=== PATIENT | female | born 1945 | race Caucasian/White ===

== ENCOUNTER → 2017-01-27 | Outpatient (CLI) | payer BC ==
[~2017-01-27] MED LIST: AMLO10TA4 PO; ASCA500 PO; ASCO10003 PO; ASPI325T39 PO; CEPH500C PO; CHOL100010 PO; CIPR0.3S OP; CYAN100020 PO; FOLI1TAB7 PO; GING1CAP PO; HYZ/10015 PO; LEVO100T35 PO; LEVO100T7 PO; LEVO88TA3 PO; METF500T PO; MISCCAP8 PO
--- NOTE | 2017-01-28 16:13 | MAMMOGRAPHY REPORT ---
BILATERAL DIGITAL SCREENING MAMMOGRAM WITH CAD: 01/27/2017 CLINICAL HISTORY: Routine screening. Patient has no complaints. TECHNIQUE: Bilateral CC, MLO and repeat MLO views were obtained. Current study was also evaluated wi th a Computer Aided Detection (CAD) system. COMPARISON: Comparison is made to exams dated: 01/27/2016 mammogram, 01/23/2015 mammogram, 01/18/2014 ma mmogram, 01/16/2013 mammogram, 01/13/2012 mammogram, and 12/15/2010 mammogram - [facility] er. BREAST COMPOSITION: There are scattered areas of fibroglandular density in both breasts. FINDINGS: There are scattered benign-appearing microcalcifications in the breasts. No new suspicious mass, architectural distortion or cluster of microcalcifications is seen. IMPRESSION: ACR BI-RADS CATEGORY 1: NEGATIVE There is no mammographic evidence of malignancy. A 1 year screening mammogram is recommended. The pa tient will receive written notification of the results. Approximately 10% of breast cancers are not detected with mammography. A negative mammographic report should not delay biopsy if a clinically suggestive mass is present. Rose Aguilar M.D. ay/:01/27/2017 12:17:31 Rv Detailer: Angie TYLER(Heather)(Gina), [facility] letter sent: Normal 1/2 BI-RADS Code: ACR BI-RADS Category 1: Negative
== END | disposition home or self-care (01) ==
LOC: C.MAMM 11:23
PROVIDERS: ATTEND Obstetrics & Gynecology
DX: Z12.31 Encounter for screening mammogram for malignant neoplasm of breast (principal)

== ENCOUNTER 2017-01-28 11:56 | Emergency (ER) | payer BC ==
[~2017-01-28] VITALS: Ht 152.4 cm; Wt 113.6 kg
[~2017-01-28 11:56] MED LIST changes: -ASCO10003 PO; -CEPH500C PO; -CIPR0.3S OP; -LEVO100T7 PO; -LEVO88TA3 PO; -METF500T PO
[2017-01-28 11:58] VITALS: TEMP 36.4; Ht 152.4 cm; Wt 113.6 kg
[2017-01-28] MEDS ORDERED: ASCO10003 PO (12:10)
[2017-01-28] MEDS ORDERED: CHOL100010 PO (12:11)
[2017-01-28] MEDS ORDERED: LEVO100T7 PO (12:12)
[2017-01-28] MEDS ORDERED: PROPARACAINE HCL 0.5% OP SOLN 15 ML BTL ONE (12:41)
[2017-01-28] MEDS ORDERED: CIPR0.3S OP (13:13)
[2017-01-28 13:17] VITALS: BP 158/74; PULSE 79; O2SAT 95
--- NOTE | 2017-01-30 07:21 | EMERGENCY ROOM VISIT NOTE ---
ED Visit Note First contact with patient: 12:24 Chief Complaint: I have a contact stuck in my right eye. History of Present Illness: Ms. Rothman is a 72-year-old white female who ambulates into the ED complaining of a possible contact lens in her right eye. Patient reports last evening before bedtime she was removing her contacts and as she was attempting to remove the contact from the right eye she felt she lost the contact in her right eye. She reports she searched her eye for but was unsuccessful but continued to have the sensation that the contact was in the eye through the night. She reattempted today to remove the contact but was unable to find in her eye, but she continues to have a foreign body sensation of the eye. She has not identified any aggravating or alleviating factors related to the sensations. She has not taken any medications for these sensations. She reports she has been having some tearing of the eye and has noted some mild orbital swelling. She denies headaches, eye pain, light sensitivity, nausea/ vomiting. Review of Systems: As noted above in history of present illness. Past Medical History: Hypertension, hypothyroidism, status post bilateral knee arthroplasties. Current Medications: Medications Dose Route/Sig Max Daily Dose Days Date Category Levothyroxine Sodium 100 Mcg Tab 100 Mcg PO DAILY 90 01/28/17 Reported Vitamin D (Cholecalciferol) 1,000 Unit Tab 1,000 Units PO DAILY 01/28/17 Reported Vitamin C (Ascorbic Acid) 1,000 Mg Tab 1,000 Mg PO DAILY 01/28/17 Reported Tart Story Advanced [place] [place] 1 Cap Cap 1 Cap PO DAILY 09/15/15 Reported Saumya (Saumya (Zingiber Officinalis)) 500 Mg Cap 2 Cap PO DAILY 09/15/15 Reported Aspirin Ec (Aspirin) 325 Mg Tab 650 Mg PO DAILY 09/15/15 Reported Folvite (Folic Acid) 1 Mg Tab 1 Mg PO DAILY 09/15/15 Reported Vitamin B12 (Cyanocobalamin) 1,000 Mcg Tab 1 Tab PO DAILY 09/15/15 Reported Hyzaar 25MG/100MG (HCTZ/Losartan Potassium) 1 Ea Tab 1 Tab PO DAILY 01/17/12 Reported Norvasc (Amlodipine Besylate) 10 Mg Tab 10 Mg PO DAILY 01/17/12 Reported Allergies to Medications: Bacitracin, latex, neomycin, polymyxin B, bacitracin, sulfabenzamide, sulfacetamide, sulfathiazole. Social History: Patient is not employed; she feels safe in her home environment ; she denies tobacco and alcohol use. Physical Examination: Vital Signs: Date Time Temp Pulse Resp B/P (MAP) Pulse Ox O2 Delivery O2 Flow Rate FiO2 01/28/17 13:17 79 18 158/74 95 Room Air 01/28/17 11:58 36.4 94 20 176/74 95 Room Air GENERAL: 72-year-old female in no acute distress, nontoxic-appearing, afebrile and hemodynamically stable. Patient is mildly anxious. NEUROLOGICAL: Awake, alert and oriented to person, place and time. Answering questions appropriately and following commands. Normal gait. Good hand eye coordination. SKIN: Warm, dry and pink. No soft tissue eruptions or trauma noted. HEENT: Atraumatic and normocephalic. Mild swelling without erythema preorbital area on the right. The skin does not appear cellulitic and is not hot to the touch. PERRLA. EOMI without nystagmus. Sclera is white and conjunctivae this pink without drainage. No foreign bodies were noted under the eyelids are embedded in the cornea. Anterior chamber is clear. With staining and slit lamp examination no foreign bodies; contact lenses, were found. She had 2 small corneal abrasions; one at the 12 o'clock position and one at the 7 o'clock position. ED Course: Patient is assessed as noted above. Patient's medications list was reviewed. Alcaine was used to anesthetize the eyes for examination. Patient's case was reviewed with Dr. Tillman; he independently assessed the patient we agreed on diagnostic approach, treatment, disposition and plan. Patient was educated about today's findings and instructed on her treatment plan ; she verbalizes understanding and agreement with this plan. Clinical Impression: Left corneal abrasions. Decision-Making: Initially my differential diagnosis I considered foreign body, corneal abrasion and other causes. Disposition: Patient discharged home in stable condition; prior to discharge she was reassessed and subjectively reported she was pain and symptom-free. Plan: Patient was encouraged use 650 mg of acetaminophen every 6 hours as needed for pain. Patient was prescribed Ciloxan ophthalmic drops and instructed on their use. Patient was encouraged to avoid contact use for the next 10 days. 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 Patient was encouraged return the ED sooner for uncontrolled pain, visual changes, headaches, vomiting, fevers or any new/concerning symptoms.
--- NOTE | 2017-02-01 11:45 | EDITING REQUIRED CODING QUERY ---
CODING QUERY To promote full compliance with coding requirements relating to patient care, provider participation is requested in all cases of rehab/pre vocational counselor uncertainty. Please assist us with the question(s) below: Coding Question(s): ED note states pt had feeling of foreign body in right eye. Final Impression states Corneal Abrasion of LEFT eye. Please clarify which eye is correct. Physician's Response(s): Corneal Abrasion Right Eye Thank you Johanne Horowitz Principal Diagnosis: "_that condition established after study, to be chiefly responsible for occasioning the admission of the patient to the hospital for care." Co-Existing Principal Diagnosis: "_when two or more diagnoses equally meet the criteria for principal diagnosis as determined by the circumstances of admission, diagnostic work up, and/or therapy provided, and the Alphabetic Index, Tabular List, or another coding guideline does not provide sequencing direction, any one of the diagnoses may be sequenced first." "When the physician has documented what appears to be a current diagnosis in the body of the record, but has not included the diagnosis in the final diagnostic statement, the physician should be asked whether the diagnosis should be added." (Source Coding [facility] 2 QTR90. p3-4)
== END 2017-01-28 13:24 | disposition home or self-care (01) ==
LOC: C.EDB 11:57 → C.EDD 13:24
DX: S05.01XA Injury of conjunctiva and corneal abrasion without foreign body, right eye, initial encounter (principal); X58.XXXA Exposure to other specified factors, initial encounter; I10 Essential (primary) hypertension; E03.9 Hypothyroidism, unspecified; Z96.653 Presence of artificial knee joint, bilateral

== ENCOUNTER → 2017-03-09 | Outpatient (CLI) | payer BC ==
[~2017-03-09] MED LIST changes: -ASCA500 PO; +ASCO10003 PO; +CEPH500C PO; -LEVO100T35 PO; +LEVO100T7 PO; +LEVO88TA3 PO; +METF500T PO
[2017-03-09 15:40] LABS: BASO % 1.3 %; BASO ABS # 0.15 K/uL (0-0.2); COMPLETE YES; EOS % 4.9 %; HEMATOCRIT 39.1 % (37-47); IG% 0.7 %; LYMPH % 20.6 %; LYMPH ABS # 2.42 K/uL (1.2-3.4); MEAN CELL VOLUME 88.1 fL (80-100); MEAN CORPUSCULAR HGB CONC 30.7 g/dl (32-36); MEAN PLATELET VOLUME 10.9 fL (7.4-10.4); MONO % 4.3 %; NEUT % 68.2 %; PLATELET COUNT 256 K/uL (130-400); RED BLOOD COUNT 4.44 M/uL (4.2-5.4); WHITE BLOOD COUNT 11.73 K/uL (4.8-10.8)
[2017-03-09 15:49] LABS: ALT/SGPT 58 U/L (12-78); AST/SGOT 41 U/L (15-37); BLOOD UREA NITROGEN 23 mg/dl (7-18); BUN/CREATININE RATIO 19.3 (10-20); CALCIUM 9.3 mg/dl (8.5-10.1); CARBON DIOXIDE 28 mmol/L (21-32); CHLORIDE 100 mmol/L (98-107); GLUCOSE 318 mg/dl (70-99); POTASSIUM 4.2 mmol/L (3.5-5.1); SODIUM 137 mmol/L (136-145)
[2017-03-09 15:52] LABS: CHOLESTEROL 214 mg/dl (0-200); CHOLESTEROL/HDL RATIO 4.1; HDL CHOLESTEROL 52 mg/dl; LDL CHOLESTEROL CALCULATED 91 mg/dl; TRIGLYCERIDES 354 mg/dl (0-150); VERY LOW DENSITY LIPOPROT CALC 71 mg/dl
[2017-03-09 16:00] LABS: ALKALINE PHOSPHATASE 82 U/L (45-117); BETA-HYDROXYBUTYRATE 1.93 mg/dL (0.2-2.81); THYROID STIMULATING HORMONE 0.104 uIu/ml (0.300-4.500)
== END | disposition home or self-care (01) ==
LOC: C.LAB1850 14:20
PROVIDERS: ATTEND Physician Assistant
DX: E03.9 Hypothyroidism, unspecified (principal); I10 Essential (primary) hypertension; E78.5 Hyperlipidemia, unspecified

== ENCOUNTER → 2017-04-05 | Outpatient (CLI) | payer BC | END | disposition home or self-care (01) | LOC: C.RDSM 07:00 | PROVIDERS: ATTEND Physical Medicine & Rehabilitation Sports Medicine | DX: M17.9 Osteoarthritis of knee, unspecified (principal) ==

== ENCOUNTER → 2017-04-21 | Outpatient (CLI) | payer BC | END | disposition home or self-care (01) | LOC: C.LAB1850 12:44 | PROVIDERS: ATTEND Physician Assistant | DX: E03.9 Hypothyroidism, unspecified (principal) ==

== ENCOUNTER 2017-05-08 19:33 | Emergency (ER) | payer BC ==
[~2017-05-08 19:33] MED LIST changes: -CEPH500C PO; -LEVO88TA3 PO; -METF500T PO
[2017-05-08 19:36] VITALS: TEMP 37.1; Ht 152.4 cm
[2017-05-08] MEDS ORDERED: CEFAZOLIN SOD 1000MG/55 ML D5W IV STA (20:18)
--- NOTE | 2017-05-08 20:36 | EMERGENCY ROOM VISIT NOTE ---
History Report prepared by Malik: Javier Villafana Under the Supervision of: Dr. Gloria Luu D.O. First contact with patient: 20:08 Chief Complaint: SWELLING TO EXTREMITY Stated Complaint: RT LEG SWELLING,HX KNEE REPLACEMENT History of Present Illness The patient is a 72 year old female who presents to the Emergency Room with complaints of worsening right leg swelling and redness for the past couple of days. The patient states that she was sick earlier in the week with chills, vomiting, fever, diaphoresis, though this has since resolved. She denies any recent traumas, pain, dry skin, or scratches. She states that she has a history of a knee replacement in that knee. She denies any history of cellulitis or MRSA , and she states that she is prediabetic. The patient states that she takes aspirin, blood pressure medication, and thyroid medication. Source of History: patient Onset: a couple of days ago Position: leg (right) Quality: other (swelling) Timing: worsening Note: Associated symptoms: redness Review of Systems See HPI for pertinent positives & negatives. A total of 10 systems reviewed and were otherwise negative. Past Medical & Surgical Medical Problems: (1) Hyperlipidemia (2) Hypertension (3) Osteoarthritis Surgical Problems: (1) History of knee replacement Family History Heart disease Social History Smoking Status: Never Smoker Alcohol Use: occasionally Marital Status: single Occupation Status: retired Current/Historical Medications Scheduled Amlodipine Besylate (Norvasc), 10 MG PO DAILY Ascorbic Acid (Vitamin C), 1,000 MG PO DAILY Aspirin (Aspirin Ec), 650 MG PO DAILY Cephalexin Monohydrate (Keflex), 500 MG PO QID Cholecalciferol (Vitamin D), 1,000 UNITS PO DAILY Cyanocobalamin (Vitamin B12), 1,000 MCG PO DAILY Folic Acid (Folvite), 1 MG PO DAILY Saumya (Zingiber Officinalis) (Saumya), 1,000 MG PO DAILY Hctz/Losartan (Hyzaar 25MG/100MG), 1 TAB PO DAILY Levothyroxine Sodium (Levothyroxine Sodium), 88 MCG PO DAILY Metformin Hcl (Glucophage), 1 TAB PO BID Misc Natural Products (Tart Story Advanced), 1 CAP PO DAILY Allergies Coded Allergies: Animal Dander (Unverified Allergy, Intermediate, congestion, 01/28/17) POLLEN (Unverified Allergy, Mild, sneezing, 01/28/17) Bacitracin (Verified Allergy, Unknown, ?, 01/28/17) Latex1 -Allergic Contact Dermititis (Verified Allergy, Unknown, blisters skin, 01/28/17) Neomycin (Verified Allergy, Unknown, ?, 01/28/17) Polymyxin B (Verified Allergy, Unknown, ?, 01/28/17) Sulfabenzamide (Verified Allergy, Unknown, ?, 01/28/17) Sulfacetamide (Verified Allergy, Unknown, ?, 01/28/17) Sulfathiazole (Verified Allergy, Unknown, ?, 01/28/17) Physical Exam Vital Signs Date Time Temp Pulse Resp B/P (MAP) Pulse Ox O2 Delivery O2 Flow Rate FiO2 05/09/17 01:04 91 155/74 97 05/08/17 22:30 88 20 142/72 Room Air 05/08/17 19:36 37.1 94 20 145/66 96 Room Air Physical Exam GENERAL: alert, well appearing, well nourished, no distress, non-toxic EYE EXAM: normal conjunctiva, PERRL and EOM's grossly intact OROPHARYNX: no exudate, no erythema, lips, buccal mucosa, and tongue normal and mucous membranes are moist NECK: supple, no nuchal rigidity, no adenopathy, non-tender LUNGS: Clear to auscultation. Normal chest wall mechanics HEART: no murmurs, S1 normal and S2 normal ABDOMEN: Obese, abdomen soft, non-tender, normo-active bowel sounds, no masses, no rebound or guarding. BACK: Back is symmetrical on inspection and there is no deformity, no midline tenderness, no CVA tenderness. SKIN: no rashes and no bruising UPPER EXTREMITIES: upper extremities are grossly normal. LOWER EXTREMITIES: Right lower extremity has nearly circumferential erythema and slightly increased edema which is more than the left. Mildly warm. Normal pulses. Erythema ascends proximally along the medial aspect of the right lower extremity but does not reach the peroneum. No vesicles. No sloughing. No blisters. No petechiae. NEURO EXAM: Normal sensorium, cranial nerves II-XII intact, normal speech, no weakness of arms, no weakness of legs. Gross sensation intact. Medical Decision & Procedures ER Provider Diagnostic Interpretation: Radiology results have been interpreted by the radiologist and reviewed by me. US VENOUS RIGHT LOWER EXTREMITY: No evidence of deep venous thrombosis in the right lower extremity. Vessels not well visualized due to calf edema. Laboratory Results 05/08/17 20:45 Red Blood Count 4.26, Mean Corpuscular Volume 88.0, Mean Corpuscular Hemoglobin 29.6, Mean Corpuscular Hemoglobin Concent 33.6, Mean Platelet Volume 10.2, Neutrophils (%) (Auto) 72.9, Lymphocytes (%) (Auto) 16.3, Monocytes (%) (Auto) 6.8, Eosinophils (%) (Auto) 2.6, Basophils (%) (Auto) 0.6, Neutrophils # (Auto) 10.50, Lymphocytes # (Auto) 2.35, Monocytes # (Auto) 0.98, Eosinophils # (Auto) 0.37, Basophils # (Auto) 0.09 05/08/17 20:45 Test 05/08/17 20:45 05/08/17 23:49 White Blood Count 14.41 K/uL (4.8-10.8) Red Blood Count 4.26 M/uL (4.2-5.4) Hemoglobin 12.6 g/dL (12.0-16.0) Hematocrit 37.5 % (37-47) Mean Corpuscular Volume 88.0 fL (80-100) Mean Corpuscular Hemoglobin 29.6 pg (25-34) Mean Corpuscular Hemoglobin Concent 33.6 g/dl (32-36) Platelet Count 285 K/uL (130-400) Mean Platelet Volume 10.2 fL (7.4-10.4) Neutrophils (%) (Auto) 72.9 % Lymphocytes (%) (Auto) 16.3 % Monocytes (%) (Auto) 6.8 % Eosinophils (%) (Auto) 2.6 % Basophils (%) (Auto) 0.6 % Neutrophils # (Auto) 10.50 K/uL (1.4-6.5) Lymphocytes # (Auto) 2.35 K/uL (1.2-3.4) Monocytes # (Auto) 0.98 K/uL (0.11-0.59) Eosinophils # (Auto) 0.37 K/uL (0-0.5) Basophils # (Auto) 0.09 K/uL (0-0.2) RDW Standard Deviation 47.0 fL (36.4-46.3) RDW Coefficient of Variation 14.6 % (11.5-14.5) Immature Granulocyte % (Auto) 0.8 % Immature Granulocyte # (Auto) 0.12 K/uL (0.00-0.02) Anion Gap 13.0 mmol/L (3-11) Estimated GFR () 39.9 Estimated GFR (Non- 34.4 BUN/Creatinine Ratio 18.7 (10-20) Calcium Level 9.7 mg/dl (8.5-10.1) Total Bilirubin 0.3 mg/dl (0.2-1) Direct Bilirubin 0.1 mg/dl (0-0.2) Aspartate Amino Transf (AST/SGOT) 29 U/L (15-37) Alanine Aminotransferase (ALT/SGPT) 39 U/L (12-78) Alkaline Phosphatase 103 U/L (45-117) Total Protein 8.3 gm/dl (6.4-8.2) Albumin 3.4 gm/dl (3.4-5.0) Triglycerides Level 348 mg/dl (0-150) Cholesterol Level 223 mg/dl (0-200) HDL Cholesterol 43 mg/dl LDL Cholesterol, Calculated 110 mg/dl VLDL Cholesterol, Calculated 70 mg/dl Cholesterol/HDL Ratio 5.2 Beta-Hydroxybutyric Acid 1.34 mg/dL (0.2-2.81) Bedside Glucose 247 mg/dl (70-90) Laboratory results per my review. Medications Administered Medications (Trade) Dose Ordered Sig/Tomasa Route Start Time Stop Time Status Last Admin Dose Admin Cefazolin Sodium (Ancef 1000mg/55 ml D5W) 1,000 mg NOW STAT IV 05/08/17 20:18 05/08/17 20:21 DC 05/08/17 20:45 1,000 MG Sodium Chloride 1,000 ml @ 999 mls/hr Q1H1M STAT IV 05/08/17 21:59 05/08/17 22:59 DC 05/08/17 22:30 999 MLS/HR Insulin Human Regular (novoLIN-R U-100 PER UNIT) 4 units NOW STAT IV 05/08/17 21:59 05/08/17 22:00 DC 05/08/17 22:35 4 UNITS Metformin HCl (Glucophage Tab) 500 mg NOW STAT PO 05/09/17 00:30 05/09/17 00:31 DC 05/09/17 00:56 500 MG Cephalexin Monohydrate (Keflex 500MG Home Pack) 1 homepack NOW ONCE PO 05/09/17 00:45 05/09/17 00:46 DC 05/09/17 00:56 1 HOMEPACK ED Course 2007: The patient was evaluated in room B6. A complete history and physical exam was performed. 2018: Cefazolin Sodium 1000mg IV 2159: Insulin Human Regular 4 units IV, Sodium Chloride 1000 ml @ 999 mls/hr IV 2359 I updated the patient on the findings, and her sugar was better. I discussed that she is actually diabetic and not prediabetic. We are going to get materials for her for diabetes education. 0028: I discussed with case management to get the patient close outpatient diabetes management and education. The patient will be discharged home. 0030: Glucophage Tab 500mg PO 0045: Cephalexin Monohydrate 1 homepack PO Medical Decision Differential diagnosis: Etiologies such as cellulitis, abscess, MRSA infection, DVT, necrotizing fasciitis, dermatitis, drug eruption, as well as others were entertained.. Examination patient's lower extremity consistent with cellulitis. Patient also found to have a new diagnosis of diabetes. Discussed with patient and medications of this diagnosis, need for close follow-up, and case management was involved to help arrange close outpatient follow-up as well as diabetes education. Patient started on metformin here following additional labs, LFTs unremarkable. Lipid panel hemoglobin A1c added also. No evidence of bacteremia /sepsis. Patient given first dose of antibiotics to the IV provided with a home pack, and prescription otherwise sent to pharmacy. Discussed with her symptoms to watch and return for regarding the cellulitis, close follow-up regarding with the cellulitis as well as the diabetes, hydration, diabetic diet , as patient admits to eating a candy bar and having soda earlier today. No evidence of DKA. Patient verbalized understanding of all this was agreeable with plan. Patient was well-appearing at discharge and related with a steady gait, tolerating by mouth, stable vital signs. Mild renal insufficiency noted, this was discussed with patient also, likely related to current medications and dehydration. Discussed this with need to be rechecked as an outpatient by her family doctor. Medication Reconcilliation Current Medication List: was personally reviewed by me Blood Pressure Screening Patient's blood pressure: Elevated blood pressure Blood pressure disposition: Elevated BP felt to be situational Impression Primary Impression: Cellulitis Additional Impressions: Diabetes Hyperglycemia Renal insufficiency Scribe Attestation The scribe's documentation has been prepared under my direction and personally reviewed by me in its entirety. I confirm that the note above accurately reflects all work, treatment, procedures, and medical decision making performed by me. Departure Information Dispostion Home / Self-Care Prescriptions Metformin Hcl (GLUCOPHAGE) 500 Mg Tab 1 TAB PO BID for 30 Days, #60 TAB Prov: Gloria Luu, DO 05/09/17 Cephalexin Monohydrate (Keflex) 500 Mg Cap 500 MG PO QID, #28 CAP Prov: Gloria Luu, DO 05/09/17 Referrals RV. Delacruz MD (PCP) Forms HOME CARE DOCUMENTATION FORM, IMPORTANT VISIT INFORMATION, WORK / SCHOOL INSTRUCTIONS Patient Instructions My [facility] Additional Instructions Please take the antibiotics 4 times a day as prescribed. Please make sure you' re drinking plenty of water. Please start taking the new medication for your sugar twice a day as prescribed. Please follow up closely with your family doctor. Our case hardener has begun making arrangements for you to have additional education regarding your diabetes including your diet as well as checking your blood sugar daily. If the redness on your leg appears to be getting worse, spreading further, you develop blisters, sloughing of the skin, areas of bruising or small purple dots, develop fevers, vomiting, dizziness, abdominal pain, chest pain, trouble breathing, or you've any other new concerns , please return the emergency room immediately. Please have your family doctor recheck your blood sugar and kidney numbers as they were abnormal. Please drink water. Do not drink soda/coffee. Please avoid sweets/dessert as this will elevate your blood sugar also. Problem Qualifiers Primary Impression: Cellulitis Site of cellulitis: extremity Site of cellulitis of extremity: lower extremity Laterality: right Qualified Codes: L03.115 - Cellulitis of right lower limb Additional Impressions: Diabetes Diabetes mellitus type: type 2 Diabetes mellitus complication status: without complication Diabetes mellitus shelter insulin use: without long goods drier use Qualified Codes: E11.9 - Type 2 diabetes mellitus without complications
[2017-05-08] MEDS ORDERED: LEVO88TA3 PO (20:53)
[2017-05-08 21:04] LABS: BASO % 0.6 %; BASO ABS # 0.09 K/uL (0-0.2); COMPLETE YES; EOS % 2.6 %; HEMATOCRIT 37.5 % (37-47); IG% 0.8 %; LYMPH % 16.3 %; LYMPH ABS # 2.35 K/uL (1.2-3.4); MEAN CORPUSCULAR HEMOGLOBIN 29.6 pg (25-34); MEAN CORPUSCULAR HGB CONC 33.6 g/dl (32-36); MEAN PLATELET VOLUME 10.2 fL (7.4-10.4); MONO % 6.8 %; NEUT % 72.9 %; PLATELET COUNT 285 K/uL (130-400); RED BLOOD COUNT 4.26 M/uL (4.2-5.4); WHITE BLOOD COUNT 14.41 K/uL (4.8-10.8)
[2017-05-08 21:55] LABS: BLOOD UREA NITROGEN 28 mg/dl (7-18); BUN/CREATININE RATIO 18.7 (10-20); CALCIUM 9.7 mg/dl (8.5-10.1); CARBON DIOXIDE 26 mmol/L (21-32); CHLORIDE 94 mmol/L (98-107); GLUCOSE 376 mg/dl (70-99); POTASSIUM 3.4 mmol/L (3.5-5.1); SODIUM 133 mmol/L (136-145)
[2017-05-08] MEDS ORDERED: NovoLIN-R INSULIN PER UNIT CHARGE IV STA (21:59)
[2017-05-08] MEDS ORDERED: SODIUM CHLORIDE 0.9% 1000ML 1,000 ML IV STA (21:59)
[2017-05-08 22:24] LABS: BETA-HYDROXYBUTYRATE 1.34 mg/dL (0.2-2.81)
[2017-05-09 00:23] LABS: ALKALINE PHOSPHATASE 103 U/L (45-117); ALT/SGPT 39 U/L (12-78); AST/SGOT 29 U/L (15-37)
[2017-05-09] MEDS ORDERED: METFORMIN HCL 500 MG TAB PO STA (00:30)
[2017-05-09] MEDS ORDERED: METF500T PO (00:36)
[2017-05-09] MEDS ORDERED: CEPH500C PO (00:36)
[2017-05-09] MEDS ORDERED: CEPHALEXIN 500MG HOME PACK 1 EA BTL PO ONE (00:45)
[2017-05-09 00:57] LABS: CHOLESTEROL 223 mg/dl (0-200); CHOLESTEROL/HDL RATIO 5.2; HDL CHOLESTEROL 43 mg/dl; LDL CHOLESTEROL CALCULATED 110 mg/dl; TRIGLYCERIDES 348 mg/dl (0-150); VERY LOW DENSITY LIPOPROT CALC 70 mg/dl
[2017-05-09 01:04] VITALS: BP 155/74; PULSE 91; O2SAT 97
--- NOTE | 2017-05-09 05:56 | DIAGNOSTIC IMAGING REPORT ---
R VENOUS DOPP LOWER EXT UNILAT CLINICAL HISTORY: edema pain TECHNIQUE: Venous Doppler COMPARISON STUDY: None FINDINGS: Normal venous Doppler right leg IMPRESSION: Normal venous Doppler right leg The above report was generated using voice recognition software. It may contain grammatical, syntax or spelling errors. Electronically signed by: Duy Salazar M.D. 05/09/2017 5:55 AM Dictated Date/Time: 05/09/2017 5:54 AM
[2017-05-10 06:57] LABS: ESTIMATED AVERAGE GLUCOSE 258 mg/dl; HA1C FLAG Normal (Normal)
== END 2017-05-09 01:05 | disposition home or self-care (01) ==
LOC: C.EDB 19:34
DX: L03.115 Cellulitis of right lower limb (principal); E11.65 Type 2 diabetes mellitus with hyperglycemia; N28.9 Disorder of kidney and ureter, unspecified; I10 Essential (primary) hypertension; E78.5 Hyperlipidemia, unspecified; M19.90 Unspecified osteoarthritis, unspecified site; Z96.659 Presence of unspecified artificial knee joint; Z79.82 Long term (current) use of aspirin; Z79.84 Long term (current) use of oral hypoglycemic drugs; Z79.899 Other long term (current) drug therapy; Z88.2 Allergy status to sulfonamides; Z88.8 Allergy status to other drugs, medicaments and biological substances; Z91.040 Latex allergy status; Z91.09 Other allergy status, other than to drugs and biological substances; Z82.49 Family history of ischemic heart disease and other diseases of the circulatory system

== ENCOUNTER → 2017-05-18 | Outpatient (CLI) | payer BC ==
[~2017-05-18] VITALS: Ht 152.4 cm
[~2017-05-18] MED LIST changes: +CEPH500C PO; -LEVO100T7 PO; +LEVO88TA3 PO; +METF500T PO
[2017-05-18 14:26] VITALS: Ht 152.4 cm
== END | disposition home or self-care (01) ==
LOC: C.NRED 10:26
PROVIDERS: ATTEND Internal Medicine
DX: E11.9 Type 2 diabetes mellitus without complications (principal)

== ENCOUNTER → 2017-08-19 | Outpatient (CLI) | payer BC ==
[~2017-08-19] MED LIST changes: -FOLI1TAB7 PO; +FOLI1TAB8 PO; +OXYC1TAB3 PO; +TAMS0.4C38 PO
== END | disposition home or self-care (01) ==
LOC: C.NRED 13:53
PROVIDERS: ATTEND Internal Medicine
DX: E11.9 Type 2 diabetes mellitus without complications (principal)

== ENCOUNTER → 2017-09-14 | Outpatient (CLI) | payer BC ==
[~2017-09-14] MED LIST changes: -OXYC1TAB3 PO; -TAMS0.4C38 PO
[2017-09-14 12:03] LABS: BASO % 1.3 %; BASO ABS # 0.16 K/uL (0-0.2); EOS % 6.4 %; EOS ABS # 0.78 K/uL (0-0.5); HEMATOCRIT 37.1 % (37-47); HEMOGLOBIN 11.8 g/dL (12.0-16.0); IG# 0.06 K/uL (0.00-0.02); LYMPH % 22.9 %; LYMPH ABS # 2.78 K/uL (1.2-3.4); MEAN CELL VOLUME 85.1 fL (80-100); MEAN CORPUSCULAR HEMOGLOBIN 27.1 pg (25-34); MEAN CORPUSCULAR HGB CONC 31.8 g/dl (32-36); MEAN PLATELET VOLUME 10.7 fL (7.4-10.4); MONO % 6.2 %; MONO ABS # 0.75 K/uL (0.11-0.59); NEUT % 62.7 %; NEUT ABS # 7.62 K/uL (1.4-6.5); PLATELET COUNT 261 K/uL (130-400); RED CELL DISTRIBUTION WIDTH CV 15.1 % (11.5-14.5); RED CELL DISTRIBUTION WIDTH SD 46.6 fL (36.4-46.3); WHITE BLOOD COUNT 12.15 K/uL (4.8-10.8)
[2017-09-14 13:18] LABS: HEMOGLOBIN A1C 7.3 % (4.5-5.6)
[2017-09-14 13:37] LABS: ALBUMIN 3.7 gm/dl (3.4-5.0); ALT/SGPT 28 U/L (12-78); BLOOD UREA NITROGEN 24 mg/dl (7-18); CALCIUM 9.3 mg/dl (8.5-10.1); CARBON DIOXIDE 27 mmol/L (21-32); CHOLESTEROL 207 mg/dl (0-200); GLUCOSE 175 mg/dl (70-99); POTASSIUM 3.9 mmol/L (3.5-5.1); SODIUM 138 mmol/L (136-145)
[2017-09-14 13:48] LABS: ALKALINE PHOSPHATASE 69 U/L (45-117); AST/SGOT 15 U/L (15-37); LDL CHOLESTEROL CALCULATED 101 mg/dl; TOTAL PROTEIN 7.5 gm/dl (6.4-8.2)
== END | disposition home or self-care (01) ==
LOC: C.LAB1850 11:12
PROVIDERS: ATTEND Internal Medicine
DX: E11.65 Type 2 diabetes mellitus with hyperglycemia (principal); D72.829 Elevated white blood cell count, unspecified; G62.9 Polyneuropathy, unspecified; E03.9 Hypothyroidism, unspecified; Z11.59 Encounter for screening for other viral diseases

== ENCOUNTER 2017-09-24 11:30 | Emergency (ER) | payer BC ==
[~2017-09-24] VITALS: Ht 152.4 cm; Wt 106.6 kg
[2017-09-24 11:34] VITALS: TEMP 36.8; Ht 152.4 cm; Wt 106.6 kg
[2017-09-24] MEDS ORDERED: SODIUM CHLORIDE 0.9% 1000ML 1,000 ML IV STA (11:42)
[2017-09-24] MEDS ORDERED: ONDANSETRON INJ 2 MG/ML 2 ML VIAL IV STA (11:42)
[2017-09-24] MEDS ORDERED: KETOROLAC TROMETHAMINE 30 MG/ML VIAL IV STA (11:42)
--- NOTE | 2017-09-24 11:52 | EMERGENCY ROOM VISIT NOTE ---
History Report prepared by Malik: Nae Roldan Under the Supervision of: Haven JonO. First contact with patient: 11:38 Chief Complaint: FLANK PAIN Stated Complaint: BACK PAIN History of Present Illness The patient is a 72 year old female who presents to the Emergency Room with complaints of persistent left flank pain. The patient has a history of kidney stones but has not had a kidney stone approximately 20 years. She states that she noticed an acute onset of left flank pain approximately 3:00 this morning. She denies having any trauma. She did not take any medications for pain. She did not see her family doctor for these symptoms. The patient states the pain was moderate to severe. It is not worsened with movement. It does not radiate to the groin. She does not notice any rash over the flank or the abdomen. She denies having any chest pain or shortness of breath. She denies having any swelling in the legs. The patient states the pain is somewhat improved at this time. Source of History: patient Onset: 0300 Position: other (left flank) Symptom Intensity: moderate to severe Quality: other (left flank pain) Timing: other (persistent) Associated Symptoms: No chest pain, No SOB Note: The patient denies having her pain radiate to the groin, rash over the flank or the abdomen, or having any swelling in the legs. Review of Systems See HPI for pertinent positives & negatives. A total of 10 systems reviewed and were otherwise negative. Past Medical & Surgical Medical Problems: (1) Hyperlipidemia (2) Hypertension (3) Osteoarthritis Surgical Problems: (1) History of knee replacement Family History Heart disease Social History Smoking Status: Never Smoker Alcohol Use: occasionally Marital Status: single Occupation Status: retired Current/Historical Medications Scheduled Amlodipine Besylate (Norvasc), 10 MG PO DAILY Ascorbic Acid (Vitamin C), 1,000 MG PO DAILY Aspirin (Aspirin Ec), 650 MG PO DAILY Cholecalciferol (Vitamin D), 1,000 UNITS PO DAILY Cyanocobalamin (Vitamin B12), 1,000 MCG PO DAILY Folic Acid (Folvite), 1 MG PO DAILY Saumya (Zingiber Officinalis) (Saumya), 1,000 MG PO DAILY Hctz/Losartan (Hyzaar 25MG/100MG), 1 TAB PO DAILY Levothyroxine Sodium (Levothyroxine Sodium), 88 MCG PO DAILY Metformin Hcl (Glucophage), 1 TAB PO BID Misc Natural Products (Tart Story Advanced), 1 CAP PO DAILY Tamsulosin Hcl (Flomax), 0.4 MG PO DAILY Scheduled PRN Oxycodone Immediate Rel Tab (Roxicodone Ir), 1-2 TAB PO Q4H PRN for Severe Pain Allergies Coded Allergies: Animal Dander (Unverified Allergy, Intermediate, congestion, 01/28/17) POLLEN (Unverified Allergy, Mild, sneezing, 01/28/17) Bacitracin (Verified Allergy, Unknown, ?, 01/28/17) Latex1 -Allergic Contact Dermititis (Verified Allergy, Unknown, blisters skin, 01/28/17) Neomycin (Verified Allergy, Unknown, ?, 01/28/17) Polymyxin B (Verified Allergy, Unknown, ?, 01/28/17) Sulfabenzamide (Verified Allergy, Unknown, ?, 01/28/17) Sulfacetamide (Verified Allergy, Unknown, ?, 01/28/17) Sulfathiazole (Verified Allergy, Unknown, ?, 01/28/17) Physical Exam Vital Signs Date Time Temp Pulse Resp B/P (MAP) Pulse Ox O2 Delivery O2 Flow Rate FiO2 09/24/17 14:13 82 18 138/70 98 09/24/17 12:58 86 18 141/72 97 Room Air 09/24/17 11:34 36.8 109 18 180/80 99 Room Air Physical Exam GENERAL: Patient is awake and alert. She appears anxious and uncomfortable. EYES: The conjunctivae are clear. The pupils are round and reactive. EARS, NOSE, MOUTH AND THROAT: The nose is without any evidence of any deformity. Mucous membranes are moist tongue is midline NECK: The neck is nontender and supple. RESPIRATORY: Normal respiratory effort is noted there is no evidence of wheezing rhonchi or rales CARDIOVASCULAR: Regular rate and rhythm noted there no murmurs rubs or gallops normal S1 normal S2 GASTROINTESTINAL: The abdomen is soft. Bowel sounds are present in all quadrants. Abdomen is nontender BACK: No midline tenderness was noted. There is mild left CVA tenderness to percussion but range of motion appears intact. MUSCULOSKELETAL/EXTREMITIES: There is no evidence of gross deformity full range of motion is noted in the hips and shoulders SKIN: There is no obvious evidence of any rash. There are no petechiae, pallor or cyanosis noted. NEUROLOGIC: Patient is awake alert and oriented x3. Medical Decision & Procedures ER Provider Diagnostic Interpretation: Radiology results as stated below per my review and radiologist interpretation: ABDOMEN AND PELVIS CT WITHOUT CONTRAST CT DOSE: 1876.08 mGy.cm HISTORY: Acute left-sided flank pain left flank pain TECHNIQUE: Multiaxial CT images of the abdomen and pelvis were performed without contrast. A dose lowering technique was utilized adhering to the principles of ALARA. COMPARISON STUDY: CT 09/15/2015 FINDINGS: Partially imaged subsegmental consolidation of the medial segment right middle lobe suggests atelectasis with additional areas of atelectasis of the bilateral lung bases. Mosaic attenuation of the lung bases also noted suggesting areas of air trapping. There is no pneumatosis or pneumoperitoneum identified. Imaged inferior cardiac chambers are mildly enlarged with mitral annular, aortic annular and coronary arterial disease. Minimal marginal nodularity of the liver is again seen without ascites. There is no intrahepatic biliary ductal dilation. Ill-defined area of decreased attenuation measuring 1 cm in noted within the right hepatic lobe, image 32 series 2 which is unchanged and again indeterminate. Spleen, pancreas and gallbladder are unremarkable. Mild nodular thickening of the adrenal glands suggests hyperplasia. Low attenuating 4.8 cm lesion of the posterior interpolar left kidney suggests renal cyst. Bilateral nephrolithiasis with a 4 x 3 x 3 mm calculus of the mid left ureter at the level of L4 causing mild left-sided hydroureteronephrosis. No additional ureteral calculi. Urinary bladder is unremarkable. Uterus and adnexa are unremarkable for patient's age. Moderate atherosclerosis of the aorta. No pathologic adenopathy. Small sliding-type hiatal hernia. No bowel structure or focal bowel wall thickening. Moderate colonic diverticulosis without evidence of acute diverticulitis. Appendix appears noninflamed and nondilated. Fat filled periumbilical hernia, diastases 2.5 cm. Small fat filled right inguinal hernia also noted. The bones appear intact and mildly demineralized. Degenerative changes are seen within the SI joints, pubic symphysis and lumbar spine. Dextroscoliosis of the lumbar spine is noted. Multilevel severe discogenic degenerative changes and facet arthrosis. Grade 1 anterolisthesis L4 on L5 likely secondary to long-standing facet disease. IMPRESSION: 1. Mild left-sided hydroureteronephrosis secondary to a 4 x 3 x 3 mm calculus of the mid left ureter at the level of L4. Multiple additional nonobstructing nephrolithiasis are seen bilaterally, left greater than right. 2. Moderate colonic diverticulosis without diverticulitis. 3. Normal appendix. 4. Small sliding type hiatal hernia. 5. Small fat filled periumbilical and right inguinal hernias. 6. Additional findings as above. Electronically signed by: Pollo Ruiz M.D. 09/24/2017 12:18 PM Dictated Date/Time: 09/24/2017 12:09 PM Laboratory Results 09/24/17 11:50 Red Blood Count 4.52, Mean Corpuscular Volume 84.3, Mean Corpuscular Hemoglobin 27.2, Mean Corpuscular Hemoglobin Concent 32.3, Mean Platelet Volume 10.4, Neutrophils (%) (Auto) 72.5, Lymphocytes (%) (Auto) 18.1, Monocytes (%) (Auto) 4.5, Eosinophils (%) (Auto) 3.3, Basophils (%) (Auto) 0.9, Neutrophils # (Auto) 10.86, Lymphocytes # (Auto) 2.71, Monocytes # (Auto) 0.68, Eosinophils # (Auto) 0.49, Basophils # (Auto) 0.13 09/24/17 11:50 Test 09/24/17 11:50 09/24/17 13:00 White Blood Count 14.97 K/uL (4.8-10.8) Red Blood Count 4.52 M/uL (4.2-5.4) Hemoglobin 12.3 g/dL (12.0-16.0) Hematocrit 38.1 % (37-47) Mean Corpuscular Volume 84.3 fL (80-100) Mean Corpuscular Hemoglobin 27.2 pg (25-34) Mean Corpuscular Hemoglobin Concent 32.3 g/dl (32-36) Platelet Count 246 K/uL (130-400) Mean Platelet Volume 10.4 fL (7.4-10.4) Neutrophils (%) (Auto) 72.5 % Lymphocytes (%) (Auto) 18.1 % Monocytes (%) (Auto) 4.5 % Eosinophils (%) (Auto) 3.3 % Basophils (%) (Auto) 0.9 % Neutrophils # (Auto) 10.86 K/uL (1.4-6.5) Lymphocytes # (Auto) 2.71 K/uL (1.2-3.4) Monocytes # (Auto) 0.68 K/uL (0.11-0.59) Eosinophils # (Auto) 0.49 K/uL (0-0.5) Basophils # (Auto) 0.13 K/uL (0-0.2) RDW Standard Deviation 46.0 fL (36.4-46.3) RDW Coefficient of Variation 15.1 % (11.5-14.5) Immature Granulocyte % (Auto) 0.7 % Immature Granulocyte # (Auto) 0.10 K/uL (0.00-0.02) Anion Gap 7.0 mmol/L (3-11) Est Creatinine Clear Calc Drug Dose 54.0 ml/min Estimated GFR () 62.2 Estimated GFR (Non- 53.6 BUN/Creatinine Ratio 19.0 (10-20) Calcium Level 9.6 mg/dl (8.5-10.1) Total Bilirubin 0.5 mg/dl (0.2-1) Direct Bilirubin 0.1 mg/dl (0-0.2) Aspartate Amino Transf (AST/SGOT) 15 U/L (15-37) Alanine Aminotransferase (ALT/SGPT) 27 U/L (12-78) Alkaline Phosphatase 76 U/L (45-117) Total Protein 7.8 gm/dl (6.4-8.2) Albumin 3.7 gm/dl (3.4-5.0) Lipase 164 U/L (73-393) Urine Color YELLOW Urine Appearance CLEAR (CLEAR) Urine pH 6.0 (4.5-7.5) Urine Specific [place] 1.015 (1.000-1.030) Urine Protein NEG (NEG) Urine Glucose (UA) NEG (NEG) Urine Ketones NEG (NEG) Urine Occult Blood 2+ (NEG) Urine Nitrite NEG (NEG) Urine Bilirubin NEG (NEG) Urine Urobilinogen NEG (NEG) Urine Leukocyte Esterase NEG (NEG) Urine WBC (Auto) 1-5 /hpf (0-5) Urine RBC (Auto) 10-30 /hpf (0-4) Urine Hyaline Casts (Auto) 1-5 /lpf (0-5) Urine Epithelial Cells (Auto) 10-20 /lpf (0-5) Urine Bacteria (Auto) NEG (NEG) Laboratory results per my review. Medications Administered Medications (Trade) Dose Ordered Sig/Tomasa Route Start Time Stop Time Status Last Admin Dose Admin Sodium Chloride 1,000 ml @ 999 mls/hr Q1H1M STAT IV 09/24/17 11:42 09/24/17 12:42 DC 09/24/17 11:55 999 MLS/HR Ondansetron HCl (Zofran Inj) 4 mg NOW STAT IV 09/24/17 11:42 09/24/17 11:44 DC 09/24/17 11:55 4 MG Ketorolac Tromethamine (Toradol Inj) 30 mg NOW STAT IV 09/24/17 11:42 09/24/17 11:44 DC 09/24/17 11:56 30 MG ED Course 1140: The patient was evaluated in room B4. A complete history and physical examination were performed. 1142: Ordered Toradol Inj 30mg IV, Zofran Inj 4mg IV, and Sodium Chloride 1000ml @ 999 mls/hr. 1358: Upon reevaluation, the patient is resting comfortably. I discussed the results and treatment plan with her. She verbalized agreement of the treatment plan. The patient was discharged home. Medical Decision Prior records/ancillary studies reviewed. Triage Nursing notes reviewed. Differential diagnosis: Etiologies such as renal colic, appendicitis, diverticulitis, mesenteric ischemia, aortic pathology, infections, inflammatory bowel disease, PUD, biliary pathology, UTI, as well as others were entertained. The patient is a 72-year-old female who presented to the emergency department for an evaluation of flank pain. The patient has a history of kidney stones but she has not had a problem with kidney stones many years. The patient was treated with IV fluids IV pain medicine and IV antiemetics. I discussed patient 's laboratory and radiographic studies with her. She appears to have a ureteral calculus noted on CT. She was started on Flomax and encouraged to drink plenty of clear liquids. She was also encouraged to continue all medications as prescribed and follow-up with her primary care physician for further evaluation. Otherwise I encouraged her to return to the emergency department immediately if symptoms change worsen or the need arises. Medication Reconcilliation Current Medication List: was personally reviewed by me Blood Pressure Screening Patient's blood pressure: Normal blood pressure Blood pressure disposition: Did not require urgent referral Impression Primary Impression: Kidney stone Additional Impression: Left flank pain Scribe Attestation The scribe's documentation has been prepared under my direction and personally reviewed by me in its entirety. I confirm that the note above accurately reflects all work, treatment, procedures, and medical decision making performed by me. Departure Information Dispostion Home / Self-Care Prescriptions Tamsulosin Hcl (FLOMAX) 0.4 Mg Cap 0.4 MG PO DAILY, #10 CAP Prov: Ion Parmar, DO 09/24/17 Oxycodone Immediate Rel Tab (ROXICODONE IR) 5 Mg Tab 1-2 TAB PO Q4H Y for Severe Pain, #24 TAB Prov: Ion Parmar, DO 09/24/17 Referrals RV. Delacruz MD (PCP) Forms HOME CARE DOCUMENTATION FORM, IMPORTANT VISIT INFORMATION Patient Instructions My [facility] Additional Instructions Continue all medications as prescribed. Drink plenty of clear liquids. Continue using Motrin and Tylenol as directed for pain. Follow-up with your family doctor for reevaluation. Return to the emergency department immediately if symptoms change worsening the need arises. Problem Qualifiers
[2017-09-24 12:03] LABS: BASO % 0.9 %; BASO ABS # 0.13 K/uL (0-0.2); EOS % 3.3 %; EOS ABS # 0.49 K/uL (0-0.5); HEMATOCRIT 38.1 % (37-47); HEMOGLOBIN 12.3 g/dL (12.0-16.0); LYMPH % 18.1 %; LYMPH ABS # 2.71 K/uL (1.2-3.4); MEAN CELL VOLUME 84.3 fL (80-100); MEAN CORPUSCULAR HEMOGLOBIN 27.2 pg (25-34); MEAN CORPUSCULAR HGB CONC 32.3 g/dl (32-36); MEAN PLATELET VOLUME 10.4 fL (7.4-10.4); MONO % 4.5 %; MONO ABS # 0.68 K/uL (0.11-0.59); NEUT % 72.5 %; NEUT ABS # 10.86 K/uL (1.4-6.5); PLATELET COUNT 246 K/uL (130-400); RED CELL DISTRIBUTION WIDTH CV 15.1 % (11.5-14.5); WHITE BLOOD COUNT 14.97 K/uL (4.8-10.8)
--- NOTE | 2017-09-24 12:19 | DIAGNOSTIC IMAGING REPORT ---
ABDOMEN AND PELVIS CT WITHOUT CONTRAST CT DOSE: 1876.08 mGy.cm HISTORY: Acute left-sided flank pain left flank pain TECHNIQUE: Multiaxial CT images of the abdomen and pelvis were performed without contrast. A dose lowering technique was utilized adhering to the principles of ALARA. COMPARISON STUDY: CT 09/15/2015 FINDINGS: Partially imaged subsegmental consolidation of the medial segment right middle lobe suggests atelectasis with additional areas of atelectasis of the bilateral lung bases. Mosaic attenuation of the lung bases also noted suggesting areas of air trapping. There is no pneumatosis or pneumoperitoneum identified. Imaged inferior cardiac chambers are mildly enlarged with mitral annular, aortic annular and coronary arterial disease. Minimal marginal nodularity of the liver is again seen without ascites. There is no intrahepatic biliary ductal dilation. Ill-defined area of decreased attenuation measuring 1 cm in noted within the right hepatic lobe, image 32 series 2 which is unchanged and again indeterminate. Spleen, pancreas and gallbladder are unremarkable. Mild nodular thickening of the adrenal glands suggests hyperplasia. Low attenuating 4.8 cm lesion of the posterior interpolar left kidney suggests renal cyst. Bilateral nephrolithiasis with a 4 x 3 x 3 mm calculus of the mid left ureter at the level of L4 causing mild left-sided hydroureteronephrosis. No additional ureteral calculi. Urinary bladder is unremarkable. Uterus and adnexa are unremarkable for patient's age. Moderate atherosclerosis of the aorta. No pathologic adenopathy. Small sliding-type hiatal hernia. No bowel structure or focal bowel wall thickening. Moderate colonic diverticulosis without evidence of acute diverticulitis. Appendix appears noninflamed and nondilated. Fat filled periumbilical hernia, diastases 2.5 cm. Small fat filled right inguinal hernia also noted. The bones appear intact and mildly demineralized. Degenerative changes are seen within the SI joints, pubic symphysis and lumbar spine. Dextroscoliosis of the lumbar spine is noted. Multilevel severe discogenic degenerative changes and facet arthrosis. Grade 1 anterolisthesis L4 on L5 likely secondary to long-standing facet disease. IMPRESSION: 1. Mild left-sided hydroureteronephrosis secondary to a 4 x 3 x 3 mm calculus of the mid left ureter at the level of L4. Multiple additional nonobstructing nephrolithiasis are seen bilaterally, left greater than right. 2. Moderate colonic diverticulosis without diverticulitis. 3. Normal appendix. 4. Small sliding type hiatal hernia. 5. Small fat filled periumbilical and right inguinal hernias. 6. Additional findings as above. Electronically signed by: Plolo Ruiz M.D. 09/24/2017 12:18 PM Dictated Date/Time: 09/24/2017 12:09 PM
[2017-09-24 12:20] LABS: ALBUMIN 3.7 gm/dl (3.4-5.0); CALCIUM 9.6 mg/dl (8.5-10.1); CREATININE 1.04 mg/dl (0.60-1.20); POTASSIUM 4.2 mmol/L (3.5-5.1)
[2017-09-24 12:23] LABS: TOTAL PROTEIN 7.8 gm/dl (6.4-8.2)
[2017-09-24] MEDS ORDERED: TAMS0.4C38 PO (13:46)
[2017-09-24] MEDS ORDERED: OXYC1TAB3 PO (13:46)
[2017-09-24 14:13] VITALS: BP 138/70; PULSE 82; O2SAT 98
== END 2017-09-24 14:14 | disposition home or self-care (01) ==
LOC: C.EDB 11:31
DX: N20.0 Calculus of kidney (principal); R10.9 Unspecified abdominal pain; E78.5 Hyperlipidemia, unspecified; I10 Essential (primary) hypertension; M19.90 Unspecified osteoarthritis, unspecified site; Z79.82 Long term (current) use of aspirin; Z79.84 Long term (current) use of oral hypoglycemic drugs; Z79.899 Other long term (current) drug therapy; Z87.442 Personal history of urinary calculi; Z82.49 Family history of ischemic heart disease and other diseases of the circulatory system; Z88.1 Allergy status to other antibiotic agents; Z88.2 Allergy status to sulfonamides; Z88.8 Allergy status to other drugs, medicaments and biological substances; Z91.040 Latex allergy status

== ENCOUNTER → 2017-10-14 | Outpatient (CLI) | payer BC ==
[~2017-10-14] MED LIST changes: -CEPH500C PO; +OXYC1TAB3 PO
== END | disposition home or self-care (01) ==
LOC: C.PAPS 14:53
PROVIDERS: ATTEND Obstetrics & Gynecology
DX: Z12.4 Encounter for screening for malignant neoplasm of cervix (principal)

== ENCOUNTER → 2018-03-15 | Outpatient (CLI) | payer BC ==
[~2018-03-15] MED LIST changes: +OXYC-737 PO; -OXYC1TAB3 PO
[2018-03-15 13:28] LABS: BASO % 1.2 %; BASO ABS # 0.14 K/uL (0-0.2); EOS % 5.6 %; EOS ABS # 0.64 K/uL (0-0.5); HEMATOCRIT 37.3 % (37-47); HEMOGLOBIN 11.8 g/dL (12.0-16.0); IG# 0.05 K/uL (0.00-0.02); LYMPH % 21.8 %; LYMPH ABS # 2.47 K/uL (1.2-3.4); MEAN CELL VOLUME 84.6 fL (80-100); MEAN CORPUSCULAR HEMOGLOBIN 26.8 pg (25-34); MEAN CORPUSCULAR HGB CONC 31.6 g/dl (32-36); MEAN PLATELET VOLUME 11.2 fL (7.4-10.4); MONO % 6.4 %; MONO ABS # 0.73 K/uL (0.11-0.59); NEUT % 64.6 %; NEUT ABS # 7.32 K/uL (1.4-6.5); PLATELET COUNT 271 K/uL (130-400); RED CELL DISTRIBUTION WIDTH CV 15.3 % (11.5-14.5); RED CELL DISTRIBUTION WIDTH SD 47.1 fL (36.4-46.3); WHITE BLOOD COUNT 11.35 K/uL (4.8-10.8)
[2018-03-15 13:31] LABS: HEMOGLOBIN A1C 7.4 % (4.5-5.6)
[2018-03-15 13:41] LABS: ALBUMIN 3.8 gm/dl (3.4-5.0); ALKALINE PHOSPHATASE 76 U/L (45-117); ALT/SGPT 30 U/L (12-78); AST/SGOT 18 U/L (15-37); BLOOD UREA NITROGEN 21 mg/dl (7-18); CARBON DIOXIDE 27 mmol/L (21-32); CHOLESTEROL 213 mg/dl (0-200); CREATININE 0.97 mg/dl (0.60-1.20); GLUCOSE 155 mg/dl (70-99); LDL CHOLESTEROL CALCULATED 97 mg/dl; POTASSIUM 4.4 mmol/L (3.5-5.1); SODIUM 138 mmol/L (136-145); TOTAL PROTEIN 7.4 gm/dl (6.4-8.2)
== END | disposition home or self-care (01) ==
LOC: C.LAB1850 11:51
PROVIDERS: ATTEND Internal Medicine
DX: D72.829 Elevated white blood cell count, unspecified (principal); E11.65 Type 2 diabetes mellitus with hyperglycemia; E11.42 Type 2 diabetes mellitus with diabetic polyneuropathy; E03.9 Hypothyroidism, unspecified

== ENCOUNTER → 2018-04-11 | Outpatient (CLI) | payer BC ==
[~2018-04-11] MED LIST changes: -OXYC-737 PO
== END | disposition home or self-care (01) ==
LOC: C.RDSM 15:51
PROVIDERS: ATTEND Physical Medicine & Rehabilitation Sports Medicine
DX: Z96.653 Presence of artificial knee joint, bilateral (principal)

== ENCOUNTER 2020-04-19 19:11 | Inpatient (IN) ==
--- NOTE | 2020-04-19 20:06 | XRay Report ---
XR chest 1V portable HISTORY: 75 years-old Female weakness acute weakness COMPARISON: Chest radiograph 12/02/2011 TECHNIQUE: Portable AP view of the chest FINDINGS: Cardiac silhouette is enlarged, unchanged. Calcified plaque of the thoracic aortic arch. Hypoinflatio n with bronchovascular crowding. Right perihilar ovoid opacity years up to 5.4 cm. Mild right hemidia phragmatic elevation. Left basilar opacities. No pneumothorax or overt pulmonary edema. Pulmonary vas cular congestion. Degenerative changes of the shoulders and spine. IMPRESSION: 1. Cardiomegaly with pulmonary vascular congestion. 2. Ovoid opacity of the right perihilar distribution may be secondary to summation density. Airspace disease, adenopathy or lesion could appear similarly. Correlation with follow-up PA and lateral views of the chest recommended. 3. Mild left basilar densities suggest probable atelectasis. ACT 112: Negative or not required by law. The above report was generated using voice recognition software. It may contain grammatical, syntax o r spelling errors. Electronically signed by: Pollo Ruiz M.D. 04/19/2020 8:04 PM
--- NOTE | 2020-04-19 20:10 | Emergency Department Note ---
Impression & Plan Weakness, Stroke-like symptoms, Hyperglycemia ED Provider Note INFORMANT: Patient ED PROVIDER(S): Hadley Velasco MD CHIEF COMPLAINT: Weakness PLAN: Disposition: Admitted Condition: Good MEDICAL DECISION MAKING: Patient presented with weakness. This has been present all day. She has noticeable weakness in the left upper and left lower extremity. She also noted some upper thoracic back pain. She has a history of a meningioma. She underwent CT imaging to evaluate the spine but also to evaluate for neurologic cause such as stroke. Fortunately the CT imaging did not reveal any significant problems. Her CBC showed a mild elevation of her white blood cell count. Prior record review indicates patient has a chronic white blood cell count elevation. She had some mild hyperglycemia noted on chemistry, urinalysis was negative. Given the strokelike symptoms further management in the hospital will be necessary. Patient was in agreement. Consultation was made with the [facility] service. The patient was evaluated in the ER further management. Triage Nursing notes reviewed and agree them. Vital Signs: reviewed and remarkable for HTN Differential diagnosis: Infection, dehydration, metabolic abnormality, hypo/hyperglycemia, electrolyte disturbance, anemia, hypoxia, cardiac sources, intracerebral event, toxicologic, neurologic, as well as other pathologies. Diagnostics interpreted by me: ECG: Twelve-lead ECG reveals normal sinus rhythm at 93 bpm. There is low voltage QRS. Normal axis. No ST elevation or depression. No PACs or PVCs. Cardiac Monitoring: Cardiac monitoring ordered by me: The patient was placed on continuous cardiac monitoring and observed. It revealed a normal sinus rhythm at 80 beats per minute without ectopy or evidence of dysrhythmia. Imaging studies: CT imaging of the head and cervical spine was negative for acute process. 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 CT angiography of the neck revealed some moderate stenosis on the left side. No acute vessel occlusion per stat read. The patient's thoracic spine imaging revealed postsurgical changes but no acute process. Chest x-ray revealed no acute process. Round density noted per radiology. Recommended PA and lateral. Consultation(s): [facility], Dr. Jose Sanchez. HPI: The patient is a 75 year old female who presents to the Emergency Room with complaints of left sided weakness. This started this morning in the left arm and is progressed to the left leg. Prior history of T12 meningioma and concerned for similar symptoms. The patient also notes the following associated symptoms, mild neck pain, upper back/ shoulder pain. The patient has tried no medication relieving factors. Current pain is rated as 7/10. Pt denies LOC, headache, fevers, chills, diaphoresis, visual changes, chest pain, breathing difficulties, nausea, vomiting, abdominal pain, melena, hematochezia, urinary symptoms, numbness, weakness, lymphadenopathy, rash, or other complaints. ROS: See above HPI for pertinent positives & negatives. A total of 10 systems reviewed and were otherwise negative. PAST MEDICAL HISTORY:See Below, DM, HTN PAST SURGICAL HISTORY:See Below, TKR FAMILY HISTORY:See Below SOCIAL HISTORY:See Below lives alone HOME MEDICATIONS:See Below ALLERGIES:See Below VITALS:See Below PHYSICAL EXAMINATION: GENERAL: Awake, alert, well-appearing, in no distress HENT: Normocephalic, atraumatic. Oropharynx unremarkable. EYES: Normal conjunctiva. Sclera non-icteric. NECK: Inspection normal. Non-tender. Supple. No nuchal rigidity. FROM. No mas ses. RESPIRATORY: Clear to auscultation. No wheezes. No rales. Normal respiratory effort. CARDIAC: Normal rate. Normal rhythm. No murmurs. No rubs. Extremities warm and well perfused. Pulses equal. No JVD. GI: Soft, non-distended. No tenderness to palpation. No rebound or guarding. No masses. RECTAL: Deferred. MUSCULOSKELETAL: Atraumatic. Chest examination reveals no tenderness. The back is symmetrical on inspection without obvious abnormality. There is no CVA tenderness to palpation. No joint edema. LOWER EXTREMITIES: Calves are equal size bilaterally and non-tender. No edema. No discoloration. NEURO: Normal sensorium. Mild LUE and LLE weakness noted. Subjective decreased sensation on left. SKIN: No rash or jaundice noted. ED COURSE: Critical Care: None Hadley Velasco MD Past Med/Surg History Medical History (Updated 04/20/20 @ 01:52 by Hadley Velasco MD) Balance problems Decreased sensation of lower extremity Diabetes mellitus type 2, uncontrolled Elevated WBC count Gait disturbance Generalized osteoarthritis Hypothyroidism Menopause Obesity Peripheral neuropathy Pulmonary hypertension RVH (right ventricular hypertrophy) Schwannoma Thoracic intradural extramedullary tumor Well woman exam with routine gynecological exam Surgical History Hx of hand surgery Hx of oral surgery S/P knee surgery Family History Mother Myocardial infarction Denies family history of Ovarian cancer Prostate cancer Breast cancer Colorectal cancer Social History Smoking Status: Former smoker Hx Alcohol Use: Yes Hx Substance Use: No Preferred Language: [place]an Communication Ability: Effective Felt Checker Required: No marital status: Single Current Living Situation: Alone current occupational status: retired Feels Safe at Home: Yes Childhood Exposure to Second-Hand Smoke: Yes Dental Care, Regularly: Yes Physical Activity Frequency: 3-4 Times per Week Seatbelt Use: always Sunscreen Use: Yes Allergies Allergies Allergy/AdvReac Type Severity Reaction Status Date / Time animal dander Allergy Intermediate congestion Unverified 04/19/20 23:11 pollen extracts Allergy Mild sneezing Unverified 04/19/20 23:11 bacitracin Allergy Unknown ? Verified 04/19/20 23:11 latex Allergy Unknown blisters Verified 04/19/20 23:11 skin neomycin Allergy Unknown ? Verified 04/19/20 23:11 polymyxin B Allergy Unknown ? Verified 04/19/20 23:11 sulfabenzamide Allergy Unknown ? Verified 04/19/20 23:11 sulfacetamide Allergy Unknown ? Verified 04/19/20 23:11 sulfathiazole Allergy Unknown ? Verified 04/19/20 23:11 Home Meds Home Medications Medication Instructions Recorded Confirmed ascorbic acid (vitamin C) 500 mg 500 mg PO DAILY tab 03/30/19 04/19/20 tablet aspirin 325 mg tablet 650 mg PO HS tab 03/30/19 04/19/20 cholecalciferol (vitamin D3) 25 2,000 units PO DAILY cap 03/30/19 04/19/20 mcg (1,000 unit) capsule cyanocobalamin (vitamin B-12) 100 100 mcg PO DAILY tab 03/30/19 04/19/20 mcg tablet folic acid 800 mcg tablet 800 mcg PO DAILY 03/30/19 04/19/20 paula (Zingiber officinalis) 550 550 mg PO DAILY 03/30/19 04/19/20 mg capsule lancets 33 gauge #100 ea 03/30/19 04/16/20 Previous Rx's Medication Instructions Recorded amlodipine 10 mg tablet 10 mg PO DAILY #90 tab 04/16/20 blood sugar diagnostic #100 ea 04/16/20 levothyroxine 88 mcg tablet 88 mcg PO DAILY #90 tab 04/16/20 losartan 100 1 tab PO DAILY #90 tab 04/16/20 mg-hydrochlorothiazide 25 mg tablet metformin 500 mg tablet 500 mg PO BID #180 tab 04/16/20 nystatin-triamcinolone 100,000 1 applic TOPICAL TID #30 g 04/16/20 unit/g-0.1 % topical cream Results & Data (ED) Vital Signs Vital Signs - 24 hr 04/19/20 19:16 04/19/20 20:24 04/19/20 20:36 Temperature 37.1 C Temperature Source Oral Pulse Rate 95 H Pulse Rate [Apical] Pulse Rate from SpO2 Sensor Respiratory Rate 20 Respiratory Effort / Characteristics Respiratory Depth Normal Blood Pressure 167/77 H Blood Pressure [Right Arm] Blood Pressure Mean 107 Blood Pressure Mean [Right Arm] Pulse Oximetry 98 97 Oxygen Delivery Method Room Air Room Air Room Air Sepsis Recent Fever Within 48 Hours No Sepsis New/Unexplained Change in Mental Status N/A Sepsis Action Taken by Nursing No Action Required 04/19/20 20:39 04/19/20 21:21 04/19/20 22:35 Temperature Temperature Source Pulse Rate Pulse Rate [Apical] 95 H 92 H 90 Pulse Rate from SpO2 Sensor Respiratory Rate 18 18 18 Respiratory Effort / Characteristics Non-Labored Respiratory Depth Normal Blood Pressure Blood Pressure [Right Arm] 153/79 H 139/65 171/80 H Blood Pressure Mean Blood Pressure Mean [Right Arm] 103 89 110 Pulse Oximetry 95 93 97 Oxygen Delivery Method Room Air Room Air Room Air Sepsis Recent Fever Within 48 Hours Sepsis New/Unexplained Change in Mental Status Sepsis Action Taken by Nursing 04/19/20 23:30 04/20/20 00:02 04/20/20 00:31 Temperature Temperature Source Pulse Rate 101 H 83 Pulse Rate [Apical] 88 Pulse Rate from SpO2 Sensor 103 H 81 Respiratory Rate 18 19 18 Respiratory Effort / Characteristics Respiratory Depth Blood Pressure 169/104 H 156/97 H Blood Pressure [Right Arm] 172/85 H Blood Pressure Mean 131 120 Blood Pressure Mean [Right Arm] 114 Pulse Oximetry 96 100 95 Oxygen Delivery Method Room Air Room Air Room Air Sepsis Recent Fever Within 48 Hours Sepsis New/Unexplained Change in Mental Status Sepsis Action Taken by Nursing Laboratory Data Result diagrams: 04/19/20 20:14 04/19/20 20:14 Lab Results 04/19/20 04/19/20 04/19/20 Range/Units 20:14 20:14 20:14 WBC 11.97 H (4.8-10.8) K/uL RBC 4.17 L (4.2-5.4) M/uL Hgb 10.4 L (12.0-16.0) g/dL Hct 35.4 L (37-47) % MCV 84.9 (80-100) fL MCH 24.9 L (25-34) pg MCHC 29.4 L (32-36) g/dL RDW Std Deviation 50.4 H (36.4-46.3) fL RDW Coeff of Isidoro 16.3 H (11.5-14.5) % Plt Count 316 (130-400) K/uL MPV 10.0 (7.4-10.4) fL Immature Gran % (Auto) 0.4 % Neut % (Auto) 73.4 % Lymph % (Auto) 17.8 % Isabella % (Auto) 5.8 % Eos % (Auto) 1.9 % Baso % (Auto) 0.7 % Neut # (Auto) 8.79 H (1.4-6.5) K/uL Lymph # (Auto) 2.13 (1.2-3.4) K/uL Isabella # (Auto) 0.69 H (0.11-0.59) K/uL Eos # (Auto) 0.23 (0-0.5) K/uL Baso # (Auto) 0.08 (0-0.2) K/uL Immature Gran # (Auto) 0.05 H (0.00-0.02) K/uL Sodium 137 (136-145) mmol/L Potassium 4.1 (3.5-5.1) mmol/L Chloride 99 (98-107) mmol/L Carbon Dioxide 27 (21-32) mmol/L Anion Gap 11.0 (3-11) BUN 26 H (7-18) mg/dl Creatinine 1.27 H (0.6-1.2) mg/dl Est Cr Clr Drug Dosing Not Reportable Est GFR ( Amer) 47.8 Est GFR (Non-Af Amer) 41.2 BUN/Creatinine Ratio 20.1 H (10-20) Glucose 187 H (70-99) mg/dl Calcium 9.7 (8.5-10.1) mg/dl Total Bilirubin 0.3 (0.2-1) mg/dl AST 16 (15-37) U/L ALT 19 (12-78) U/L Alkaline Phosphatase 84 (45-117) U/L Troponin I < 0.015 (0-0.045) ng/ml Total Protein 7.5 (6.4-8.2) gm/dl Albumin 3.6 (3.4-5.0) gm/dl Globulin 3.9 (2.5-4.0) gm/dl Albumin/Globulin Ratio 0.9 (0.9-2) TSH 0.619 (0.300-4.500) uIu/ml Urine Color Urine Appearance (Clear) Urine pH (4.5-7.5) Ur Specific Robertson (1.000-1.030) Urine Protein (Negative) Urine Glucose (UA) (Negative) Urine Ketones (Negative) Urine Blood (Negative) Urine Nitrite (Negative) Urine Bilirubin (Negative) Urine Urobilinogen (Negative) Ur Leukocyte Esterase (Negative) Urine WBC (Auto) (0-5) /hpf Urine RBC (Auto) (0-4) /hpf U Hyaline Cast (Auto) (0-5) /lpf U Epithel Cells (Auto) (0-5) /lpf Urine Bacteria (Auto) (Negative) Lyme Disease IgG Ab Negative (Negative) Lyme Disease IgM Ab Negative (Negative) 04/19/20 Range/Units 21:04 WBC (4.8-10.8) K/uL RBC (4.2-5.4) M/uL Hgb (12.0-16.0) g/dL Hct (37-47) % MCV (80-100) fL MCH (25-34) pg MCHC (32-36) g/dL RDW Std Deviation (36.4-46.3) fL RDW Coeff of Isidoro (11.5-14.5) % Plt Count (130-400) K/uL MPV (7.4-10.4) fL Immature Gran % (Auto) % Neut % (Auto) % Lymph % (Auto) % Isabella % (Auto) % Eos % (Auto) % Baso % (Auto) % Neut # (Auto) (1.4-6.5) K/uL Lymph # (Auto) (1.2-3.4) K/uL Isabella # (Auto) (0.11-0.59) K/uL Eos # (Auto) (0-0.5) K/uL Baso # (Auto) (0-0.2) K/uL Immature Gran # (Auto) (0.00-0.02) K/uL Sodium (136-145) mmol/L Potassium (3.5-5.1) mmol/L Chloride (98-107) mmol/L Carbon Dioxide (21-32) mmol/L Anion Gap (3-11) BUN (7-18) mg/dl Creatinine (0.6-1.2) mg/dl Est Cr Clr Drug Dosing Est GFR ( Amer) Est GFR (Non-Af Amer) BUN/Creatinine Ratio (10-20) Glucose (70-99) mg/dl Calcium (8.5-10.1) mg/dl Total Bilirubin (0.2-1) mg/dl AST (15-37) U/L ALT (12-78) U/L Alkaline Phosphatase (45-117) U/L Troponin I (0-0.045) ng/ml Total Protein (6.4-8.2) gm/dl Albumin (3.4-5.0) gm/dl Globulin (2.5-4.0) gm/dl Albumin/Globulin Ratio (0.9-2) TSH (0.300-4.500) uIu/ml Urine Color Yellow Urine Appearance Clear (Clear) Urine pH 7.0 (4.5-7.5) Ur Specific Robertson 1.015 (1.000-1.030) Urine Protein Negative (Negative) Urine Glucose (UA) Negative (Negative) Urine Ketones Negative (Negative) Urine Blood Negative (Negative) Urine Nitrite Negative (Negative) Urine Bilirubin Negative (Negative) Urine Urobilinogen Negative (Negative) Ur Leukocyte Esterase 1+ H (Negative) Urine WBC (Auto) 5-10 H (0-5) /hpf Urine RBC (Auto) 0-4 (0-4) /hpf U Hyaline Cast (Auto) 1-5 (0-5) /lpf U Epithel Cells (Auto) >30 H (0-5) /lpf Urine Bacteria (Auto) Negative (Negative) Lyme Disease IgG Ab (Negative) Lyme Disease IgM Ab (Negative) Administered Medications Discontinued Medications Ioversol (Optiray 320 125ml) 119 ml IV ONCE ONE Stop: 04/19/20 21:55 Last Admin: 04/19/20 21:54 Dose: 119 ml Documented by: [id number] Discharge Plan Visit Data Chief Complaint: Weakness Stated Complaint: weakness in left arm and leg ED Provider: Hadley Velasco Discharge Problem: Weakness, Stroke-like symptoms, Hyperglycemia Patient Disposition: Admitted As Inpatient Discharge Instructions Interventions: ED Discharge Assessment Last Done: 04/20/20 01:03
[2020-04-19 20:37] LABS: Basophils # (auto) 0.08 K/uL (0-0.2); Basophils % (auto) 0.7 %; Eosinophils # (auto) 0.23 K/uL (0-0.5); Eosinophils % (auto) 1.9 %; Hematocrit (blood only) 35.4 % (37-47); Hemoglobin 10.4 g/dL (12.0-16.0); Immature Granulocytes # (auto) 0.05 K/uL (0.00-0.02); Immature Granulocytes % (auto) 0.4 %; Lymphocytes # (auto) 2.13 K/uL (1.2-3.4); Lymphocytes % (auto) 17.8 %; Mean Corpuscular Hemoglobin 24.9 pg (25-34); Mean Corpuscular Hgb Conc 29.4 g/dL (32-36); Mean Corpuscular Volume 84.9 fL (80-100); Monocytes # (auto) 0.69 K/uL (0.11-0.59); Monocytes % (auto) 5.8 %; Neutrophils # (auto) 8.79 K/uL (1.4-6.5); Neutrophils % (auto) 73.4 %; Platelet Count 316 K/uL (130-400); RDW Coefficient of Variation 16.3 % (11.5-14.5); RDW Standard Deviation 50.4 fL (36.4-46.3); Red Blood Count 4.17 M/uL (4.2-5.4); White Blood Count 11.97 K/uL (4.8-10.8)
[2020-04-19 20:48] LABS: Alanine Aminotransferase 19 U/L (12-78); Albumin Level 3.6 gm/dl (3.4-5.0); Aspartate Aminotransferase 16 U/L (15-37); BUN Creatinine Ratio 20.1 (10-20); Blood Urea Nitrogen 26 mg/dl (7-18); Calcium 9.7 mg/dl (8.5-10.1); Carbon Dioxide 27 mmol/L (21-32); Chloride 99 mmol/L (98-107); Est GFR (African American) 47.8; Est GFR (Non-African American) 41.2; Glucose 187 mg/dl (70-99); Potassium 4.1 mmol/L (3.5-5.1); Sodium 137 mmol/L (136-145)
[2020-04-19 20:59] LABS: Albumin Globulin Ratio 0.9 (0.9-2); Alkaline Phosphatase 84 U/L (45-117); Bilirubin,Total 0.3 mg/dl (0.2-1); Globulin 3.9 gm/dl (2.5-4.0); Thyroid Stimulating Hormone 0.619 uIu/ml (0.300-4.500); Total Protein 7.5 gm/dl (6.4-8.2); Troponin I < 0.015 ng/ml (0-0.045)
[2020-04-19] MEDS ORDERED: OPTIRAY 320 125ml IV ONE (21:54)
[2020-04-19 22:03] LABS: Appearance Urine Clear (Clear); Bacteria Urine Automated Negative (Negative); Bilirubin Urine Negative (Negative); Blood Urine Negative (Negative); Color Urine Yellow; Epithelial Cell Urine Auto >30 /lpf (0-5); Glucose Urine UA Negative (Negative); Ketones Urine Negative (Negative); Leukocyte Esterase Urine 1+ (Negative); Nitrite Urine Negative (Negative); Protein Urine Negative (Negative); Specific Gravity Urine 1.015 (1.000-1.030); Urobilinogen Urine Negative (Negative)
[2020-04-19 22:25] LABS: RBC Urine Automated 0-4 /hpf (0-4)
[2020-04-20 00:15] LABS: Lyme Ab IgG w/WB Rflx Negative (Negative); Lyme Ab IgM w/WB Rflx Negative (Negative)
--- NOTE | 2020-04-20 00:21 | History & Physical Report ---
Date of Service April 19, 2020 Assessment & Plan (1) Weakness: 75-year-old female with past medical history anemia, type 2 diabetes with neuropathy, hypertension, hyperlipidemia, hypothyroidism, osteoarthritis presents with concerns of left-sided weakness. Left-sided weakness -CT head: No ICH, mass-effect, or edema. Chronic lacunar infarct right caudate head. Mild chronic small vessel ischemic disease -Head CTA: Intracranial atherosclerosis. Patent intracranial circulation. No large vessel occlusion or aneurysm. Note is made of hypoplastic bilateral P1 segments with predominant supply of the bilateral supervisor steffen house via the p-comm's -Neck CTA: Bilateral common carotid arteries are normal in caliber. Atherosclerosis of the bilateral carotid bifurcations. Right ICA is normal in caliber. Moderate stenosis at the origin of the left ICA. Bilateral vertebral arteries are normal caliber Ideally would obtain MRI brain w/wo contrast. However patient notes that she absolutely will not tolerate MRI even with sedation, will only go an open MRI which we do not have in-house Appreciate neurology consult. Can possibly arrange for outpatient MRI Echo pending NIHSS every shift Medication management with aspirin. Patient refuses statin treatment secondary to concern of potential side effects Lipid/A1c in a.m. Fall precautions PT/OT eval is pending. Deferring SLC eval patient passed bedside swallow Hypertension Holding amlodipine, losartan/HCTZ to allow for permissive HTN DM 2 Holding home metformin We will place on SSI Hypothyroidism Continue levothyroxine 88 mcg TSH 0.619 on admission FEN/GI: HH/DM 2 diet DVT prophylaxis: Chemoprophylaxis deferred. SCDs Full code Dispo: Med telemetry History of Present Illness Chief Complaint: Weakness Primary Care Provider: Leah Hancock MD 75-year-old female with past medical history anemia, type 2 diabetes with neuropathy, hypertension, hyperlipidemia, hypothyroidism, osteoarthritis presents with concerns of left-sided weakness. Patient woke up this morning and noted left arm weakness and she was unable to lift above her head. As day progressed she noted that she had some left lower extremity weakness as well. Patient normally ambulates with crutches, however noted difficulty with this due to weakness. Patient notes that the symptoms have not worsened since onset. No previous occurrence like this ever before. Patient additionally has complaints of pain between her shoulder blades has been ongoing over the last 1.5 weeks. Patient states she has a history of T11-T12 meningioma which was surgically removed in June 2018, and this feels similar to that. Described as having a knot between her shoulder blades, nonradiating. 7 out of 10 on severity scale. She has tried aspirin and he presented for this, which have worked. No known exacerbating factors. Associated stiff neck. Patient otherwise denies any fevers, nausea, vomiting, diarrhea, chills, chills, sweats, chest pain, palpitations, shortness of breath, numbness, tingling, reflux symptoms of bowel or bladder incontinence or saddle anesthesia. Patient no other acute concerns or complaints. Pertinent labs: WBC 11.97, hemoglobin 10.4, creatinine 1.87, Trop negative. Otherwise largely unremarkable Chest x-ray: Cardiomegaly with pulmonary vascular congestion. Ovoid opacity of the right perihilar distribution may be secondary to summation density Cervical spine CT: Straightening of the C-spine. Osteopenia. No acute fracture or subluxation. Multilevel degenerative changes. Thoracic spine CT: Osteopenia. Normal vertebral body height and alignment. No acute fracture or subluxation. Previous posterior decompression of spine at T10 and T11. Head CTA: Intracranial atherosclerosis. Patent intracranial circulation. No large vessel occlusion or aneurysm. Note is made of hypoplastic bilateral P1 segments with predominant supply of the bilateral supervisor steffen house via the p-comm's. CT head: No ICH, mass-effect, or edema. Chronic lacunar infarct right caudate head. Mild chronic small vessel ischemic disease. Neck CTA: Bilateral common carotid arteries are normal in caliber. Atherosclerosis of the bilateral carotid bifurcations. Right ICA is normal in caliber. Moderate stenosis at the origin of the left ICA. Bilateral vertebral arteries are normal caliber. ER course: -- Social history: Patient denies any tobacco, alcohol, illicit drug use Allergies Allergy/AdvReac Type Severity Reaction Status Date / Time animal dander Allergy Intermediate congestion Unverified 04/19/20 23:11 pollen extracts Allergy Mild sneezing Unverified 04/19/20 23:11 bacitracin Allergy Unknown ? Verified 04/19/20 23:11 latex Allergy Unknown blisters Verified 04/19/20 23:11 skin neomycin Allergy Unknown ? Verified 04/19/20 23:11 polymyxin B Allergy Unknown ? Verified 04/19/20 23:11 sulfabenzamide Allergy Unknown ? Verified 04/19/20 23:11 sulfacetamide Allergy Unknown ? Verified 04/19/20 23:11 sulfathiazole Allergy Unknown ? Verified 04/19/20 23:11 Home Medications Home Medications Medication Instructions Recorded Confirmed Type ascorbic acid (vitamin C) 500 mg 500 mg PO DAILY tab 03/30/19 04/19/20 History tablet aspirin 325 mg tablet 650 mg PO HS tab 03/30/19 04/19/20 History cholecalciferol (vitamin D3) 25 2,000 units PO DAILY cap 03/30/19 04/19/20 History mcg (1,000 unit) capsule cyanocobalamin (vitamin B-12) 100 100 mcg PO DAILY tab 03/30/19 04/19/20 History mcg tablet folic acid 800 mcg tablet 800 mcg PO DAILY 03/30/19 04/19/20 History paula (Zingiber officinalis) 550 550 mg PO DAILY 03/30/19 04/19/20 History mg capsule lancets 33 gauge #100 ea 03/30/19 04/16/20 History amlodipine 10 mg tablet 10 mg PO DAILY #90 tab 04/16/20 04/19/20 Rx blood sugar diagnostic #100 ea 04/16/20 04/16/20 Rx levothyroxine 88 mcg tablet 88 mcg PO DAILY #90 tab 04/16/20 04/19/20 Rx losartan 100 1 tab PO DAILY #90 tab 04/16/20 04/19/20 Rx mg-hydrochlorothiazide 25 mg tablet metformin 500 mg tablet 500 mg PO BID #180 tab 04/16/20 04/19/20 Rx nystatin-triamcinolone 100,000 1 applic TOPICAL TID #30 g 04/16/20 04/19/20 Rx unit/g-0.1 % topical cream Past Med/Surg History Medical History (Updated 04/21/20 @ 11:59 by Vi Dickson DO) Balance problems Decreased sensation of lower extremity Diabetes mellitus type 2, uncontrolled Elevated WBC count Gait disturbance Generalized osteoarthritis Hypothyroidism Menopause Obesity Peripheral neuropathy Pulmonary hypertension RVH (right ventricular hypertrophy) Schwannoma Thoracic intradural extramedullary tumor Well woman exam with routine gynecological exam Surgical History Hx of hand surgery Hx of oral surgery S/P knee surgery Family History Mother Myocardial infarction Denies family history of Ovarian cancer Prostate cancer Breast cancer Colorectal cancer Social History Smoking Status: Never smoker Second Hand Exposure: No; Do You Dip or Chew Tobacco: No; Tobacco Cessation Education Requested by Patient: No Hx Alcohol Use: No Hx Substance Use: No Preferred Language: Romanian Communication Ability: Effective Nursing Assistant Required: No Beliefs That Will Affect Care: None marital status: Single Current Living Situation: Alone current occupational status: retired Other Information That Helps Us Care for You: No Feels Safe at Home: Yes Safety Concerns: Feels Safe At This Time Childhood Exposure to Second-Hand Smoke: Yes Dental Care, Regularly: Yes Physical Activity Frequency: 3-4 Times per Week Seatbelt Use: always Sunscreen Use: Yes Review of Systems Review of Systems: All systems reviewed & are unremarkable except as noted in HPI & below Physical Exam Constitutional: + obese Eyes: PERRL, conjunctivae normal, anicteric sclerae ENMT: external ear and nose normal, oropharynx normal Respiratory: normal respiratory effort, lungs clear to auscultation Cardiovascular: RRR, no murmur, no edema Gastrointestinal (Abdomen): normal bowel sounds, soft, nontender, no hepatosplenomegaly Skin: no rashes, warm and dry Neurologic: CN's II-XI intact bilaterally; no focal motor deficits Speech / Cognition: normal speech Muscle strength 5 out of 5 bilaterally UE/LE. Normal sensation UE/LE Psychiatric: A+Ox3, euthymic affect Results & Data Results & Data ([facility]) Vital Signs (Past 12 Hours) Vital Signs Temp Pulse Pulse Resp BP BP Pulse Ox 04/19/20 22:35 90 18 171/80 H 97 04/19/20 21:21 92 H 18 139/65 93 04/19/20 20:39 95 H 18 153/79 H 95 04/19/20 20:36 97 04/19/20 19:16 37.1 C 95 H 20 167/77 H 98 Laboratory Results Laboratory Results - last 24 hr 04/19/20 04/19/20 04/19/20 20:14 20:14 20:14 WBC 11.97 H RBC 4.17 L Hgb 10.4 L Hct 35.4 L MCV 84.9 MCH 24.9 L MCHC 29.4 L RDW Std Deviation 50.4 H RDW Coeff of Isidoro 16.3 H Plt Count 316 MPV 10.0 Immature Gran % (Auto) 0.4 Neut % (Auto) 73.4 Lymph % (Auto) 17.8 Armstrong % (Auto) 5.8 Eos % (Auto) 1.9 Baso % (Auto) 0.7 Neut # (Auto) 8.79 H Lymph # (Auto) 2.13 Armstrong # (Auto) 0.69 H Eos # (Auto) 0.23 Baso # (Auto) 0.08 Immature Gran # (Auto) 0.05 H Sodium 137 Potassium 4.1 Chloride 99 Carbon Dioxide 27 Anion Gap 11.0 BUN 26 H Creatinine 1.27 H Est Cr Clr Drug Dosing Not Reportable Est GFR ( Amer) 47.8 Est GFR (Non-Af Amer) 41.2 BUN/Creatinine Ratio 20.1 H Glucose 187 H Calcium 9.7 Total Bilirubin 0.3 AST 16 ALT 19 Alkaline Phosphatase 84 Troponin I < 0.015 Total Protein 7.5 Albumin 3.6 Globulin 3.9 Albumin/Globulin Ratio 0.9 TSH 0.619 Urine Color Urine Appearance Urine pH Ur Specific [place] Urine Protein Urine Glucose (UA) Urine Ketones Urine Blood Urine Nitrite Urine Bilirubin Urine Urobilinogen Ur Leukocyte Esterase Urine WBC (Auto) Urine RBC (Auto) U Hyaline Cast (Auto) U Epithel Cells (Auto) Urine Bacteria (Auto) Lyme Disease IgG Ab Pending Lyme Disease IgM Ab Pending 04/19/20 21:04 WBC RBC Hgb Hct MCV MCH MCHC RDW Std Deviation RDW Coeff of Isidoro Plt Count MPV Immature Gran % (Auto) Neut % (Auto) Lymph % (Auto) Armstrong % (Auto) Eos % (Auto) Baso % (Auto) Neut # (Auto) Lymph # (Auto) Armstrong # (Auto) Eos # (Auto) Baso # (Auto) Immature Gran # (Auto) Sodium Potassium Chloride Carbon Dioxide Anion Gap BUN Creatinine Est Cr Clr Drug Dosing Est GFR ( Amer) Est GFR (Non-Af Amer) BUN/Creatinine Ratio Glucose Calcium Total Bilirubin AST ALT Alkaline Phosphatase Troponin I Total Protein Albumin Globulin Albumin/Globulin Ratio TSH Urine Color Yellow Urine Appearance Clear Urine pH 7.0 Ur Specific [place] 1.015 Urine Protein Negative Urine Glucose (UA) Negative Urine Ketones Negative Urine Blood Negative Urine Nitrite Negative Urine Bilirubin Negative Urine Urobilinogen Negative Ur Leukocyte Esterase 1+ H Urine WBC (Auto) 5-10 H Urine RBC (Auto) 0-4 U Hyaline Cast (Auto) 1-5 U Epithel Cells (Auto) >30 H Urine Bacteria (Auto) Negative Lyme Disease IgG Ab Lyme Disease IgM Ab Code Status & VTE Plan Code Status Full Supervising Physician Co-Signing Physician Notes Attending addendum: I have physically seen this patient, have supervised the medical residents activities, and agree with the H&P unless as otherwise noted. Assessment and Plan: Left-sided weakness/TIA versus CVA- Ischemic stroke without TPA protocol order set CT head reports chronic lacunar infarct right caudate head and mild chronic small vessel ischemic disease. CTA head neck with moderate stenosis of the origin of the left ICA. Patient unable to tolerate MRI of brain, and reports can only tolerate an open MRI. Consult PT/OT/speech/neurology. Complete echocardiogram ordered and pending Continue aspirin Check hemoglobin A1c and fasting lipid panel Permissive hypertension, holding amlodipine and losartan/HCTZ this evening. Diabetes mellitus- Hold metformin Placed on Accu-Cheks before meals and at bedtime with NovoLog coverage per scale Remainder of orders and notations as noted. Resident Activity Tracking Resident Involvement: Resident Care Provided Care Provided: Adult Hospital Medicine
[2020-04-20] MEDS ORDERED: DEXTROSE 50% 50 ML SYRINGE IV PRN (01:18)
[2020-04-20] MEDS ORDERED: CARBOHYDRATES FOR HYPOGLYCEMIA PO PRN (01:18)
[2020-04-20] MEDS ORDERED: GLUCAGON FOR INJ 1 MG VIAL SQ PRN (01:18)
[2020-04-20] MEDS ORDERED: ACETAMINOPHEN 325 MG TAB PO PRN (01:18)
[2020-04-20] MEDS ORDERED: ALUMINUM/MAGNESIUM SUSP 30 ML UDC PO PRN (01:18)
[2020-04-20] MEDS ORDERED: GLUCOSE 10 TABS/TUBE PO PRN (01:18)
[2020-04-20] MEDS ORDERED: ONDANSETRON INJ 2 MG/ML 2 ML VIAL IV PRN (01:18)
[2020-04-20] MEDS ORDERED: GLUCOSE 40% GEL 15 GM TUBE PO PRN (01:18)
[2020-04-20] MEDS: LEVOTHYROXINE SODIUM 88 MCG TABLET PO SCH (06:09)
[2020-04-20 07:38] LABS: Basophils # (auto) 0.08 K/uL (0-0.2); Basophils % (auto) 0.6 %; Eosinophils # (auto) 0.49 K/uL (0-0.5); Eosinophils % (auto) 3.8 %; Hematocrit (blood only) 32.9 % (37-47); Hemoglobin 10.1 g/dL (12.0-16.0); Immature Granulocytes # (auto) 0.04 K/uL (0.00-0.02); Immature Granulocytes % (auto) 0.3 %; Lymphocytes % (auto) 20.7 %; Mean Corpuscular Hgb Conc 30.7 g/dL (32-36); Mean Corpuscular Volume 84.6 fL (80-100); Mean Platelet Volume 10.1 fL (7.4-10.4); Monocytes # (auto) 0.82 K/uL (0.11-0.59); Monocytes % (auto) 6.3 %; Neutrophils # (auto) 8.93 K/uL (1.4-6.5); Neutrophils % (auto) 68.3 %; Platelet Count 296 K/uL (130-400); RDW Coefficient of Variation 16.5 % (11.5-14.5); RDW Standard Deviation 50.2 fL (36.4-46.3); Red Blood Count 3.89 M/uL (4.2-5.4); White Blood Count 13.06 K/uL (4.8-10.8)
[2020-04-20 07:51] LABS: Estimated Average Glucose 186 mg/dl; Hemoglobin A1C 8.1 % (4.5-5.6)
[2020-04-20] MEDS: FOLIC ACID 400 MCG TAB PO SCH (08:03)
[2020-04-20] MEDS: INSULIN GLARGINE SOLOSTAR 100 UNITS/ML 3 ML PEN SC SCH ×2 (08:04→20:30)
[2020-04-20] MEDS: ASCORBIC ACID 500 MG TAB PO SCH (08:04)
[2020-04-20] MEDS: CYANOCOBALAMIN (VITAMIN B-12) 100 MCG TABLET PO SCH (08:04)
[2020-04-20] MEDS: CHOLECALCIFEROL 1,000 UNITS 25 MCG TAB PO SCH (08:04)
[2020-04-20] MEDS: INSULIN ASPART 100 UNITS/ML 3 ML PEN SC SCH ×4 (08:06→20:32)
[2020-04-20 08:10] LABS: BUN Creatinine Ratio 20.3 (10-20); Calcium 9.3 mg/dl (8.5-10.1); Creatinine Clr Calc Pharmacy 50.1 ml/min; Est GFR (African American) 59.5; Est GFR (Non-African American) 51.3; Potassium 4.3 mmol/L (3.5-5.1)
--- NOTE | 2020-04-20 08:11 | CT Scan Report ---
CERVICAL SPINE CT CT DOSE: 3032.83 mGy.cm HISTORY: left weakness, hx of spinal meningioma TECHNIQUE: Multiaxial CT images of the cervical spine were performed and reformatted in the sagittal and coronal plane without the use of contrast. A dose lowering technique was utilized adhering to th e principles of ALARA. COMPARISON: None. FINDINGS: No fractures. No subluxation. Prevertebral soft tissues and the C1-C2 interval are intact. No pneumothorax. Moderate mucosal thickening within the left maxillary sinus. Periapical lucency of a left upper molar extending into the floor of the left maxillary sinus. Moderate to severe disc space narrowing at C3-C4, C4-C5, C5-C6, and C6-C7 resulting in broad-based po sterior disc osteophyte complexes and mild central canal narrowing at these levels. There is also mil d bilateral neural foraminal narrowing. Moderate facet degenerative changes throughout the cervical s pine. IMPRESSION: No fractures within the cervical spine. Degenerative changes as described above. ACT 112: Negative or not required by law. Electronically signed by: Doni Gatica M.D. 04/20/2020 8:10 AM
--- NOTE | 2020-04-20 08:21 | CT Scan Report ---
HEAD & NECK CTA HISTORY: Left-sided weakness. TECHNIQUE: Multiaxial CT images of the head were performed both before and after the intravenous admi nistration of contrast to evaluate the major cerebral vessels. Multiaxial CT images of the neck were also performed following the intravenous administration of contrast to evaluate the major cervical ve ssels. Maximum intensity projection images were also obtained. A dose lowering technique was utilized adhering to the principles of ALARA. COMPARISON: Head CT 09/15/2015. FINDINGS: There is no mass, hematoma, midline shift, or acute infarct. Visualized intracranial internal carotid arteries, distal vertebral arteries, and basilar artery are widely patent. There is no significant s tenosis, occlusion, or aneurysm seen within the bilateral ACAs, MCAs, or communication arts lecturer. Old lacunar infarct wi thin the right caudate head. Moderate calcified plaque within the bilateral carotid siphons. The mark r dural venous sinuses appear patent. Mucosal thickening within the left maxillary sinus. The aortic arch and proximal great vessels are widely patent. Moderate calcified plaque within bila teral carotid bifurcations. No significant stenosis within the right common or internal carotid arter ies. Bilateral vertebral arteries are patent. Mild to moderate stenosis of approximately 40% at the t akeoff of the left internal carotid artery. The left common carotid artery is patent. IMPRESSION: 1. No significant stenosis, occlusion, or aneurysm within the [place]. 2. Mild to moderate stenosis at the takeoff of the left internal carotid artery of approximately 40%. 3. The right carotid arteries and bilateral vertebral arteries are widely patent. 4. No acute intracranial abnormality. 5. Old lacunar infarct within the right caudate head. ACT 112: Negative or not required by law. Electronically signed by: Doni Gatica M.D. 04/20/2020 8:19 AM
--- NOTE | 2020-04-20 08:21 | CT Scan Report ---
HEAD & NECK CTA HISTORY: Left-sided weakness. TECHNIQUE: Multiaxial CT images of the head were performed both before and after the intravenous admi nistration of contrast to evaluate the major cerebral vessels. Multiaxial CT images of the neck were also performed following the intravenous administration of contrast to evaluate the major cervical ve ssels. Maximum intensity projection images were also obtained. A dose lowering technique was utilized adhering to the principles of ALARA. COMPARISON: Head CT 09/15/2015. FINDINGS: There is no mass, hematoma, midline shift, or acute infarct. Visualized intracranial internal carotid arteries, distal vertebral arteries, and basilar artery are widely patent. There is no significant s tenosis, occlusion, or aneurysm seen within the bilateral ACAs, MCAs, or communications maintainer. Old lacunar infarct wi thin the right caudate head. Moderate calcified plaque within the bilateral carotid siphons. The mark r dural venous sinuses appear patent. Mucosal thickening within the left maxillary sinus. The aortic arch and proximal great vessels are widely patent. Moderate calcified plaque within bila teral carotid bifurcations. No significant stenosis within the right common or internal carotid arter ies. Bilateral vertebral arteries are patent. Mild to moderate stenosis of approximately 40% at the t akeoff of the left internal carotid artery. The left common carotid artery is patent. IMPRESSION: 1. No significant stenosis, occlusion, or aneurysm within the [place]. 2. Mild to moderate stenosis at the takeoff of the left internal carotid artery of approximately 40%. 3. The right carotid arteries and bilateral vertebral arteries are widely patent. 4. No acute intracranial abnormality. 5. Old lacunar infarct within the right caudate head. ACT 112: Negative or not required by law. Electronically signed by: Doni Gatica M.D. 04/20/2020 8:19 AM
--- NOTE | 2020-04-20 08:59 | CT Scan Report ---
THORACIC SPINE CT CT DOSE: HISTORY: left arm and leg weakness. Upper thoracic pain. TECHNIQUE: Multiaxial CT images of the thoracic spine were performed and reformatted in the sagittal and coronal plane without the use of contrast. A dose lowering technique was utilized adhering to th e principles of ALARA. COMPARISON: Thoracic spine CT 12/21/2015. FINDINGS: No fracture. No subluxation. Paraspinal soft tissues are unremarkable. Severe disc space na rrowing and endplate osteophytes throughout the thoracic spine. Prior T10-11 laminectomies. Suboptima l evaluation the central canal due to CT technique. However, no significant central canal narrowing i dentified. The bones are osteopenic. IMPRESSION: No fractures within the thoracic spine. ACT 112: Negative or not required by law. Electronically signed by: Doni Gatica M.D. 04/20/2020 8:57 AM
[2020-04-20] MEDS: ATORVASTATIN 40 MG TAB PO SCH (09:41)
--- NOTE | 2020-04-20 10:02 | Neurology Consultation ---
Date of Consultation April 20, 2020 Assessment & Plan (1) Stroke: This patient presents with left-sided weakness/ataxia affecting the left upper and lower limbs upon awakening yesterday morning. She does not have associated facial droop, dysarthria, diplopia, or vertigo. She does have some associated lower cervical/upper thoracic spinal pain. The acuity and timing of symptom onset is suggestive of stroke. Potential localization could include the right anterior rosas, left cerebellum, or right cerebral hemisphere. Stroke risk factors for this patient include poorly controlled diabetes mellitus, hypertension, and hyperlipidemia. However, this patient also has associated spinal pain localizing between the shoulder blades, lower cervical/upper thoracic region. Yet, she does not have a sensory level and is not myelopathic on examination. She has a severe diabetic peripheral neuropathy which may confound her examination. The remote T10-11 meningioma resection is noted but would not contribute to her proximal left upper extremity weakness or be responsible for her current presentation. She does not appear to have significant spinal stenosis on CT of the cervical or thoracic spine. An acute disc herniation with myelopathy may not be completely excluded although is not really consistent with her history or examination findings. Transverse myelitis possible although the timing/acuity of her symptoms as well as lack of associated sensory symptoms would be atypical for this diagnosis. Spinal cord stroke also possible although weakness from spinal cord ischemia is typically bilateral with involvement of the anterior spinal artery, and again she does not have an associated sensory level. I would like this patient to have MRI of the brain, cervical spine, and thoracic spine, all studies done with and without contrast. Perhaps this testing can be done with general anesthesia as the patient refuses MRI due to claustrophobia. If MRIs cannot be completed, I would recommend obtaining a follow-up CT of the head without contrast later today to reevaluate for an evolving infarct. Follow-up with results of echocardiogram. Patient takes a relatively large dose of aspirin at bedtime and may continue with this medication. I agree with the addition of atorvastatin to her medication regimen. Her diabetes appears to need improved control and she should follow-up with her PCP for ongoing management of this issue. Patient's blood pressure has been modestly elevated. Continue medical management. PT/OT. Consider obtaining a 30-day cardiac event monitor. History of Present Illness Reason for Consultation: Left-sided weakness Requesting Physician: Rikki Torres DO Attending Physician: Aj Roberts DO History of Present Illness The patient is a 75-year old female with a chief complaint of left-sided weakness. She indicates that she awoke yesterday morning with a feeling of weakness affecting the proximal left arm, with an inability to lift the arm but with relatively preserved grasping/hand function. She denies experiencing any associated paresthesias or numbness but wondered if she may have slept on her arm in a funny position. She then went about her usual morning routine but began to notice that her left leg was also weak and heavy feeling. Again, no associated numbness or paresthesias. The patient typically ambulates with crutches at home. She has a history of a lower thoracic spinal meningioma resection in 2016 and has mild to moderate residual weakness of both lower limbs. Her gait is also negatively impacted by a significant diabetic polyneuropathy. The patient indicates that her left-sided weakness has been persistent. She does not have any weakness of the face or associated changes in speech or vision. No vertigo or dizziness. No headache. She does complain of persistent spinal pain, between the shoulder blades. The patient adamantly refuses MRI due to severe claustrophobia. Allergies Allergy/AdvReac Type Severity Reaction Status Date / Time animal dander Allergy Intermediate congestion Unverified 04/19/20 23:11 pollen extracts Allergy Mild sneezing Unverified 04/19/20 23:11 bacitracin Allergy Unknown ? Verified 04/19/20 23:11 latex Allergy Unknown blisters Verified 04/19/20 23:11 skin neomycin Allergy Unknown ? Verified 04/19/20 23:11 polymyxin B Allergy Unknown ? Verified 04/19/20 23:11 sulfabenzamide Allergy Unknown ? Verified 04/19/20 23:11 sulfacetamide Allergy Unknown ? Verified 04/19/20 23:11 sulfathiazole Allergy Unknown ? Verified 04/19/20 23:11 Home Medications Home Medications Medication Instructions Recorded Confirmed Type ascorbic acid (vitamin C) 500 mg 500 mg PO DAILY tab 03/30/19 04/19/20 History tablet aspirin 325 mg tablet 650 mg PO HS tab 03/30/19 04/19/20 History cholecalciferol (vitamin D3) 25 2,000 units PO DAILY cap 03/30/19 04/19/20 History mcg (1,000 unit) capsule cyanocobalamin (vitamin B-12) 100 100 mcg PO DAILY tab 03/30/19 04/19/20 History mcg tablet folic acid 800 mcg tablet 800 mcg PO DAILY 03/30/19 04/19/20 History paula (Zingiber officinalis) 550 550 mg PO DAILY 03/30/19 04/19/20 History mg capsule lancets 33 gauge #100 ea 03/30/19 04/16/20 History amlodipine 10 mg tablet 10 mg PO DAILY #90 tab 04/16/20 04/19/20 Rx blood sugar diagnostic #100 ea 04/16/20 04/16/20 Rx levothyroxine 88 mcg tablet 88 mcg PO DAILY #90 tab 04/16/20 04/19/20 Rx losartan 100 1 tab PO DAILY #90 tab 04/16/20 04/19/20 Rx mg-hydrochlorothiazide 25 mg tablet metformin 500 mg tablet 500 mg PO BID #180 tab 04/16/20 04/19/20 Rx nystatin-triamcinolone 100,000 1 applic TOPICAL TID #30 g 04/16/20 04/19/20 Rx unit/g-0.1 % topical cream Patient History Medical History (Updated 04/20/20 @ 09:50 by Trae Layton MD) Balance problems Decreased sensation of lower extremity Diabetes mellitus type 2, uncontrolled Elevated WBC count Gait disturbance Generalized osteoarthritis Hypothyroidism Menopause Obesity Peripheral neuropathy Pulmonary hypertension RVH (right ventricular hypertrophy) Schwannoma Thoracic intradural extramedullary tumor Well woman exam with routine gynecological exam Surgical History Hx of hand surgery Hx of oral surgery S/P knee surgery Family History Mother Myocardial infarction Denies family history of Ovarian cancer Prostate cancer Breast cancer Colorectal cancer Social History Smoking Status: Never smoker Second Hand Exposure: No; Do You Dip or Chew Tobacco: No; Tobacco Cessation Education Requested by Patient: No Hx Alcohol Use: No Hx Substance Use: No Preferred Language: Mauritanian Communication Ability: Effective Instrumentation Instructor Required: No Beliefs That Will Affect Care: None marital status: Single Current Living Situation: Alone current occupational status: retired Other Information That Helps Us Care for You: No Feels Safe at Home: Yes Safety Concerns: Feels Safe At This Time Childhood Exposure to Second-Hand Smoke: Yes Dental Care, Regularly: Yes Physical Activity Frequency: 3-4 Times per Week Seatbelt Use: always Sunscreen Use: Yes Review of Systems Constitutional: no fever and no chills Eyes: no blind spots and no diplopia Ear, Nose, Mouth, Throat: no ear pain and no hearing loss Respiratory: no cough and no dyspnea Cardiovascular: no chest pain and no palpitations Gastrointestinal: no nausea and no vomiting Genitourinary: no dysuria and no urinary incontinence Musculoskeletal: as per Subjective / HPI and + back pain Integumentary: no rash 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 Neurologic: as per Subjective / HPI, + gait abnormality and + localized weakness; no tremor(s), no seizure-like activity, no syncope, no headache(s), no confusion and no memory loss Psychiatric: no depression and no anxiety Exam (Neuro) Constitutional: well developed and well nourished; no acute distress Eyes: normal visual coffman by confrontation, PERRL, normal accommodation and EOM intact bilaterally; no fundoscopic abnormality, no nystagmus and no papilledema Cardiovascular: Vessels: normal carotid upstroke; no carotid bruit Neurologic: Oriented to:: Person, Place and Time Memory: Short Term Intact and Remote Intact Attention: Span Intact and Concentration Intact Language: Naming Objects and Repeating Phrases Speech Fluency: negative Dysarthria Speech Aphasia: negative Aphasia Fund of Knowledge: Current Events, Past History and Vocabulary Cranial Nerves: Normal II (Visual coffman full to confrontation, visual acuity normal), III, IV, (Pupils equal round reactive to light and accommodation, eye movements normal), V (Facial sensation intact), VII (There is no facial droop or weakness), VIII (Hearing intact), IX, X (Palate elevates to midline), XI (Shoulder shrug intact) and XII (Tongue protrudes to midline) Motor Strength: Hemiparesis (Patient has a mild to moderate left hemiparesis affecting the proximal left upper extremity as well as the left lower extremity. She has relatively preserved grasping function for the left hand as well as intact left biceps and triceps strength. Left shoulder abduction strength is moderately weak. She is able to lift the left lower limb out of the bed, flexing at the hip and knee, she seems mildly weak here, however.) Laterality: Left; negative Normal Lower Extremities, Normal Upper Extremities and Pronator Drift Motor Tone: Normal Lower Extremities and Normal Upper Extremities Muscle Bulk/Involuntary Movements: No Involuntary Movements; negative Muscle Atrophy Sensation: negative Light Touch Intact, Pain/Temperature Intact, Vibration Intact and Proprioception Intact (Patient has a length dependent sensory deficits to all modalities which includes a significant proprioceptive deficit at the toes and ankles bilaterally.) Coordination: Normal, Past-pointing, Dysdiadochokinesia Laterality: Left, Finger-Nose Abnormal (Mild dysmetria with [id number] on the left) Laterality: Left and Heel-Richard Abnormal (Mild dysmetria with [id number] on the left) Laterality: Left; negative Limited Balance Deep Tendon Reflexes: Rt Triceps: 1+, Lt Triceps: 1+, Rt Biceps: 1+, Lt Biceps: 1+, Rt Brachioradialis: 1+, Lt Brachioradialis: 1+, Rt Patellar: 1+, Lt Patellar: 1+, Rt Ankle: 0 and Lt Ankle: 0 Special Tests: negative Babinski Present (Plantar responses silent bilaterally) Details: Gait cannot be tested in the context of patient's current neurological/medical condition. Results & Data ([facility]) Vital Signs (Past 12 Hours) Vital Signs Temp Pulse Pulse Resp BP BP Pulse Ox 04/20/20 07:37 81 04/20/20 01:18 36.8 C 82 20 178/74 H 90 04/20/20 01:03 81 18 140/107 H 100 04/20/20 00:31 83 18 156/97 H 95 04/20/20 00:02 101 H 19 169/104 H 100 04/19/20 23:30 88 18 172/85 H 96 04/19/20 22:35 90 18 171/80 H 97 Laboratory Results WBC 13.06, hemoglobin 10.1, hematocrit 32.9, platelet count 296, sodium 138, potassium 4.3, BUN 22, creatinine 1.06, glucose 167, hemoglobin A1c 8.1, triglycerides 273, cholesterol 204, LDL 92, VLDL 55, HDL 57, TSH 0.619, Lyme antibody screening negative. A vitamin B12 level from October 09, 2019 was greater than 2000. A vitamin D level at that time was 25.1. Diagnostic Findings A CT of the head reveals a chronic lacunar infarct within the right caudate head. No hemorrhage or acute process. CT angiography of the head and neck rev ealed mild to moderate stenosis at the takeoff of the left internal carotid artery. No other significant vascular abnormalities. A CT of the cervical spine reveals moderate to severe disc space narrowing from C3-C7 with associated disc osteophyte complexes resulting in mild central canal stenosis and mild bilateral neural foraminal narrowing. A CT of the thoracic spine reveals severe to space narrowing and osteophytes throughout the thoracic spine as well as postsurgical changes at T10-11 consistent with prior laminectomies. No significant central canal narrowing identified. I reviewed the images as well as the radiologist's interpretation of these tests. An electrocardiogram reveals a normal sinus rhythm, 93 bpm. Coding Level of Care Code 72109 Initial In Care Lvl 3 Diagnoses Stroke I63.9
--- NOTE | 2020-04-20 15:39 | Hospitalist Progress Note ---
Date of Service April 20, 2020 Assessment & Plan (1) Weakness: 75-year-old female with past medical history anemia, type 2 diabetes with neuropathy, hypertension, hyperlipidemia, hypothyroidism, osteoarthritis admitted for possible CVA. Left-sided weakness: - Without TPA administration given timeline of symptoms for over 12 hours prior to arrival to ED. - CT head: No ICH, mass-effect, or edema. Chronic lacunar infarct right caudate head. Mild chronic small vessel ischemic disease - Head CTA: Intracranial atherosclerosis. Patent intracranial circulation. No large vessel occlusion or aneurysm. - Neck CTA: Bilateral common carotid arteries are normal in caliber. Atherosclerosis of the bilateral carotid bifurcations. Right ICA is normal in caliber. Moderate stenosis at the origin of the left ICA. Bilateral vertebral arteries are normal caliber. Patient continues to refuse MRI because "I can't tolerate those". Telemetry without arrhythmia noted. Echo performed, read pending. - ASCVD 10 year risk calculated at 59.1%. Started Lipitor 80mg today after extensive discussion with patient regarding risks vs. benefits, and after noting that total cholesterol was 204 on AM labwork. - Hgb A1c 8.1%; will require tighter glucose control in outpatient setting. - Long discussion with patient today regarding when to check sugar (ie 1.5 to 2 hours after eating to "check her work"), decreasing carbohydrates. Fall precautions. PT/OT eval is pending; will determine if patient will discharge to home with home health services or to inpatient rehab facility. - Neuro consulted and appreciate recommendations: ok for patient to continue 650mg asa daily. Hypertension: Holding amlodipine, losartan/HCTZ to allow for permissive HTN. - Will resume tomorrow. - May require tighter BP control in outpatient setting. DM 2: - SSI while admitted. - Will suggest hvac r tech to patient for outpatient education. Hypothyroidism: Continue levothyroxine 88 mcg. TSH 0.619 on admission. Code Status: FULL CODE FEN/GI: Heart Healthy, DM 2 diet DVT prophylaxis: SCDs Dispo: Med/Surg with Tele Admission and Anticipated Discharge Date Admission Date: April 20, 2020 Supervising Physician Co-Signing Physician Notes I personally examined the patient and verified all cuello points of history and exam, discussed case, and agree with decision making with Dr Lemon. feeling about the same ongoing L arm weakness. no face problems but arm is weak and discoordinated. vitals noted nad heent nc at mmm breathing unlabored L arm weak and discoordinated no facial droop. CVA - or concern thereof. -is a little odd that she doesn't have face sx, but otherwise appears consistent, and clinical picture does not appear c/w cervical radiculopathy. certainly has large risk for cva. hypertension, uncontrolled DM, uncontrolled dyslipidemia ---in discussion of secondary risk reduction, she immediately balked at all suggestions, "i don't want to be put on a medicine, and then that medicine causes a side effect, and then you put me on a medicine for that side effect, and then that causes a side effect...." but after discussion of what a stroke is (" brain tissue") and what would be hugely helpful in secondary risk red uction (atorvastatin, better sugar control) she starts to be more amenable. once i then move on to mention a possible change in antiplatelets she immediately gets suspect again though about med changes. after this we discuss DM control with better lifestyle - less simple carbs - and using a 2hr pp glucose to crime scene examiner effects of food on her metabolism (she noted that she frequently checks sugars BID and always in the ~130ish range - but never checks postprandial) -atorva 40mg (discussed risks/benefits/rationale in detail) -ideally asa 81mg and clopidogrel 75mg for ~4wks then clopidogrel alone - but right now this seems too much for her to handle, and since really the risks leading to progressive vascular disease (DM, lipids, BP) are more of a danger than simply adjusting antiplatelets will work to modify these (atorva, less simple carbs) -PT/OT eval and treat - noted to have 6 clicks of 11 - will need rehab. otherwise as above Subjective Without acute events overnight. Feels the same as yesterday with regard to her L arm strength and numbness. Denies confusion, chest pain, SOB, palpitations, abdominal pain, nausea. Was resistant to starting any new medications this hospitalization despite symptoms "because I don't like taking medicines, and every medicine has side effects". Review of Systems Review of Systems: All systems reviewed & are unremarkable except as noted in Subjective Physical Exam Constitutional: well developed and + obese Eyes: PERRL, conjunctivae normal, anicteric sclerae ENMT: external ear and nose normal, oropharynx normal Respiratory: normal respiratory effort, lungs clear to auscultation Cardiovascular: RRR, no murmur, no edema Gastrointestinal (Abdomen): normal bowel sounds, soft, nontender, no hepatosplenomegaly Skin: no rashes, warm and dry Neurologic: CN's II-XI intact bilaterally; no focal motor deficits Speech / Cognition: normal speech Bilateral UE and LE with good strength, however minimal decrease with L UE/LE compared to R side. Normal sensation UE/LE bilaterally. Psychiatric: A+Ox3, euthymic affect Results & Data Results & Data ([facility]) Vital Signs (Past 12 Hours) Vital Signs Temp Pulse Pulse Resp BP Pulse Ox 04/20/20 15:30 37.0 C 95 H 16 196/66 H 95 04/20/20 11:16 36.8 C 84 16 147/80 H 95 04/20/20 07:37 81 Resident Activity Tracking Resident Involvement: Resident Care Provided Care Provided: Adult Hospital Medicine
--- NOTE | 2020-04-20 16:31 | XCELERA ---
[id number]
--- NOTE | 2020-04-20 16:35 | CT Scan Report ---
HEAD CT NONCONTRAST CT DOSE: 773.57 mGy.cm HISTORY: Left-sided weakness. Stroke symptoms. TECHNIQUE: Multiaxial CT images of the head were performed without the use of intravenous contrast. A utomated exposure control was utilized for this study. A dose lowering technique was utilized adheri ng to the principles of ALARA. Comparison: Head CT 04/19/2020. Findings: The paranasal sinuses and mastoid air cells are clear. The calvarium and skull base are int act. There is no mass, hematoma, midline shift, acute infarct. White matter hypodensity is nonspecifi c but suggestive of microvascular ischemic change. The ventricles and sulci demonstrate mild age-rela raymond involutional changes. Old lacunar infarct within the right caudate head is again noted. Impression: No significant change compared to the prior study. No acute intracranial abnormality. ACT 112: Negative or not required by law. Electronically signed by: Doni Gatica M.D. 04/20/2020 4:34 PM
--- NOTE | 2020-04-20 17:00 | Billing Data ---
Date of Service April 20, 2020 Coding Level of Care Code 03641 Subseq Obs Care Lvl 3
[2020-04-20] MEDS: ASPIRIN 325 MG ECTAB PO SCH (20:30)
--- NOTE | 2020-04-21 04:57 | Electrocardiogram Report ---
Test Reason : Blood Pressure : / mmHG Vent. Rate : 093 BPM Atrial Rate : 093 BPM P-R Int : 162 ms QRS Dur : 070 ms QT Int : 340 ms P-R-T Axes : 012 032 042 degrees QTc Int : 422 ms Poor data quality, interpretation may be adversely affected Normal sinus rhythm Low voltage QRS Borderline ECG When compared with ECG of 15-SEP-2015 13:42, No significant change was found Confirmed by Rivera Chen ([id number]) on 04/21/2020 4:57:21 AM Referred By: REFERRED SELF Confirmed By:Rivera Chen
[2020-04-21] MEDS: LEVOTHYROXINE SODIUM 88 MCG TABLET PO SCH (06:00)
[2020-04-21 07:08] LABS: Basophils # (auto) 0.07 K/uL (0-0.2); Basophils % (auto) 0.5 %; Eosinophils % (auto) 2.3 %; Hematocrit (blood only) 35.5 % (37-47); Hemoglobin 10.4 g/dL (12.0-16.0); Immature Granulocytes # (auto) 0.05 K/uL (0.00-0.02); Immature Granulocytes % (auto) 0.4 %; Lymphocytes # (auto) 2.18 K/uL (1.2-3.4); Lymphocytes % (auto) 16.7 %; Mean Corpuscular Hemoglobin 25.2 pg (25-34); Mean Corpuscular Hgb Conc 29.3 g/dL (32-36); Monocytes # (auto) 0.88 K/uL (0.11-0.59); Monocytes % (auto) 6.8 %; Neutrophils # (auto) 9.54 K/uL (1.4-6.5); Neutrophils % (auto) 73.3 %; Platelet Count 271 K/uL (130-400); RDW Coefficient of Variation 16.7 % (11.5-14.5); RDW Standard Deviation 52.3 fL (36.4-46.3); Red Blood Count 4.13 M/uL (4.2-5.4); White Blood Count 13.02 K/uL (4.8-10.8)
[2020-04-21 07:35] LABS: BUN Creatinine Ratio 21.4 (10-20); Calcium 9.6 mg/dl (8.5-10.1); Creatinine Clr Calc Pharmacy 43.2 ml/min; Est GFR (African American) 49.7; Est GFR (Non-African American) 42.9; Potassium 4.2 mmol/L (3.5-5.1)
--- NOTE | 2020-04-21 07:57 | Hospitalist Progress Note ---
Date of Service April 21, 2020 Assessment & Plan (1) Weakness: 75-year-old female with past medical history anemia, type 2 diabetes with neuropathy, hypertension, hyperlipidemia, hypothyroidism, osteoarthritis admitted for possible CVA. Left-sided weakness: - Without TPA administration given timeline of symptoms for over 12 hours prior to arrival to ED. - CT head: No ICH, mass-effect, or edema. Chronic lacunar infarct right caudate head. Mild chronic small vessel ischemic disease; repeat CT also without changes. - Head CTA: Intracranial atherosclerosis. Patent intracranial circulation. No large vessel occlusion or aneurysm. - Neck CTA: Bilateral common carotid arteries are normal in caliber. Atherosclerosis of the bilateral carotid bifurcations. Right ICA is normal in caliber. Moderate stenosis at the origin of the left ICA. Bilateral vertebral arteries are normal caliber. Telemetry without arrhythmia noted. Echo performed, read pending. - ASCVD 10 year risk calculated at 59.1%. Started Lipitor 80mg yesterday after extensive discussion with patient regarding risks vs. benefits, and after noting that total cholesterol was 204 on AM labwork. - Hgb A1c 8.1%; will require tighter glucose control in outpatient setting. - Long discussion with patient today regarding when to check sugar (ie 1.5 to 2 hours after eating to "check her work"), decreasing carbohydrates. Fall precautions. PT/OT eval performed and suggested inpatient therapy. Patient desires [facility] for inpatient rehabilitation. - Neuro consulted and appreciate recommendations: ok for patient to continue 650mg asa daily, statin, DM2 control. Hypertension: Will start losartan 50mg today (half of usual 100mg dose) and monitor for hypotension. Will continue to add home medications as able. DM 2: - SSI while admitted. - Will suggest para educator to patient for outpatient education. Left Elbow Bursitis: - Noted on exam, patient reports several months of left elbow swelling, no t rauma history. - Patient is without fevers or chills and she has a chronic (years) of mild leukocytosis that has not changed since noting this swollen elbow. - No intervention while inpatient; may require drainage of bursa in outpatient setting. - Can consider antibiotics if patient develops fevers, or swelling changes while admitted. Hypothyroidism: Continue levothyroxine 88 mcg. TSH 0.619 on admission. Back pain: - Chronic, with findings on exam suggestive of muscular cause but also possibly of radiculopathy. - Would likely benefit from referall for possible injection therapy for pain relief. - Also suggest Voltaren gel PRN to affected area. Code Status: FULL CODE FEN/GI: Heart Healthy, DM 2 diet DVT prophylaxis: SCDs Dispo: Med/Surg with Tele (2) Bursitis of left elbow: Admission and Anticipated Discharge Date Admission Date: April 20, 2020 Supervising Physician Co-Signing Physician Notes I personally examined the patient and verified all cuello points of history and exam, discussed case, and agree with decision making with Dr Lemon. feeling about the same ongoing L arm weakness. waiting on rehab. discussed dx and secondary risk reduction vitals noted nad heent nc at mmm breathing unlabored L arm weak and discoordinated no facial droop. CVA - or concern thereof. -is a little odd that she doesn't have face sx, but otherwise appears consistent, and clinical picture does not appear c/w cervical radiculopathy. certainly has large risk for cva. hypertension, uncontrolled DM, uncontrolled dyslipidemia -atorvastatin 80mg daily - reiterated discussion of benefits/risks/rationale - for now she is allowing this and tolerating it well -re-discussed less simple carbs for DM - she notes that she is more of a potato carb eater than a sweet carb eater. discussed that for metabolic purposes they are nearly the same. rec'd again postprandial glucose checks once she is home so that she can learn from how food effects her. -ideally asa 81mg and clopidogrel 75mg for ~4wks then clopidogrel alone - but right now this seems too much for her to handle, and since really the risks leading to progressive vascular disease (DM, lipids, BP) are more of a danger than simply adjusting antiplatelets will work to modify these (atorva, less simple carbs) (she is reticent to take any new meds, and reticent for any changes in meds) -PT/OT eval and treat - noted to have 6 clicks of 11 - will need rehab. back pain -L mid back /periscapular muscle spasms -moist heat -topical diclofenac -consider trial of OMT -MRI per neuro as outpt stable for rehab meds as current outpt imaging and f/u per neuro consult otherwise as above Subjective Without acute events overnight. Feels the same as yesterday with regard to her L arm weakness, stating that the arm "feels heavy". Denies confusion, chest pain, SOB, palpitations, abdominal pain, nausea. Elbow unchanged from yesterday's swelling which she has had for several months, has not grown in size, and does not recall trauma to the affected elbow. No recent fevers or chills. Noted by nursing today that she had not removed her shoes since admission, which was done during my examination. Regularly checks her toes using a mirror to see between toes and under foot. Review of Systems Review of Systems: All systems reviewed & are unremarkable except as noted in Subjective Physical Exam Constitutional: well developed and + obese Eyes: PERRL, conjunctivae normal, anicteric sclerae ENMT: external ear and nose normal, oropharynx normal Respiratory: normal respiratory effort, lungs clear to auscultation Cardiovascular: RRR, no murmur, no edema Gastrointestinal (Abdomen): normal bowel sounds, soft, nontender, no hepatosplenomegaly Skin: no rashes, warm and dry left elbow with swelling, redness unchanged from attending exam yesterday. Not tender to palptation. Bilateral feet without wounds or toe maceration. Neurologic: CN's II-XI intact bilaterally; no focal motor deficits Speech / Cognition: normal speech Bilateral UE and LE with good strength, however minimal decrease with L UE/LE compared to R side. Normal sensation UE/LE bilaterally. Psychiatric: A+Ox3, euthymic affect Results & Data Results & Data ([facility]) Vital Signs (Past 12 Hours) Vital Signs Temp Pulse Resp BP Pulse Ox 04/21/20 00:10 37.2 C 84 20 175/76 H 97 Resident Activity Tracking Resident Involvement: Resident Care Provided Care Provided: Adult Hospital Medicine
[2020-04-21] MEDS: CHOLECALCIFEROL 1,000 UNITS 25 MCG TAB PO SCH (08:15)
[2020-04-21] MEDS: ATORVASTATIN 40 MG TAB PO SCH (08:15)
[2020-04-21] MEDS: ASCORBIC ACID 500 MG TAB PO SCH (08:15)
[2020-04-21] MEDS: CYANOCOBALAMIN (VITAMIN B-12) 100 MCG TABLET PO SCH (08:15)
[2020-04-21] MEDS: FOLIC ACID 400 MCG TAB PO SCH (08:15)
[2020-04-21] MEDS: INSULIN GLARGINE SOLOSTAR 100 UNITS/ML 3 ML PEN SC SCH ×2 (08:16→20:38)
[2020-04-21] MEDS: INSULIN ASPART 100 UNITS/ML 3 ML PEN SC SCH ×4 (08:17→20:38)
--- NOTE | 2020-04-21 11:03 | Neurology Progress Note ---
Date of Service April 21, 2020 Assessment & Plan (1) Stroke-like symptoms: (2) Cervical radiculopathy: Persistent mild to moderate weakness of the left upper and lower extremity, without facial involvement. Symptoms were relatively acute and noted upon awakening 2 mornings ago. No evidence of evolving stroke on repeat CT of the head. Although timing of symptoms potentially suggestive of a small ischemic stroke, I am unable to confirm this diagnosis given patient's inability to follow through with enclosed MRI. The lack of facial involvement is somewhat atypical for most instances of stroke affecting the upper limb. Upon further review, this patient may have a C7 or C8 cervical radiculopathy or inferior trunk brachial plexopathy. However, these diagnoses would not explain her mild left lower extremity weakness. I do not believe the observed chronic right caudate head lacunar infarct adequately explains her presentation. The previous T10-11 meningioma and subsequent resection could explain her left lower extremity weakness although according to the patient, her left lower extremity weakness is new. At this point, I would recommend completion of outpatient open MRI of the brain, cervical spine, and thoracic spine. I would also recommend an outpatient EMG of the left upper and lower extremities. Patient should continue with aspirin and atorvastatin. PT/OT Please contact me if I may be of further assistance. Admission and Anticipated Discharge Date Admission Date: April 20, 2020 Subjective Follow-up for left-sided weakness The patient is a 75-year-old female who presented to the hospital yesterday complaining of persistent left-sided weakness, arm and leg, that began the morning prior. The arm weakness was noted first and she thought she may have slept on it funny although denies experiencing any numbness or paresthesia. She does complain of some associated cervicalgia, worse off to the left, in the mid trap shoulder region as well. She then noticed some difficulty with the left leg as well, weakness and heaviness resulting in some difficulty with ambulation although her ambulation is chronically affected due to bilateral lower extremity weakness related to a remote T10-11 meningioma resection and further confounded by a severe diabetic polyneuropathy. The left arm weakness is more notable proximally, with shoulder abduction but without much exquisite or focal shoulder pain with movement. She has relatively intact biceps and triceps strength for the left arm but does have some decreased intrinsic hand muscle strength and also complains of chronic numbness affecting the left fourth and fifth digits. Her mild to moderate left upper and lower extremity weakness are relatively unchanged this morning. She does not have any associated facial droop, dysarthria, or dysphasia. She continues to refuse MRI evaluation due to severe claustrophobia. And is not interested in pursuing this testing even with general anesthesia. She is potentially receptive to outpatient open MRI. She has completed fairly extensive CT imaging including CT of the head, cervical spine, and thoracic spine, as well as CT angiography of the head and neck. These test results have been described previously and were not worrisome for any acute pathology. She does have a chronic lacunar infarct within the right caudate head and a mild to moderate stenosis at the takeoff of the left internal carotid artery that is not clinically significant. The spinal imaging has revealed diffuse degenerative change but without evidence of obvious central canal or foraminal narrowing. There are postoperative changes at the T10-11 level which are chronic. The patient did complete the requested follow-up CT of the head, I reviewed the images as well as the radiologist interpretation of this test. The study is not significantly changed compared with the previous CT of the head and negative for hemorrhage or acute process or evidence of an evolving infarct. The chronic lacunar infarct within the right caudate head is again seen. As above, the patient continues to report mild to moderate weakness affecting the left upper and lower limb, not significantly changed compared with yesterday. She does report some chronic numbness affecting the left fourth and fifth digits as well as chronic neck pain, worse off to the left, more so in the shoulder and mid trap region. Review of Systems Constitutional: no fever and no chills Eyes: no blind spots and no diplopia Musculoskeletal: + back pain and + neck pain; no myalgia Neurologic: + gait abnormality, + localized weakness and + loss of sensation; no tremor(s), no syncope, no headache(s) and no memory loss Results & Data ([facility]) Vital Signs (Past 12 Hours) Vital Signs Temp Pulse Resp BP Pulse Ox 04/21/20 08:03 37.1 C 78 16 144/84 H 95 04/21/20 00:10 37.2 C 84 20 175/76 H 97 Laboratory Results WBC 13.02, hemoglobin 10.4, hematocrit 35.5, platelet count 271, sodium 138, potassium 4.2, BUN 26, creatinine 1.23, glucose 151, hemoglobin A1c 8.[address] of the head is as described above, images and radiologist report reviewed. Additional imaging including CT of the cervical and thoracic spine as well as CT angiography of the head and neck were also reviewed and are as described above. An echocardiogram completed yesterday revealed a normal left ventricular size and systolic function, 60 to 65%, no regional wall motion abnormalities. There is moderate pulmonary hypertension. The left atrium is mildly dilated, right atrial size normal. No ASD. PFO cannot be excluded. Exam (Neuro) Constitutional: well developed and well nourished; no acute distress Neurologic: Oriented to:: Person, Place and Time Memory: Short Term Intact and Remote Intact Attention: Span Intact and Concentration Intact Language: Naming Objects and Repeating Phrases Speech Fluency: negative Dysarthria Speech Aphasia: negative Aphasia Fund of Knowledge: Current Events, Past History and Vocabulary Cranial Nerves: Normal II, III, IV, , V, VII, VIII, IX, X, XI and XII Motor Strength: negative Normal Lower Extremities (Mild weakness for the left lower extremity noted, 4 out of 5 stre ngth proximally and distally.) and Normal Upper Extremities (Mild to moderate weakness noted for left shoulder abduction strength. There is also moderate weakness of the intrinsic hand muscles on the left. Triceps and biceps strength intact. There is no wrist drop.) Motor Tone: Normal Lower Extremities and Normal Upper Extremities Muscle Bulk/Involuntary Movements: negative No Involuntary Movements and Muscle Atrophy Sensation: negative Pain/Temperature Intact and Vibration Intact (Patient has a length dependent deficits of all sensory modalities. There is relatively diminished sensation to light touch affecting the left fourth and fifth digits extending up into the forearm.) Deep Tendon Reflexes: Rt Triceps: 1+, Lt Triceps: 1+, Rt Biceps: 1+, Lt Biceps: 1+, Rt Brachioradialis: 1+, Lt Brachioradialis: 1+, Rt Patellar: 1+, Lt Patellar: 1+, Rt Ankle: 0 and Lt Ankle: 0 Coding Level of Care Code 24972 Subseq Hosp Care Lvl 3 Diagnoses Stroke-like symptoms R29.90 Cervical radiculopathy M54.12
[2020-04-21] MEDS ORDERED: DICLOFENAC SOD 1% GEL 100 GM TUBE EXT SCH (12:15)
[2020-04-21] MEDS: LOSARTAN POTASSIUM 50 MG TAB PO SCH ×2 (13:58→14:02)
[2020-04-21] MEDS: EUCERIN CR 120 GM JAR EXT SCH (13:58)
--- NOTE | 2020-04-21 18:41 | Billing Data ---
Date of Service April 21, 2020 Coding Level of Care Code 34882 Subseq Hosp Care Lvl 3
[2020-04-21] MEDS: DICLOFENAC SOD 1% GEL 100 GM TUBE EXT SCH ×2 (19:23→20:52)
[2020-04-21] MEDS: ASPIRIN 325 MG ECTAB PO SCH (20:38)
--- NOTE | 2020-04-21 21:26 | Billing Data ---
Date of Service April 21, 2020 Coding Level of Care Code 79192 Initial Inpt Care Lvl 3
[2020-04-22] MEDS: LOSARTAN POTASSIUM 50 MG TAB PO SCH ×2 (01:12→21:18)
[2020-04-22] MEDS: OXYCODONE/ACETAMINOPHEN 5mg/325mg TAB PO PRN ×2 (01:12→23:33)
[2020-04-22] MEDS: LEVOTHYROXINE SODIUM 88 MCG TABLET PO SCH (05:40)
[2020-04-22 07:03] LABS: Basophils # (auto) 0.06 K/uL (0-0.2); Basophils % (auto) 0.4 %; Eosinophils # (auto) 0.39 K/uL (0-0.5); Eosinophils % (auto) 2.9 %; Hematocrit (blood only) 34.6 % (37-47); Hemoglobin 10.4 g/dL (12.0-16.0); Immature Granulocytes # (auto) 0.04 K/uL (0.00-0.02); Immature Granulocytes % (auto) 0.3 %; Lymphocytes # (auto) 2.16 K/uL (1.2-3.4); Lymphocytes % (auto) 15.9 %; Mean Corpuscular Hemoglobin 26.1 pg (25-34); Mean Corpuscular Hgb Conc 30.1 g/dL (32-36); Mean Corpuscular Volume 86.7 fL (80-100); Mean Platelet Volume 9.7 fL (7.4-10.4); Monocytes # (auto) 1.14 K/uL (0.11-0.59); Monocytes % (auto) 8.4 %; Neutrophils # (auto) 9.76 K/uL (1.4-6.5); Neutrophils % (auto) 72.1 %; Platelet Count 286 K/uL (130-400); RDW Coefficient of Variation 16.6 % (11.5-14.5); RDW Standard Deviation 52.8 fL (36.4-46.3); Red Blood Count 3.99 M/uL (4.2-5.4); White Blood Count 13.55 K/uL (4.8-10.8)
[2020-04-22 07:33] LABS: BUN Creatinine Ratio 22.1 (10-20); Calcium 9.2 mg/dl (8.5-10.1); Creatinine Clr Calc Pharmacy 36.4 ml/min; Est GFR (African American) 40.4; Est GFR (Non-African American) 34.8
[2020-04-22] MEDS: INSULIN ASPART 100 UNITS/ML 3 ML PEN SC SCH ×4 (08:26→21:16)
[2020-04-22] MEDS: FOLIC ACID 400 MCG TAB PO SCH (08:27)
[2020-04-22] MEDS: CHOLECALCIFEROL 1,000 UNITS 25 MCG TAB PO SCH (08:27)
[2020-04-22] MEDS: ASCORBIC ACID 500 MG TAB PO SCH (08:27)
[2020-04-22] MEDS: ATORVASTATIN 40 MG TAB PO SCH (08:27)
[2020-04-22] MEDS: CYANOCOBALAMIN (VITAMIN B-12) 100 MCG TABLET PO SCH (08:27)
[2020-04-22] MEDS: INSULIN GLARGINE SOLOSTAR 100 UNITS/ML 3 ML PEN SC SCH ×2 (08:28→21:17)
[2020-04-22] MEDS: DICLOFENAC SOD 1% GEL 100 GM TUBE EXT SCH ×4 (08:28→21:15)
[2020-04-22] MEDS: EUCERIN CR 120 GM JAR EXT SCH (08:28)
--- NOTE | 2020-04-22 11:11 | Hospitalist Progress Note ---
Date of Service April 22, 2020 Assessment & Plan (1) Weakness: 75-year-old female with past medical history anemia, type 2 diabetes with neuropathy, hypertension, hyperlipidemia, hypothyroidism, osteoarthritis admitted for possible CVA. Left-sided weakness: - Without TPA administration given timeline of symptoms for over 12 hours prior to arrival to ED. - CT head: No ICH, mass-effect, or edema. Chronic lacunar infarct right caudate head. Mild chronic small vessel ischemic disease; repeat CT also without changes. - Head CTA: Intracranial atherosclerosis. Patent intracranial circulation. No large vessel occlusion or aneurysm. - Neck CTA: Bilateral common carotid arteries are normal in caliber. Atherosclerosis of the bilateral carotid bifurcations. Right ICA is normal in caliber. Moderate stenosis at the origin of the left ICA. Bilateral vertebral arteries are normal caliber. Telemetry without arrhythmia noted. Echo performed - EF 60-65% with mitral annular calcification and Pulmonary HTN with pressure 42mmHg. No Patent FO. - ASCVD 10 year risk calculated at 59.1%. Total Cholesterol 204. -Lipitor 80mg QD - Hgb A1c 8.1%; will require tighter glucose control in outpatient setting. - Long discussion with patient regarding when to check sugar (ie 1.5 to 2 hours after eating to "check her work"), decreasing carbohydrates. Fall precautions. PT/OT eval performed and suggested inpatient therapy. Patient desires [facility] for inpatient rehabilitation. - Neuro consulted and appreciate recommendations: ok for patient to continue 650mg asa daily, statin, DM2 control. -Rec outpatient open MRI of brain, cervical spine, thoracic spine and EMG of RANJEET and LL extremities. Back pain: - Chronic, with findings on exam suggestive of muscular cause but also possibly of radiculopathy. - Would likely benefit from referral for possible injection therapy for pain relief. - Voltaren gel PRN to affected area. - Concern today for lipoma - US ordered to view concerning lesions. Hypertension: Will start losartan 50mg today (half of usual 100mg dose) and monitor for hypotension. Will continue to add home medications as able. DM 2: - SSI while admitted. - Will suggest elementary educator to patient for outpatient education. Left Elbow Bursitis: - Noted on exam, patient reports several months of left elbow swelling, no trauma history. - Patient is without fevers or chills and she has a chronic (years) of mild leukocytosis that has not changed since noting this swollen elbow. - No intervention while inpatient; may require drainage of bursa in outpatient setting. - Can consider antibiotics if patient develops fevers, or swelling changes while admitted. Hypothyroidism: Continue levothyroxine 88 mcg. TSH 0.619 on admission. DEXTER -Slight creatinine elevation 1.46 this AM -Will start gentle fluids NSS 80ml/hr Leukocytosis - Chronic. Stable. Code Status: FULL CODE FEN/GI: Heart Healthy, DM 2 diet, NSS 80ml/hr DVT prophylaxis: SCDs Dispo: Med/Surg with Tele (2) Bursitis of left elbow: Admission and Anticipated Discharge Date Admission Date: April 21, 2020 Supervising Physician Co-Signing Physician Notes Patient seen and examined with PGY-2 Dr. Rodriguez. Agree with history, exam findings, assessment and plan of care as documented. In brief, Hayde is a 75 year old female with history of DM2 with neuropathy, hypertension, hyperlipidemia, hypothyroidism and anemia admitted with left sided weakness concerning for CVA. Today, she continues to experience weakness of the left upper extremity and lower extremity. She denies any difficulty with speech or moving her face. She continues to have upper back pain near the scapula on the left. Reports that pain radiates up towards the neck. Pain in the upper back started several weeks ago suddenly, but does not recall any trauma to the area. VS and labs reviewed. Nursing notes reviewed. No facial asymmetry. CN II-XII symmetric and in tact. Strength testing per Dr. Pool exam. Left upper back. 2 palpable, mobile, tender nodules medial to the left scapula. 1. Left sided weakness. CVA vs cervical radiculopathy or brachial plexopathy. CT with chronic lacunar infarct on the right, small vessel disease. CTA Head/Neck significant for moderate stenosis at the origin of the left ICA. Repeat Head CT on 04/21 without evidence of an evolving infarct. Echo pending. Continue home ASA 650mg. Started Lipitor 80mg. Optimizing glucose control. PT/OT eval. Awaiting [facility] bed. Appreciate neuro recommendations. Will need open MRI of brain, c ervical spine and thoracic spine as an outpatient as well as outpatient EMG of left upper and lower extremities. 2. HTN. Started losartan 50mg. Home dose is 100mg. 3. DM2. clinical educator. On sliding scale in house. 4. DEXTER. Cr 1.46 today. Pre-renal. Gentle IVFs, encourage PO intake. 6. Back pain. Muscular etiology, ?angiolipoma give mobile subcutaneous mass. Ultrasound obtained but was unremarkable. Dispo: awaiting rehab bed. Subjective Patient seen and evaluated while seated in the chair this AM. Patient noting that she felt good and "about the same" as yesterday. States that her main concerns are that she is still having L arm and leg weakness and is unable to walk on her own and that she has L sided back pain near her shoulder blades. Denies any chest pain, fever, chills, SOB, abdominal pain, visual changes. Review of Systems Constitutional: + weakness; no fever and no chills Eyes: no worsening vision Respiratory: no cough, no dyspnea and no pain on inspiration Cardiovascular: no chest pain, no radiating jaw, neck or arm pain, no dyspnea on exertion and no palpitations Gastrointestinal: no abdominal pain, no nausea and no vomiting Musculoskeletal: + back pain and + muscle weakness (LUE and LLE) Neurologic: + gait abnormality and + unsteadiness Physical Exam Constitutional: well developed and well nourished; no acute distress Eyes: PERRL, conjunctivae normal, anicteric sclerae Neck: trachea midline, no thyromegaly Respiratory: normal respiratory effort, lungs clear to auscultation Cardiovascular: RRR, no murmur, no edema Musculoskeletal: RUE: Strength 5/5 in all aspects. Negative Alarcon LUE: Generalized weakness throughout 3-4/5, abduct and flex shoulder to 90 degree but difficulty higher. [employer] strength less on L. Negative Alarcon RLE: Strength 5/5 in all aspects LLE: Generalized weakness 4/5, worse with leg extension over flexion. Back: 2 palpable nodules noted in the L upper back around the levels of T6 and T8 with the more cephalad nodule measuring roughly 2cm in diameter and the caudal nodule measuring roughly 3-4cm in diameter. Both nodules are movable and relatively soft. Pain noted with palpation of the more cephalad nodule. Results & Data Results & Data ([facility]) Vital Signs (Past 12 Hours) Vital Signs Temp Pulse Resp BP Pulse Ox 04/22/20 07:21 36.6 C 74 18 97/58 L 100 Resident Activity Tracking Resident Involvement: Resident Care Provided Care Provided: [facility]
--- NOTE | 2020-04-22 15:10 | Ultrasound Report ---
ULTRASOUND OF THE LEFT CHEST WALL CLINICAL HISTORY: Chest wall lesions. COMPARISON STUDY: No priors. FINDINGS: Real-time, grayscale, and color flow sonography of the soft tissues of the left upper back is performed at the indicated sites of interest. No mass or fluid collection is identified. Normal-ap pearing subcutaneous soft tissues are noted. IMPRESSION: No sonographic abnormality is identified in the left upper back at the indicated site of interest. Electronically signed by: Bennie Andrea M.D. 04/22/2020 3:09 PM
[2020-04-22] MEDS ORDERED: SODIUM CHLORIDE 0.9% 1000ML 1,000 ML IV SCH (15:30)
[2020-04-22] MEDS: ASPIRIN 325 MG ECTAB PO SCH (21:18)
[2020-04-23] MEDS: LEVOTHYROXINE SODIUM 88 MCG TABLET PO SCH (06:23)
[2020-04-23 06:46] LABS: Basophils # (auto) 0.05 K/uL (0-0.2); Basophils % (auto) 0.4 %; Eosinophils # (auto) 0.49 K/uL (0-0.5); Eosinophils % (auto) 4.1 %; Hematocrit (blood only) 31.4 % (37-47); Hemoglobin 9.5 g/dL (12.0-16.0); Immature Granulocytes # (auto) 0.05 K/uL (0.00-0.02); Immature Granulocytes % (auto) 0.4 %; Lymphocytes # (auto) 2.69 K/uL (1.2-3.4); Lymphocytes % (auto) 22.4 %; Mean Corpuscular Hemoglobin 25.9 pg (25-34); Mean Corpuscular Hgb Conc 30.3 g/dL (32-36); Mean Corpuscular Volume 85.6 fL (80-100); Mean Platelet Volume 10.4 fL (7.4-10.4); Monocytes # (auto) 0.93 K/uL (0.11-0.59); Monocytes % (auto) 7.8 %; Neutrophils # (auto) 7.79 K/uL (1.4-6.5); Neutrophils % (auto) 64.9 %; Platelet Count 269 K/uL (130-400); RDW Coefficient of Variation 16.7 % (11.5-14.5); RDW Standard Deviation 51.8 fL (36.4-46.3); Red Blood Count 3.67 M/uL (4.2-5.4)
[2020-04-23 07:22] LABS: BUN Creatinine Ratio 26.7 (10-20); Calcium 8.8 mg/dl (8.5-10.1); Creatinine Clr Calc Pharmacy 33.2 ml/min; Est GFR (African American) 36.2; Est GFR (Non-African American) 31.2; Potassium 3.7 mmol/L (3.5-5.1)
[2020-04-23] MEDS ORDERED: LACTATED RINGER'S 1,000 ML IV SCH (08:15)
[2020-04-23] MEDS: INSULIN ASPART 100 UNITS/ML 3 ML PEN SC SCH ×2 (08:51→12:24)
[2020-04-23] MEDS: INSULIN GLARGINE SOLOSTAR 100 UNITS/ML 3 ML PEN SC SCH (08:51)
[2020-04-23] MEDS: DICLOFENAC SOD 1% GEL 100 GM TUBE EXT SCH ×2 (08:52→12:24)
[2020-04-23] MEDS: CHOLECALCIFEROL 1,000 UNITS 25 MCG TAB PO SCH (08:53)
[2020-04-23] MEDS: ASCORBIC ACID 500 MG TAB PO SCH (08:53)
[2020-04-23] MEDS: EUCERIN CR 120 GM JAR EXT SCH (08:53)
[2020-04-23] MEDS: CYANOCOBALAMIN (VITAMIN B-12) 100 MCG TABLET PO SCH (08:53)
[2020-04-23] MEDS: FOLIC ACID 400 MCG TAB PO SCH (08:53)
[2020-04-23] MEDS: ATORVASTATIN 40 MG TAB PO SCH (08:53)
--- NOTE | 2020-04-23 10:34 | Hospitalist Progress Note ---
Date of Service April 23, 2020 Assessment & Plan Admission and Anticipated Discharge Date Admission Date: April 21, 2020 Results & Data Results & Data ([facility]) Vital Signs (Past 12 Hours) Vital Signs Temp Pulse Resp BP Pulse Ox 04/23/20 08:00 36.6 C 72 18 124/72 98 04/22/20 22:49 36.8 C 93 H 20 158/79 H 97
--- NOTE | 2020-04-23 10:44 | Neurology Progress Note ---
Date of Service April 23, 2020 Assessment & Plan (1) Stroke-like symptoms: (2) Cervical radiculopathy: (3) Peripheral neuropathy: (4) Thoracic intradural extramedullary tumor: Patient had the relatively acute onset of left arm and leg weakness which I believe is consistent with a relatively small right hemispheric stroke. She has been stable since admission. The left upper extremity drift tends to support this. She does not have facial involvement. She does not display any upper motor neuron signs however she has a severe generalized polyneuropathy which would mask upper motor signs. 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 it was compressing the cord but she has done fairly well postoperatively. Most recent MRI was in December of 2018 which showed a extradural seroma and no compression on the cord . Patient has diffuse osteoarthritis and I suspect she has a left C8 radiculopathy ( versus left ulnar neuropathy). Recommendations: 1. consider repeat CT scan of the head at this was not done earlier this admission. 2. CT scan of the cervical and thoracic spines. contrast is not needed on any of the CT scans. 3. Increase activity as able with physical and occupational therapy. Transfer to [facility] is reasonable as well. 4. Consider EMG and nerve conduction studies as an outpatient of the left upper extremity (possibly left lower extremity depending on her clinical course and above test results). Overall, I spent a total of 40 minutes with this case including review of records, review of MRI films, direct evaluation the patient at bedside, and discussing the case with the patient at bedside and Dr. Ford, including differential diagnosis and treatment options. Admission and Anticipated Discharge Date Admission Date: April 21, 2020 Subjective have left upper extremity and left lower extremity weakness. She has some numbness and tingling in the left 5th digit and the lateral aspect of the 4th digit. She has considerable diffuse joint discomfort in her hands and knees. Her feet are numb and has a known history of polyneuropathy. The weakness has been about the same since admission. She has no facial weakness or numbness, speech issues, headaches, vision issues, or incontinence of urine. Balance is somewhat poor because of her issues but she is not falli ng. Blood pressure is 124/72. Recent CBC shows anemia and she has an elevated BUN and creatinine. I do not see a CT scan of the head since April 20. Results & Data ([facility]) Vital Signs (Past 12 Hours) Vital Signs Temp Pulse Resp BP Pulse Ox 04/23/20 08:00 36.6 C 72 18 124/72 98 04/22/20 22:49 36.8 C 93 H 20 158/79 H 97 Exam (Neuro) Physical Exam: She is awake and alert. Speech is without aphasia or dysarthria. Mood is reasonable and affect is appropriate. Thought processes are intact to conversation long and short-term memory. Extraocular eye muscles are intact without nystagmus. There is no facial droop. Coordination is reasonable in the arms bilaterally although she is clumsy on the left. She has some drift with outstretched arms on the left. Strength is 4/5 diffusely in the left upper extremity and left lower extremity. Strength is 5/5 diffusely in the right arm and leg. She has considerable distal joint deformities from arthritis in her hands. Reflexes are 1/4 in the arms and trace to absent in the quadriceps tendons bilaterally. PG Care Time/CCT Total # of Minutes Spent Total Time Spent with Patient: Total time spent is greater than 50% in coordination of care (as documented) at patient's floor/unit and/or counseling patient: Coding Level of Care Code 85470 Subseq Hosp Care Lvl 3 Diagnoses Stroke-like symptoms R29.90 Cervical radiculopathy M54.12 Peripheral neuropathy G62.9 Thoracic intradural extramedullary tumor D49.7 Time Spent (min) 40
--- NOTE | 2020-04-23 12:02 | Discharge Summary ---
Date of Service April 23, 2020 Admission HPI Per Admitting Provider 75-year-old female with past medical history anemia, type 2 diabetes with neuropathy, hypertension, hyperlipidemia, hypothyroidism, osteoarthritis presents with concerns of left-sided weakness. Patient woke up this morning and noted left arm weakness and she was unable to lift above her head. As day progressed she noted that she had some left lower extremity weakness as well. Patient normally ambulates with crutches, however noted difficulty with this due to weakness. Patient notes that the symptoms have not worsened since onset. No previous occurrence like this ever before. Patient additionally has complaints of pain between her shoulder blades has been ongoing over the last 1.5 weeks. Patient states she has a history of T11-T12 meningioma which was surgically removed in June 2018, and this feels similar to that. Described as having a knot between her shoulder blades, nonradiating. 7 out of 10 on severity scale. She has tried aspirin and he presented for this, which have worked. No known exacerbating factors. Associated stiff neck. Patient otherwise denies any fevers, nausea, vomiting, diarrhea, chills, chills, sweats, chest pain, palpitations, shortness of breath, numbness, tingling, reflux symptoms of bowel or bladder incontinence or saddle anesthesia. Patient no other acute concerns or complaints. Pertinent labs: WBC 11.97, hemoglobin 10.4, creatinine 1.87, Trop negative. Otherwise largely unremarkable Chest x-ray: Cardiomegaly with pulmonary vascular congestion. Ovoid opacity of the right perihilar distribution may be secondary to summation density Cervical spine CT: Straightening of the C-spine. Osteopenia. No acute fracture or subluxation. Multilevel degenerative changes. Thoracic spine CT: Osteopenia. Normal vertebral body height and alignment. No acute fracture or subluxation. Previous posterior decompression of spine at T10 and T11. Head CTA: Intracranial atherosclerosis. Patent intracranial circulation. No large vessel occlusion or aneurysm. Note is made of hypoplastic bilateral P1 segments with predominant supply of the bilateral brake liner via the p-comm's. CT head: No ICH, mass-effect, or edema. Chronic lacunar infarct right caudate head. Mild chronic small vessel ischemic disease. Neck CTA: Bilateral common carotid arteries are normal in caliber. Atherosclerosis of the bilateral carotid bifurcations. Right ICA is normal in caliber. Moderate stenosis at the origin of the left ICA. Bilateral vertebral arteries are normal caliber. ER course: -- Social history: Patient denies any tobacco, alcohol, illicit drug use Admission Exam Per Admitting Provider Constitutional: + obese Eyes: PERRL, conjunctivae normal, anicteric sclerae ENMT: external ear and nose normal, oropharynx normal Respiratory: normal respiratory effort, lungs clear to auscultation Cardiovascular: RRR, no murmur, no edema Gastrointestinal (Abdomen): normal bowel sounds, soft, nontender, no hepatosplenomegaly Skin: no rashes, warm and dry Neurologic: CN's II-XI intact bilaterally; no focal motor deficits Speech / Cognition: normal speech Muscle strength 5 out of 5 bilaterally UE/LE. Normal sensation UE/LE Psychiatric: A+Ox3, euthymic affect Principal Diagnosis L sided weakness with stroke like symptoms, concerning for small R hemispheric stroke Discharge Exam Constitutional well developed and well nourished; no acute distress Eyes PERRL, conjunctivae normal, anicteric sclerae Neck trachea midline, no thyromegaly Respiratory normal respiratory effort, lungs clear to auscultation Cardiovascular RRR, no murmur, no edema Musculoskeletal RUE: Strength 5/5 in all aspects. LUE: Generalized weakness throughout 3-4/5, abduct and flex shoulder to 90 degree but difficulty higher. 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 RLE: Strength 5/5 in all aspects LLE: Generalized weakness 4/5, worse with leg extension over flexion. Back: 2 palpable nodules noted in the L upper back around the levels of T6 and T8 with the more cephalad nodule measuring roughly 2cm in diameter and the caudal nodule measuring roughly 3-4cm in diameter. Both nodules are movable and relatively soft. Pain noted with palpation of the more cephalad nodule. Bedside ultrasound with concerns for Lipoma vs Angiolipoma of the painful more cephalad lesion and a subcutaneous cyst of the more caudad lesion. Psychiatric A+Ox3, euthymic affect Discharge Data Allergies Allergy/AdvReac Type Severity Reaction Status Date / Time animal dander Allergy Intermediate congestion Unverified 04/19/20 23:11 pollen extracts Allergy Mild sneezing Unverified 04/19/20 23:11 bacitracin Allergy Unknown ? Verified 04/19/20 23:11 latex Allergy Unknown blisters Verified 04/19/20 23:11 skin neomycin Allergy Unknown ? Verified 04/19/20 23:11 polymyxin B Allergy Unknown ? Verified 04/19/20 23:11 sulfabenzamide Allergy Unknown ? Verified 04/19/20 23:11 sulfacetamide Allergy Unknown ? Verified 04/19/20 23:11 sulfathiazole Allergy Unknown ? Verified 04/19/20 23:11 Consultations 04/19/20 23:02 ED Decision to Admit Stat 04/20/20 01:18 Consult Neurology Routine 04/20/20 16:42 Consult Case Management - Discharge Planning Routine Ordered Studies 04/19/20 20:10 CT angio head wo/w Urgent CT angio neck with con Urgent CT cervical spine wo con Urgent CT thoracic spine wo con Urgent 04/20/20 16:00 CT head/brain wo con Routine 04/22/20 13:10 US effusion-chest/mediastinum Urgent 04/23/20 11:09 CT cervical spine wo con Routine CT thoracic spine wo con Routine 04/23/20 11:45 CT head/brain wo con Routine Hospital Course (1) Weakness: 75-year-old female with past medical history anemia, type 2 diabetes with neuropathy, hypertension, hyperlipidemia, hypothyroidism, osteoarthritis admitted for possible CVA. Left-sided weakness: - Without TPA administration given timeline of symptoms for over 12 hours prior to arrival to ED. - CT head: No ICH, mass-effect, or edema. Chronic lacunar infarct right caudate head. Mild chronic small vessel ischemic disease; repeat CT also without changes. - Head CTA: Intracranial atherosclerosis. Patent intracranial circulation. No large vessel occlusion or aneurysm. - Neck CTA: Bilateral common carotid arteries are normal in caliber. Atherosclerosis of the bilateral carotid bifurcations. Right ICA is normal in caliber. Moderate stenosis at the origin of the left ICA. Bilateral vertebral arteries are normal caliber. Telemetry without arrhythmia noted. Echo performed - EF 60-65% with mitral annular calcification and Pulmonary HTN with pressure 42mmHg. No Patent FO. - ASCVD 10 year risk calculated at 59.1%. Total Cholesterol 204. - Neuro consulted and appreciate recommendations: ok for patient to continue 650mg asa daily, statin, DM2 control. -Rec outpatient open MRI of brain, cervical spine, thoracic spine and EMG of RANJEET and LL extremities. -Repeat Head CT, Neck, and Thoracic spine prior to discharge showed no change from prior studies 4 days ago. -Continue Lipitor 80mg QD -From a neurological standpoint patient can be on 81mg QD, but may continue ASA 650mg QD per own preference. -Recommend tighter DM2 control in outpatient setting. -Follow up with Neurology Dr. Layton in 3-4 weeks -Follow up with Neurology Dr. Blanca in 1-2 weeks for EMG studies of LUE and LLE. Back pain: - Chronic, with findings on exam suggestive of muscular cause but also possibly of radiculopathy. - Concern for Lipoma/Angiolipoma of the tender lesion and Subcutaneous cyst for the non-tender larger lesion - Follow up with PCP or General Surgery in regards to removal if pain persists. - Continue Voltaren gel PRN to the affected area. Hypertension: Patients home medications were initially held - Losartan was restarted at half dose - Can resume full regiment upon discharge. DM 2: - SSI while admitted. - Will suggest clinical nurse educator to patient for outpatient education. - Resume Metformin at discharge Left Elbow Bursitis: - Noted on exam, patient reports several months of left elbow swelling, no trauma history. - Patient is without fevers or chills and she has a chronic (years) of mild leukocytosis that has not changed since noting this swollen elbow. - No intervention while inpatient; may require drainage of bursa in outpatient setting. Hypothyroidism: Continued levothyroxine 88 mcg. TSH 0.619 on admission. DEXTER -With slight creatinine elevation. -Suspect pre-renal etiology, started on IVF while inpatient -Recommend patient increase fluid intake Leukocytosis - Chronic. Stable. Code Status: FULL CODE FEN/GI: Heart Healthy, DM 2 diet Dispo: [facility] (2) Bursitis of left elbow: Total Time Total Time Spent Total Time Spent (In Minutes): see attending attestation Discharge Plan Discharge Items Patient Disposition: Transfer Inpatient Rehab Fac Reason For Visit: WEAKNESS Discharge Diagnosis: L sided weakness and stroke like symptoms Activity: Per Instructions section Non-emergency contact: Primary Care Provider Call non-emergency contact if: you have any medication questions, your symptoms worsen and your pain is not controlled Follow-up/Referrals: Trae Layton MD [Physician] - (f/u 3-4 weeks ) Kwame Blanca MD [Physician] - (f/u 1-2 weeks for EMG ) Leah Montejo MD [Primary Care Provider] - Diet: Regular Addtl Attending Provider Instructions: 75-year-old female with past medical history anemia, type 2 diabetes with neuropathy, hypertension, hyperlipidemia, hypothyroidism, osteoarthritis admitted for possible CVA. Left-sided weakness: - Without TPA administration given timeline of symptoms for over 12 hours prior to arrival to ED. - CT head: No ICH, mass-effect, or edema. Chronic lacunar infarct right caudate head. Mild chronic small vessel ischemic disease; repeat CT also without changes. - Head CTA: Intracranial atherosclerosis. Patent intracranial circulation. No large vessel occlusion or aneurysm. - Neck CTA: Bilateral common carotid arteries are normal in caliber. Atherosclerosis of the bilateral carotid bifurcations. Right ICA is normal in caliber. Moderate stenosis at the origin of the left ICA. Bilateral vertebral arteries are normal caliber. Telemetry without arrhythmia noted. Echo performed - EF 60-65% with mitral annular calcification and Pulmonary HTN with pressure 42mmHg. No Patent FO. - ASCVD 10 year risk calculated at 59.1%. Total Cholesterol 204. - Neuro consulted and appreciate recommendations: ok for patient to continue 650mg asa daily, statin, DM2 control. -Rec outpatient open MRI of brain, cervical spine, thoracic spine and EMG of RANJEET and LL extremities. -Repeat Head CT, Neck, and Thoracic spine prior to discharge showed no change from prior studies 4 days ago. -Continue Lipitor 80mg QD -From a neurological standpoint patient can be on 81mg QD, but may continue ASA 650mg QD -Recommend tighter DM2 control in outpatient setting. -Follow up with Neurology Dr. Layton in 3-4 weeks -Follow up with Neurology Dr. Blanca in 1-2 weeks for EMG studies of LUE and LLE. Back pain: - Chronic, with findings on exam suggestive of muscular cause but also possibly of radiculopathy. - Concern for Lipoma/Angiolipoma of the tender lesion and Subcutaneous cyst for the non-tender larger lesion - Follow up with PCP or General Surgery in regards to removal if pain persists. - Continue Voltaren gel PRN to the affected area. Hypertension: Will start losartan 50mg today (half of usual 100mg dose) and monitor for hypotension. Will continue to add home medications as able. DM 2: - SSI while admitted. - Will suggest clinical nurse educator to patient for outpatient education. Left Elbow Bursitis: - Noted on exam, patient reports several months of left elbow swelling, no trauma history. - Patient is without fevers or chills and she has a chronic (years) of mild leukocytosis that has not changed since noting this swollen elbow. - No intervention while inpatient; may require drainage of bursa in outpatient setting. - Can consider antibiotics if patient develops fevers, or swelling changes while admitted. Hypothyroidism: Continue levothyroxine 88 mcg. TSH 0.619 on admission. DEXTER -With slight creatinine elevation. -Suspect pre-renal etiology, started on IVF while inpatient -Recommend patient increase fluid intake Leukocytosis - Chronic. Stable. Code Status: FULL CODE FEN/GI: Heart Healthy, DM 2 diet Dispo: [facility] Pending Studies at Discharge: No Stand-Alone Forms: My [facility] Skilled Items Patient informed of condition?: Yes DNR: No Discharge Level of Care: Skilled Communicable Disease: No Discharge Prognosis: Stable Lines: None Urinary Catheter: No Medications and DC Order Prescriptions: New atorvastatin 40 mg Tablet 80 mg PO QAM 30 Days Qty: 60 RF: 0 diclofenac sodium [Voltaren] 1 % Gel 2 g EXT QID Qty: 100 RF: 0 Continued nystatin-triamcinolone 100,000-0.1 unit/g-% cream 1 applic topical TID Qty: 30 RF: 3 ascorbic acid (vitamin C) 500 mg tablet 500 mg PO DAILY RF: 0 aspirin 325 mg tablet 650 mg PO HS RF: 0 cholecalciferol (vitamin D3) 1,000 unit capsule 2,000 units PO DAILY RF: 0 cyanocobalamin (vitamin B-12) 100 mcg tablet 100 mcg PO DAILY RF: 0 folic acid 800 mcg tablet 800 mcg PO DAILY RF: 0 paula (Zingiber officinalis) 550 mg capsule 550 mg PO DAILY RF: 0 (DME) lancets [OneTouch Delica Lancets] 33 gauge misc See Dose Instructions .ROUTE .MEDSUPPLY Qty: 100 RF: 0 amlodipine [Norvasc] 10 mg tablet 10 mg PO DAILY Qty: 90 RF: 3 levothyroxine 88 mcg tablet 88 mcg PO DAILY Qty: 90 RF: 1 losartan-hydrochlorothiazide 100-25 mg tablet 1 tab PO DAILY Qty: 90 RF: 3 metformin 500 mg tablet 500 mg PO BID Qty: 180 RF: 3 (DME) OneTouch Verio test strips Strip See Dose Instructions .ROUTE .MEDSUPPLY Qty: 100 RF: 1 Discharge Orders: Discharge Order (Routine); Ordered 04/23/20 Ordered By: Ramírez Garcia/Other Patient Handouts: High Blood Sugar (Hyperglycemia), Hypoglycemia (Low Blood Sugar), Managing Type 2 Diabetes, Managing Diabetes: The A1C Test, Diabetes: Meal Planning Admission Data Admit Date/Time: 04/21/20 11:47 Attending Provider: Cecilia Ford Admit Provider: Rikki Torres Primary Care Provider: Leah Montejo V. Other Providers: Jose Sanchez ; Trae Layton ; [facility] Supervising Physician Co-Signing Physician Notes Patient seen and examined with PGY-2 Dr. Rodriguez. Agree with history, exam findings, assessment and plan of care as documented. In brief, Hayde is a 75 year old female with history of DM2 with neuropathy, hypertension, hyperlipidemia, hypothyroidism and anemia admitted with left sided weakness concerning for CVA. Today, she continues to experience weakness of the left upper extremity and lower extremity. She denies any difficulty with speech or moving her face. She continues to have upper back pain near the scapula on the left. VS and labs reviewed. Nursing notes reviewed. No facial asymmetry. CN II-XII symmetric and in tact. Strength testing per Dr. Pool exam. Left upper back. 2 palpable, mobile, tender nodules medial to the left scapula. 1. Left sided weakness. CVA vs cervical radiculopathy or brachial plexopathy. CT with chronic lacunar infarct on the right, small vessel disease. CTA Head/Neck significant for moderate stenosis at the origin of the left ICA. Repeat Head CT today without evidence of evolving infarct. CT cervical spine and thoracic spine completed without clear evidence of nerve impingement. TTE unremarkable. Ok to continue home ASA 650mg (from a neuro stand point, 81mg is adequate). Started Lipitor 80mg. Optimizing glucose control. Appreciate neuro recommendations. Will need follow up with Dr. Blanca for EMG/NCS in 1-2 weeks and neuro follow up with Dr. Layton in 3-4 weeks. 2. HTN. Continue losartan 50mg. Home dose is 100mg. 3. DM2. clinical nurse educator. On sliding scale in house. 4. DEXTER. Cr 1.6 today. Pre-renal. Encourage PO intake. 6. Back pain. Muscular etiology, ?angiolipoma give mobile subcutaneous mass. She can have this evaluated/removed with gen surg if she wishes. Although, I suspect that this may improve with time. Dispo: discharge to [facility] today. I personally spent 35 minutes discharge planning for this patient. Resident Activity Tracking Resident Involvement: Resident Care Provided Care Provided: Adult [facility]
--- NOTE | 2020-04-23 12:04 | CT Scan Report ---
CT SCAN OF THE BRAIN WITHOUT IV CONTRAST CLINICAL HISTORY: Left-sided weakness. COMPARISON STUDY: CT of the brain dated 04/20/2020. TECHNIQUE: Unenhanced axial CT scan of the brain is performed from the vertex to the skull base. A do se lowering technique was utilized adhering to the principles of ALARA. CT DOSE: 2101.07 mGy.cm FINDINGS: Brain parenchyma: There are age-related involutional changes noting mild subcortical and periventric ular microangiopathic change. There is no hemorrhage, mass effect, or evidence of acute territorial i schemia by CT criteria. A chronic lacunar infarct is noted in the right caudate head. Yang-white charles er differentiation is preserved. No extra-axial fluid collection is seen. Ventricles, sulci, cisterns: Prominent secondary to involutional change. Intracranial vasculature: There is atherosclerotic calcification of the cavernous carotid arteries. Calvarium: Unremarkable. Sinuses and mastoids: The visualized paranasal sinuses are clear. The mastoid air cells are well pneu matized. Orbits: The bony orbits are grossly intact. IMPRESSION: There is no hemorrhage, mass effect, or evidence of acute territorial ischemia by CT crit eria. No significant change from previous. ACT 112: Negative or not required by law. Electronically signed by: Bennie Andrea M.D. 04/23/2020 12:03 PM
--- NOTE | 2020-04-23 12:13 | CT Scan Report ---
CT cervical spine wo con CLINICAL HISTORY: 75 years-old Female with L side weak. Acute left-sided weakness COMPARISON: Head CT of same day, CT cervical spine 04/19/2020. TECHNIQUE: Multiple axial CT images of the cervical spine were obtained without contrast. A dose low ering technique was utilized adhering to the principles of ALARA. FINDINGS: Moderate to severe disc space narrowing is redemonstrated at C3-C4 through C6-C7. Associated posterio r disc osteophyte complex formations are also noted with multilevel at least mild central canal steno sis. Multilevel foraminal narrowing. Partially calcified pannus posterior to odontoid process. Severe multilevel facet arthrosis. Demineralized appearance of the bones. No pneumothorax. Pleural probable scarring of the right lung apex. Calcified plaque of the carotid bu lbs and proximal internal carotid arteries. No prevertebral edema. IMPRESSION: No acute fracture or subluxation. ACT 112: Negative or not required by law. The above report was generated using voice recognition software. It may contain grammatical, syntax o r spelling errors. Electronically signed by: Pollo Ruiz M.D. 04/23/2020 12:12 PM
--- NOTE | 2020-04-23 12:45 | CT Scan Report ---
CT SCAN OF THE THORACIC SPINE WITHOUT IV CONTRAST CLINICAL HISTORY: Left-sided weakness. COMPARISON STUDY: CT scan of the thoracic spine dated 04/19/2020. TECHNIQUE: CT scan of the thoracic spine is performed from the lower cervical spine to the upper lumb ar spine. Images are reviewed in the axial, sagittal, and coronal planes. IV contrast was not adminis tered for this examination. A dose lowering technique was utilized adhering to the principles of MACKENZIE Joshi. FINDINGS: The skeletal structures are heterogeneously osteopenic. There is no evidence of fracture or malalignment involving the thoracic spine. Vertebral body height and alignment are maintained. There is hyperkyphosis. Postlaminectomy change is noted at T10-T11. The remaining spinous processes are in tact. The transverse processes appear preserved. Anterior osteophytes are seen throughout. No lytic o r blastic lesion is seen. There is advanced multilevel degenerative disc space narrowing throughout t he thoracic spine. There are numerous small posterior disc osteophyte complexes with no CT evidence o f high-grade central canal stenosis. The paraspinous soft tissues are normal as imaged. The heart oli ears enlarged and the mitral annulus is densely calcified. The visualized lung parenchyma is clear no ting bibasilar atelectasis. There are numerous nonobstructing left renal calculi. 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 Left renal cysts are partially imaged. IMPRESSION: No acute bony abnormality is seen involving the thoracic spine. No significant change fro m study performed 4 days previously. ACT 112: Negative or not required by law. Dictated: 04/23/2020 12:03 PM Transcribed: 04/23/2020 12:28 PM Wendi [id number] Electronically signed by: Bennie Andrea M.D. 04/23/2020 12:43 PM
== END 2020-04-23 16:45 | DRG 65 ==
LOC: 2W 19:11 → ED 19:11 → SUATTDRO 04-20 00:46 → 2W 04-20 01:03 → SUATTDRO 04-21 11:47

== ENCOUNTER 2021-04-18 14:23 | Observation (INO) ==
--- NOTE | 2021-04-18 14:32 | Emergency Department Note ---
Impression & Plan Atrial fibrillation with rapid ventricular response, Anemia ED Provider Note NAME: WAGNER CRUZ AGE: 76 SEX: F : 1945 ARRIVES VIA: Ambulance INFORMANT: Patient, ED PROVIDER(S): Prince Arnold MD Chief Complaint: Outpatient referral, tachycardia HPI: Patient does present due to concern for new onset A. fib. The patient was at the wound center was referred here for further evaluation and treatment as the patient was noted to be tachycardic. Patient did receive a bolus of Cardizem in route which did improve the patient's tachycardia. The patient states that she has not felt symptomatic and denies any acute symptoms at this time. Patient denies any fevers chills chest pains or shortness of breath. Patient denies any supplements or stimulants. Patient denies alcohol tobacco or drug use. Patient is being seen for left lower extremity wounds which are chronic in nature. Patient denies any nausea or vomiting. Patient denies any leg swelling or history of DVT or PE. Patient is vaccinated for Covid. ROS: See HPI for pertinent positives and negatives. A total of 10 systems were reviewed and otherwise negative. Past medical history: See below Surgical history: See below Social history: See below Physical Exam: GENERAL: NAD, wearing a mask, non-toxic. EYE EXAM: Normal conjunctiva. PERRL, no anisocoria and EOM's grossly intact w/o pain. NECK: Supple, no nuchal rigidity, no adenopathy, non-tender. No signs of meningismus. LUNGS: Clear to auscultation. Normal chest wall mechanics. HEART: Tachycardic and irregularly irregular, no MRG. ABDOMEN: Abdomen soft, non-tender, normo-active bowel sounds, no masses, no rebound or guarding. BACK: No CVA TTP. SKIN: No rashes and no bruising. UPPER EXTREMITIES: Upper extremities are grossly normal. LOWER EXTREMITIES: Grossly normal, no edema. NEURO EXAM: A&O x3, cranial nerves II-XII grossly intact, normal speech, moves all 4 extremities on command w/o issue. Differential diagnoses: Premature contractions, electrolyte abnormality, cardiac dysrhythmia, thyroid dysfunction, pulmonary embolism, infection, gastrointestinal, as well as other pathologies. Course: Patient was seen and evaluated the bedside. Full history physical exam was performed. EKG interpreted by me Irregularly irregular, ventricular rate of 129 with normal QRS duration, normal axis, possible T WI inferiorly. Imaging Studies: See Below Cardiac monitoring: An order was placed for continuous cardiac monitoring. The monitor shows a rate of 112 with irregularly irregular rhythm. MDM: Patient did present due to concern for new onset A. fib. The patient is not anticoagulated and has no prior history of irregular heartbeat. The patient is currently asymptomatic. Patient did have blood work completed which showed the patient does have a white count 12. Patient denies infectious symptoms. The patient's hemoglobin is 8.9 which is relatively stable given her prior hemoglobins. Kidney function with mild prerenal azotemia. The patient was given IV fluids. TSH is low but free T4 was normal. Patient did receive a second bolus of Cardizem and was started on heparin. I did speak with the hospitalist and the patient was admitted to the medicine service by Dr. Johnson. Critical Care: I have personally spent 57 minutes of critical care time in direct management of this patient. This includes bedside care, interpretation of diagnostic studies, and testing, discussion with consultants, patient, and family members, and other require inpatient management activities. This 57 minutes is in excess of all separately billable procedures. Past Med/Surg History Medical History Balance problems Decreased sensation of lower extremity Diabetes mellitus type 2, uncontrolled Elevated WBC count Esophagitis Gait disturbance Generalized osteoarthritis Hypothyroidism Meningioma Menopause Nausea Obesity Peripheral neuropathy Pulmonary hypertension RVH (right ventricular hypertrophy) Stroke Stroke-like symptoms Thoracic intradural extramedullary tumor Well woman exam with routine gynecological exam Surgical History History of knee replacement Hx of hand surgery Hx of oral surgery S/P knee surgery Family History Mother Myocardial infarction Denies family history of Ovarian cancer Prostate cancer Breast cancer Colorectal cancer Social History Smoking Status: Former smoker Second Hand Exposure: No; Hx Alcohol Use: No Hx Substance Use: No Preferred Language: Portuguese Communication Ability: Effective Bus Aide Required: No Beliefs That Will Affect Care: None marital status: Single Current Living Situation: Alone current occupational status: retired Feels Safe at Home: Yes Childhood Exposure to Second-Hand Smoke: Yes Dental Care, Regularly: Yes Physical Activity Frequency: 3-4 Times per Week Seatbelt Use: always Sunscreen Use: Yes Assistive Devices: Crutches Allergies Allergies Allergy/AdvReac Type Severity Reaction Status Date / Time animal dander Allergy Intermediate congestion Verified 04/18/21 13:55 pollen extracts Allergy Mild sneezing Verified 04/18/21 13:55 bacitracin Allergy Unknown ? Verified 04/18/21 13:55 latex Allergy Unknown blisters Verified 04/18/21 13:55 skin neomycin Allergy Unknown ? Verified 04/18/21 13:55 polymyxin B Allergy Unknown ? Verified 04/18/21 13:55 sulfabenzamide Allergy Unknown ? Verified 04/18/21 13:55 sulfacetamide Allergy Unknown ? Verified 04/18/21 13:55 sulfathiazole Allergy Unknown ? Verified 04/18/21 13:55 doxycycline AdvReac pt will Verified 04/18/21 13:55 not take due to potential side affects tramadol AdvReac Nausea, Verified 04/18/21 13:55 vomiting Home Meds Home Medications Medication Instructions Recorded Confirmed folic acid 800 mcg tablet 800 mcg PO QAM 03/30/19 04/18/21 paula (Zingiber officinalis) 550 1,100 mg PO HS 03/30/19 04/18/21 mg capsule lancets 33 gauge (OneTouch Delica #100 ea 03/30/19 04/18/21 Lancets) cyanocobalamin (vitamin B-12) 5,000 mcg PO QAM 05/28/20 04/18/21 5,000 mcg capsule zinc acetate 25 mg (zinc) capsule 25 mg PO QPM 10/15/20 04/18/21 ascorbic acid (vitamin C) 1,000 mg 1 g PO QPM tab 11/29/20 04/18/21 tablet aspirin 650 mg tablet,delayed 650 mg PO HS tab 11/29/20 04/18/21 release cholecalciferol (vitamin D3) 25 1,000 unit PO BID cap 11/29/20 04/18/21 mcg (1,000 unit) capsule glipizide 5 mg tablet 2.5 mg PO QAM 04/18/21 04/18/21 hydrochlorothiazide 25 mg tablet 50 mg PO QAM 04/18/21 04/18/21 levothyroxine 88 mcg tablet 88 mcg PO DAILYBB 04/18/21 04/18/21 losartan 50 mg tablet 50 mg PO QAM 04/18/21 04/18/21 metformin 500 mg tablet 500 mg PO BID 04/18/21 04/18/21 Previous Rx's Medication Instructions Recorded atorvastatin 80 mg tablet 80 mg PO QPM #90 tab 05/28/20 blood sugar diagnostic (OneTouch #200 ea 07/31/20 Verio test strips) oxycodone-acetaminophen 5 mg-325 0.5 - 1 tab PO DAILY PRN 90 Days 10/09/20 mg tablet #20 tab Results & Data (ED) Vital Signs Vital Signs - 24 hr 04/18/21 14:12 04/18/21 14:30 04/18/21 14:43 Temperature 36.8 C Temperature Source Oral Pulse Rate 139 H Respiratory Rate 16 20 Respiratory Effort / Characteristics Non-Labored Respiratory Depth Normal Respiratory Pattern Regular Blood Pressure 165/66 H Blood Pressure [Right Arm] Blood Pressure Mean 99 Blood Pressure Mean [Right Arm] Blood Pressure Position [Right Arm] Pulse Oximetry 95 91 Oxygen Delivery Method Room Air Room Air Room Air Sepsis Recent Fever Within 48 Hours No Sepsis New/Unexplained Change in Mental Status No Sepsis Action Taken by Nursing No Action Required 04/18/21 15:05 04/18/21 16:12 04/18/21 16:39 Temperature Temperature Source Pulse Rate 131 H Respiratory Rate 18 23 Respiratory Effort / Characteristics Non-Labored Respiratory Depth Normal Respiratory Pattern Regular Blood Pressure 157/115 H Blood Pressure [Right Arm] 172/106 H Blood Pressure Mean 129 Blood Pressure Mean [Right Arm] 128 Blood Pressure Position [Right Arm] Sitting Pulse Oximetry 96 Oxygen Delivery Method Room Air Room Air Sepsis Recent Fever Within 48 Hours Sepsis New/Unexplained Change in Mental Status Sepsis Action Taken by Nursing 04/18/21 17:00 Temperature Temperature Source Pulse Rate 144 H Respiratory Rate 24 Respiratory Effort / Characteristics Respiratory Depth Respiratory Pattern Blood Pressure 172/106 H Blood Pressure [Right Arm] Blood Pressure Mean 128 Blood Pressure Mean [Right Arm] Blood Pressure Position [Right Arm] Pulse Oximetry Oxygen Delivery Method Sepsis Recent Fever Within 48 Hours Sepsis New/Unexplained Change in Mental Status Sepsis Action Taken by Assisted Medications Current Medication List: was personally reviewed by me Laboratory Data Attestation: I reviewed the patient's lab results. Result diagrams: 04/18/21 15:36 04/18/21 15:36 Lab Results 04/18/21 04/18/21 04/18/21 Range/Units 15:28 15:28 15:36 WBC (4.8-10.8) K/uL RBC (4.2-5.4) M/uL Hgb (12.0-16.0) g/dL Hct (37-47) % MCV (80-100) fL MCH (25-34) pg MCHC (32-36) g/dL RDW Std Deviation (36.4-46.3) fL RDW Coeff of Isidoro (11.5-14.5) % Plt Count (130-400) K/uL MPV (7.4-10.4) fL Immature Gran % (Auto) % Neut % (Auto) % Lymph % (Auto) % Roosevelt % (Auto) % Eos % (Auto) % Baso % (Auto) % Neut # (Auto) (1.4-6.5) K/uL Lymph # (Auto) (1.2-3.4) K/uL Roosevelt # (Auto) (0.11-0.59) K/uL Eos # (Auto) (0-0.5) K/uL Baso # (Auto) (0-0.2) K/uL Immature Gran # (Auto) (0.00-0.02) K/uL APTT (21.0-31.0) Seconds PTT Ratio Sodium 142 (136-145) mmol/L Potassium 4.4 (3.5-5.1) mmol/L Chloride 109 H (98-107) mmol/L Carbon Dioxide 28 (21-32) mmol/L Anion Gap 5.0 (3-11) BUN 30 H (7-18) mg/dl Creatinine 1.23 H (0.6-1.2) mg/dl Est Cr Clr Drug Dosing 42.6 ml/min Est GFR ( Amer) 49.3 ml/min Est GFR (Non-Af Amer) 42.6 ml/min BUN/Creatinine Ratio 24.7 H (10-20) Glucose 155 H (70-99) mg/dl Calcium 8.8 (8.5-10.1) mg/dl Phosphorus 3.1 (2.5-4.9) mg/dl Magnesium 2.2 (1.8-2.4) mg/dl Total Bilirubin 0.5 (0.2-1) mg/dl AST 12 L (15-37) U/L ALT 20 (12-78) U/L Alkaline Phosphatase 92 (45-117) U/L Total Protein 6.7 (6.4-8.2) gm/dl Albumin 3.3 L (3.4-5.0) gm/dl Globulin 3.4 (2.5-4.0) gm/dl Albumin/Globulin Ratio 1.0 (0.9-2) TSH 0.255 L (0.300-4.500) uIu/ml Free T4 1.45 (0.8-1.6) ng/dl COVID-19 Eval Order Covid19 at [facility] SARS-CoV-2 (PCR) NEGATIVE (Negative) 04/18/21 04/18/21 Range/Units 15:36 15:36 WBC 12.49 H (4.8-10.8) K/uL RBC 3.55 L (4.2-5.4) M/uL Hgb 8.9 L (12.0-16.0) g/dL Hct 29.7 L (37-47) % MCV 83.7 (80-100) fL MCH 25.1 (25-34) pg MCHC 30.0 L (32-36) g/dL RDW Std Deviation 52.5 H (36.4-46.3) fL RDW Coeff of Isidoro 17.5 H (11.5-14.5) % Plt Count 309 (130-400) K/uL MPV 10.0 (7.4-10.4) fL Immature Gran % (Auto) 0.2 % Neut % (Auto) 78.8 % Lymph % (Auto) 11.8 % Roosevelt % (Auto) 7.1 % Eos % (Auto) 1.7 % Baso % (Auto) 0.4 % Neut # (Auto) 9.83 H (1.4-6.5) K/uL Lymph # (Auto) 1.48 (1.2-3.4) K/uL Roosevelt # (Auto) 0.89 H (0.11-0.59) K/uL Eos # (Auto) 0.21 (0-0.5) K/uL Baso # (Auto) 0.05 (0-0.2) K/uL Immature Gran # (Auto) 0.03 H (0.00-0.02) K/uL APTT 24.9 (21.0-31.0) Seconds PTT Ratio 0.9 Sodium (136-145) mmol/L Potassium (3.5-5.1) mmol/L Chloride (98-107) mmol/L Carbon Dioxide (21-32) mmol/L Anion Gap (3-11) BUN (7-18) mg/dl Creatinine (0.6-1.2) mg/dl Est Cr Clr Drug Dosing ml/min Est GFR ( Amer) ml/min Est GFR (Non-Af Amer) ml/min BUN/Creatinine Ratio (10-20) Glucose (70-99) mg/dl Calcium (8.5-10.1) mg/dl Phosphorus (2.5-4.9) mg/dl Magnesium (1.8-2.4) mg/dl Total Bilirubin (0.2-1) mg/dl AST (15-37) U/L ALT (12-78) U/L Alkaline Phosphatase (45-117) U/L Total Protein (6.4-8.2) gm/dl Albumin (3.4-5.0) gm/dl Globulin (2.5-4.0) gm/dl Albumin/Globulin Ratio (0.9-2) TSH (0.300-4.500) uIu/ml Free T4 (0.8-1.6) ng/dl COVID-19 Eval Order SARS-CoV-2 (PCR) (Negative) Administered Medications Heparin Sodium/Dextrose (Heparin Sodium/Dextrose) 25,000 units in 500 mls @ 25 mls/hr IV .Q20H [facility]; Protocol Stop: 05/18/21 16:29 Last Admin: 04/18/21 17:17 Dose: 1,250 units/hr, 25 mls/hr Documented by: [id number] Cosigned by: [id number] Discontinued Medications Diltiazem HCl (Diltiazem Hcl 5 Mg/Ml 5 Ml Vial) 25 mg IV NOW STA Stop: 04/18/21 14:44 Last Admin: 04/18/21 14:51 Dose: 25 mg Documented by: [id number] Cosigned by: [id number] Heparin Sodium (Porcine) (Heparin Sod (Porcine) 1000 Unit/Ml) 6,000 units IV NOW ONE Stop: 04/18/21 17:01 Last Admin: 04/18/21 17:17 Dose: 6,000 units Documented by: [id number] Cosigned by: [id number] Sodium Chloride (Nss 1000ml) 500 mls @ 999 mls/hr IV .Q31M ONE Stop: 04/18/21 15:13 Last Infusion: 04/18/21 15:23 Dose: 0 mls/hr Documented by: [id number] Admin: 04/18/21 14:52 Dose: 999 mls/hr Documented by: [id number] Metoprolol Tartrate (Metoprolol Tartrate 25 Mg Tab) 25 mg PO ONE STA Stop: 04/18/21 17:02 Last Admin: 04/18/21 17:17 Dose: 25 mg Documented by: [id number] Imaging Data Radiologist's Impression: Chest X-Ray 04/18/21 14:43 SINGLE VIEW CHEST CLINICAL HISTORY: Generalized weakness. Atrial fibrillation. FINDINGS: 2 AP, portable, upright chest radiographs are compared to study dated 04/19/2020. The heart is enlarged noting atherosclerotic calcification of the thoracic. There is pulmonary vascular congestion. The mitral annulus is densely calcified. There is pulmonary vascular congestion. Dependent atelectasis is seen at the lung bases. No large pleural effusion or pneumothorax is seen. The skeletal structures are osteopenic. The bony thorax is grossly intact. Calcific tendinopathy is noted in the left shoulder. IMPRESSION: Cardiomegaly with evidence of congestive failure. ACT 112: Negative or not required by law. Electronically signed by: Bennie Andrea M.D. 04/18/2021 3:21 PM Discharge Plan Visit Data Chief Complaint: Cardiac Assessment ED Provider: Prince Arnold Discharge Problem: Atrial fibrillation with rapid ventricular response, Anemia Patient Disposition: Admitted As Inpatient Discharge Instructions Interventions: ED Discharge Assessment Last Done: 04/18/21 18:13
[2021-04-18] MEDS ORDERED: SODIUM CHLORIDE 0.9% 1000ML 500 ML IV ONE (14:43)
[2021-04-18] MEDS ORDERED: dilTIAZem HCl 5 MG/ML 5 ML VIAL IV STA (14:43)
--- NOTE | 2021-04-18 15:22 | XRay Report ---
SINGLE VIEW CHEST CLINICAL HISTORY: Generalized weakness. Atrial fibrillation. FINDINGS: 2 AP, portable, upright chest radiographs are compared to study dated 04/19/2020. The heart i s enlarged noting atherosclerotic calcification of the thoracic. There is pulmonary vascular congesti on. The mitral annulus is densely calcified. There is pulmonary vascular congestion. Dependent atelec tasis is seen at the lung bases. No large pleural effusion or pneumothorax is seen. The skeletal stru ctures are osteopenic. The bony thorax is grossly intact. Calcific tendinopathy is noted in the left shoulder. IMPRESSION: Cardiomegaly with evidence of congestive failure. ACT 112: Negative or not required by law. Electronically signed by: Bennie Andrea M.D. 04/18/2021 3:21 PM
[2021-04-18 15:45] LABS: Basophils # (auto) 0.05 K/uL (0-0.2); Basophils % (auto) 0.4 %; Eosinophils # (auto) 0.21 K/uL (0-0.5); Eosinophils % (auto) 1.7 %; Hematocrit (blood only) 29.7 % (37-47); Hemoglobin 8.9 g/dL (12.0-16.0); Immature Granulocytes # (auto) 0.03 K/uL (0.00-0.02); Immature Granulocytes % (auto) 0.2 %; Lymphocytes # (auto) 1.48 K/uL (1.2-3.4); Lymphocytes % (auto) 11.8 %; Mean Corpuscular Hemoglobin 25.1 pg (25-34); Mean Corpuscular Volume 83.7 fL (80-100); Monocytes # (auto) 0.89 K/uL (0.11-0.59); Monocytes % (auto) 7.1 %; Neutrophils # (auto) 9.83 K/uL (1.4-6.5); Neutrophils % (auto) 78.8 %; Platelet Count 309 K/uL (130-400); RDW Coefficient of Variation 17.5 % (11.5-14.5); RDW Standard Deviation 52.5 fL (36.4-46.3); Red Blood Count 3.55 M/uL (4.2-5.4); White Blood Count 12.49 K/uL (4.8-10.8)
[2021-04-18 16:04] LABS: Albumin Level 3.3 gm/dl (3.4-5.0); BUN Creatinine Ratio 24.7 (10-20); Calcium 8.8 mg/dl (8.5-10.1); Creatinine Clr Calc Pharmacy 42.6 ml/min; Est GFR (African American) 49.3 ml/min; Est GFR (Non-African American) 42.6 ml/min; Magnesium 2.2 mg/dl (1.8-2.4); Potassium 4.4 mmol/L (3.5-5.1)
[2021-04-18] MEDS ORDERED: Heparin IV Adult Wt-Based Standard WITH Bolus Protocol IV STA (16:07)
[2021-04-18 16:15] LABS: Bilirubin,Total 0.5 mg/dl (0.2-1); Globulin 3.4 gm/dl (2.5-4.0); Phosphorus 3.1 mg/dl (2.5-4.9); Thyroid Stimulating Hormone 0.255 uIu/ml (0.300-4.500); Total Protein 6.7 gm/dl (6.4-8.2)
[2021-04-18] MEDS ORDERED: HEPARIN SOD (PORCINE) 1000 UNIT/ML IV ONE ×2 (16:23→17:00)
[2021-04-18 16:28] LABS: T4 Free Thyroxine 1.45 ng/dl (0.8-1.6)
[2021-04-18] MEDS ORDERED: HEPARIN SODIUM/DEXTROSE 25,000 UNITS/500 ML BAG IV SCH (16:30)
[2021-04-18] MEDS ORDERED: METOPROLOL TARTRATE 25 MG TAB PO STA (17:01)
[2021-04-18 17:12] LABS: Partial Thromboplastin Ratio 0.9; Partial Thromboplastin Time 24.9 Seconds (21.0-31.0)
--- NOTE | 2021-04-18 17:19 | History & Physical Report ---
Date of Service April 18, 2021 Assessment & Plan (1) Atrial fibrillation with RVR: Plan: New onset Rate control: Start metoprolol tartrate 25mg PO Q6H (IV 5mg if HR persistently > 140) Anticoagulation with heparin (2) Pulmonary edema: Plan: No hypoxia or shortness of breath. Should improve with better rate control. Consider diuresis if not. (3) Anemia: Plan: Normocytic Chronic. Relatively stable although Hgb 8.9 from baseline around 10. Pt reports prior workup with anemia of chronic disease Repeat CBC in AM (4) Hyperlipidemia: (5) Venous stasis ulcer: Plan: Declines examination of this. Consult wound care nurse Follow up at wound care as outpatient (6) Diabetes mellitus type 2, uncontrolled: Plan: HbA1C 8.7 in February Will continue her usual metformin and glipizide for now as no plans for contrast enhanced scans. BSG ACHS Consider increasing glipizide if glucose levels not well controlled (7) Hypertension: Plan: Continue her usual losartan and HCTZ (notably on external med rec as last picking up in 05/2020 but patient is adamant she takes this Metoprolol as above (8) Elevated WBC count: Plan: Chronically elevated but also slightly increased from baseline. Repeat CBC in AM Plan: VTE Prophylaxis - heparin IV Diet - T2DM, heart healthy Disposition - admit to PCU as possible need for diltiazem IV History of Present Illness Chief Complaint: New onset atrial fibrillation Primary Care Provider: Leah Montejo MD Hayde Rothman is a 76 year old female who presents to the ER today on advice of her wound care clinic provider due to tachycardia in the office. She denies having any symptoms at this time. No shortness of breath, chest pain, palpitations, orthopnea, PND or worsening leg swelling. She reports her ulcer has been improving. In the ER she was noted to be in atrial fibrillation with rapid ventricular rate. This responded to diltiazem 25mg IV which reduced her heart rate from 160s to 110s. She was referred to medicine for admission and ongoing management of new onset atrial fibrillation. Allergies Allergy/AdvReac Type Severity Reaction Status Date / Time animal dander Allergy Intermediate congestion Verified 04/18/21 13:55 pollen extracts Allergy Mild sneezing Verified 04/18/21 13:55 bacitracin Allergy Unknown ? Verified 04/18/21 13:55 latex Allergy Unknown blisters Verified 04/18/21 13:55 skin neomycin Allergy Unknown ? Verified 04/18/21 13:55 polymyxin B Allergy Unknown ? Verified 04/18/21 13:55 sulfabenzamide Allergy Unknown ? Verified 04/18/21 13:55 sulfacetamide Allergy Unknown ? Verified 04/18/21 13:55 sulfathiazole Allergy Unknown ? Verified 04/18/21 13:55 doxycycline AdvReac pt will Verified 04/18/21 13:55 not take due to potential side affects tramadol AdvReac Nausea, Verified 04/18/21 13:55 vomiting Home Medications Medication Instructions Recorded Confirmed Type folic acid 800 mcg tablet 800 mcg PO QAM 03/30/19 04/18/21 History paula (Zingiber officinalis) 550 1,100 mg PO HS 03/30/19 04/18/21 History mg capsule lancets 33 gauge (OneTouch Delica #100 ea 03/30/19 04/18/21 History Lancets) atorvastatin 80 mg tablet 80 mg PO QPM #90 tab 05/28/20 04/18/21 Rx cyanocobalamin (vitamin B-12) 5,000 mcg PO QAM 05/28/20 04/18/21 History 5,000 mcg capsule blood sugar diagnostic (OneTouch #200 ea 07/31/20 04/18/21 Rx Verio test strips) oxycodone-acetaminophen 5 mg-325 0.5 - 1 tab PO DAILY PRN 90 Days 10/09/20 04/18/21 Rx mg tablet #20 tab zinc acetate 25 mg (zinc) capsule 25 mg PO QPM 10/15/20 04/18/21 History ascorbic acid (vitamin C) 1,000 mg 1 g PO QPM tab 11/29/20 04/18/21 History tablet aspirin 650 mg tablet,delayed 650 mg PO HS tab 11/29/20 04/18/21 History release cholecalciferol (vitamin D3) 25 1,000 unit PO BID cap 11/29/20 04/18/21 History mcg (1,000 unit) capsule glipizide 5 mg tablet 2.5 mg PO QAM 04/18/21 04/18/21 History hydrochlorothiazide 25 mg tablet 50 mg PO QAM 04/18/21 04/18/21 History levothyroxine 88 mcg tablet 88 mcg PO DAILYBB 04/18/21 04/18/21 History losartan 50 mg tablet 50 mg PO QAM 04/18/21 04/18/21 History metformin 500 mg tablet 500 mg PO BID 04/18/21 04/18/21 History Past Med/Surg History Medical History Balance problems Decreased sensation of lower extremity Diabetes mellitus type 2, uncontrolled Elevated WBC count Esophagitis Gait disturbance Generalized osteoarthritis Hypothyroidism Meningioma Menopause Nausea Obesity Peripheral neuropathy Pulmonary hypertension RVH (right ventricular hypertrophy) Stroke Stroke-like symptoms Thoracic intradural extramedullary tumor Well woman exam with routine gynecological exam Surgical History History of knee replacement Hx of hand surgery Hx of oral surgery S/P knee surgery Family History Mother Myocardial infarction Denies family history of Ovarian cancer Prostate cancer Breast cancer Colorectal cancer Social History Smoking Status: Former smoker Second Hand Exposure: No; Do You Dip or Chew Tobacco: No; Tobacco Cessation Education Requested by Patient: No Hx Alcohol Use: No Hx Substance Use: No Preferred Language: Citizen Of The [place] Communication Ability: Effective Child Development Consultant Required: No Beliefs That Will Affect Care: None marital status: Single Current Living Situation: Alone current occupational status: retired Other Information That Helps Us Care for You: No Feels Safe at Home: Yes Safety Concerns: Feels Safe At This Time Childhood Exposure to Second-Hand Smoke: Yes Dental Care, Regularly: Yes Physical Activity Frequency: 3-4 Times per Week Seatbelt Use: always Sunscreen Use: Yes Assistive Devices: None Review of Systems Review of Systems: All systems reviewed & are unremarkable except as noted in HPI & below Physical Exam Constitutional: WD/WN, vitals as above + morbidly obese Eyes: + anicteric sclerae; normal pupil size Respiratory: normal respiratory effort Auscultation: + diminished lung sounds (bibasal); no crackles and no wheezes Cardiovascular: Rate/Rhythm: + tachycardic and + irregularly irregular Heart Sounds: no murmur Vessels: no JVD (difficult to assess with neck size) Extremities: normal capillary refill and + pedal edema (1+ pre-tibial b/l equal); no calf tenderness Gastrointestinal (Abdomen): Percussion/Palpation: abdomen soft; abdomen nontender Skin: known diabetic ulcer on right foot - currently bandaged and patient declines examination of this as we do not have the appropriate dressing to replace, reports this has been improving however. Neurologic: moves all extremities and awake; not confused Psychiatric: A+Ox3, euthymic affect Results & Data Results & Data ([facility]) Vital Signs (Past 12 Hours) Vital Signs Temp Pulse Resp BP BP Pulse Ox 04/18/21 16:12 18 172/106 H 96 04/18/21 14:30 36.8 C 139 H 20 165/66 H 91 04/18/21 14:12 16 95 Diagnostic Findings SINGLE VIEW CHEST CLINICAL HISTORY: Generalized weakness. Atrial fibrillation. FINDINGS: 2 AP, portable, upright chest radiographs are compared to study dated 04/19/2020. The heart is enlarged noting atherosclerotic calcification of the thoracic. There is pulmonary vascular congestion. The mitral annulus is densely calcified. There is pulmonary vascular congestion. Dependent atelectasis is seen at the lung bases. No large pleural effusion or pneumothorax is seen. The skeletal structures are osteopenic. The bony thorax is grossly intact. Calcific tendinopathy is noted in the left shoulder. IMPRESSION: Cardiomegaly with evidence of congestive failure. Medications Administered ER Medications Given: NSS 500 ml bolus Diltiazem 25mg IV Heparin bolus and drip ECG Indication: other (tachycardia) Rate (beats per minute): 129 Rhythm: atrial fibrillation Findings: + T-wave inversion (Inferior) Comparison ECG Date: from (Apr 19, 2020) Change: the following changes noted (atrial fibrillation replaced sinus rhythm) Code Status & VTE Plan Code Status Full VTE Prophylaxis Plan VTE Prophylaxis will be ordered: Yes PG Care Time/CCT Total # of Minutes Spent Total Time Spent with Patient: Total time spent is greater than 50% in coordination of care (as documented) at patient's floor/unit and/or counseling patient: Coding Level of Care Code 80400 Initial Inpt Care Lvl 2 Diagnoses Atrial fibrillation with RVR I48.91 Anemia D64.9 Anemia type: unspecified type Hyperlipidemia E78.5 Venous stasis ulcer I83.009; L97.909 Diabetes mellitus type 2, uncontrolled E11.65 Hypertension I10 Elevated WBC count D72.829 Pulmonary edema J81.1 (1) Anemia Anemia type: unspecified type Qualified Code(s): D64.9 - Anemia, unspecified
[2021-04-18] MEDS ORDERED: oxyCODONE/ACETAMINOPHEN 5mg/325mg TAB PO PRN (18:35)
[2021-04-18] MEDS ORDERED: METOPROLOL TARTRATE 1 MG/ML VIAL IV PRN (18:35)
[2021-04-18] MEDS: CHOLECALCIFEROL 1,000 UNITS 25 MCG TAB PO SCH (20:49)
[2021-04-18] MEDS ORDERED: ZINC SULFATE 220 MG CAPSULE PO SCH (21:00)
[2021-04-18] MEDS ORDERED: ASCORBIC ACID 500 MG TAB PO SCH (21:00)
[2021-04-18] MEDS ORDERED: ATORVASTATIN 40 MG TAB PO SCH (21:00)
[2021-04-18] MEDS: METOPROLOL TARTRATE 25 MG TAB PO SCH (23:18)
[2021-04-19 00:08] LABS: Partial Thromboplastin Ratio 1.7; Partial Thromboplastin Time 44.9 Seconds (21.0-31.0)
[2021-04-19] MEDS ORDERED: MELATONIN 3 MG TAB PO PRN (05:30)
[2021-04-19] MEDS ORDERED: busPIRone 7.5 MG TAB PO ONE (05:45)
[2021-04-19] MEDS: METOPROLOL TARTRATE 25 MG TAB PO SCH (06:18)
[2021-04-19] MEDS ORDERED: LEVOTHYROXINE SODIUM 88 MCG TABLET PO SCH (06:30)
[2021-04-19 06:58] LABS: Basophils # (auto) 0.04 K/uL (0-0.2); Basophils % (auto) 0.4 %; Eosinophils # (auto) 0.22 K/uL (0-0.5); Eosinophils % (auto) 2.2 %; Hematocrit (blood only) 28.8 % (37-47); Hemoglobin 8.7 g/dL (12.0-16.0); Immature Granulocytes # (auto) 0.02 K/uL (0.00-0.02); Immature Granulocytes % (auto) 0.2 %; Lymphocytes # (auto) 1.87 K/uL (1.2-3.4); Lymphocytes % (auto) 18.6 %; Mean Corpuscular Hemoglobin 25.5 pg (25-34); Mean Corpuscular Hgb Conc 30.2 g/dL (32-36); Mean Corpuscular Volume 84.5 fL (80-100); Mean Platelet Volume 10.1 fL (7.4-10.4); Monocytes # (auto) 0.79 K/uL (0.11-0.59); Monocytes % (auto) 7.9 %; Neutrophils % (auto) 70.7 %; Platelet Count 271 K/uL (130-400); RDW Coefficient of Variation 17.5 % (11.5-14.5); RDW Standard Deviation 53.5 fL (36.4-46.3); Red Blood Count 3.41 M/uL (4.2-5.4); White Blood Count 10.04 K/uL (4.8-10.8)
[2021-04-19 07:15] LABS: Partial Thromboplastin Ratio 1.6; Partial Thromboplastin Time 42.1 Seconds (21.0-31.0)
[2021-04-19 07:24] LABS: Creatinine Clr Calc Pharmacy 40.9 ml/min; Est GFR (African American) 47.5 ml/min; Potassium 4.1 mmol/L (3.5-5.1)
[2021-04-19] MEDS ORDERED: glipiZIDE 5 MG TAB PO SCH (07:30)
[2021-04-19] MEDS ORDERED: METOPROLOL TARTRATE 25 MG TAB PO STA (07:39)
[2021-04-19] MEDS ORDERED: metFORMIN HCL 500 MG TAB PO SCH (08:00)
[2021-04-19] MEDS: CHOLECALCIFEROL 1,000 UNITS 25 MCG TAB PO SCH (08:38)
[2021-04-19] MEDS ORDERED: LOSARTAN POTASSIUM 50 MG TAB PO SCH (09:00)
[2021-04-19] MEDS ORDERED: STOP HEPARIN DRIP ORDER SCH (09:00)
[2021-04-19] MEDS ORDERED: FOLIC ACID 400 MCG TAB PO SCH (09:00)
[2021-04-19] MEDS ORDERED: CYANOCOBALAMIN (VITAMIN B-12) 2,500 MCG TAB.SUBL SL SCH (09:00)
[2021-04-19] MEDS ORDERED: APIXABAN 5 MG TABLET PO SCH (09:00)
--- NOTE | 2021-04-19 09:57 | XCELERA ---
[id number]
[2021-04-19] MEDS ORDERED: METOPROLOL TARTRATE 50 MG TAB PO ONE (10:15)
[2021-04-19] MEDS ORDERED: METOPROLOL TARTRATE 25 MG TAB PO ONE (10:15)
--- NOTE | 2021-04-19 12:19 | Electrocardiogram Report ---
Test Reason : Blood Pressure : / mmHG Vent. Rate : 129 BPM Atrial Rate : 120 BPM P-R Int : 000 ms QRS Dur : 076 ms QT Int : 302 ms P-R-T Axes : 000 025 002 degrees QTc Int : 442 ms Atrial fibrillation with rapid ventricular response Low voltage QRS Abnormal ECG When compared with ECG of 19-APR-2020 20:36, Atrial fibrillation has replaced Sinus rhythm Inverted T waves have replaced nonspecific T wave abnormality in Inferior leads Confirmed by Antwan Norman ([id number]) on 04/19/2021 12:19:35 PM Referred By: REFERRED SELF Confirmed By:Jatin Norman
--- NOTE | 2021-04-19 13:01 | Discharge Summary ---
Date of Service April 19, 2021 Admission HPI Per Admitting Provider Hayde Rothman is a 76 year old female who presents to the ER today on advice of her wound care clinic provider due to tachycardia in the office. She denies having any symptoms at this time. No shortness of breath, chest pain, palpitations, orthopnea, PND or worsening leg swelling. She reports her ulcer has been improving. In the ER she was noted to be in atrial fibrillation with rapid ventricular rate. This responded to diltiazem 25mg IV which reduced her heart rate from 160s to 110s. She was referred to medicine for admission and ongoing management of new onset atrial fibrillation. Principal Diagnosis Atrial fibrillation with RVR Discharge Exam Constitutional well developed, well nourished, + obese and comfortable; no acute distress Neck trachea midline, no thyromegaly Respiratory normal respiratory effort, lungs clear to auscultation Cardiovascular Rate/Rhythm: + tachycardic (100s) and + irregularly irregular Heart Sounds: normal S1 and normal S2; no murmur Palpation: normal PMI Extremities: normal capillary refill; no edema Gastrointestinal (Abdomen) normal bowel sounds, soft, nontender, no hepatosplenomegaly Musculoskeletal no cyanosis or clubbing, extremities motor strength 5/5 Skin no rashes, warm and dry Neurologic normal touch/pain/proprioception, CN's II-XI intact bilaterally, moves all extremities and awake; no focal motor deficits Psychiatric A+Ox3, euthymic affect Discharge Data Allergies Allergy/AdvReac Type Severity Reaction Status Date / Time animal dander Allergy Intermediate congestion Verified 04/18/21 13:55 pollen extracts Allergy Mild sneezing Verified 04/18/21 13:55 bacitracin Allergy Unknown ? Verified 04/18/21 13:55 latex Allergy Unknown blisters Verified 04/18/21 13:55 skin neomycin Allergy Unknown ? Verified 04/18/21 13:55 polymyxin B Allergy Unknown ? Verified 04/18/21 13:55 sulfabenzamide Allergy Unknown ? Verified 04/18/21 13:55 sulfacetamide Allergy Unknown ? Verified 04/18/21 13:55 sulfathiazole Allergy Unknown ? Verified 04/18/21 13:55 doxycycline AdvReac pt will Verified 04/18/21 13:55 not take due to potential side affects tramadol AdvReac Nausea, Verified 04/18/21 13:55 vomiting Consultations 04/18/21 18:17 ED Decision to Admit Stat Hospital Course (1) Atrial fibrillation with RVR: New onset metoprolol 25mg PO q6 was initiated on admission, decent response but HR in the morning was still in 110-130's, no symptoms at all increased metoprolol to 100mg in the morning, better control, 90-100s, even on exertion, no chest pain, no dyspnea, no palpitations will discharge on metoprolol 100mg BID initially on heparin drip for anticoagulation, changed to Eliquis 5mg in the morning discussed with her pharmacy, copay only $19/month, she can afford this will discharge on Eliquis 5mg BID echocardiogram: normal LV EF, does have LV hypertrophy, mild LA dilation, elevated pulmonary pressures, tricuspid regurgitation plan: discharge to home on metoprolol and Eliquis as she feels well, heart controlled and she wants to go home referral made to cardiology for first available appt in the office follow up with PCP (2) Pulmonary edema: No hypoxia or shortness of breath. Should improve with better rate control. stable on room air since admission, lungs clear (3) Anemia: Normocytic Chronic. Relatively stable although Hgb 8.9 from baseline around 10. Pt reports prior workup with anemia of chronic disease (4) Hyperlipidemia: (5) Venous stasis ulcer: Declines examination of this. Follow up at wound care as outpatient (6) Diabetes mellitus type 2, uncontrolled: HbA1C 8.7 in February Will continue her usual metformin and glipizide follow up with PCP (7) Hypertension: Continue her usual losartan and HCTZ added metoprolol 100mg BID, BP tolerated this dose (8) Elevated WBC count: Chronically elevated (9) Anxiety: patient requests a medication to "help my nerves" she got Buspar early this morning, she says it helped no need for benzodiazepines she says her PCP won't prescribe anxiety medications, discussed that benzodiazepines are not always warranted will try Vistaril for short course but no benzodiazepines follow up with PCP discharge to home, follow up with cardiology and PCP Total Time Total Time Spent Total Time Spent (In Minutes): 36 Total Time Includes: Examination of the Patient, Discharge Planning and Medication Reconciliation Discharge Plan Discharge Items Patient Disposition: Home - Self-Care Reason For Visit: ATRIAL FIVRILATION WITH RVR Discharge Diagnosis: Atrial fibrillation with rapid response Condition on Discharge: Good Goals: heart rate control anticoagulation to prevent stroke Activity: Resume your previous activity Non-emergency contact: Primary Care Provider Call non-emergency contact if: you have any medication questions and your symptoms worsen Follow-up/Referrals: Johny Luevano PA-C [Physician Shop Fitter] - (new atrial fibrillation, first available) Leah Montejo MD [Primary Care Provider] - (one week) Diet: Carb Consistent or DM2 and Heart Healthy Addtl Attending Provider Instructions: Medications: - METOPROLOL: beta kay intended to slow down heart rate with atrial fibrillation, you should take 100mg twice a day, next dose due this evening - ELIQUIS: 5mg twice a day, blood thinner to protect against stroke, next dose due this evening - ASPIRIN: need to lower to 81mg daily now that you will be on Eliquis - VISTARIL: take as needed for anxiety Atrial fibrillation with rapid response arrhythmia that causes the top part of the heart (atrium) to fibrillate very quickly instead of one coordinated contraction this leads to fast heart rates two components in treatment: heart rate control and anticoagulation to protect against strokes heart rate control with metoprolol stroke prevention with Eliquis referral made to [facility] to help manage this long-term Pending Studies at Discharge: No Stand-Alone Forms: My [facility] [place], Smoking Cessation Medications and DC Order Prescriptions: New Eliquis 5 mg Tablet 5 mg PO BID 30 Days Qty: 60 RF: 3 metoprolol tartrate 100 mg tablet 100 mg PO BID 30 Days Qty: 60 RF: 3 aspirin [Adult Aspirin Regimen] 81 mg tablet,delayed release (DR/EC) 81 mg PO DAILY Qty: 30 RF: 0 hydroxyzine pamoate [Vistaril] 25 mg capsule 25 mg PO Q8H PRN (Reason: anxiety) Qty: 20 RF: 0 Continued zinc acetate 25 mg (zinc) capsule 25 mg PO QPM RF: 0 (DME) OneTouch Verio test strips Strip See Dose Instructions .ROUTE .MEDSUPPLY Qty: 200 RF: 2 oxycodone-acetaminophen 5-325 mg tablet 0.5 - 1 tab PO DAILY PRN (Reason: pain) 90 Days Qty: 20 RF: 0 cyanocobalamin (vitamin B-12) 5,000 mcg capsule 5,000 mcg PO QAM RF: 0 atorvastatin 80 mg tablet 80 mg PO QPM Qty: 90 RF: 3 ascorbic acid (vitamin C) 1,000 mg tablet 1 g PO QPM RF: 0 cholecalciferol (vitamin D3) 25 mcg (1,000 unit) capsule 1,000 unit PO BID RF: 0 folic acid 800 mcg tablet 800 mcg PO QAM RF: 0 paula (Zingiber officinalis) 550 mg capsule 1,100 mg PO HS RF: 0 (DME) lancets [OneTouch Delica Lancets] 33 gauge misc See Dose Instructions .ROUTE .MEDSUPPLY Qty: 100 RF: 0 glipizide 5 mg tablet 2.5 mg PO QAM RF: 0 metformin 500 mg tablet 500 mg PO BID RF: 0 losartan 50 mg tablet 50 mg PO QAM RF: 0 levothyroxine 88 mcg tablet 88 mcg PO DAILYBB RF: 0 hydrochlorothiazide 25 mg tablet 50 mg PO QAM RF: 0 Discontinued aspirin 650 mg tablet,delayed release (DR/EC) 650 mg PO HS RF: 0 Discharge Orders: Discharge Order (Routine); Ordered 04/19/21 Ordered By: Matt Elmore Admission Data Admit Date/Time: 04/18/21 17:10 Attending Provider: Matt Elmore Admit Provider: Deepak Johnson Primary Care Provider: Leah Montejo V. Other Providers: Deepak Johnson Other Interventions: Discharge Summary Assessment (RN) Last Done: 04/19/21 13:05 Coding Level of Care Code D/C DAY MANAGEMENT >30 MINS Diagnoses Atrial fibrillation with RVR I48.91 Pulmonary edema J81.1 Anemia D64.9 Anemia type: unspecified type Hyperlipidemia E78.5 Venous stasis ulcer I83.009; L97.909 Diabetes mellitus type 2, uncontrolled E11.65 Hypertension I10 Elevated WBC count D72.829 Anxiety F41.9
[2021-04-19] MEDS ORDERED: METOPROLOL TARTRATE 50 MG TAB PO SCH (14:00)
--- NOTE | 2021-04-19 15:59 | Electrocardiogram Report ---
Test Reason : Blood Pressure : / mmHG Vent. Rate : 128 BPM Atrial Rate : 072 BPM P-R Int : 000 ms QRS Dur : 072 ms QT Int : 298 ms P-R-T Axes : 000 061 051 degrees QTc Int : 435 ms Atrial fibrillation with rapid ventricular response Low voltage QRS Nonspecific ST abnormality Abnormal ECG When compared with ECG of 18-APR-2021 14:24, Nonspecific T wave abnormality has replaced inverted T waves in Inferior leads Confirmed by Antwan Norman ([id number]) on 04/19/2021 3:58:54 PM Referred By: REFERRED SELF Confirmed By:Jatin Norman
[2021-04-19] MEDS ORDERED: METOPROLOL TARTRATE 100 MG TAB PO SCH (21:00)
== END 2021-04-19 13:41 | disposition home or self-care (01) ==
LOC: ED 14:23 → 1E 17:10 → SUATTDRO 17:10 → INTOOBSV 17:10 → 1E 18:13

== ENCOUNTER 2023-12-03 01:38 | Inpatient (IN) ==
[2023-12-03 02:12] LABS: Hematocrit (blood only) 29.9 % (37.0-47.0); Hemoglobin 9.1 g/dl (12.0-16.0); Lymphocytes % (auto) 5.4 %; Mean Corpuscular Hemoglobin 24.5 pg (25.0-34.0); Mean Corpuscular Hgb Conc 30.4 g/dL (32.0-36.0); Mean Corpuscular Volume 80.4 fL (80.0-100.0); Mean Platelet Volume 10.4 fL (9.4-12.4); Monocytes % (auto) 8.6 %; Neutrophils % (auto) 84.2 %; Platelet Count 239 K/uL (130-400); RDW Coefficient of Variation 16.2 % (11.5-14.5); RDW Standard Deviation 47.7 fL (36.4-46.3); Red Blood Count 3.72 M/uL (4.20-5.40); White Blood Count 15.32 K/ul (4.8-10.8)
[2023-12-03 02:27] LABS: Albumin Globulin Ratio 1.3 (0.9-2); BUN Creatinine Ratio 20.5 (10-20); Bilirubin,Total 0.5 mg/dl (0.2-1.0); Calcium 9.1 mg/dl (8.6-10.3); Creatinine Clr Calc Pharmacy 44.5 ml/min; Est GFR (African American) 51.7 ml/min; Est GFR (Non-African American) 44.6 ml/min; Magnesium 1.6 mg/dl (1.7-2.4); Potassium 4.1 mmol/L (3.5-5.1)
[2023-12-03] MEDS: PIPERACILLIN/TAZOBACTAM 4.5 GM/100 ML BAG IV ONE (02:31)
[2023-12-03 02:33] LABS: Troponin I High Sensitivity 16.7 pg/ml (0-14)
[2023-12-03] MEDS ORDERED: VANCOMYCIN CONSULT ACTIVE PRN ×2 (02:42→15:37)
[2023-12-03] MEDS: SODIUM CHLORIDE 0.9% 1,000 ML IV ONE (02:45)
[2023-12-03] MEDS: ACETAMINOPHEN 1,000 MG/100 ML VIAL IV STA (02:50)
[2023-12-03 02:51] LABS: Partial Thromboplastin Time 29 Seconds (21-31); Prothrombin Time 11.3 Seconds (9.0-12.0)
--- NOTE | 2023-12-03 02:53 | Emergency Department Note ---
Impression & Plan Sepsis, Acute left ankle pain, Leukocytosis, Hypomagnesemia, Hypoxia, Fever, Non-ST elevation CO (NSTEMI), Elevated procalcitonin ED Provider Note HISTORY OF PRESENT ILLNESS: Patient is a 78-year-old female presenting with left ankle pain. Patient states that she has a history of arthritis and today she was unable to get up out of bed to ambulate secondary to "immense pain in my left ankle." She denies any direct injury to the area. She is not taking anything for the pain. Reports that she is prescribed Percocet which normally helps, but she did not try it tonight. She denies any chest pain or shortness of breath. She does not wear any supplemental oxygen at home. Denies any nausea or vomiting or abdominal pain. She follows with wound clinic for a diabetic foot wound on her left foot and a chronic wound to her left pederson. She called 911 for her ankle pain. She was found to be hypoxic and febrile and route to the hospital. ROS: as above PHYSICAL EXAM: Constitutional: Patient appears in no acute distress. HENT: Head: Normocephalic and atraumatic. Eyes: EOMI, PERRL Mouth/Throat: Mucous membranes moist. Neck: Trachea midline. Neck supple. Cardiovascular: Tachycardic with regular rhythm. No murmurs, rubs or gallops. Intact distal pulses. Pulmonary/Chest: Patient is tachypneic. She initially was hypoxic on room air and was placed on 2 L nasal cannula. Coarse breath sounds bilaterally. Abdominal: Abdomen soft, no tenderness, rebound or guarding. Musculoskeletal: No edema, tenderness or deformity noted. Skin: Warm and dry. Patient has a pressure ulcer to the bottom of the left foot that has a clean dressing covering it. She also has a ulceration wound to her lower left anterior pederson. Neurological: Alert and keenly responsive. CN II-XII grossly intact, MDM: - Vitals signs showed hypertensive, tachycardic, tachypneic and febrile. Patient was placed on 2 L nasal cannula by nursing staff. - History obtained via patient. History as above. - Chronic conditions affecting care: osteoarthritis; pulmonary HTN; CVA; Afib; HTN; HLD - Differential diagnoses include, but are not limited to: UTI; pneumonia; cellulitis; viral syndrome; bacteremia - Order placed for continuous cardiac monitoring. At this time, monitor showed rate of 110 bpm with normal sinus rhythm, per my interpretation. - External medical records reviewed. Wound care visit note dated 11/26/2023 was reviewed. Patient follows in their clinic for diabetic ulcer of her left foot associated with her type 2 diabetes. They apply Xylocaine to the wounds. She also follows for a venous ulcer in the left lower leg and has Xylocaine placed on the wound. Also has aqua seal placed on the wound dressing. - EKG interpreted by myself showed normal sinus rhythm. Rate tachycardic at 112 bpm. QT 342. No acute ischemic changes. - Laboratory workup interpreted by myself showed leukocytosis (WBC 15.32) with left shift; chronic anemia (Hgb 9.1); stable creatinine; hyperglycemia (glucose 209); hypomagnesemia (Mg 1.6); elevated troponin (16.7); elevated procalcitonin (0.68) - CXR negative for pneumonia, per my interpretation - Viral respiratory panel negative - UA negative for infection - Blood cultures obtained. - Patient empirically started on IV zosyn and vancomycin. Given 1500 cc NS for sepsis fluid resuscitation - patient's sepsis fluid volume calculation based on ideal body weight is 1363.5 mL. - Patient given 1g IV tylenol for fever. Given 1g IV magnesium for electrolyte replacement. - Patient was complaining of 8/10 pain in left ankle. Ordered 50 mcg IV fentanyl, but patient refused. She reports she only wants percocet. Discussed with patient that she is ill and NPO at this time. Offered fentanyl or morphine, but patient reports "I'll wait until I can take a percocet." - Unclear source for patient's sepsis at this time. Given 5 mg PO percocet for her continued ankle pain. Her ankle does not look overtly erythematous to suggest a septic joint. - Discussion was had with case operator about patient's case and need for admission - Hospitalist consulted for admission - Patient admitted to [facility] for further evaluation and management. ASSESSMENT AND PLAN: Diagnosis: left ankle pain; fever; sepsis; leukocytosis; hypomagnesemia; hypoxia; NSTEMI; elevated procalcitonin Plan: admit Past Med/Surg History Medical History Chronic anemia Kidney stones History of meningioma SCC (squamous cell carcinoma) Hypertension Hyperlipidemia Atrial fibrillation Tachycardia Pulmonary edema Atrial fibrillation with RVR Ulcer of foot Stroke Pulmonary hypertension Peripheral neuropathy Hypothyroidism Generalized osteoarthritis Elevated WBC count Surgical History Hx of resection of meningioma History of carpal tunnel release History of tonsillectomy H/O squamous cell carcinoma excision History of back surgery Hx of oral surgery S/P knee surgery Hx of hand surgery History of knee replacement Family History Mother Myocardial infarction Hearing loss Heart disease Other No family history of adverse response to anesthesia No family history of bleeding disorder Denies family history of Ovarian cancer Prostate cancer Breast cancer Colorectal cancer Social History Smoking Status: Former smoker Second Hand Exposure: No; Do You Dip or Chew Tobacco: No; Hx Alcohol Use: No Hx Substance Use: No Preferred Language: Belarusian Communication Ability: Effective 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 Beliefs That Will Affect Care: None marital status: Single Current Living Situation: Alone current occupational status: retired Feels Safe at Home: Yes Childhood Exposure to Second-Hand Smoke: Yes Dental Care, Regularly: Yes Physical Activity Frequency: 3-4 Times per Week Seatbelt Use: always Sunscreen Use: Yes Assistive Devices: Crutches Allergies Allergies Allergy/AdvReac Type Severity Reaction Status Date / Time animal dander Allergy Intermediate congestion Verified 11/26/23 13:06 pollen extracts Allergy Mild sneezing Verified 11/26/23 13:06 bacitracin Allergy Unknown neosporing-> Verified 11/26/23 13:06 rash latex Allergy Unknown blisters Verified 11/26/23 13:06 skin neomycin Allergy Unknown neosporins Verified 11/26/23 13:06 -> rash polymyxin B Allergy Unknown neosporins Verified 11/26/23 13:06 -> rash sulfabenzamide Allergy Unknown vaginal Verified 11/26/23 13:06 cream-> severe itch and irritation sulfacetamide Allergy Unknown vaginal Verified 11/26/23 13:06 cream-> severe itch and irritation sulfathiazole Allergy Unknown vaginal Verified 11/26/23 13:06 cream-> severe itch and irritation doxycycline AdvReac pt will Verified 11/26/23 13:06 not take due to potential side affects tramadol AdvReac Nausea, Verified 11/26/23 13:06 vomiting Home Meds Home Medications Medication Instructions Recorded Confirmed folic acid 800 mcg tablet 800 mcg PO QAM 03/30/19 12/03/23 paula (Zingiber officinalis) 550 1,100 mg PO HS 03/30/19 12/03/23 mg capsule lancets [id number] e[facility] 03/30/19 10/20/23 Lancets) cyanocobalamin (vitamin B-12) 5,000 mcg PO QAM 05/28/20 12/03/23 5,000 mcg capsule zinc acetate 25 mg (zinc) capsule 25 mg PO QPM 10/15/20 12/03/23 ascorbic acid (vitamin C) 1,000 mg 1 g PO QPM 11/29/20 12/03/23 tablet glipizide 5 mg tablet 2.5 mg PO QAM 04/18/21 12/03/23 metformin 500 mg tablet 500 mg PO BID 04/18/21 12/03/23 cholecalciferol (vitamin D3) 10 10 mcg PO BID 06/06/21 12/03/23 mcg (400 unit) tablet (Vitamin D3) levothyroxine 75 mcg tablet 75 mcg PO DAILY 03/20/22 12/03/23 (Synthroid) atorvastatin 80 mg tablet 80 mg PO DAILY 12/03/23 12/03/23 hydrochlorothiazide 50 mg tablet 50 mg PO DAILY 12/03/23 12/03/23 Previous Rx's Medication Instructions Recorded oxycodone-acetaminophen 5 mg-325 0.5 - 1 tab PO DAILY PRN pain 90 10/09/20 mg tablet days #20 tabs blood sugar diagnostic ([facility] 05/19/21 Verio test strips) losartan 50 mg tablet 50 mg PO QAM #90 tabs 05/19/21 aspirin 325 mg tablet 325 mg PO BID #60 tabs 01/21/23 Results & Data (ED) Vital Signs Vital Signs - 24 hr 12/03/23 01:55 12/03/23 02:04 12/03/23 02:04 Temperature 39.1 C H Temperature Source Oral Pulse Rate 108 H Pulse Rate from SpO2 Sensor Respiratory Rate 30 H Blood Pressure 207/93 H Blood Pressure Mean 131 Pulse Oximetry 84 L 98 Oxygen Delivery Method Room Air Nasal Cannula Nasal Cannula Oxygen Flow Rate 2 2 Sepsis Recent Fever Within 48 Hours Yes Sepsis New/Unexplained Change in Mental Status N/A Sepsis Action Taken by Nursing Previously Notified 12/03/23 02:30 12/03/23 03:00 12/03/23 03:30 Temperature Temperature Source Pulse Rate 110 H 105 H 104 H Pulse Rate from SpO2 Sensor 105 H 105 H Respiratory Rate 24 23 22 Blood Pressure 182/84 H 182/87 H 162/88 H Blood Pressure Mean 117 118 112 Pulse Oximetry 97 99 95 Oxygen Delivery Method Oxygen Flow Rate Sepsis Recent Fever Within 48 Hours Sepsis New/Unexplained Change in Mental Status Sepsis Action Taken by Nursing 12/03/23 04:00 12/03/23 04:26 Temperature 38.0 C H Temperature Source Oral Pulse Rate 107 H Pulse Rate from SpO2 Sensor 97 H Respiratory Rate 22 Blood Pressure 164/88 H Blood Pressure Mean 113 Pulse Oximetry 96 Oxygen Delivery Method Oxygen Flow Rate Sepsis Recent Fever Within 48 Hours Sepsis New/Unexplained Change in Mental Status Sepsis Action Taken by Nursing Laboratory Data 12/03/23 01:54 12/03/23 01:54 Lab Results 12/03/23 12/03/23 12/03/23 Range/Units 01:54 02:10 04:21 WBC 15.32 H (4.8-10.8) K/ul RBC 3.72 L (4.20-5.40) M/uL Hgb 9.1 L (12.0-16.0) g/dl Hct 29.9 L (37.0-47.0) % MCV 80.4 (80.0-100.0) fL MCH 24.5 L (25.0-34.0) pg MCHC 30.4 L (32.0-36.0) g/dL RDW Std Deviation 47.7 H (36.4-46.3) fL RDW Coeff of Isidoro 16.2 H (11.5-14.5) % Plt Count 239 (130-400) K/uL MPV 10.4 (9.4-12.4) fL Neut % (Auto) 84.2 % Lymph % (Auto) 5.4 % [place] % (Auto) 8.6 % PT 11.3 (9.0-12.0) Seconds INR 1.0 (0.9-1.1) APTT 29 (21-31) Seconds PTT Ratio 1.0 Sodium 138 (136-145) mmol/L Potassium 4.1 (3.5-5.1) mmol/L Chloride 102 (98-107) mmol/L Carbon Dioxide 26 (21-32) mmol/L Anion Gap 10 (3-11) BUN 24 H (6-23) mg/dl Creatinine 1.17 (0.6-1.2) mg/dl Est Cr Clr Drug Dosing 44.5 ml/min Est GFR ( Amer) 51.7 ml/min Est GFR (Non-Af Amer) 44.6 ml/min BUN/Creatinine Ratio 20.5 H (10-20) Glucose 209 H (70-99(Fasting)) mg/dl Lactate 1.1 (0.4-2.0) mmol/L Calcium 9.1 (8.6-10.3) mg/dl Magnesium 1.6 L (1.7-2.4) mg/dl Total Bilirubin 0.5 (0.2-1.0) mg/dl AST 8 L (13-39) U/L ALT 4 L (7-52) U/L Alkaline Phosphatase 68 (34-104) U/L Troponin I High Sens 16.7 H (0-14) pg/ml B-Natriuretic Peptide 319 H (0-100) pg/ml Total Protein 7.0 (6.0-8.3) gm/dl Albumin 4.0 (3.4-5.0) gm/dl Globulin 3.0 (2.5-4.0) gm/dl Albumin/Globulin Ratio 1.3 (0.9-2) Procalcitonin 0.68 H (0-0.5) ng/ml Urine Color Yellow Urine Appearance Clear (Clear) Urine pH 6.0 (4.5-7.5) Ur Specific Center 1.016 (1.000-1.030) Urine Protein 2+ H (Negative) Urine Glucose (UA) Negative (Negative) Urine Ketones 1+ H (Negative) Urine Blood Negative (Negative) Urine Nitrite Negative (Negative) Urine Bilirubin Negative (Negative) Urine Urobilinogen Negative (Negative) Ur Leukocyte Esterase Trace H (Negative) Urine WBC (Auto) 0-5 (0-5) /hpf Urine RBC (Auto) 0-2 (0-2) /hpf U Hyaline Cast (Auto) 0-2 (0-2) /lpf U Epithel Cells (Auto) 3-5 H (0-2) /hpf Urine Bacteria (Auto) None Seen (None Seen) Adenovirus (PCR) Not Detected (NotDetected) B. pertussis DNA (PCR) Not Detected (NotDetected) B.parapertussis DNA PCR Not Detected (NotDetected) C. pneumoniae DNA (PCR) Not Detected (NotDetected) Coronavirus OC43 (PCR) Not Detected (NotDetected) Coronavirus HKU1 (PCR) Not Detected (NotDetected) Coronavirus 229E (PCR) Not Detected (NotDetected) SARS-CoV-2 (PCR) Not Detected (NotDetected) Coronavirus NL63 (PCR) Not Detected (NotDetected) Human Metapneumovir PCR Not Detected (NotDetected) Influenza Type A (PCR) Not Detected (NotDetected) Influenza Type B (PCR) Not Detected (NotDetected) M. pneumoniae (PCR) Not Detected (NotDetected) Parainfluenza 1 (PCR) Not Detected (NotDetected) Parainfluenza 2 (PCR) Not Detected (NotDetected) Parainfluenza 3 (PCR) Not Detected (NotDetected) Parainfluenza 4 (PCR) Not Detected (NotDetected) RSV (PCR) Not Detected (NotDetected) Entero/Rhino (PCR) Not Detected (NotDetected) Administered Medications Vancomycin HCl 2,750 mg/ (Sodium Chloride) 555 mls @ 200 mls/hr IV NOW ONE Stop: 12/03/23 05:28 Last Admin: 12/03/23 04:04 Dose: 200 mls/hr Documented By: ERM Discontinued Medications Fentanyl Citrate (Fentanyl Citrate Pf 100 Mcg/2 Ml Vial) 50 mcg IV NOW STA Stop: 12/03/23 03:04 Last Admin: 12/03/23 03:18 Dose: Not Given Documented By: HB Piperacillin Sod/Tazobactam Sod (Zosyn) 4.5 gm in 100 mls @ 200 mls/hr IV NOW ONE Stop: 12/03/23 02:44 Last Infusion: 12/03/23 03:05 Dose: Infused Documented By: Admin: 12/03/23 02:31 Dose: 200 mls/hr Documented By: WILLIE Sodium Chloride (Nss) 1,000 mls @ 999 mls/hr IV .Q1H1M ONE Stop: 12/03/23 03:39 Last Infusion: 12/03/23 03:51 Dose: Infused Documented By: Admin: 12/03/23 02:45 Dose: 999 mls/hr Documented By: WILLIE Sodium Chloride (Nss) 500 mls @ 999 mls/hr IV .Q31M ONE Stop: 12/03/23 03:09 Last Admin: 12/03/23 04:05 Dose: 999 mls/hr Documented By: STEFANO Acetaminophen (Ofirmev) 1,000 mg in 100 mls @ 400 mls/hr IV NOW STA Stop: 12/03/23 02:53 Last Infusion: 12/03/23 03:15 Dose: Infused Documented By: Admin: 12/03/23 02:50 Dose: 400 mls/hr Documented By: WILLIE Oxycodone/Acetaminophen (Oxycodone/Acetaminophen 5mg/325mg Tab) 1 tab PO NOW STA Stop: 12/03/23 04:13 Last Admin: 12/03/23 04:30 Dose: 1 tab Documented By: LAURIE Discharge Plan Visit Data Chief Complaint: Illness Stated Complaint: Unable to Ambulate, Arthritis ED Provider: Leidy Schofield Discharge Problem: Sepsis, Acute left ankle pain, Leukocytosis, Hypomagnesemia, Hypoxia, Fever, Non-ST elevation CO (NSTEMI), Elevated procalcitonin Forms Stand Alone Forms: [facility] [employer] Prescriptions Prescriptions: No Action zinc acetate 25 mg (zinc) capsule 25 mg PO QPM Rx Instructions: swallow whole; do not chew/break/dissolve/open levothyroxine [Synthroid] 75 mcg tablet 75 mcg PO DAILY oxycodone-acetaminophen 5-325 mg tablet 0.5 - 1 tab PO DAILY PRN (Reason: pain) 90 Days Qty: 20 0RF (DME) OneTouch Verio test strips Strip See Dose Instructions .ROUTE .MEDSUPPLY Qty: 100 0RF Dose Instruction: As directed Rx Instructions: TEST TWICE DAILY losartan 50 mg tablet 50 mg PO QAM Qty: 90 0RF cyanocobalamin (vitamin B-12) 5,000 mcg capsule 5,000 mcg PO QAM ascorbic acid (vitamin C) 1,000 mg tablet 1 g PO QPM aspirin 325 mg tablet 325 mg PO BID Qty: 60 2RF folic acid 800 mcg tablet 800 mcg PO QAM paula (Zingiber officinalis) 550 mg capsule 1,100 mg PO HS (DME) lancets [OneTouch [employer]ica Lancets] 33 gauge misc See Dose Instructions .ROUTE .MEDSUPPLY Qty: 100 Patient Comments: use 2 times a day Rx Instructions: As directed glipizide 5 mg tablet 2.5 mg PO QAM metformin 500 mg tablet 500 mg PO BID cholecalciferol (vitamin D3) [Vitamin D3] 10 mcg (400 unit) Tablet 10 mcg PO BID hydrochlorothiazide 50 mg tablet 50 mg PO DAILY atorvastatin 80 mg tablet 80 mg PO DAILY Referrals Referrals: Marva Miner DO [Primary Care Provider] -
[2023-12-03] MEDS: fentaNYL citrate PF 100 MCG/2 ML VIAL IV STA (03:18)
[2023-12-03] MEDS: VANCOMYCIN HCL 2,750 MG in SODIUM CHLORIDE 0.9% 500 ML IV ONE (04:04)
[2023-12-03] MEDS: SODIUM CHLORIDE 0.9% 500 ML IV ONE (04:05)
[2023-12-03 04:25] LABS: Adenovirus PCR Not Detected (NotDetected); Bordetella parapertussis PCR Not Detected (NotDetected); Bordetella pertussis PCR Not Detected (NotDetected); Chlamydia pneumoniae PCR Not Detected (NotDetected); Coronavirus 229E PCR Not Detected (NotDetected); Coronavirus CoV-2 (COVID19)PCR Not Detected (NotDetected); Coronavirus HKU1 PCR Not Detected (NotDetected); Coronavirus NL63 PCR Not Detected (NotDetected); Coronavirus OC43PCR Not Detected (NotDetected); Human Metapneumovirus PCR Not Detected (NotDetected); Influenza A PCR Not Detected (NotDetected); Influenza B PCR Not Detected (NotDetected); Mycoplasma pneumoniae PCR Not Detected (NotDetected); Parainfluenza Virus 1 PCR Not Detected (NotDetected); Parainfluenza Virus 2 PCR Not Detected (NotDetected); Parainfluenza Virus 3 PCR Not Detected (NotDetected); Parainfluenza Virus 4 PCR Not Detected (NotDetected); Respiratory Syncytial VirusPCR Not Detected (NotDetected); Rhinovirus/Enterovirus PCR Not Detected (NotDetected)
[2023-12-03] MEDS: oxyCODONE/ACETAMINOPHEN 5mg/325mg TAB PO STA (04:30)
[2023-12-03 04:39] LABS: Appearance Urine Clear (Clear); Bacteria Urine Automated None Seen (None Seen); Bilirubin Urine Negative (Negative); Blood Urine Negative (Negative); Cast Urine Automated 0-2 /lpf (0-2); Color Urine Yellow; Glucose Urine UA Negative (Negative); Ketones Urine 1+ (Negative); Leukocyte Esterase Urine Trace (Negative); Nitrite Urine Negative (Negative); Protein Urine 2+ (Negative); RBC Urine Automated 0-2 /hpf (0-2); Specific Gravity Urine 1.016 (1.000-1.030); Urobilinogen Urine Negative (Negative); WBC Urine Automated 0-5 /hpf (0-5)
--- NOTE | 2023-12-03 05:13 | History & Physical Report ---
Date of Service December 03, 2023 Assessment & Plan (1) Sepsis: Plan: Pt is a 78 yo female with PMH of chronic anemia, spinal meningioma, afib, left charcot foot, stroke (2019), and hypothyroidism presenting d/t left ankle pain. Sepsis in the setting of chronic left diabetic foot ulcer - pt tachycardic, febrile upon presentation - lab work significant for leukocytosis to 15.32, lactate 1.1, procal 0.68 - blood cultures pending - ankle xray pending - suspect left foot wound as source; pt has left leg wound cx from 08/2023 which grew pansensitive pseudomonas - s/p vanco and zosyn given in ED; d/c vanco, continue zosyn upon admission for pseudomonas coverage - CT left foot ordered to evaluate for osteo; bilateral arterial dopplers ordered to evaluate blood supply for wound healing - wound care consulted Hypoxia - pt does not wear oxygen at home; no hx of lung disease; pt denying feeling SOB/chest pain/wheezing - pt requiring 2L oxygen to keep sats >90 - CXR w/o obvious PNA or pulmonary edema/effusion - BNP 319 upon admission (no prior for comparison); pt w/o a hx of HF- last echo 05/2021 showing normal LV systolic function w/ EF 55-60% - suspect pt may have a component of sleep apnea/nocturnal hypoxia contributing to current hypoxia; consider repeat echo and further eval if hypoxia persists into day time Left ankle pain - suspect secondary to chronic wound and arthritis - tylenol PRN, increase percocet from daily to BID PRN for breakthrough pain - PT/OT eval ordered to ensure pt can walk/function with her current pain control Diabetes - last A1c 6.9% (10/2022); repeat ordered - hold home metformin, glipizide - will cover with insulin glargine 15u BID, adjust SSI as needed Hx of afib - per pt, only had 1 episode and she was cardioverted; she was on eliquis for some amount of time but did not want the side effects of it - she now takes aspirin 325 BID; will hold while hospitalized and use lovenox for VTE ppx Elevated trop - 16.7 upon admission; no symptoms; no ischemic EKG changes - trend to peak HTN - continue home losartan and HCTZ Diet: carb consistent VTE ppx: lovenox Code: full Dispo: admit to med/tele (2) Diabetic foot ulcer: (3) Paroxysmal atrial fibrillation: (4) Osteoarthritis: (5) Hypertension: (6) Left ankle pain: (7) Hypoxia: History of Present Illness Chief Complaint: left ankle pain Primary Care Provider: Marva Miner DO Pt is a 78 yo female with PMH of chronic anemia, spinal meningioma, afib, left charcot foot, stroke (2019), and hypothyroidism presenting d/t left ankle pain. Pt states her left ankle was bothering her yesterday to the point that she could not walk. She has chronic arthritis/pain in her left ankle but the pain has never been this bad. Because of this, she called 911. She relays that she was told they could not leave her at home if she was unable to walk so she was brought to the ED. Pt did not take her home percocet because she only takes them at night to help with the pain overnight. She does have a chronic left foot wound for which she follows with the wound clinic weekly. She also has home health that comes to her house to help with dressing changes. In the ER, pt was given 2L NS, mag 1g, tylenol 1000mg x1, zosyn x1, vanco x1, percocet x1, and fentanyl 50 mcg x1. Allergies Allergy/AdvReac Type Severity Reaction Status Date / Time animal dander Allergy Intermediate congestion Verified 11/26/23 13:06 pollen extracts Allergy Mild sneezing Verified 11/26/23 13:06 bacitracin Allergy Unknown neosporing-> Verified 11/26/23 13:06 rash latex Allergy Unknown blisters Verified 11/26/23 13:06 skin neomycin Allergy Unknown neosporins Verified 11/26/23 13:06 -> rash polymyxin B Allergy Unknown neosporins Verified 11/26/23 13:06 -> rash sulfabenzamide Allergy Unknown vaginal Verified 11/26/23 13:06 cream-> severe itch and irritation sulfacetamide Allergy Unknown vaginal Verified 11/26/23 13:06 cream-> severe itch and irritation sulfathiazole Allergy Unknown vaginal Verified 11/26/23 13:06 cream-> severe itch and irritation doxycycline AdvReac pt will Verified 11/26/23 13:06 not take due to potential side affects tramadol AdvReac Nausea, Verified 11/26/23 13:06 vomiting Home Medications Medication Instructions Recorded Confirmed Type folic acid 800 mcg tablet 800 mcg PO QAM 03/30/19 12/03/23 History paula (Zingiber officinalis) 550 1,100 mg PO HS 03/30/19 12/03/23 History mg capsule lancets 33 gauge ([facility] Ivan #100 ea 03/30/19 10/20/23 History Lancets) cyanocobalamin (vitamin B-12) 5,000 mcg PO QAM 05/28/20 12/03/23 History 5,000 mcg capsule oxycodone-acetaminophen 5 mg-325 0.5 - 1 tab PO DAILY PRN pain 90 10/09/20 12/03/23 Rx mg tablet days #20 tabs zinc acetate 25 mg (zinc) capsule 25 mg PO QPM 10/15/20 12/03/23 History ascorbic acid (vitamin C) 1,000 mg 1 g PO QPM 11/29/20 12/03/23 History tablet glipizide 5 mg tablet 2.5 mg PO QAM 04/18/21 12/03/23 History metformin 500 mg tablet 500 mg PO BID 04/18/21 12/03/23 History blood sugar diagnostic ([facility] #100 ea 05/19/21 10/20/23 Rx Verio test strips) losartan 50 mg tablet 50 mg PO QAM #90 tabs 05/19/21 12/03/23 Rx cholecalciferol (vitamin D3) 10 10 mcg PO BID 06/06/21 12/03/23 History mcg (400 unit) tablet (Vitamin D3) levothyroxine 75 mcg tablet 75 mcg PO DAILY 03/20/22 12/03/23 History (Synthroid) aspirin 325 mg tablet 325 mg PO BID #60 tabs 01/21/23 12/03/23 Rx atorvastatin 80 mg tablet 80 mg PO DAILY 12/03/23 12/03/23 History hydrochlorothiazide 50 mg tablet 50 mg PO DAILY 12/03/23 12/03/23 History Past Med/Surg History Medical History Chronic anemia Kidney stones History of meningioma SCC (squamous cell carcinoma) Hypertension Hyperlipidemia Atrial fibrillation Tachycardia Pulmonary edema Atrial fibrillation with RVR Ulcer of foot Stroke Pulmonary hypertension Peripheral neuropathy Hypothyroidism Generalized osteoarthritis Elevated WBC count Surgical History Hx of resection of meningioma History of carpal tunnel release History of tonsillectomy H/O squamous cell carcinoma excision History of back surgery Hx of oral surgery S/P knee surgery Hx of hand surgery History of knee replacement Family History Mother Myocardial infarction Hearing loss Heart disease Other No family history of adverse response to anesthesia No family history of bleeding disorder Denies family history of Ovarian cancer Prostate cancer Breast cancer Colorectal cancer Social History Smoking Status: Former smoker Second Hand Exposure: No; Do You Dip or Chew Tobacco: No; Hx Alcohol Use: No Hx Substance Use: No Preferred Language: Kuwaiti Communication Ability: Effective Sba Underwriter Required: No Beliefs That Will Affect Care: None marital status: Single Current Living Situation: Alone current occupational status: retired Other Information That Helps Us Care for You: No Feels Safe at Home: Yes Safety Concerns: Feels Safe At This Time Childhood Exposure to Second-Hand Smoke: Yes Dental Care, Regularly: Yes Physical Activity Frequency: 3-4 Times per Week Seatbelt Use: always Sunscreen Use: Yes Assistive Devices: Crutches Review of Systems Review of Systems: As per HPI Physical Exam Constitutional: NAD, tachycardic. Satting well on 2L NC. Respiratory: CTA bilaterally. Non labored breathing. No rhonchi, wheezing, or crackles. Cardiovascular: RRR. No murmurs noted. Minimal bilateral LE edema. Gastrointestinal (Abdomen): Nontender, nondistended, +BS. No masses noted. Skin: Erythema noted of left ankle of which pt states is chronic for her and unchanged. Ulcer noted of plantar surface of heel of left foot. Neurologic: Sensation grossly intact. No FND appreciated. Psychiatric: Speech of normal pace and content. Mood and affect congruent. Results & Data Results & Data Vital Signs (Past 12 Hours) Vital Signs Temp Pulse Resp BP Pulse Ox O2 Del Method O2 Flow Rate 12/03/23 04:51 100 H 12/03/23 04:26 38.0 C H 12/03/23 04:00 107 H 22 164/88 H 96 12/03/23 03:30 104 H 22 162/88 H 95 12/03/23 03:00 105 H 23 182/87 H 99 12/03/23 02:30 110 H 24 182/84 H 97 12/03/23 02:04 98 Nasal Cannula 2 12/03/23 02:04 Nasal Cannula 2 12/03/23 01:55 39.1 C H 108 H 30 H 207/93 H 84 L Room Air Supervising Physician Co-Signing Physician Notes Attending addendum: I have physically seen this patient, have supervised the medical residents activities, and agree with the H&P unless as otherwise noted. Assessment and Plan: Sepsis/chronic left diabetic foot ulcer- Follow wound culture and sensitivity Follow-up blood culture and sensitivity Most recent wound culture of left leg from 09/08 growing pansensitive Pseudomonas Zosyn 4.5 g IV every [address] scan left foot to assess for possible osteomyelitis Order bilateral lower extremity arterial Dopplers Consult wound care Diabetes mellitus- Hold metformin and glipizide Placed on glargine with SSI as noted Atrial fibrillation/elevated troponin/hypertension- The patient will be admitted to telemetry for serial cardiac enzymes, serial EKG's, cardiac rhythm monitoring and a 2-D echocardiogram with Dopplers. Troponin 16.7 upon admission History of Eliquis use, but changed to aspirin 325 twice daily when she reportedly did not like the side effects of Eliquis Continue losartan and HCTZ Remaining orders and notations as noted Resident Activity Tracking Resident Involvement: Resident Care Provided Care Provided: Adult Hospital Medicine
[2023-12-03] MEDS: MAGNESIUM SULFATE / D5W 1 GM/100 ML BAG IV STA (05:17)
[2023-12-03] MEDS ORDERED: POLYETHYLENE (MIRALAX) 17 GM PACK PO PRN (05:38)
[2023-12-03] MEDS ORDERED: MELATONIN 3 MG TAB PO PRN (05:38)
[2023-12-03] MEDS ORDERED: ACETAMINOPHEN 325 MG TAB PO PRN (05:38)
[2023-12-03] MEDS ORDERED: CARBOHYDRATES FOR HYPOGLYCEMIA PO PRN (06:02)
[2023-12-03] MEDS ORDERED: GLUCAGON FOR INJ 1 MG VIAL SQ PRN (06:02)
[2023-12-03] MEDS ORDERED: GLUCOSE 40% GEL 15 GM TUBE PO PRN (06:02)
[2023-12-03] MEDS ORDERED: GLUCOSE 10 TAB/TUBE PO PRN (06:02)
[2023-12-03] MEDS ORDERED: oxyCODONE/ACETAMINOPHEN 5mg/325mg TAB PO PRN ×2 (06:11→06:24)
--- NOTE | 2023-12-03 08:19 | XRay Report ---
SINGLE VIEW CHEST CLINICAL HISTORY: Sepsis. FINDINGS: An AP, portable, upright chest radiograph is compared to study dated 04/18/2021. The heart is enlarged noting atherosclerotic calcification of the thoracic aorta. There is pulmonary vascular con gestion. The mitral annulus is densely calcified. There is bibasilar atelectasis. No large pleural ef fusion or pneumothorax is seen. The skeletal structures are osteopenic. The bony thorax is grossly in tact. Calcific tendinopathy is noted in the left shoulder. IMPRESSION: Cardiomegaly with pulmonary vascular congestion. ACT 112: Negative or not required by law. Electronically signed by: Bennie Andrea M.D. 12/03/2023 8:18 AM
--- NOTE | 2023-12-03 08:23 | XRay Report ---
LEFT ANKLE 2 VIEWS CLINICAL HISTORY: Left ankle pain. FINDINGS: AP and lateral views of the left ankle are correlated with radiographic study left foot carlos alberto ed 08/25/2023. The skeletal structures are heterogeneously osteopenic. The ankle mortise is maintained noting severe arthritic change at the tibiotalar joint. There is bony overgrowth posterior to the a nkle joint. Pes planus is noted with a rocker-bottom deformity. Advanced arthritic change is seen in the midfoot and hindfoot. There is a plantar heel spur. No erosive change is seen. Benign-appearing p eriostitis is seen along the distal fibular shaft. Diffuse soft tissue edema is noted. A wound is sug gested along the plantar aspect of foot. IMPRESSION: 1. Soft tissue swelling with no acute bony abnormality identified. 2. Osteopenia with severe degenerative change involving the ankle and hindfoot as above. The appearan ce is typical for a Charcot foot. Correlate clinically. 3. A wound is suggested along the plantar aspect of the foot. Electronically signed by: Bennie Andrea M.D. 12/03/2023 8:22 AM
[2023-12-03] MEDS: hydroCHLOROthiazide 25 MG TAB PO SCH (09:15)
[2023-12-03] MEDS: LOSARTAN POTASSIUM 50 MG TAB PO SCH (09:15)
[2023-12-03] MEDS: LEVOTHYROXINE SODIUM 75 MCG TABLET PO SCH (09:16)
[2023-12-03] MEDS: PIPERACILLIN/TAZOBACTAM 4.5 GM in DEXTROSE 5% MINI-B 100 ML IV SCH (09:19)
[2023-12-03] MEDS: INSULIN ASPART PER UNIT CHARGE SC SCH (09:39)
[2023-12-03] MEDS: LANTUS PER UNIT CHARGE SQ SCH (09:40)
[2023-12-03] MEDS ORDERED: Nursing to Pharmacy Communication SCH (10:00)
[2023-12-03] MEDS: ATORVASTATIN 40 MG TAB PO SCH ×2 (11:08→22:06)
[2023-12-03] MEDS ORDERED: ACETAMINOPHEN 1,000 MG/100 ML VIAL IV SCH (13:15)
[2023-12-03] MEDS ORDERED: ACETAMINOPHEN 1,000 MG/100 ML VIAL IV PRN (13:15)
--- NOTE | 2023-12-03 13:28 | Hospitalist Progress Note ---
Date of Service December 03, 2023 Assessment & Plan (1) Sepsis: (2) Diabetic foot ulcer: (3) Paroxysmal atrial fibrillation: (4) Osteoarthritis: (5) Hypertension: (6) Left ankle pain: (7) Hypoxia: Plan Pt is a 78 yo female with PMH of chronic anemia, spinal meningioma, afib, left charcot foot, stroke (2019), and hypothyroidism presenting d/t left ankle pain. Sepsis in the setting of chronic left diabetic foot ulcer // Osteomyelitis - pt tachycardic, febrile upon presentation and has leukocytosis of 15.32 - lactate 1.1, procal 0.68 - Suspect wound of left foot may be the source - blood cultures pending - Wound cultures ordered - (L) ankle x-ray: soft tissue swelling and osteopenia with degenerative changes typical for charcot foot - (L) foot CT: complex fluid collection deep to the wound likely represents an abscess, Erosive change is seen along the plantar aspect of the cuboid, and also likely along the anterior aspect of the calcaneus. There is also periostitis. This is highly consistent with osteomyelitis and this could be acute versus acute on chronic - B/l LE arterial doppler: left popliteal artery with possible stenosis, possibly occluded portions of the peritoneal artery - Continue Zosyn and add Vanc - Wound care consulted - Will consult podiatry as well given CT findings consistent with OM Hypoxia - pt does not wear oxygen at home; no hx of lung disease; pt denying feeling SOB/chest pain/wheezing - Not currently c/o SOB - suspect pt may have a component of sleep apnea/nocturnal hypoxia contributing to current hypoxia - If hypoxia persists or patient is more SOB, will consider repeating TTE (last one from 2020 showing normal LV systolic function with EF of 55-60%) Left ankle pain - suspect secondary to chronic wound and arthritis - tylenol 1g PRN, increase percocet from daily to q6h PRN for breakthrough pain - PT/OT eval ordered to ensure pt can walk/function with her current pain control Diabetes - last A1c 6.9% (10/2022); repeat ordered - hold home metformin, glipizide - will cover with insulin glargine 15u BID, adjust SSI as needed Hx of afib - Hx of cardioversion - She was on eliquis for some amount of time but did not want the side effects of it - she now takes aspirin 325 BID; will hold while hospitalized and use lovenox for VTE ppx Elevated trop - 16.7 upon admission - no symptoms; no ischemic EKG changes - Troponin peaked at 23.4 and decreased to 20.6 HTN - continue home losartan and HCTZ Diet: carb consistent VTE ppx: lovenox Admission and Anticipated Discharge Date Admission Date: December 03, 2023 Supervising Physician Co-Signing Physician Notes ATTESTATION I also saw the patient and confirmed cuello portions of the history and exam. I agree with the impression and plan in the resident documentation, and as summarized below. 78-year-old female with longstanding history of lower extremity diabetic ulcerations who follows with the wound care center as an outpatient admitted through the emergency department this morning after she called EMS due to increased left ankle pain. When evaluated emergency department, she was actually found to meet SIRS criteria. Upon our late morning exam, the patient remains in the emergency department awaiting bed availability. She complains of left ankle pain, otherwise no complaints EXAM 144/75, 79, 18, 30 C, 90% on room air Pleasant. Alert. No acute distress appreciated. Heart regular rate and rhythm Lungs clear with nonlabored respirations Wound care images are reviewed in the EMR; the wrapped wounds are not examined. DATA Labs White blood cell count 15.32, hemoglobin 9.1, platelet count 239 Sodium 138, potassium 4.1, BUN 24, creatinine 1.[address] of the foot completed this morning shows findings suggestive of osteomyelitis. Micro Blood cultures collected earlier this morning are pending. IMPRESSION & PLAN Sepsis in the setting of chronic left diabetic foot ulcer Left ankle pain History of paroxysmal atrial fibrillation (not on systemic anticoagulation, though does take aspirin 325 mg twice daily) Anemia, chronic She is hemodynamically stable, and appears euvolemic Appreciate ID and podiatry consultations Blood cultures pending Additional per resident documentation Subjective Pt is a 78 yo female with PMH of chronic anemia, spinal meningioma, afib, left charcot foot, stroke (2019), and hypothyroidism presenting d/t left ankle pain. She was admitted after called EMS from her home due to significant left ankle pain that limited her mobility, and the in the ER was found to meet SIRS criteria (has chronic left diabetic foot ulcer). She was evaluated at bedside today and found to be alone, AAOx3, in pain, febrile (temp of 38.0), and in NAD. She was very concerned with her left ankle pain, as she had not been given the ASA 325 mg she usually takes at home for clot prevention for her a-fib and also for pain management. She does have Percocet at home but does not like to use it much due to side effects of constipation. Denies feeling feverish, chills, weakness, malaise, chest pain, SOB, or any other symptom. Review of Systems Review of Systems: As per HPI Physical Exam Physical Exam: General: AAOx3, febrile, NAD CV: RRR, no r/m/g Pulm: CTA bilaterally, normal resp effort, no resp distress GI: soft, nontender Ext: no swelling in bilateral LE, right anterior leg with old wounds that are scabbed over with slight surrounding erythema but no tenderness to palpation or warmth to the touch, left leg also with old scabbed over wounds with slight erythema and no warmth/tenderness, but does have a ~3cm ulcer/wound in left heel that is covered by bandages that are slightly saturated but not bloody Results & Data Results & Data Vital Signs (Past 12 Hours) Vital Signs Temp Pulse Resp BP Pulse Ox O2 Del Method O2 Flow Rate 12/03/23 08:08 87 12/03/23 05:00 98 H 19 149/100 H 95 Nasal Cannula 2 12/03/23 04:51 100 H 12/03/23 04:30 103 H 20 148/66 H 97 Nasal Cannula 2 12/03/23 04:26 38.0 C H 12/03/23 04:00 107 H 22 164/88 H 96 12/03/23 03:30 104 H 22 162/88 H 95 12/03/23 03:00 105 H 23 182/87 H 99 12/03/23 02:30 110 H 24 182/84 H 97 12/03/23 02:04 98 Nasal Cannula 2 12/03/23 02:04 Nasal Cannula 2 12/03/23 01:55 39.1 C H 108 H 30 H 207/93 H 84 L Room Air Resident Activity Tracking Resident Involvement: Resident Care Provided Care Provided: Adult [facility]
[2023-12-03] MEDS: oxyCODONE/ACETAMINOPHEN 5mg/325mg TAB PO PRN (13:34)
--- NOTE | 2023-12-03 13:48 | Ultrasound Report ---
ULTRASOUND BILATERAL LOWER EXTREMITY ARTERIAL; TOE BRACHIAL INDICES CLINICAL HISTORY: Chronic left foot wound. Diabetes. TECHNIQUE: Real-time grayscale and color Doppler sonography of the right and left lower extremity art eries is performed from the inguinal crease to the foot. Ankle brachial indices could not be performe d due to lower extremity edema. Toe brachial indices were assessed. FINDINGS: Ankle brachial indices: Right brachial pressure measures 154 and left brachial pressure measures 150. Pressures in the right first toe measure 107 for TBI of 0.69 and pressures in the left great toe do sure 55 for TBI of 0.36. Right lower extremity: Atherosclerotic plaque and irregularity is seen throughout the arteries of the right lower extremity. There are triphasic arterial waveforms in the common femoral artery with [place] measuring up to 107 cm/s. The profunda femoris artery is patent with velocities measuring up t o 84 cm/s. There are triphasic arterial waveforms throughout the superficial, femoral and popliteal a rteries. Velocities in the superficial femoral artery measure up to 128 cm/s, and velocities in the p opliteal artery measure up to 182 cm/s. There is three-vessel runoff to the foot. Velocities in the c deni arteries measure up to 62 cm/s. The dorsalis pedis artery is patent with velocities measuring up to 107 cm/s. Normal arterial waveforms are shown in the calf arteries. Left lower extremity: There is atherosclerotic plaque and irregularity throughout the arteries of the left lower extremity. There are triphasic arterial waveforms in the common femoral artery with veloc ities measuring up to 123 cm/s. The profunda femoris artery is patent with velocities measuring up to 70 cm/s. There are triphasic waveforms in the superficial femoral and popliteal arteries. Velocities in the superficial femoral artery measure up to 134 cm/s and velocities in the popliteal artery helen ure up to 200 cm/s. There is at least two-vessel runoff to the foot. Velocities in the posterior tibi al artery measure up to 155 cm/s and velocities in the anterior tibial artery measure up to 122 cm/s. The proximal portions of the peroneal artery are patent with velocities measuring up to 97 cm/s. The distal vessel is not well assessed and may be occluded. The dorsalis pedis artery is patent with landry ocities measuring up to 53 cm/s. IMPRESSION: 1. There are mildly elevated velocities in the left popliteal artery suggesting stenosis. 2. There is three-vessel runoff to the right foot. 3. There is at least two-vessel runoff to the left foot. Portions of the peroneal artery are not well visualized and may be occluded. 4. Toe brachial indices as above. Dictated: 12/03/2023 11:05 AM Transcribed: 12/03/2023 11:50 AM Olegario [id number] [email or web address] Electronically signed by: Bennie Andrea M.D. 12/03/2023 1:46 PM
--- NOTE | 2023-12-03 13:48 | CT Scan Report ---
CT SCAN OF THE LEFT FOOT WITHOUT IV CONTRAST CLINICAL HISTORY: Chronic wound. COMPARISON STUDY: CT scan of the left foot dated 07/26/2020. Radiographs of the left ankle dated 12/02. TECHNIQUE: CT scan of the left foot is performed from the distal tibia and fibula to the base of the foot. Images are reviewed in the axial, sagittal, and coronal planes. IV contrast was not administere d for this examination. A dose lowering technique was utilized adhering to the principles of ALARA. CT DOSE: 835.68 mGy.cm FINDINGS: The skeletal structures are heterogeneously osteopenic. No acute fracture is identified. Th e ankle mortise is intact noting severe arthritic change. Bony overgrowth is seen posterior to the an kle joint. Severe degenerative changes are noted throughout the foot, greatest in the midfoot and hin dfoot. There is pes planus with a rocker-bottom deformity. There is even bony overgrowth, fragmentati on, and sclerosis seen throughout the midfoot. This is consistent with a Charcot joint. Widening betw een the base of the first and second metatarsals indicates a chronic Lisfranc injury. Benign-appearin g periostitis is seen along the distal shafts of the tibia and fibula. There is a large plantar heel spur. A large wound is seen along the plantar aspect of the midfoot/hindfoot. There is periostitis in volving the plantar aspect of the calcaneus and cuboid. There are foci of erosion seen along the plan tar aspect of the cuboid seen on sagittal image #33. There is also likely erosive change along the pl madelyn aspect of the anterior calcaneus. Osteomyelitis is not excluded. This may be acute versus acute on chronic. There is a thin-pocket of fluid deep to the wound seen on axial image #44 of 67. This me asures approximately 1 x 4 x 3 cm and may represent a small abscess. There are foci of adjacent soft tissue gas. Diffuse soft tissue edema is noted throughout the remainder of the foot. Advanced atheros clerotic calcification is seen in the regional arteries. IMPRESSION: 1. Osteopenia with severe chronic degenerative change throughout the ankle and foot as above. This is consistent with a Charcot foot. 2. There is a large wound along the plantar aspect of the midfoot/hindfoot as above. 3. A complex fluid collection deep to the wound likely represents an abscess. 4. Erosive change is seen along the plantar aspect of the cuboid, and also likely along the anterior aspect of the calcaneus. There is also periostitis. This is highly consistent with osteomyelitis and this could be acute versus acute on chronic. Correlate clinically. ACT 112: Negative or not required by law. Dictated: 12/03/2023 10:01 AM Transcribed: 12/03/2023 10:20 AM Olegario [id number] [email or web address] Electronically signed by: Bennie Andrea M.D. 12/03/2023 1:47 PM
[2023-12-03] MEDS: ONDANSETRON INJ 2 MG/ML 2 ML VIAL IV PRN (15:59)
[2023-12-03] MEDS: PIPERACILLIN/TAZOBACTAM 4.5 GM/100ML D5W IV ONE (16:22)
--- NOTE | 2023-12-03 18:35 | Pharmacy Report ---
Pharmacy PK ABX Note - Date of Service December 03, 2023 - Assessment and Plan Assessment 78 year old F receiving empiric vancomycin and Zosyn for treatment of sepsis secondary to diabetic foot infection/osteomyelitis. Pertinent microbiologic data includes: blood cultures x 2 ordered/pending. Renal function appears to be at/near baseline. Leukocytosis present (WBC 15 K), patient febrile (Tmax 39.1 C). Day # 1 of antimicrobial therapy. Plan Vancomycin * Loading dose: 2750 mg IV x 1 * Maintenance dose: 1000 mg IV every 24 hours * Regimen is predicted to achieve target AUC/KIKO of 400-600 mg/L.hr * Trough level ordered for: 12/06/23, or sooner if dramatic change in SCr Pharmacy will continue to follow and will adjust dose/frequency as necessary. Thank you. Pharmacy has transitioned to AUC monitoring for vancomycin. AUC/KIKO is the preferred PK/PD target and is associated with decreased risk of nephrotoxicity compared to traditional trough targets.
[2023-12-04] MEDS: VANCOMYCIN HCL 1,000 MG in SODIUM CHLORIDE 0.9% 250 ML IV SCH (05:01)
[2023-12-04 05:30] LABS: BUN Creatinine Ratio 20.7 (10-20); Creatinine Clr Calc Pharmacy 34.7 ml/min; Est GFR (African American) 38.3 ml/min; Potassium 4.5 mmol/L (3.5-5.1)
--- NOTE | 2023-12-04 05:57 | Electrocardiogram Report ---
Test Reason : Blood Pressure : / mmHG Vent. Rate : 112 BPM Atrial Rate : 112 BPM P-R Int : 158 ms QRS Dur : 106 ms QT Int : 342 ms P-R-T Axes : 069 073 000 degrees QTc Int : 466 ms Sinus tachycardia with Premature supraventricular complexes Low voltage QRS Incomplete right bundle branch block Nonspecific ST and T wave abnormality Abnormal ECG Confirmed by Antwan Norman ([id number]) on 12/04/2023 5:56:47 AM Referred By: REFERRED SELF Confirmed By:Jatin Norman
--- NOTE | 2023-12-04 07:35 | Hospitalist Progress Note ---
Date of Service December 04, 2023 Assessment & Plan (1) Sepsis: (2) Diabetic foot ulcer: (3) Paroxysmal atrial fibrillation: (4) Osteoarthritis: (5) Hypertension: (6) Left ankle pain: (7) Hypoxia: Plan Pt is a 78 yo female with PMH of chronic anemia, spinal meningioma, afib, left charcot foot, stroke (2019), and hypothyroidism presenting d/t left ankle pain. Awaiting ortho recs for L foot osteomyelitis. Continue IV antibiotics. Sepsis in the setting of chronic left diabetic foot ulcer // Osteomyelitis - pt tachycardic, febrile upon presentation and has leukocytosis of 15.32 - lactate 1.1, procal 0.68 - Suspect wound of left foot may be the source - blood cultures pending - Wound cultures ordered; pending - (L) ankle x-ray: soft tissue swelling and osteopenia with degenerative changes typical for charcot foot - (L) foot CT: complex fluid collection deep to the wound likely represents an abscess, Erosive change is seen along the plantar aspect of the cuboid, and also likely along the anterior aspect of the calcaneus. There is also periostitis. This is highly consistent with osteomyelitis and this could be acute versus acute on chronic - B/l LE arterial doppler: left popliteal artery with possible stenosis, possibly occluded portions of the peritoneal artery - Continue Zosyn and add Vanc - Wound care consulted - ortho consulted; pending Hypoxia - pt does not wear oxygen at home; no hx of lung disease; pt denying feeling SOB/chest pain/wheezing - Not currently c/o SOB - suspect pt may have a component of sleep apnea/nocturnal hypoxia contributing to current hypoxia - If hypoxia persists or patient is more SOB, will consider repeating TTE (last one from 2020 showing normal LV systolic function with EF of 55-60%) Left ankle pain - suspect secondary to chronic wound and arthritis - tylenol 1g PRN, increase percocet from daily to q6h PRN for breakthrough pain - PT/OT eval ordered to ensure pt can walk/function with her current pain control Diabetes - last A1c 6.9% (10/2022); repeat ordered and was 7.2% - hold home metformin, glipizide - will cover with insulin glargine 15u BID, adjust SSI as needed Hx of afib - Hx of cardioversion - She was on eliquis for some amount of time but did not want the side effects of it - she now takes aspirin 325 BID; will hold while hospitalized and use lovenox for VTE ppx Elevated trop - 16.7 upon admission - no symptoms; no ischemic EKG changes - Troponin peaked at 23.4 and decreased to 20.6 HTN - continue home losartan and HCTZ Diet: carb consistent VTE ppx: lovenox Admission and Anticipated Discharge Date Admission Date: December 03, 2023 Supervising Physician Co-Signing Physician Notes ATTESTATION I also saw the patient and confirmed cuello portions of the history and exam. I agree with the impression and plan in the resident documentation, and as summarized below. Upon our exam, the patient remains in the emergency department awaiting a available bed. No new complaints. Family is visiting. She is eating lunch. EXAM 119/44, 85, 22, 36.7 Pleasant. Alert. No acute distress appreciated. Heart regular rate and rhythm Lungs clear with nonlabored respirations Wound care images are reviewed in the EMR; the wrapped wounds are not examined. DATA Labs White blood cell count 18.77, hemoglobin 8.6, platelet count 257 Sodium 137, potassium 4.5, BUN 31, creatinine 1.50 Hemoglobin A1c 7.2% Imaging CT of the foot completed yesterday shows findings suggestive of osteomyelitis. Micro Blood cultures collected 12/03/2023 showed no growth at 24 hours. A wound culture from the left foot collected 12/03/2023 shows pinpoint growth IMPRESSION & PLAN Sepsis in the setting of chronic left diabetic foot ulcer Left ankle pain History of paroxysmal atrial fibrillation (not on systemic anticoagulation, though does take aspirin 325 mg twice daily) Anemia, chronic DEXTER She is hemodynamically stable, and appears euvolemic Appreciate ID consultation; blood cultures remain negative, wound culture preliminary shows pinpoint growth Orthopedic consult pending Resume maintenance fluids; trend BMP Additional per resident documentation Subjective Pt is a 78 yo female with PMH of chronic anemia, spinal meningioma, afib, left charcot foot, stroke (2019), and hypothyroidism presenting d/t left ankle pain. She was admitted after called EMS from her home due to significant left ankle pain that limited her mobility, and the in the ER was found to meet SIRS criteria (has chronic left diabetic foot ulcer). Today, pt denies any questions or complaints aside from asking what the plan is. In general feeling well, states her ankle pain comes and goes. Was noted to have significant difficulty taking her pills this morning as she would frequently drop them or have trouble actually grasping each individual pill to apple picker one-by-one. Otherwise no questions or complaints. No chest pain or SOB. No nausea or vomiting. Review of Systems Review of Systems: As per HPI Physical Exam Physical Exam: General:Alert, no acute distress, hard of hearing at times HEENT: Normocephalic, moist oral mucosa, Cardio: Regular rate and rhythm, Resp:Lungs clear to auscultation b/l, no wheezes or rhonchi, GI: Soft and nontender, nondistended, bowel sounds active Skin: Warm, pink, dry, Psych: Mood-affect congruence. Results & Data Results & Data Vital Signs (Past 12 Hours) Vital Signs Pulse Resp BP Pulse Ox O2 Del Method O2 Flow Rate 12/04/23 07:16 95 H 12/04/23 06:00 104 H 30 H 92 Nasal Cannula 1 12/04/23 03:00 92 H 16 155/74 H 95 12/04/23 01:00 86 16 136/80 93 Nasal Cannula 1 12/03/23 23:00 86 18 138/84 95 Nasal Cannula 1 12/03/23 22:00 85 18 134/86 93 Nasal Cannula 1 Resident Activity Tracking Resident Involvement: Resident Care Provided Care Provided: Adult Hospital Medicine
[2023-12-04 07:40] LABS: Hemoglobin 8.6 g/dl (12.0-16.0); Mean Corpuscular Hemoglobin 23.8 pg (25.0-34.0); Mean Corpuscular Hgb Conc 27.7 g/dL (32.0-36.0); Mean Corpuscular Volume 85.6 fL (80.0-100.0); Mean Platelet Volume 10.9 fL (9.4-12.4); Platelet Count 257 K/uL (130-400); RDW Coefficient of Variation 16.4 % (11.5-14.5); RDW Standard Deviation 51.6 fL (36.4-46.3); Red Blood Count 3.62 M/uL (4.20-5.40); White Blood Count 18.77 K/ul (4.8-10.8)
[2023-12-04 08:22] LABS: Estimated Average Glucose 160 mg/dl; Hemoglobin A1C 7.2 % (4.5-5.6)
[2023-12-04] MEDS: POLYETHYLENE (MIRALAX) 17 GM PACK PO SCH (08:59)
[2023-12-04] MEDS: ENOXAPARIN INJ 40 MG/0.4 ML SYR SQ SCH (08:59)
[2023-12-04] MEDS: DOCUSATE SODIUM 100 MG CAP PO SCH (09:00)
[2023-12-04] MEDS: LACTATED RINGER'S 1,000 ML IV SCH (17:02)
--- NOTE | 2023-12-05 05:32 | Billing Data ---
Date of Service December 05, 2023 Coding Level of Care Code 51040 INT INP/OBS CARE
[2023-12-05 06:05] LABS: Hematocrit (blood only) 29.3 % (37.0-47.0); Hemoglobin 8.2 g/dl (12.0-16.0); Mean Corpuscular Volume 85.9 fL (80.0-100.0); Mean Platelet Volume 11.1 fL (9.4-12.4); Platelet Count 260 K/uL (130-400); RDW Coefficient of Variation 16.5 % (11.5-14.5); RDW Standard Deviation 51.9 fL (36.4-46.3); Red Blood Count 3.41 M/uL (4.20-5.40); White Blood Count 18.85 K/ul (4.8-10.8)
[2023-12-05 06:22] LABS: Calcium 8.8 mg/dl (8.6-10.3); Creatinine Clr Calc Pharmacy 23.9 ml/min; Est GFR (African American) 25.3 ml/min; Est GFR (Non-African American) 21.9 ml/min; Potassium 4.7 mmol/L (3.5-5.1)
--- NOTE | 2023-12-05 07:15 | Hospitalist Progress Note ---
Date of Service December 05, 2023 Assessment & Plan (1) Sepsis: (2) Diabetic foot ulcer: (3) Paroxysmal atrial fibrillation: (4) Osteoarthritis: (5) Hypertension: (6) Left ankle pain: (7) Hypoxia: Plan Pt is a 78 yo female with PMH of chronic anemia, spinal meningioma, afib, left charcot foot, stroke (2019), and hypothyroidism presenting d/t left ankle pain. Awaiting podiatry recs for L foot osteomyelitis. Continue IV antibiotics. Bump on Cr this am to 2.11. Her Vanco through are in therapeutic levels, will discontinue Vanco for now and await for final wound culture results. Preliminary is growing gram negative bacilli. Will continue IV Zosyn. On IV fluids 100 ml/hr. Sepsis in the setting of chronic left diabetic foot ulcer // Osteomyelitis - pt tachycardic, febrile upon presentation and has leukocytosis of 15.32 - lactate 1.1, procal 0.68 - Suspect wound of left foot may be the source - blood cultures negative preliminary - Wound culture: gram negative bacilli preliminary - (L) ankle x-ray: soft tissue swelling and osteopenia with degenerative changes typical for charcot foot - (L) foot CT: complex fluid collection deep to the wound likely represents an abscess, Erosive change is seen along the plantar aspect of the cuboid, and also likely along the anterior aspect of the calcaneus. There is also periostitis. This is highly consistent with osteomyelitis and this could be acute versus acute on chronic - B/l LE arterial Doppler: left popliteal artery with possible stenosis, possibly occluded portions of the peritoneal artery - Continue Zosyn - Vancomycin discontinue - Wound care consulted - Podiatry consulted; pending DEXTER - Pre renal vs medication induced (Vanco + Zosyn) - IVF 100 ml/hrs - Vancomycin discontinue - CMP am Hypoxia - pt does not wear oxygen at home; no hx of lung disease; pt denying feeling SOB/chest pain/wheezing - Not currently c/o SOB - suspect pt may have a component of sleep apnea/nocturnal hypoxia contributing to current hypoxia - If hypoxia persists or patient is more SOB, will consider repeating TTE (last one from 2020 showing normal LV systolic function with EF of 55-60%) Left ankle pain - suspect secondary to chronic wound and arthritis - tylenol 1g PRN, increase percocet from daily to q6h PRN for breakthrough pain - PT/OT eval ordered to ensure pt can walk/function with her current pain control Diabetes - last A1c 6.9% (10/2022); repeat ordered and was 7.2% - hold home metformin, glipizide - will cover with insulin glargine 15u BID, adjust SSI as needed Hx of afib - Hx of cardioversion - She was on eliquis for some amount of time but did not want the side effects of it - she now takes aspirin 325 BID; will hold while hospitalized and use lovenox for VTE ppx Elevated trop - 16.7 upon admission - no symptoms; no ischemic EKG changes - Troponin peaked at 23.4 and decreased to 20.6 HTN - continue home losartan and HCTZ Diet: carb consistent VTE ppx: heparin 5,000 units Admission and Anticipated Discharge Date Admission Date: December 03, 2023 Supervising Physician Co-Signing Physician Notes ATTESTATION I also saw the patient and confirmed cuello portions of the history and exam. I agree with the impression and plan in the resident documentation, and as summarized below. Patient without complaints upon exam this afternoon. EXAM 144/75, 93, 16, 36.9, 95% on nasal cannula 1 L/min Pleasant. Alert. Sleepy today. No complaints. Heart regular rhythm but mildly tachycardic Respirations nonlabored DATA Labs White blood cell count 18.85, hemoglobin 8.2 Sodium 137, potassium 4.7, BUN 40, creatinine 2.11 Micro Left foot wound culture collected 12/03/2023 is growing gram-negative bacilli, speciation and sensitivity pending IMPRESSION & PLAN Sepsis in the setting of chronic left foot diabetic ulcer/osteomyelitis, hemodynamically stable DEXTER, not present upon admission Discontinue vancomycin and increase IV fluid; recheck BMP in a.m. Await final wound culture and adjust antibiotics as indicated Podiatry to see the patient tomorrow Additional per resident documentation Subjective Pt is a 78 yo female with PMH of chronic anemia, spinal meningioma, afib, left charcot foot, stroke (2019), and hypothyroidism presenting d/t left ankle pain. She was admitted after called EMS from her home due to significant left ankle pain that limited her mobility, and the in the ER was found to meet SIRS criteria (has chronic left diabetic foot ulcer). Patient was evaluated this am foun in NAD. Her only complains is pain on her left foot. Mri Specialist was consulted, plan to see her tomorrow morning. Otherwise no questions or complaints. No chest pain or SOB. No nausea or vomiting. Review of Systems Review of Systems: As per HPI Physical Exam Physical Exam: General:Alert, n o acute distress, hard of hearing at times HEENT: Norm ocephalic, moist o ral mucosa, Cardio : Regular rate and rhythm, Resp:Sia ngs clear to auscu ltation b/l, no wh eezes or rhonchi, GI: Soft and nonte nder, nondistended , bowel sounds act yenifer Skin: Warm, pi nk, dry, Psych: Mo od-affect congruen ce. Results & Data Results & Data Vital Signs (Past 12 Hours) Vital Signs Temp Pulse Pulse Resp BP Pulse Ox O2 Del Method 12/05/23 07:09 103 H 12/05/23 03:01 37.2 C 86 18 105/75 98 Nasal Cannula 12/04/23 23:39 37.3 C 88 20 127/75 98 Nasal Cannula 12/04/23 22:00 Nasal Cannula 12/04/23 19:55 37.2 C 89 20 134/79 98 Nasal Cannula O2 Flow Rate 12/05/23 07:09 12/05/23 03:01 3 12/04/23 23:39 3 12/04/23 22:00 3 12/04/23 19:55 Resident Activity Tracking Resident Involvement: Resident Care Provided Care Provided: Adult Hospital Medicine
[2023-12-05] MEDS: MICONAZOLE NITRATE POWDER 85 GM EXT SCH (09:02)
[2023-12-05] MEDS: ACETAMINOPHEN 1,000 MG/100 ML VIAL IV PRN (16:54)
[2023-12-06] MEDS ORDERED: VANCOMYCIN LEVEL ONE (03:30)
[2023-12-06 07:20] LABS: Hemoglobin 7.8 g/dl (12.0-16.0); Mean Corpuscular Hemoglobin 23.9 pg (25.0-34.0); Mean Corpuscular Hgb Conc 28.9 g/dL (32.0-36.0); Mean Corpuscular Volume 82.8 fL (80.0-100.0); Mean Platelet Volume 10.1 fL (9.4-12.4); Platelet Count 272 K/uL (130-400); RDW Coefficient of Variation 16.3 % (11.5-14.5); RDW Standard Deviation 49.6 fL (36.4-46.3); Red Blood Count 3.26 M/uL (4.20-5.40); White Blood Count 16.51 K/ul (4.8-10.8)
[2023-12-06 07:28] LABS: BUN Creatinine Ratio 17.6 (10-20); Calcium 8.7 mg/dl (8.6-10.3); Creatinine Clr Calc Pharmacy 19.8 ml/min; Est GFR (African American) 20.2 ml/min; Est GFR (Non-African American) 17.4 ml/min; Potassium 4.2 mmol/L (3.5-5.1)
--- NOTE | 2023-12-06 10:27 | Hospitalist Progress Note ---
Date of Service December 06, 2023 Assessment & Plan (1) Sepsis: (2) Diabetic foot ulcer: (3) Paroxysmal atrial fibrillation: (4) Osteoarthritis: (5) Hypertension: (6) Left ankle pain: (7) Hypoxia: Plan Pt is a 78 yo female with PMH of chronic anemia, spinal meningioma, afib, left charcot foot, stroke (2019), and hypothyroidism presenting d/t left ankle pain. Awaiting podiatry recs for L foot osteomyelitis. Continue IV antibiotics. Bump on Cr this am to 2.55. Suspect DEXTER may be pre-renal given her poor PO intake since her admission, but would not r/o intrinsic cause due to medication given her DEXTER began after her admission. Wound culture growing Pseudomonas aeruginosa. Will continue IV Zosyn and IVF at 140 cc/hr. Repeat BMP in the afternoon to see if Cr stabilizes on IVF and order TTE given swelling, SOB/ need for O2, and murmur on auscultation. Sepsis in the setting of chronic left diabetic foot ulcer // Osteomyelitis - pt tachycardic, febrile upon presentation and has leukocytosis of 15.32 - lactate 1.1, procal 0.68 - Suspect wound of left foot may be the source - blood cultures negative preliminary - Wound culture: Pseudomonas - (L) ankle x-ray: soft tissue swelling and osteopenia with degenerative changes typical for charcot foot - (L) foot CT: complex fluid collection deep to the wound likely represents an abscess, Erosive change is seen along the plantar aspect of the cuboid, and also likely along the anterior aspect of the calcaneus. There is also periostitis. This is highly consistent with osteomyelitis and this could be acute versus acute on chronic - B/l LE arterial Doppler: left popliteal artery with possible stenosis, possibly occluded portions of the peritoneal artery - Continue Zosyn - Wound care consulted - Podiatry consulted; pending DEXTER - Pre renal vs medication induced - IVF 140 ml/hrs - CMP am Hypoxia - pt does not wear oxygen at home; no hx of lung disease; pt denying feeling SOB/chest pain/wheezing - Not currently c/o SOB - suspect pt may have a component of sleep apnea/nocturnal hypoxia contributing to current hypoxia - Will repeat TTE (last one in 2020) Left ankle pain - suspect secondary to chronic wound and arthritis - percocet from daily to q6h PRN for breakthrough pain - PT/OT eval ordered to ensure pt can walk/function with her current pain control Diabetes - last A1c 6.9% (10/2022); repeat ordered and was 7.2% - hold home metformin, glipizide - will cover with insulin glargine 15u BID, adjust SSI as needed Hx of afib - Hx of cardioversion - She was on eliquis for some amount of time but did not want the side effects of it - she now takes aspirin 325 BID; will hold while hospitalized and use lovenox for VTE ppx Elevated trop - 16.7 upon admission - no symptoms; no ischemic EKG changes - Troponin peaked at 23.4 and decreased to 20.6 HTN - continue home losartan and HCTZ Diet: carb consistent VTE ppx: heparin 5,000 units Admission and Anticipated Discharge Date Admission Date: December 03, 2023 Supervising Physician Co-Signing Physician Notes I personally examined the patient and verified all cuello points of history and exam, discussed case, and agree with decision making with Dr House denies abdominal pain or nausae but hasn't eaten well, loosely endoreses poor appetite but can't clarify why. at the same time repeats not really knowing why she's here but also able to reiterate to me that she is here with a foot infection. vitals noted oriented but hard to truly gauge understanding of situation and awareness- mostly answers "no" to questions until really pressed, expresses a little distaste for this examiner asking her so many questions. breathing unlabored no accessory muscles good effort skin no rashes no pallor or icterus neuro no focal deficits abd soft nd nt ext deep ulcer L foot no surrounding erythema IMPRESSION & PLAN Sepsis in the setting of chronic left foot diabetic ulcer/osteomyelitis, hemodynamically stable DEXTER, not present upon admission -continue zosyn for now pending ID&S. await podiatry input -DEXTER seems most likely prerenal can't r/o zosyn related DEXTER (or vanco, or both) - but if prerenal by UA/FeNa and response to fluids this would fit the best and would then not change abx. if not prerenal / fails to respond to fluids then would consider changing abx -continue to adjust insulins DVT proph - heparin SQ otherwise as above Subjective Pt is a 78 yo female with PMH of chronic anemia, spinal meningioma, afib, left charcot foot, stroke (2019), and hypothyroidism presenting d/t left ankle pain. She was admitted after called EMS from her home due to significant left ankle pain that limited her mobility, and the in the ER was found to meet SIRS criteria (has chronic left diabetic foot ulcer). Patient was evaluated this am found in NAD. Currently has no acute concerns, but does seem slightly confused as to the reason she was currently in the hospital, despite her being able to answer questions to assess awareness of person, time, and place. Nursing states that her blood sugar has been on the low side (60s) but patient is rdeferring any food/drink to correct it. No other concerns and does not have concerns of pain. Review of Systems Review of Systems: As per HPI Physical Exam Physical Exam: General: AAOx3, febrile, NAD CV: RRR, murmur on right sternal border Pulm: CTA bilaterally, normal resp effort, no resp distress GI: soft, nontender Ext: new swelling noted in bilateral LE and UE, right anterior leg with old wounds that are scabbed over with slight surrounding erythema but no tenderness to palpation or warmth to the touch, left leg also with old scabbed over wounds with slight erythema and no warmth/tenderness, but does have a ~3cm ulcer/wound in left heel that is not surrounded by cellulitis or necrotic tissue Results & Data Results & Data Vital Signs (Past 12 Hours) Vital Signs Temp Pulse Pulse Resp BP Pulse Ox O2 Del Method 12/06/23 09:48 83 12/06/23 09:43 Nasal Cannula 12/06/23 09:42 83 12/06/23 09:09 37.0 C 91 H 18 145/88 H 96 Room Air 12/06/23 04:20 37.1 C 97 H 18 132/71 96 Nasal Cannula 12/06/23 00:53 37.2 C 89 20 137/66 96 Nasal Cannula O2 Flow Rate 12/06/23 09:48 12/06/23 09:43 2 12/06/23 09:42 12/06/23 09:09 12/06/23 04:20 1 12/06/23 00:53 1 Resident Activity Tracking Resident Involvement: Resident Care Provided Care Provided: Adult Hospital Medicine
--- NOTE | 2023-12-06 12:35 | XCELERA ---
[id number]
--- NOTE | 2023-12-06 13:08 | Billing Data ---
Date of Service December 06, 2023 Coding Level of Care Code 36856 SUB INP/OBS CARE
[2023-12-06] MEDS: HEPARIN SOD 5,000 UNIT/0.5 ML VIAL SC SCH (14:14)
[2023-12-06] MEDS ORDERED: PIPERACILLIN/TAZOBACTAM 4.5 GM in DEXTROSE 5% MINI-B 100 ML IV SCH (16:00)
[2023-12-06 18:29] LABS: BUN Creatinine Ratio 17.6 (10-20); Creatinine Clr Calc Pharmacy 19.3 ml/min; Est GFR (African American) 19.5 ml/min; Est GFR (Non-African American) 16.8 ml/min
--- NOTE | 2023-12-06 21:17 | Podiatry Consultation ---
Date of Consultation December 06, 2023 Assessment & Plan (1) Osteomyelitis of foot, left, acute: (2) Charcot's joint, left ankle and foot: (3) Charcot's joint of foot in type 2 diabetes mellitus: (4) Other specified peripheral vascular diseases: Plan Patient examined and evaluated. Wound cleaned, redressed with dry sterile dressing. Would clearly benefit from surgical debridement, I&D of infected bone, and bone biopsy. With fairly obvious osteomyelitis in a chronic Charcot patient, advanced imaging from here would be unnecessary. Would require definitive Charcot reconstruction for retirement limb salvage, though she wouldn't seem to be up for that surgery/recovery. When asked about long term care administrator goals, she had nothing to say. Limb salvage will require extensive surgery and patient compliance. Concerned that may not be likely. I would be happy to plan the surgery to identify the infectious agent and reduce infectious burden on this hospitalization. Would also recommend ID consult for retirement IV antibiotic therapy and vascular surgery consult for assessing capability of healing this wound or any new surgical wounds. Further, if this fails to heal or progresses, it would go on to an AK or BK amputation. Will continue to follow and try to gauge patient interest in these options. History of Present Illness Reason for Consultation: Left foot ulcer/osteomyelitis Attending Physician: Aj Roberts, DO History of Present Illness Patient seen at bedside. She is an exceptionally poor historian today, so most information subjectively is from chart review. 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 She sees a local foot and ankle surgeon for this but is unclear or unable to say when the last time she saw them was. She is also unsure what she has been doing to treat the wound. She denies feeling sick, denies any N/V/F/C/SOB, but admits this is what brought her into the hospital. She won't answer questions about her goals or plans for the ulceration or the underlying charcot deformity. Allergies Allergy/AdvReac Type Severity Reaction Status Date / Time animal dander Allergy Intermediate congestion Verified 11/26/23 13:06 pollen extracts Allergy Mild sneezing Verified 11/26/23 13:06 bacitracin Allergy Unknown neosporing-> Verified 11/26/23 13:06 rash latex Allergy Unknown blisters Verified 11/26/23 13:06 skin neomycin Allergy Unknown neosporins Verified 11/26/23 13:06 -> rash polymyxin B Allergy Unknown neosporins Verified 11/26/23 13:06 -> rash sulfabenzamide Allergy Unknown vaginal Verified 11/26/23 13:06 cream-> severe itch and irritation sulfacetamide Allergy Unknown vaginal Verified 11/26/23 13:06 cream-> severe itch and irritation sulfathiazole Allergy Unknown vaginal Verified 11/26/23 13:06 cream-> severe itch and irritation doxycycline AdvReac pt will Verified 11/26/23 13:06 not take due to potential side affects tramadol AdvReac Nausea, Verified 11/26/23 13:06 vomiting Home Medications Medication Instructions Recorded Confirmed Type folic acid 800 mcg tablet 800 mcg PO QAM 03/30/19 12/03/23 History paula (Zingiber officinalis) 550 1,100 mg PO HS 03/30/19 12/03/23 History mg capsule lancets 33 gauge (TecnobluTouch Ivan #100 ea 03/30/19 10/20/23 History Lancets) cyanocobalamin (vitamin B-12) 5,000 mcg PO QAM 05/28/20 12/03/23 History 5,000 mcg capsule oxycodone-acetaminophen 5 mg-325 0.5 - 1 tab PO DAILY PRN pain 90 10/09/20 12/03/23 Rx mg tablet days #20 tabs zinc acetate 25 mg (zinc) capsule 25 mg PO QPM 10/15/20 12/03/23 History ascorbic acid (vitamin C) 1,000 mg 1 g PO QPM 11/29/20 12/03/23 History tablet glipizide 5 mg tablet 2.5 mg PO QAM 04/18/21 12/03/23 History metformin 500 mg tablet 500 mg PO BID 04/18/21 12/03/23 History blood sugar diagnostic (TecnobluTouch #100 ea 05/19/21 10/20/23 Rx Verio test strips) losartan 50 mg tablet 50 mg PO QAM #90 tabs 05/19/21 12/03/23 Rx cholecalciferol (vitamin D3) 10 10 mcg PO BID 06/06/21 12/03/23 History mcg (400 unit) tablet (Vitamin D3) levothyroxine 75 mcg tablet 75 mcg PO DAILY 03/20/22 12/03/23 History (Synthroid) aspirin 325 mg tablet 325 mg PO BID #60 tabs 01/21/23 12/03/23 Rx atorvastatin 80 mg tablet 80 mg PO DAILY 12/03/23 12/03/23 History hydrochlorothiazide 50 mg tablet 50 mg PO DAILY 12/03/23 12/03/23 History Patient History Medical History Chronic anemia Baseline hgb 9-10 range per chart review Kidney stones History of meningioma spinal cord SCC (squamous cell carcinoma) Hypertension Hyperlipidemia Atrial fibrillation Tachycardia Pulmonary edema Atrial fibrillation with RVR Ulcer of foot Left foot diabetic ulcer, following with [facility] wound clinic Stroke 04/2020 > residual left sided weakness, uses crutches. follows with PCP currently Pulmonary hypertension per records, pt denies Peripheral neuropathy Hypothyroidism Generalized osteoarthritis Elevated WBC count Surgical History Hx of resection of meningioma History of carpal tunnel release History of tonsillectomy H/O squamous cell carcinoma excision History of back surgery T11/T12 benign tumor removed Hx of oral surgery S/P knee surgery Hx of hand surgery bilateral hands r/t gouty arthritis History of knee replacement R/L Family History Mother Myocardial infarction Hearing loss Heart disease Other No family history of adverse response to anesthesia No family history of bleeding disorder Denies family history of Ovarian cancer Prostate cancer Breast cancer Colorectal cancer Social History Smoking Status: Former smoker Second Hand Exposure: No; Do You Dip or Chew Tobacco: No; Hx Alcohol Use: No Hx Substance Use: No Preferred Language: Finnish Communication Ability: Effective Heating Unit Installer Required: No Beliefs That Will Affect Care: None marital status: Single Current Living Situation: Alone current occupational status: retired Other Information That Helps Us Care for You: No Feels Safe at Home: Yes Safety Concerns: Feels Safe At This Time Childhood Exposure to Second-Hand Smoke: Yes Dental Care, Regularly: Yes Physical Activity Frequency: 3-4 Times per Week Seatbelt Use: always Sunscreen Use: Yes Assistive Devices: Cane and Crutches Review of Systems Review of Systems: All systems reviewed & are unremarkable except as noted in HPI & below Constitutional: no fever and no chills Eyes: no problem reported Ear, Nose, Mouth, Throat: no problem reported Respiratory: no problem reported Cardiovascular: + edema and + problem reported; no chest pain Gastrointestinal: no problem reported Genitourinary: no problem reported Musculoskeletal: + swelling, + muscle weakness and + musc le atrophy; no joint pain Integumentary: + non-healing lesions and + skin ulcer Neurologic: + generalized weakness and + loss of sen sation Physical Exam Physical Exam: Lower extremity focused exam: DP/PT Pulses nonpalpable. Diffuse edema noted to the left lower extremity. Skin atrophic to b/l LE. No hair growth noted. Distal cooling is noted, though local warmth appreciated to plantar left heel ulceration. Wound probes deep to bone, likely cuboid based on imaging. No kong purulence noted. Wound is 100% fibrotic without granulation tissue noted. Ulcer measures 7 x 4cm and is deep to the bone, around 2cm deep. No necrosis noted. Underlying charcot deformity is noted b/l, with worse midfoot collapse appreciated to the left. Ulcer directly overlies rocker bottom foot deformity. Protective sensation/pain sensation appear to be absent. NO abnormal reflexes noted. Passive ROM is decreased; active ROM not attempted with patient's unwillingness to participate in exam. Constitutional: WD/WN, vitals as above + ill appearing, + morbidly obese and + behavioral limitations Eyes: PERRL, conjunctivae normal, anicteric sclerae ENMT: Ears: no hearing impairment Nose: no external nose abnormality Mouth: + poor dentition Neck: normal visual inspection Respiratory: normal respiratory effort; no respiratory distress Cardiovascular: Rate/Rhythm: regular rate and regular rhythm Vessels: + posterior tibial pulses abnormal and + dorsalis pedis pulses abnormal Extremities: + edema; no calf tenderness Chest (Breasts): Chest: normal inspection of chest Gastrointestinal (Abdomen): Inspection/Auscultation: abdomen normal to ins pection Musculoskeletal: Head/Neck/Chest: normocephalic and head atraumatic Extremities: + limited ROM of extremities and + foot abnormality Skin: no rashes, warm and dry + ulcer, + wound and + skin atrophy Neurologic: plantar reflexes intact bilaterally and moves all extremities; + abnormal sensation to monofilament Psychiatric: Orientation: alert and oriented to person; + uncooperative Apperance: + disheveled Eye Contact: + poor eye contact Mood: + irritable mood Results & Data Vital Signs (Past 12 Hours) Vital Signs Temp Pulse Pulse Resp BP Pulse Ox O2 Del Method 12/06/23 20:13 37.0 C 88 20 154/83 H 100 Nasal Cannula 12/06/23 17:49 90 12/06/23 15:42 37.4 C 91 H 24 138/79 99 Nasal Cannula 12/06/23 09:48 83 12/06/23 09:43 Nasal Cannula 12/06/23 09:42 83 O2 Flow Rate 12/06/23 20:13 2 12/06/23 17:49 12/06/23 15:42 2 12/06/23 09:48 12/06/23 09:43 2 12/06/23 09:42 Diagnostic Findings Plain film imaging reveals advanced Charcot deformity to the left foot, with significant arthritic collapse to the rearfoot/ankle. CT confirms this finding, along with suggestion of the ulcer extending to/involving the bone. This, along with clinical exam, is diagnostic for osteomyelitis. Arterial Doppler suggests vascular disease, though two vessel runoff is maintained. No MCKENNA obtained, but TBI is diminished, notably on this left side.
[2023-12-06] MEDS: PIPERACILLIN/TAZOBACTAM 4.5 GM in DEXTROSE 5% MINI-B 100 ML IV SCH (21:43)
[2023-12-07] MEDS ORDERED: Nursing to Pharmacy Communication SCH (05:15)
[2023-12-07 07:24] LABS: BUN Creatinine Ratio 18.9 (10-20); Bilirubin,Total 0.3 mg/dl (0.2-1.0); Calcium 9.1 mg/dl (8.6-10.3); Creatinine Clr Calc Pharmacy 19.8 ml/min; Est GFR (African American) 20.2 ml/min; Est GFR (Non-African American) 17.5 ml/min; Globulin 3.1 gm/dl (2.5-4.0); Potassium 3.9 mmol/L (3.5-5.1); Total Protein 6.1 gm/dl (6.0-8.3)
[2023-12-07 07:35] LABS: Basophils % (auto) 0.7 %; Eosinophils # (auto) 0.27 K/uL (0.00-0.50); Hematocrit (blood only) 27.8 % (37.0-47.0); Immature Granulocytes # (auto) 0.08 K/uL (0.01-0.20); Immature Granulocytes % (auto) 0.6 %; Lymphocytes # (auto) 0.95 K/uL (1.20-3.40); Mean Corpuscular Hemoglobin 23.6 pg (25.0-34.0); Mean Corpuscular Hgb Conc 28.8 g/dL (32.0-36.0); Mean Platelet Volume 9.6 fL (9.4-12.4); Monocytes # (auto) 1.08 K/uL (0.11-0.59); Neutrophils # (auto) 11.06 K/uL (1.40-6.50); Neutrophils % (auto) 81.7 %; Platelet Count 287 K/uL (130-400); RDW Coefficient of Variation 16.4 % (11.5-14.5); RDW Standard Deviation 48.8 fL (36.4-46.3); Red Blood Count 3.39 M/uL (4.20-5.40); White Blood Count 13.54 K/ul (4.8-10.8)
--- NOTE | 2023-12-07 09:58 | Hospitalist Progress Note ---
Date of Service December 07, 2023 Assessment & Plan (1) Sepsis: (2) Diabetic foot ulcer: (3) Paroxysmal atrial fibrillation: (4) Osteoarthritis: (5) Hypertension: (6) Left ankle pain: (7) Hypoxia: Plan Pt is a 78 yo female with PMH of chronic anemia, spinal meningioma, afib, left charcot foot, stroke (2019), and hypothyroidism presenting d/t left ankle pain. Podiatry evaluated patient and recommending surgical debridement, I&D of infected bone, and bone biopsy due to OM. Due to poor vasculature leading to her foot, consider possible that the wound may not be able to heal by itself due to poor perfusion, and so consult to vascular surgery may be considered versus Gen surg for possible amputation as more definitive treatment. Due to patient's delirious state, obtaining consent has been difficult due to questionable capacity. Her friend, Mr. Pena, notified us of a nephew who patient has saved in her phone as her emergency contact and she affirmed this would be the person to contact to make decisions for her. Her nephew's name is Fernandez Hess (phone number: [phone]). Attempted to contact today but went to voicemail. Will try again tomorrow to discuss next steps with regards to Ms. Rothman's care. Sepsis in the setting of chronic left diabetic foot ulcer // Osteomyelitis - pt tachycardic, febrile upon presentation and has leukocytosis of 15.32 - lactate 1.1, procal 0.68 - Suspect wound of left foot may be the source - blood cultures negative preliminary - Wound culture: Pseudomonas sensitive to everything - (L) ankle x-ray: soft tissue swelling and osteopenia with degenerative changes typical for charcot foot - (L) foot CT: complex fluid collection deep to the wound likely represents an abscess, Erosive change is seen along the plantar aspect of the cuboid, and also likely along the anterior aspect of the calcaneus. There is also periostitis. This is highly consistent with osteomyelitis and this could be acute versus acute on chronic - B/l LE arterial Doppler: left popliteal artery with possible stenosis, possibly occluded portions of the peritoneal artery - Continue Zosyn. - Will try to contact nephew again tomorrow for more definitive plan. - Wound care consulted - Podiatry following DEXTER - Pre renal vs medication induced - Patient with poor PO intake of both food and water - Creatinine improved from 2.62 --> 2.54 this am - Continue IVF until PO intake improves - CMP am Hypoxia - pt does not wear oxygen at home; no hx of lung disease; pt denying feeling SOB/chest pain/wheezing - Not currently c/o SOB but on NC at 2 lpm. O2 falls to high 87-89 at room air. - TTE (12/06/23): normal LV systolic function, EF of 55-60%, aortic valve sclerosis without stenosis (no significant change from 2020) - suspect pt may have a component of sleep apnea/nocturnal hypoxia contributing to current hypoxia - continue to monitor Left ankle pain - suspect secondary to chronic wound and arthritis - percocet from daily to q6h PRN for breakthrough pain - PT/OT eval ordered to ensure pt can walk/function with her current pain control Diabetes - last A1c 6.9% (10/2022); repeat ordered and was 7.2% - hold home metformin, glipizide - will cover with insulin glargine 15u BID, adjust SSI as needed Hx of afib - Hx of cardioversion - She was on eliquis for some amount of time but did not want the side effects of it - she now takes aspirin 325 BID; will hold while hospitalized and use lovenox for VTE ppx Elevated trop - 16.7 upon admission - no symptoms; no ischemic EKG changes - Troponin peaked at 23.4 and decreased to 20.6 HTN - continue home losartan and HCTZ Diet: carb consistent VTE ppx: heparin 5,000 units Admission and Anticipated Discharge Date Admission Date: December 03, 2023 Supervising Physician Co-Signing Physician Notes I personally examined the patient and verified all cuello points of history and exam, discussed case, and agree with decision making with Dr House Definitely delirious today. Longtime friend Jefferson is at the bedside, and notes that mentally she is definitely not herself and seems easily confused and forgetfulconfirming our concern that she was delirious. Not really any meaningful participation in conversation by patient despite a prolonged time at the bedside today. Jefferson notes that unfortunately patient does not have any designated medical decision-maker (his had been encouraging her to do so for a long time but patient would shut down anytime this was brought up), and her closest living relative is her nephew Fernandez Hess ([phone] or [phone]). Discussed overall situation with Jefferson given that he and his seem to be some of the patient's closest friends, even if he will not be able to be part of her legal decision making process. Not really any meaningful HPI review of systems obtainable from patient. Vitals noted, in general she is awake but seems to be disoriented no distress. Breathing unlabored no accessory muscle use good effort. Skin shows no rashes no pallor or icterus. Neuro without focal deficits. IMPRESSION & PLAN Sepsis in the setting of chronic left foot diabetic ulcer/osteomyelitis, hemodynamically stable DEXTER, not present upon admission -continue zosyn for now given Pseudomonas (fortunately pansensitive Pseudomonas, but Pseudomonas nonetheless) -DEXTER seems most likely prerenal can't r/o zosyn related DEXTER (or vanco, or both) -appears to be starting to improve with fluids -continue to adjust insulins -Delirium/metabolic encephalopathy definitely complicates things given that a lot of her care will require delicate/difficult/nuanced decision making regarding conservative versus more aggressive surgical plans, and the implications of long-term outcomes for both. She does not have a designated POA, and in discussion with her longtime friend, it appears her closest living relative is her nephew Fernandez Hesswe will have to reach out to Landon for updates and for his assistance in the decision making for his aunt given that she does not have capacity right now. DVT proph - heparin SQ otherwise as above Subjective Pt is a 78 yo female with PMH of chronic anemia, spinal meningioma, afib, left charcot foot, stroke (2019), and hypothyroidism presenting d/t left ankle pain. She was admitted after called EMS from her home due to significant left ankle pain that limited her mobility, and the in the ER was found to meet SIRS criteria (has chronic left diabetic foot ulcer). Patient was evaluated this am found in NAD. Currently has no acute concerns. Still appears slightly confused as to the reason she is here. Went to see patient again in the afternoon and her orientation was slightly improved but still seemed delirious. Her friend, Mr. Juan Manuel Pena, was present at the time of evaluation in the afternoon, and states that she tends to be more oriented/awake in the afternoons and thought that no healthcare professional had come to see her since her admission. No other concerns. Review of Systems Review of Systems: As per HPI Physical Exam Physical Exam: General: AAOx3, febrile, NAD CV: RRR, murmur on right sternal border Pulm: CTA bilaterally, normal resp effort, no resp distress GI: soft, nontender Ext: new swelling noted in bilateral LE and UE, right anterior leg with old wounds that are scabbed over with slight surrounding erythema but no tenderness to palpation or warmth to the touch, left leg also with old scabbed over wounds with slight erythema and no warmth/tenderness, but does have a ~3cm ulcer/wound in left heel that is not surrounded by cellulitis or necrotic tissue Results & Data Results & Data Vital Signs (Past 12 Hours) Vital Signs Temp Pulse Pulse Resp BP Pulse Ox O2 Del Method 12/07/23 07:37 Nasal Cannula 12/07/23 07:30 36.5 C 94 H 18 158/89 H 100 Nasal Cannula 12/07/23 03:59 37.2 C 104 H 20 172/85 H 96 Nasal Cannula 12/07/23 00:48 37.0 C 97 H 20 181/78 H 100 Room Air 12/07/23 00:30 Nasal Cannula 12/07/23 00:15 98 H O2 Flow Rate 12/07/23 07:37 2 12/07/23 07:30 2 12/07/23 03:59 2 12/07/23 00:48 12/07/23 00:30 2 12/07/23 00:15 Resident Activity Tracking Resident Involvement: Resident Care Provided Care Provided: Adult [facility]
--- NOTE | 2023-12-07 12:28 | Podiatry Progress Note ---
Date of Service December 07, 2023 Assessment & Plan (1) Charcot's joint of foot in type 2 diabetes mellitus: (2) Osteomyelitis of foot, left, acute: (3) Other specified peripheral vascular diseases: (4) Diabetes mellitus type 2, uncontrolled: Plan Patient examined and evaluated - No new changes today. Patient offers no new insight on consent/plans for limb. Chart reviewed - Will place order for santyl ointment for enzymatic debridement while here in house. Daily dressing changes. Unlikely to heal still with underlying OM, but can convert the remainder of the wound to granular base. - Will continue to follow. Can still consider surgical debridement if patient can consent to that. Otherwise, still will benefit from input from vascular or gen surgery if no limb preservation is intended. - Discussed with Dr. Roberts, who is reaching out to next of kin for further discussion/instruction. Will wait on definitive plans until that point. Admission and Anticipated Discharge Date Admission Date: December 03, 2023 Subjective Patient seen at bedside, resting comfortably but unarousable. Dressing intact to foot without new significant bleeding/drainage. No other complaints noted. Prior notes from hospitalist noted. Review of Systems Constitutional: no fever and no chills Eyes: no problem reported Ear, Nose, Mouth, Throat: no problem reported Respiratory: no problem reported Cardiovascular: + edema and + problem reported; no chest pain Gastrointestinal: no problem reported Genitourinary: no problem reported Musculoskeletal: + swelling, + muscle weakness and + musc le atrophy; no joint pain Integumentary: + non-healing lesions and + skin ulcer Neurologic: + generalized weakness and + loss of sen sation Physical Exam Physical Exam: Lower extremity focused exam: DP/PT Pulses nonpalpable. Diffuse edema noted to the left lower extremity. Skin atrophic to b/l LE. No hair growth noted. Distal cooling is noted, though local warmth appreciated to plantar left heel ulceration. Wound probes deep to bone, likely cuboid based on imaging. No kong purulence noted. Wound is 100% fibrotic without granulation tissue noted. Ulcer measures 7 x 4cm and is deep to the bone, around 2cm deep. No necrosis noted. Underlying charcot deformity is noted b/l, with worse midfoot collapse apprec iated to the left. Ulcer directly overlies rocker bottom foot deformity. Protective sensation/pain sensation appear to be absent. NO abnormal reflexes noted. Passive ROM is decreased; active ROM not attempted with patient's unwillingness to participate in exam. Constitutional: WD/WN, vitals as above + ill appearing, + morbidly obese and + behavioral limitations Eyes: PERRL, conjunctivae normal, anicteric sclerae ENMT: Ears: no hearing impairment Nose: no external nose abnormality Mouth: + poor dentition Neck: normal visual inspection Respiratory: normal respiratory effort; no respiratory distress Cardiovascular: Rate/Rhythm: regular rate and regular rhythm Vessels: + posterior tibial pulses abnormal and + dorsalis pedis pulses abnormal Extremities: + edema; no calf tenderness Chest (Breasts): Chest: normal inspection of chest Gastrointestinal (Abdomen): Inspection/Auscultation: abdomen normal to inspection Musculoskeletal: Head/Neck/Chest: normocephalic and head atraumatic Extremities: + limited ROM of extremities and + foot abnormality Skin: no rashes, warm and dry + ulcer, + wound and + skin atrophy Neurologic: plantar reflexes intact bilaterally and moves all extremities; + abnormal sensation to monofilament Psychiatric: Orientation: alert and oriented to person; + uncooperative Apperance: + disheveled Eye Contact: + poor eye contact Mood: + irritable mood Results & Data Results & Data Vital Signs (Past 12 Hours) Vital Signs Temp Pulse Resp BP Pulse Ox O2 Del Method O2 Flow Rate 12/07/23 11:13 37.0 C 96 H 18 156/85 H 97 Nasal Cannula 2 12/07/23 07:37 Nasal Cannula 2 12/07/23 07:30 36.5 C 94 H 18 158/89 H 100 Nasal Cannula 2 12/07/23 03:59 37.2 C 104 H 20 172/85 H 96 Nasal Cannula 2 12/07/23 00:48 37.0 C 97 H 20 181/78 H 100 Room Air 12/07/23 00:30 Nasal Cannula 2
--- NOTE | 2023-12-07 17:43 | Billing Data ---
Date of Service December 07, 2023 Coding Level of Care Code 33906 SUB INP/OBS CARE
[2023-12-08 09:07] LABS: Hematocrit (blood only) 28.5 % (37.0-47.0); Hemoglobin 8.1 g/dl (12.0-16.0); Mean Corpuscular Hemoglobin 23.5 pg (25.0-34.0); Mean Corpuscular Hgb Conc 28.4 g/dL (32.0-36.0); Mean Corpuscular Volume 82.8 fL (80.0-100.0); Mean Platelet Volume 9.5 fL (9.4-12.4); Platelet Count 322 K/uL (130-400); RDW Coefficient of Variation 16.4 % (11.5-14.5); RDW Standard Deviation 49.7 fL (36.4-46.3); Red Blood Count 3.44 M/uL (4.20-5.40)
[2023-12-08 09:09] LABS: Basophils # (auto) 0.14 K/uL (0.00-0.20); Basophils % (auto) 0.9 %; Eosinophils # (auto) 0.39 K/uL (0.00-0.50); Eosinophils % (auto) 2.5 %; Hypochromasia Present; Immature Granulocytes # (auto) 0.12 K/uL (0.01-0.20); Immature Granulocytes % (auto) 0.8 %; Lymphocytes # (auto) 0.92 K/uL (1.20-3.40); Lymphocytes % (auto) 5.9 %; Neutrophils # (auto) 13.03 K/uL (1.40-6.50); Neutrophils % (auto) 82.9 %
[2023-12-08 09:20] LABS: Albumin Globulin Ratio 0.9 (0.9-2); BUN Creatinine Ratio 21.5 (10-20); Bilirubin,Total 0.3 mg/dl (0.2-1.0); Calcium 9.2 mg/dl (8.6-10.3); Creatinine Clr Calc Pharmacy 23.4 ml/min; Est GFR (African American) 24.2 ml/min; Est GFR (Non-African American) 20.9 ml/min; Globulin 3.3 gm/dl (2.5-4.0); Potassium 3.7 mmol/L (3.5-5.1); Total Protein 6.3 gm/dl (6.0-8.3)
--- NOTE | 2023-12-08 10:39 | Hospitalist Progress Note ---
Date of Service December 08, 2023 Assessment & Plan (1) Sepsis: (2) Diabetic foot ulcer: (3) Paroxysmal atrial fibrillation: (4) Osteoarthritis: (5) Hypertension: (6) Left ankle pain: (7) Hypoxia: Plan Pt is a 78 yo female with PMH of chronic anemia, spinal meningioma, afib, left charcot foot, stroke (2019), and hypothyroidism presenting d/t left ankle pain. Discussed with patient's nephew (Fernandez Hess; phone number [phone]), who agreed to proceed with debridement, I&D, bone biopsy as recc by podiatry, as well as vascular surgery evaluation to assess PAD that would likely limit healing of her ulcer. Discussed that this would possibly be a temporary fix and that if the wound is still present plus she still has poor perfusion to her foot, the infection is likely to come back, and at that point would need to bring this discussion again in terms of management options, which unfortunately includes possible amputation for more definitive treatment. He expressed understanding. Longtime friends were also made aware of this conversation with patient's nephew and stated they would converse with Fernandez about what would be best for Hayde, as Fernandez is the only one we know that can make medical decisions for Hayde while she lacks capacity. Sepsis in the setting of chronic left diabetic foot ulcer // Osteomyelitis - pt tachycardic, febrile upon presentation and has leukocytosis of 15.32 - lactate 1.1, procal 0.68 - Suspect wound of left foot may be the source - blood cultures negative - Wound culture: Pseudomonas sensitive to everything - (L) ankle x-ray: soft tissue swelling and osteopenia with degenerative changes typical for charcot foot - (L) foot CT: complex fluid collection deep to the wound likely represents an abscess, changes highly consistent with osteomyelitis. - B/l LE arterial Doppler: left popliteal artery with possible stenosis, possibly occluded portions of the peritoneal artery Would cause delayed healing if any healing at all. - Continue Zosyn. - Wound care consulted - Podiatry following and notified of discussion with patient's nephew. - Vascular surgery consulted. Hx of afib - Hx of cardioversion - Not on home medications for this - Currently in a-fib with rates in 130-160 bpm with possible associated SOB, although it's difficult to ascertain if this is related or not - Ordered Lopressor without adequate rate control after multiple doses. Will transfer to PCU for Cardizem drip. - Will stop Heparin and start Eliquis for anticoagulation DEXTER - Pre renal vs medication induced - Patient with poor PO intake of both food and water - Creatinine improved from 2.54 --> 2.19 this am - Continue IVF until PO intake improves - CMP am Hypoxia - pt does not wear oxygen at home; no hx of lung disease; pt denying feeling SOB/chest pain/wheezing - Not currently c/o SOB but on NC at 2 lpm. - TTE (12/06/23): normal LV systolic function, EF of 55-60%, aortic valve sclerosis without stenosis (no significant change from 2020) - suspect pt may have a component of sleep apnea/nocturnal hypoxia contributing to current hypoxia - continue to monitor Left ankle pain - suspect secondary to chronic wound and arthritis - percocet from daily to q6h PRN for breakthrough pain - PT/OT eval ordered to ensure pt can walk/function with her current pain control Diabetes - last A1c 6.9% (10/2022); repeat ordered and was 7.2% - hold home metformin, glipizide - will cover with insulin glargine 15u BID, adjust SSI as needed Elevated trop - 16.7 upon admission - no symptoms; no ischemic EKG changes - Troponin peaked at 23.4 and decreased to 20.6 HTN - continue home losartan and HCTZ Diet: carb consistent VTE ppx: Eliquis Admission and Anticipated Discharge Date Admission Date: December 03, 2023 Supervising Physician Co-Signing Physician Notes I personally examined the patient and verified all cuello points of history and exam, discussed case, and agree with decision making with Dr House Not really any meaningful HPI review of systems obtainable from patient. Dr. House was able to discuss the case with her nephew. Her close friends are present at the bedsideupdated. Vitals noted, in general she is awake but seems to be disoriented no distress. Breathing unlabored no accessory muscle use good effort. Skin shows no rashes no pallor or icterus. Neuro without focal deficits. IMPRESSION & PLAN Sepsis in the setting of chronic left foot diabetic ulcer/osteomyelitis, hemodynamically stable DEXTER, not present upon admission -continue zosyn for now given Pseudomonas (fortunately pansensitive Pseudomonas, but Pseudomonas nonetheless) -DEXTER seems most likely prerenal can't r/o zosyn related DEXTER (or vanco, or both) -showing improvement with fluids -continue to adjust insulins -Delirium/metabolic encephalopathy definitely complicates things given that a lot of her care will require delicate/difficult/nuanced decision making regarding conservative versus more aggressive surgical plans, and the implications of long-term outcomes for both. She does not have a designated POA, her nephew Fernandez Hess is her closest living relative, and therefore her decision maker. DVT proph - heparin SQ otherwise as above Subjective Pt is a 78 yo female with PMH of chronic anemia, spinal meningioma, afib, left charcot foot, stroke (2019), and hypothyroidism presenting d/t left ankle pain. She was admitted after called EMS from her home due to significant left ankle pain that limited her mobility, and the in the ER was found to meet SIRS criteria (has chronic left diabetic foot ulcer). Patient was evaluated this am found in NAD. Currently has no acute concerns. Still appears slightly confused as to the reason she is here but appears to be slightly more oriented compared to yesterday, though not to the point where I would consider her with capacity yet. Nursing contacted me to notify patient is in a-fib with rates between 130-160s, and nurse noted she may be slightly more SOB but difficult to gouge due to patient being poor historian. Review of Systems Review of Systems: As per HPI Physical Exam Physical Exam: General: AAOx3, febrile, NAD CV: fast rate that appears irregular, murmur on right sternal border Pulm: CTA bilaterally, normal resp effort, no resp distress GI: soft, nontender Ext: new swelling noted in bilateral LE and UE, right anterior leg with old wounds that are scabbed over with slight surrounding erythema but no tenderness to palpation or warmth to the touch, left leg also with old scabbed over wounds with slight erythema and no warmth/tenderness, left heel ulcer covered by bandage that is c/d/i Results & Data Results & Data Vital Signs (Past 12 Hours) Vital Signs Temp Pulse Pulse Resp BP Pulse Ox O2 Del Method 12/08/23 07:47 37.0 C 96 H 20 123/84 91 Room Air 12/08/23 07:17 91 H 12/08/23 04:36 36.8 C 89 20 188/79 H 93 Room Air 12/08/23 04:18 86 12/08/23 00:45 Room Air 12/07/23 23:36 36.7 C 86 20 206/68 H 100 Nasal Cannula O2 Flow Rate 12/08/23 07:47 12/08/23 07:17 12/08/23 04:36 12/08/23 04:18 12/08/23 00:45 12/07/23 23:36 3 Resident Activity Tracking Resident Involvement: Resident Care Provided Care Provided: Adult Hospital Medicine
[2023-12-08] MEDS: METOPROLOL TARTRATE 1 MG/ML VIAL IV ONE (11:40)
[2023-12-08] MEDS: METOPROLOL TARTRATE 1 MG/ML VIAL IV PRN (13:30)
[2023-12-08] MEDS: POTASSIUM CHLORIDE / WTR 10 MEQ/100 ML PLCT IV SCH (13:53)
--- NOTE | 2023-12-08 13:56 | Consultation ---
Date of Consultation December 08, 2023 Assessment & Plan (1) Peripheral arterial disease: Pt with severe infection/osteomyelitis of L foot wound, and severe PAD by US. Unfortunately, pt not candidate for endovascular intervention d/t poor GFR, as she would be very high risk of renal failure requiring dialysis d/t contrast administration. Pt discussed at length with Dr Hammer. If podiatry feels limb is not salvageable, would recommend BKA. Pt not currently interested in proceeding with this. Please call if BKA recommended by podiatry and pt agreeable. History of Present Illness Reason for Consultation: PAD Attending Physician: Aj Roberts DO History of Present Illness 78 yo f with hx of DMII, HTN, NSTEMI, hyperlipidemia, osteoarthritis, a fib on AC, CVA, anemia, anxiety, hypothyroidism, neuropathy, pulmonary HTN, chronic BLE edema, charcot foot deformity, admitted with sepsis/infection of L plantar foot wound, seen in consultation today for PAD noted on US. Pt states wound has been present for at least 6 months. Has been seeing [facility] center for wound care. Typically is independent in her ADL's, but requires assistance for wound dressings. Ambulates with walker when needed, but is not very active. Denies SOTELO, fever, chest pain, SOB, abd pain, N/V, rest pain, claudication, other complaints. Imaging demonstrates severe infection, osteomyelitis, and possible abscess in L foot wound. Arterial US demonstrates diffuse disease, pop stenosis, and possibly occluded peroneal art. LLE MCKENNA 0.3 Allergies Allergy/AdvReac Type Severity Reaction Status Date / Time animal dander Allergy Intermediate congestion Verified 11/26/23 13:06 pollen extracts Allergy Mild sneezing Verified 11/26/23 13:06 bacitracin Allergy Unknown neosporing-> Verified 11/26/23 13:06 rash latex Allergy Unknown blisters Verified 11/26/23 13:06 skin neomycin Allergy Unknown neosporins Verified 11/26/23 13:06 -> rash polymyxin B Allergy Unknown neosporins Verified 11/26/23 13:06 -> rash sulfabenzamide Allergy Unknown vaginal Verified 11/26/23 13:06 cream-> severe itch and irritation sulfacetamide Allergy Unknown vaginal Verified 11/26/23 13:06 cream-> severe itch and irritation sulfathiazole Allergy Unknown vaginal Verified 11/26/23 13:06 cream-> severe itch and irritation doxycycline AdvReac pt will Verified 11/26/23 13:06 not take due to potential side affects tramadol AdvReac Nausea, Verified 11/26/23 13:06 vomiting Home Medications Medication Instructions Recorded Confirmed Type folic acid 800 mcg tablet 800 mcg PO QAM 03/30/19 12/03/23 History puala (Zingiber officinalis) 550 1,100 mg PO HS 03/30/19 12/03/23 History mg capsule lancets 33 gauge ([facility] #100 ea 03/30/19 10/20/23 History Lancets) cyanocobalamin (vitamin B-12) 5,000 mcg PO QAM 05/28/20 12/03/23 History 5,000 mcg capsule oxycodone-acetaminophen 5 mg-325 0.5 - 1 tab PO DAILY PRN pain 90 10/09/20 12/03/23 Rx mg tablet days #20 tabs zinc acetate 25 mg (zinc) capsule 25 mg PO QPM 10/15/20 12/03/23 History ascorbic acid (vitamin C) 1,000 mg 1 g PO QPM 11/29/20 12/03/23 History tablet glipizide 5 mg tablet 2.5 mg PO QAM 04/18/21 12/03/23 History metformin 500 mg tablet 500 mg PO BID 04/18/21 12/03/23 History blood sugar diagnostic ([facility] 05/19/21 10/20/23 Rx Verio test strips) losartan 50 mg tablet 50 mg PO QAM #90 tabs 05/19/21 12/03/23 Rx cholecalciferol (vitamin D3) 10 10 mcg PO BID 06/06/21 12/03/23 History mcg (400 unit) tablet (Vitamin D3) levothyroxine 75 mcg tablet 75 mcg PO DAILY 03/20/22 12/03/23 History (Synthroid) aspirin 325 mg tablet 325 mg PO BID #60 tabs 01/21/23 12/03/23 Rx atorvastatin 80 mg tablet 80 mg PO DAILY 12/03/23 12/03/23 History hydrochlorothiazide 50 mg tablet 50 mg PO DAILY 12/03/23 12/03/23 History Patient History Medical History Chronic anemia Baseline hgb 9-10 range per chart review Kidney stones History of meningioma spinal cord SCC (squamous cell carcinoma) Hypertension Hyperlipidemia Atrial fibrillation Tachycardia Pulmonary edema Atrial fibrillation with RVR Ulcer of foot Left foot diabetic ulcer, following with [facility] [place] Stroke 04/2020 > residual left sided weakness, uses crutches. follows with PCP currently Pulmonary hypertension per records, pt denies Peripheral neuropathy Hypothyroidism Generalized osteoarthritis Elevated WBC count Surgical History Hx of resection of meningioma History of carpal tunnel release History of tonsillectomy H/O squamous cell carcinoma excision History of back surgery T11/T12 benign tumor removed Hx of oral surgery S/P knee surgery Hx of hand surgery bilateral hands r/t gouty arthritis History of knee replacement R/L Family History Mother Myocardial infarction Hearing loss Heart disease Other No family history of adverse response to anesthesia No family history of bleeding disorder Denies family history of Ovarian cancer Prostate cancer Breast cancer Colorectal cancer Social History Smoking Status: Former smoker Second Hand Exposure: No; Do You Dip or Chew Tobacco: No; Hx Alcohol Use: No Hx Substance Use: No Preferred Language: Andorran Communication Ability: Effective Surface Ship Usw Supervisor Required: No Beliefs That Will Affect Care: None marital status: Single Current Living Situation: Alone current occupational status: retired Other Information That Helps Us Care for You: No Feels Safe at Home: Yes Safety Concerns: Feels Safe At This Time Childhood Exposure to Second-Hand Smoke: Yes Dental Care, Regularly: Yes Physical Activity Frequency: 3-4 Times per Week Seatbelt Use: always Sunscreen Use: Yes Assistive Devices: Cane and Crutches Review of Systems Review of Systems: All systems reviewed & are unremarkable except as noted in HPI & below Physical Exam Constitutional: WD/WN, vitals as above + morbidly obese, cooperative and comfortable; not in distress ENMT: Ears: + hearing impairment Neck: trachea midline Respiratory: normal respiratory effort, lungs clear to auscultation Auscultation: + diminished lung sounds Cardiovascular: Rate/Rhythm: + irregularly irregular Vessels: posterior tibial pulses present (dopplerable), dorsalis pedis pulses present (dopplerable distal AT, no signal on foot) and radial pulses present; + abnormal peripheral pulses Extremities: + edema; + abnormal capillary refill Gastrointestinal (Abdomen): Inspection/Auscultation: abdomen normal to inspection and normal bowel sounds Percussion/Palpation: abdomen soft; abdomen nontender Musculoskeletal: no cyanosis or clubbing, extremities motor strength 5/5 BL feet with charcot deformities. Skin: + wound (deep ulcer L plantar foot) Neurologic: moves all extremities and awake; no focal motor deficits and not confused Psychiatric: Orientation: alert and oriented x 3 Affect: + depressed affect and + flat affect Results & Data Vital Signs (Past 12 Hours) Vital Signs Temp Pulse Pulse Resp BP BP Pulse Ox 12/08/23 13:30 138 H 117/70 12/08/23 12:18 123 H 117/67 12/08/23 11:40 143 H 12/08/23 11:28 37.0 C 97 H 20 146/88 H 92 12/08/23 07:47 37.0 C 96 H 20 123/84 91 12/08/23 07:17 91 H 12/08/23 04:36 36.8 C 89 20 188/79 H 93 12/08/23 04:18 86 O2 Del Method 12/08/23 13:30 12/08/23 12:18 12/08/23 11:40 12/08/23 11:28 Room Air 12/08/23 07:47 Room Air 12/08/23 07:17 12/08/23 04:36 Room Air 12/08/23 04:18
--- NOTE | 2023-12-08 16:50 | Billing Data ---
Date of Service December 08, 2023 Coding Level of Care Code 83054 SUB INP/OBS CARE
[2023-12-08] MEDS ORDERED: STAT IV Infusion **Titration per Protocol STA (17:03)
[2023-12-08] MEDS: dilTIAZem HCL 125 MG in DEXTROSE 5% 100 ML IV SCH (17:17)
--- NOTE | 2023-12-08 17:26 | Anesthesiology Consultation ---
Date of Service December 08, 2023 Assessment & Plan (1) Encounter for pre-operative examination: Chart Review Chart Review: Acceptable Risk for Surgery and Patient NOT seen in Pre Admission Testing Consults Requested none History Surgery Operation Date: 12/09/23 07:00 Proposed Procedures p Left Foot Incision and Drainage with Bone Biopsy - Dennis Palomares DPM Height/Weight Height: 5 ft Weight: 106.9 kg Allergies Allergy/AdvReac Type Severity Reaction Status Date / Time animal dander Allergy Intermediate congestion Verified 11/26/23 13:06 pollen extracts Allergy Mild sneezing Verified 11/26/23 13:06 bacitracin Allergy Unknown neosporing-> Verified 11/26/23 13:06 rash latex Allergy Unknown blisters Verified 11/26/23 13:06 skin neomycin Allergy Unknown neosporins Verified 11/26/23 13:06 -> rash polymyxin B Allergy Unknown neosporins Verified 11/26/23 13:06 -> rash sulfabenzamide Allergy Unknown vaginal Verified 11/26/23 13:06 cream-> severe itch and irritation sulfacetamide Allergy Unknown vaginal Verified 11/26/23 13:06 cream-> severe itch and irritation sulfathiazole Allergy Unknown vaginal Verified 11/26/23 13:06 cream-> severe itch and irritation doxycycline AdvReac pt will Verified 11/26/23 13:06 not take due to potential side affects tramadol AdvReac Nausea, Verified 11/26/23 13:06 vomiting Medications Home Medications Medication Instructions Recorded Confirmed Last Taken folic acid 800 mcg tablet 800 mcg PO QAM 03/30/19 12/03/23 04/18/21 paula (Zingiber officinalis) 550 1,100 mg PO HS 03/30/19 12/03/23 04/17/21 mg capsule lancets 33 gauge ([facility] #100 ea 03/30/19 10/20/23 Unknown Lancets) cyanocobalamin (vitamin B-12) 5,000 mcg PO QAM 05/28/20 12/03/23 04/18/21 5,000 mcg capsule oxycodone-acetaminophen 5 mg-325 0.5 - 1 tab PO DAILY PRN pain 90 10/09/20 12/03/23 Unknown mg tablet days #20 tabs zinc acetate 25 mg (zinc) capsule 25 mg PO QPM 10/15/20 12/03/23 04/17/21 ascorbic acid (vitamin C) 1,000 mg 1 g PO QPM 11/29/20 12/03/23 04/17/21 tablet glipizide 5 mg tablet 2.5 mg PO QAM 04/18/21 12/03/23 04/18/21 metformin 500 mg tablet 500 mg PO BID 04/18/21 12/03/23 04/17/21 blood sugar diagnostic ([facility] #100 ea 05/19/21 10/20/23 Unknown Verio test strips) losartan 50 mg tablet 50 mg PO QAM #90 tabs 05/19/21 12/03/23 Unknown cholecalciferol (vitamin D3) 10 10 mcg PO BID 06/06/21 12/03/23 Unknown mcg (400 unit) tablet (Vitamin D3) levothyroxine 75 mcg tablet 75 mcg PO DAILY 03/20/22 12/03/23 Unknown (Synthroid) aspirin 325 mg tablet 325 mg PO BID #60 tabs 01/21/23 12/03/23 Unknown atorvastatin 80 mg tablet 80 mg PO DAILY 12/03/23 12/03/23 Unknown hydrochlorothiazide 50 mg tablet 50 mg PO DAILY 12/03/23 12/03/23 Unknown Active Medications Generic Name Dose Route Start Last Admin Trade Name Tylerq PRN Reason Stop Dose Admin Atorvastatin Calcium 80 mg 12/03/23 21:00 12/07/23 21:11 Atorvastatin 40 Mg Tab PO 01/02/24 20:59 Not Given HS NEFTALY Docusate Sodium 100 mg 12/04/23 09:00 12/08/23 09:53 Docusate Sodium 100 Mg Cap PO 01/03/24 08:59 Not Given DAILY NEFTALY Hydrochlorothiazide 50 mg 12/03/23 09:00 12/08/23 09:52 Hydrochlorothiazide 25 Mg Tab PO 01/02/24 08:59 50 mg DAILY NEFTALY Administration Lactated Ringer's 1,000 mls @ 140 mls/hr 12/04/23 16:30 12/08/23 13:56 Lr IV 01/03/24 16:29 140 mls/hr .Q7H9M NEFTALY Administration Piperacillin Sod/Tazobactam 100 mls @ 25 mls/hr 12/06/23 20:00 12/08/23 14:24 Sod 4.5 gm/ Dextrose IV 12/10/23 19:59 Infused Q12H [facility] Infusion Protocol Diltiazem HCl 125 mg/ Dextrose 125 mls @ 5 mls/hr 12/08/23 17:03 12/08/23 17:17 IV 01/07/24 17:02 5 mg/hr .Q24H NEFTALY 5 mls/hr Administration Protocol 5 MG/HR Insulin Aspart 0 units 12/03/23 07:30 12/08/23 13:32 Insulin Aspart Per Unit Charge SC 01/02/24 07:29 Not Given ACHS NEFTALY Insulin Glargine 15 units 12/03/23 09:00 12/08/23 10:48 Lantus Per Unit Charge SQ 01/02/24 08:59 Not Given BID NEFTALY Levothyroxine Sodium 75 mcg 12/03/23 06:30 12/08/23 05:25 Levothyroxine Sodium 75 Mcg Tablet PO 01/02/24 06:29 75 mcg DAILYBB NEFTAYL Administration Losartan Potassium 50 mg 12/03/23 09:00 12/08/23 09:52 Losartan Potassium 50 Mg Tab PO 01/02/24 08:59 50 mg QAM NEFTALY Administration Miconazole Nitrate 1 appln 12/05/23 09:00 12/08/23 09:53 Miconazole Nitrate Powder 85 Gm EXT 01/04/24 08:59 1 appln BID NEFTALY Administration Ondansetron HCl 4 mg 12/03/23 05:38 12/03/23 15:59 Ondansetron Inj 2 Mg/Ml 2 Ml Vial IV 01/02/24 05:37 4 mg Q6H PRN Administration Nausea Oxycodone/Acetaminophen 1 tab 12/03/23 13:01 12/08/23 11:47 Oxycodone/Acetaminophen 5mg/325mg Tab PO 12/17/23 06:23 1 tab Q6H PRN Administration pain Polyethylene Glycol 17 gm 12/04/23 09:00 12/08/23 09:53 Polyethylene (Miralax) 17 Gm Pack PO 01/03/24 08:59 Not Given DAILY NEFTALY Past Medical History Medical History Chronic anemia Baseline hgb 9-10 range per chart review Kidney stones History of meningioma spinal cord SCC (squamous cell carcinoma) Hypertension Hyperlipidemia Atrial fibrillation Tachycardia Pulmonary edema Atrial fibrillation with RVR Ulcer of foot Left foot diabetic ulcer, following with [facility] wound clinic Stroke 04/2020 > residual left sided weakness, uses crutches. follows with PCP currently Pulmonary hypertension per records, pt denies Peripheral neuropathy Hypothyroidism Generalized osteoarthritis Elevated WBC count Past Family History Family History Mother Myocardial infarction Hearing loss Heart disease Other No family history of adverse response to anesthesia No family history of bleeding disorder Denies family history of Ovarian cancer Prostate cancer Breast cancer Colorectal cancer Past Surgical History Surgical History Hx of resection of meningioma History of carpal tunnel release History of tonsillectomy H/O squamous cell carcinoma excision History of back surgery T11/T12 benign tumor removed Hx of oral surgery S/P knee surgery Hx of hand surgery bilateral hands r/t gouty arthritis History of knee replacement R/L Social History Smoking Status: Former smoker tobacco type: cigarettes Do You Dip or Chew Tobacco: No Hx Alcohol Use: No Alcohol type: beer and other alcohol intake frequency: holidays/special occasions only Hx Substance Use: No substance use type: does not use Physical Exam Vital Signs Last Vital Signs Temp 97.9 F 12/08/23 17:16 Pulse 138 H 12/08/23 17:16 Resp 16 12/08/23 17:16 BP 127/81 12/08/23 17:16 Pulse Ox 98 12/08/23 17:16 O2 Del Method Room Air 12/08/23 17:16 O2 Flow Rate 3 12/07/23 23:36 Testing Laboratory Results 12/08/23 07:24 12/08/23 07:24 PT 11.3 Seconds (9.0-12.0) 12/03/23 01:54 INR 1.0 (0.9-1.1) 12/03/23 01:54 APTT 29 Seconds (21-31) 12/03/23 01:54 Hemoglobin A1c 7.2 % (4.5-5.6) H 12/04/23 04:38 Urine Color Yellow 12/03/23 04:21 Urine Appearance Clear (Clear) 12/03/23 04:21 Urine pH 6.0 (4.5-7.5) 12/03/23 04:21 Ur Specific [place] 1.016 (1.000-1.030) 12/03/23 04:21 Urine Protein 2+ (Negative) H 12/03/23 04:21 Urine Glucose (UA) Negative (Negative) 12/03/23 04:21 Urine Ketones 1+ (Negative) H 12/03/23 04:21 Urine Nitrite Negative (Negative) 12/03/23 04:21 Ur Leukocyte Esterase Trace (Negative) H 12/03/23 04:21 Urine WBC (Auto) 0-5 /hpf (0-5) 12/03/23 04:21 Urine RBC (Auto) 0-2 /hpf (0-2) 12/03/23 04:21 U Hyaline Cast (Auto) 0-2 /lpf (0-2) 12/03/23 04:21 U Epithel Cells (Auto) 3-5 /hpf (0-2) H 12/03/23 04:21 Urine Bacteria (Auto) None Seen (None Seen) 12/03/23 04:21 12/03/23 Unknown Gram Stain - Final Foot,Left Aerobic and Anaerobic Culture - Final Pseudomonas aeruginosa 12/03/23 02:10 Aerobic Blood Culture - Final Blood No growth in Aerobic bottle after 5 days. Anaerobic Blood Culture - Final No growth in Anaerobic bottle after 5 days. 12/03/23 01:50 Aerobic Blood Culture - Final Blood No growth in Aerobic bottle after 5 days. Anaerobic Blood Culture - Final No growth in Anaerobic bottle after 5 days. 12/08/23 12/08/23 12:07 08:11 POC Glucose 159 H 125 H Electrocardiogram Date: 12/03/23 Findings: + NSR @ (PVCs) and + RBBB (incomplete) Chest X-Ray Date: 12/03/23 Findings: + cardiomegaly and + pulmonary vascular congestion Echocardiogram Date: 12/06/23 EF: 55-60 Other Findings: + LVH (mild)
[2023-12-08 18:48] LABS: Appearance Urine Turbid (Clear); Bacteria Urine Automated None Seen (None Seen); Bilirubin Urine Negative (Negative); Blood Urine 3+ (Negative); Cast Urine Automated >20 /lpf (0-2); Color Urine Yellow; Glucose Urine UA Negative (Negative); Granular Casts Urine Present /lpf (None Prsent); Ketones Urine 1+ (Negative); Leukocyte Esterase Urine 1+ (Negative); Nitrite Urine Negative (Negative); Protein Urine 2+ (Negative); RBC Urine Automated >20 /hpf (0-2); Specific Gravity Urine 1.018 (1.000-1.030); Urobilinogen Urine Negative (Negative)
[2023-12-08 19:00] LABS: Creatinine Urine Random 103.8 mg/dl
[2023-12-08] MEDS: APIXABAN 5 MG TABLET PO SCH (21:34)
--- NOTE | 2023-12-08 22:15 | Podiatry Progress Note ---
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 Specifically that this specific combination of Charcot deformity and bone infection has a high risk of limb loss. - To help the quality of the wound and to decrease infectious burden, we are planning an I&D, excisional debridement, and bone biopsy for tomorrow afternoon. - Patient is amenable to this as an attempt at limb salvage; still, we will not be addressing the underlying charcot deformity at this time. Once she is more medically stable and coherent for some time, she can consider more heroic measures. - Should consider wound vac with wound care after surgery to help fill in void. Admission and Anticipated Discharge Date Admission Date: December 03, 2023 Subjective Seen at bedside. Much more alert, oriented today than previously. Expressed she has seen Dr. Estefani Walter in the past for podiatry care but more often saw Dr. Parnell at the [facility] center for her foot concerns. She was pleasant and vocal. Denied significant pain and s/s of infection. Of note, she was paul tilley I had seen her the last two days. Review of Systems Constitutional: no fever and no chills Eyes: no problem reported Ear, Nose, Mouth, Throat: no problem reported Respiratory: no problem reported Cardiovascular: + edema and + problem reported; no chest pain Gastrointestinal: no problem reported Genitourinary: no problem reported Musculoskeletal: + swelling, + muscle weakness and + musc le atrophy; no joint pain Integumentary: + non-healing lesions and + skin ulcer Neurologic: + generalized weakness and + loss of sen sation Physical Exam Physical Exam: Lower extremity focused exam: DP/PT Pulses nonpalpable. Diffuse edema noted to the left lower extremity. Skin atrophic to b/l LE. No hair growth noted. Distal cooling is noted, though local warmth appreciated to plantar left heel ulceration. Wound probes deep to bone, likely cuboid based on imaging. No kong purulence noted. Wound is 100% fibrotic without granulation tissue noted. Ulcer measures 7 x 4cm and is deep to the bone, around 2cm deep. No necrosis noted. Underlying charcot deformity is noted b/l, with worse midfoot collapse appreciated to the left. Ulcer directly overlies rocker bottom foot deformity. Protective sensation/pain sensation appear to be absent. NO abnormal reflexes noted. Passive ROM is decreased; active ROM not attempted with patient's unwillingness to participate in exam. Constitutional: WD/WN, vitals as above + ill appearing, + morbidly obese and + behavioral limitations Eyes: PERRL, conjunctivae normal, anicteric sclerae ENMT: Ears: no hearing impairment Nose: no external nose abnormality Mouth: + poor dentition Neck: normal visual inspection Respiratory: normal respiratory effort; no respiratory distress Cardiovascular: Rate/Rhythm: regular rate and regular rhythm Vessels: + posterior tibial pulses abnormal and + dorsalis pedis pulses abnormal Extremities: + edema; no calf tenderness Chest (Breasts): Chest: normal inspection of chest Gastrointestinal (Abdomen): Inspection/Auscultation: abdomen normal to inspection Musculoskeletal: Head/Neck/Chest: normocephalic and head atraumatic Extremities: + limited ROM of extremities and + foot abnormality Skin: no rashes, warm and dry + ulcer, + wound and + skin atrophy Neurologic: plantar reflexes intact bilaterally and moves all extremities; + abnormal sensation to monofilament Psychiatric: Orientation: alert and oriented to person; + uncooperative Apperance: + disheveled Eye Contact: + poor eye contact Mood: + irritable mood Results & Data Results & Data Vital Signs (Past 12 Hours) Vital Signs Temp Pulse Pulse Resp BP BP Pulse Ox 12/08/23 19:34 36.7 C 119 H 20 127/86 98 12/08/23 18:23 136 H 108/62 12/08/23 17:16 36.6 C 138 H 16 127/81 98 12/08/23 14:50 130 H 111/77 12/08/23 14:50 36.9 C 130 H 20 111/77 96 12/08/23 14:34 125 H 12/08/23 13:59 136 H 105/77 12/08/23 13:30 138 H 117/70 12/08/23 12:18 123 H 117/67 12/08/23 11:40 143 H 12/08/23 11:28 37.0 C 97 H 20 146/88 H 92 O2 Del Method O2 Flow Rate 12/08/23 19:34 Nasal Cannula 2 12/08/23 18:23 12/08/23 17:16 Room Air 12/08/23 14:50 12/08/23 14:50 Room Air 12/08/23 14:34 12/08/23 13:59 12/08/23 13:30 12/08/23 12:18 12/08/23 11:40 12/08/23 11:28 Room Air (4) Diabetes mellitus type 2, uncontrolled Glycemic state: with hyperglycemia Qualified Code(s): E11.65 - Type 2 diabetes mellitus with hyperglycemia
[2023-12-09 07:47] LABS: Albumin Level 2.8 gm/dl (3.4-5.0); Bilirubin,Total 0.2 mg/dl (0.2-1.0); Calcium 9.1 mg/dl (8.6-10.3); Potassium 3.9 mmol/L (3.5-5.1)
[2023-12-09 07:53] LABS: Albumin Globulin Ratio 0.9 (0.9-2); BUN Creatinine Ratio 23.2 (10-20); Creatinine Clr Calc Pharmacy 22.3 ml/min; Est GFR (African American) 22.5 ml/min; Est GFR (Non-African American) 19.4 ml/min; Globulin 3.1 gm/dl (2.5-4.0); Total Protein 5.9 gm/dl (6.0-8.3)
[2023-12-09 07:59] LABS: Hemoglobin 7.7 g/dl (12.0-16.0); Mean Corpuscular Hemoglobin 23.6 pg (25.0-34.0); Mean Corpuscular Hgb Conc 28.5 g/dL (32.0-36.0); Mean Corpuscular Volume 82.8 fL (80.0-100.0); Mean Platelet Volume 9.5 fL (9.4-12.4); Platelet Count 346 K/uL (130-400); RDW Coefficient of Variation 16.6 % (11.5-14.5); RDW Standard Deviation 50.2 fL (36.4-46.3); Red Blood Count 3.26 M/uL (4.20-5.40); White Blood Count 15.32 K/ul (4.8-10.8)
[2023-12-09 08:02] LABS: Basophils # (auto) 0.13 K/uL (0.00-0.20); Basophils % (auto) 0.8 %; Eosinophils # (auto) 0.34 K/uL (0.00-0.50); Eosinophils % (auto) 2.2 %; Immature Granulocytes # (auto) 0.21 K/uL (0.01-0.20); Immature Granulocytes % (auto) 1.4 %; Lymphocytes # (auto) 1.53 K/uL (1.20-3.40); Monocytes # (auto) 1.26 K/uL (0.11-0.59); Monocytes % (auto) 8.2 %; Neutrophils # (auto) 11.85 K/uL (1.40-6.50); Neutrophils % (auto) 77.4 %
--- NOTE | 2023-12-09 10:48 | Hospitalist Progress Note ---
Date of Service December 09, 2023 Assessment & Plan (1) Sepsis: (2) Diabetic foot ulcer: (3) Paroxysmal atrial fibrillation: (4) Osteoarthritis: (5) Hypertension: (6) Left ankle pain: (7) Hypoxia: Plan Pt is a 78 yo female with PMH of chronic anemia, spinal meningioma, afib, left charcot foot, stroke (2019), and hypothyroidism presenting d/t left ankle pain. Medical Decision maker: Patient's nephew (Fernandez Hess; phone number [phone]) Patient to undergo foot ulcer debridement/I&D/bone biopsy with podiatry. Will continue current antibiotics. Patient currently with improved HR in 80s and 90s. Will wean of Cardizem drip and change to Metoprolol Succinate 50mg daily. Sepsis in the setting of chronic left diabetic foot ulcer // Osteomyelitis - pt tachycardic, febrile upon presentation and has leukocytosis of 15.32 - lactate 1.1, procal 0.68 - Suspect wound of left foot may be the source - blood cultures negative - Wound culture: Pseudomonas sensitive to everything - (L) ankle x-ray: soft tissue swelling and osteopenia with degenerative changes typical for charcot foot - (L) foot CT: complex fluid collection deep to the wound likely represents an abscess, changes highly consistent with osteomyelitis. - B/l LE arterial Doppler: left popliteal artery with possible stenosis, possibly occluded portions of the peritoneal artery Would cause delayed healing if any healing at all. - Continue Zosyn - Wound care consulted - Podiatry to perform debridement/I&D/bone biopsy today - Vascular surgery consulted and determined that patient is not a candidate for vascular intervention/salvage. Hx of afib - Hx of cardioversion - Not on home medications for this - HR improved today to 80s 90s. Plan to wean off Cardizem drip and start Metoprolol succinate 50mg daily - Eliquis for anticoagulation DEXTER - Pre renal vs medication induced - Patient with poor PO intake of both food and water - Creatinine 2.33 this am - Continue IVF until PO intake improves - CMP am Hypoxia - pt does not wear oxygen at home; no hx of lung disease; pt denying feeling SOB/chest pain/wheezing - Not currently c/o SOB but on NC at 2 lpm. - TTE (12/06/23): normal LV systolic function, EF of 55-60%, aortic valve sclerosis without stenosis (no significant change from 2020) - suspect pt may have a component of sleep apnea/nocturnal hypoxia contributing to current hypoxia - continue to monitor Left ankle pain - suspect secondary to chronic wound and arthritis - percocet from daily to q6h PRN for breakthrough pain - PT/OT eval ordered to ensure pt can walk/function with her current pain control Diabetes - last A1c 6.9% (10/2022); repeat ordered and was 7.2% - hold home metformin, glipizide - will cover with insulin glargine 15u BID, adjust SSI as needed Elevated trop - 16.7 upon admission - no symptoms; no ischemic EKG changes - Troponin peaked at 23.4 and decreased to 20.6 HTN - continue home losartan and HCTZ Diet: carb consistent VTE ppx: Eliquis Admission and Anticipated Discharge Date Admission Date: December 03, 2023 Supervising Physician Co-Signing Physician Notes I personally examined the patient and verified all cuello points of history and exam, discussed case, and agree with decision making with Dr House Not really any meaningful HPI review of systems obtainable from patient. Discussed with nursing extensively at the bedside.. Vitals noted, in general she is awake but seems to be disoriented no distress. Breathing unlabored no accessory muscle use good effort. Skin shows no rashes no pallor or icterus. Neuro without focal deficits. IMPRESSION & PLAN Sepsis in the setting of chronic left foot diabetic ulcer/osteomyelitis, pressure ulcer of left heel stage 3, afib DEXTER, not present upon admission -continue zosyn for now given Pseudomonas (fortunately pansensitive Pseudomonas, but Pseudomonas nonetheless) -DEXTER seems most likely prerenal (Especially with FENA confirming)slight worsening was probably due to RVR creating poor forward flowanticipate this to get back on track with improvement. -continue to adjust insulins -Delirium/metabolic encephalopathy definitely complicates things given that a lot of her care will require delicate/difficult/nuanced decision making regarding conservative versus more aggressive surgical plans, and the implications of long-term outcomes for both. She does not have a designated POA, her nephew Fernandez Hess is her closest living relative, and therefore her decision maker. - For podiatric surgery today. DVT proph - anticoagulated otherwise as above Subjective Pt is a 78 yo female with PMH of chronic anemia, spinal meningioma, afib, left charcot foot, stroke (2019), and hypothyroidism presenting d/t left ankle pain. She was admitted after called EMS from her home due to significant left ankle pain that limited her mobility, and the in the ER was found to meet SIRS criteria (has chronic left diabetic foot ulcer). Patient was evaluated at bedside and found to be awake, alert, and confused. Refers having some pain in her left foot and her hands where her IVs are. Denies chest pain, SOB, fevers, chills, or any other symptom. Review of Systems Review of Systems: As per HPI Physical Exam Physical Exam: General: AAOx3, febrile, NAD CV: fast rate that appears irregular, murmur on right sternal border Pulm: CTA bilaterally, normal resp effort, no resp distress GI: soft, nontender Ext: swelling noted in bilateral LE and UE Results & Data Results & Data Vital Signs (Past 12 Hours) Vital Signs Temp Pulse Pulse Resp BP Pulse Ox O2 Del Method 12/09/23 07:27 36.7 C 76 23 156/77 H 99 Nasal Cannula 12/09/23 04:47 82 138/76 12/09/23 02:54 36.6 C 86 18 149/80 H 98 Nasal Cannula 12/09/23 01:03 88 113/72 12/08/23 23:00 100 H O2 Flow Rate 12/09/23 07:27 3 12/09/23 04:47 12/09/23 02:54 2 12/09/23 01:03 12/08/23 23:00 Resident Activity Tracking Resident Involvement: Resident Care Provided Care Provided: Adult Hospital Medicine
[2023-12-09] MEDS: SODIUM CHLORIDE 0.9% 1,000 ML IV SCH (11:49)
[2023-12-09] MEDS ORDERED: PROPOFOL IV EMULSION 10 MG/ML 20 ML VIAL IV ONE (15:23)
[2023-12-09] MEDS ORDERED: KETAMINE HCL INJ 50 MG/ML 10 ML VIAL ONE (15:30)
--- NOTE | 2023-12-09 15:39 | History & Physical Bridge Note ---
Date of Service December 09, 2023 History & Physical Bridge Note I have examined the patient, reviewed the History & Physical and in the interval since the performance of the History & Physical I have noted the following changes of clinical significance: no new changes noted. Consent obtained for left foot procedures.
[2023-12-09] MEDS ORDERED: PHENYLEPHRINE 100MCG/ML 10ML SYR IV ONE (16:39)
--- NOTE | 2023-12-09 16:44 | Post Operative Brief Note ---
Immediate Post Op Note v1 Date of Surgery December 09, 2023 Pre & Post Diagnosis Operation Date: 12/09/23 07:00 Pre-Op Diagnosis: Left foot wound Post-Op Diagnosis: Left foot wound I identified the patient and participated in the time-out.: Yes Procedure Operation Date: 12/09/23 07:00 Actual Procedures p Left Foot Incision and Drainage with Bone Biopsy(Left) - Dennis Palomares DPM Surgeon Dennis Palomares DPM Python Web Developer None Estimated Blood Loss 10 Findings Consistent with Post-Op Diagnosis Acute osteomyelitis of left calcaneus Anesthesia Type MAC Complications none Disposition Accompanied Patient To Recovery: Yes Disposition: Recovery Room
[2023-12-09] MEDS: BUPIVACAINE 0.5 % 5 MG/1 ML MPF 30ML VIAL ONE (16:47)
[2023-12-09] MEDS ORDERED: ATROPINE SULFATE 0.1 MG/ML 10ML SYR IV PRN (16:49)
[2023-12-09] MEDS ORDERED: fentaNYL citrate PF 100 MCG/2 ML VIAL IV PRN (16:49)
[2023-12-09] MEDS ORDERED: ePHEDrine sulfate 50 MG/ML AMP IV PRN (16:49)
[2023-12-09] MEDS ORDERED: ONDANSETRON INJ 2 MG/ML 2 ML VIAL IV PRN (16:49)
--- NOTE | 2023-12-09 18:24 | Anesthesiology Progress Note ---
Date of Service December 09, 2023 Anesthesia Post Procedure Vital Signs Vital Signs: Temp Pulse Pulse Resp BP Pulse Ox O2 Del Method 12/09/23 17:10 106 H 23 104/82 97 Oxymask 12/09/23 17:00 134 H 21 126/101 H 99 Oxymask 12/09/23 16:52 38.2 C H 91 H 20 125/88 100 Oxymask 12/09/23 13:11 Nasal Cannula 12/09/23 11:36 36.8 C 98 H 18 157/97 H 100 Room Air 12/09/23 07:27 36.7 C 76 23 156/77 H 99 Nasal Cannula 12/09/23 07:00 78 12/09/23 04:47 82 138/76 12/09/23 02:54 36.6 C 86 18 149/80 H 98 Nasal Cannula 12/09/23 01:03 88 113/72 12/08/23 23:00 100 H 12/08/23 22:48 36.7 C 118 H 18 142/88 H 96 Nasal Cannula 12/08/23 21:04 109 H 124/80 12/08/23 20:00 Nasal Cannula 12/08/23 19:34 36.7 C 119 H 20 127/86 98 Nasal Cannula O2 Flow Rate 12/09/23 17:10 3 12/09/23 17:00 3 12/09/23 16:52 5 12/09/23 13:11 2 12/09/23 11:36 12/09/23 07:27 3 12/09/23 07:00 12/09/23 04:47 12/09/23 02:54 2 12/09/23 01:03 12/08/23 23:00 12/08/23 22:48 2.0 12/08/23 21:04 12/08/23 20:00 2 12/08/23 19:34 2 Pain Intensity Left Ankle: Pain Intensity: 8 Left Foot: Pain Intensity: 7 Transfer of Care Handoff Completed per policy Notes Mental Status: alert / awake / arousable Patient Amnestic to Procedure: Yes Nausea / Vomiting: adequately controlled Pain: adequately controlled Airway Patency, RR, SpO2: stable & adequate BP & HR: stable & adequate Hydration State: stable & adequate Anesthetic Complications: no major complications apparent
--- NOTE | 2023-12-09 19:29 | Billing Data ---
Date of Service December 09, 2023 Coding Level of Care Code 41172 SUB INP/OBS CARE
[2023-12-09] MEDS: ASPIRIN 325 MG ECTAB PO SCH (21:35)
[2023-12-10 08:58] LABS: Albumin Globulin Ratio 0.8 (0.9-2); Albumin Level 2.7 gm/dl (3.4-5.0); BUN Creatinine Ratio 24.8 (10-20); Bilirubin,Total 0.2 mg/dl (0.2-1.0); Calcium 8.8 mg/dl (8.6-10.3); Creatinine Clr Calc Pharmacy 23.1 ml/min; Est GFR (African American) 22.8 ml/min; Est GFR (Non-African American) 19.7 ml/min; Globulin 3.4 gm/dl (2.5-4.0); Potassium 5.4 mmol/L (3.5-5.1); Total Protein 6.1 gm/dl (6.0-8.3)
[2023-12-10 09:56] LABS: Hematocrit (blood only) 27.7 % (37.0-47.0); Hemoglobin 7.9 g/dl (12.0-16.0); Mean Corpuscular Hemoglobin 24.2 pg (25.0-34.0); Mean Corpuscular Hgb Conc 28.5 g/dL (32.0-36.0); Mean Corpuscular Volume 84.7 fL (80.0-100.0); Mean Platelet Volume 9.8 fL (9.4-12.4); Platelet Count 402 K/uL (130-400); RDW Coefficient of Variation 16.6 % (11.5-14.5); RDW Standard Deviation 51.5 fL (36.4-46.3); Red Blood Count 3.27 M/uL (4.20-5.40); White Blood Count 16.66 K/ul (4.8-10.8)
[2023-12-10 09:58] LABS: Basophils # (auto) 0.14 K/uL (0.00-0.20); Basophils % (auto) 0.8 %; Echinocytes 1+; Eosinophils # (auto) 0.44 K/uL (0.00-0.50); Eosinophils % (auto) 2.6 %; Immature Granulocytes # (auto) 0.33 K/uL (0.01-0.20); Lymphocytes # (auto) 1.69 K/uL (1.20-3.40); Lymphocytes % (auto) 10.1 %; Monocytes # (auto) 1.94 K/uL (0.11-0.59); Monocytes % (auto) 11.6 %; Neutrophils # (auto) 12.12 K/uL (1.40-6.50); Neutrophils % (auto) 72.9 %
--- NOTE | 2023-12-10 11:19 | XRay Report ---
SINGLE VIEW CHEST CLINICAL HISTORY: Dyspnea. Lower extremity edema FINDINGS: 2 AP, portable, upright chest radiographs are compared to study dated 12/03/2023. The examin ation is degraded by portable technique and patient rotation. The examination is degraded by portable technique and patient rotation. The heart is enlarged noting atherosclerotic calcification of the t horacic aorta. The pulmonary vasculature is noncongested. Chronic interstitial thickening and elevati on of the right hemidiaphragm is similar to previous. There is bibasilar scarring/atelectasis. No air space consolidation or large pleural effusion is identified. No pneumothorax is seen. The skeletal st ructures are osteopenic. The bony thorax is grossly intact. Calcific tendinopathy is noted in the lef t shoulder. IMPRESSION: Cardiomegaly with no acute cardiopulmonary abnormality identified. ACT 112: Negative or not required by law Electronically signed by: Bennie Andrea M.D. 12/10/2023 11:17 AM
[2023-12-10] MEDS: LACTATED RINGER'S 1,000 ML IV SCH (12:01)
--- NOTE | 2023-12-10 13:08 | Hospitalist Progress Note ---
Date of Service December 10, 2023 Assessment & Plan (1) Sepsis: (2) Diabetic foot ulcer: (3) Paroxysmal atrial fibrillation: (4) Osteoarthritis: (5) Hypertension: (6) Left ankle pain: (7) Hypoxia: Plan Pt is a 78 yo female with PMH of chronic anemia, spinal meningioma, afib, left charcot foot, stroke (2019), and hypothyroidism presenting d/t left ankle pain. Medical Decision maker: Patient's nephew (Fernandez Hess; phone number [phone]). Called to discuss podiatry recommendations after their intervention yesterday. Made aware that patient's infection could be managed/kept at bay with IV antibiotics for a few months, but there was high likelihood that the infection could return in the future. Discussed that definitive therapy would be possible bka due to degree of infection in the bone. Mr. Hess expressed understanding and preferred to discuss IV antibiotics and possible SNF after discharge, and that if this should occur again, they could discuss options again. Based on this discussion, ID consult was placed for evaluation and determination of possible abx to use and length of time of therapy. Diltiazem drip stopped and Metoprolol tartrate 25mg bid started. If patient remains rate controlled with this, will switch to Metoprolol succinate 50mg daily for maintenance. Sepsis in the setting of chronic left diabetic foot ulcer // Osteomyelitis - pt tachycardic, febrile upon presentation and has leukocytosis of 15.32 - lactate 1.1, procal 0.68 - Suspect wound of left foot may be the source - blood cultures negative - Wound culture: Pseudomonas sensitive to everything - (L) ankle x-ray: soft tissue swelling and osteopenia with degenerative changes typical for charcot foot - (L) foot CT: complex fluid collection deep to the wound likely represents an abscess, changes highly consistent with osteomyelitis. - B/l LE arterial Doppler: left popliteal artery with possible stenosis, possibly occluded portions of the peritoneal artery Would cause delayed healing if any healing at all. - Continue Zosyn - Wound care consulted - Podiatry to perform debridement/I&D/bone biopsy yesterday. - Vascular surgery consulted and determined that patient is not a candidate for vascular intervention/salvage. Hx of afib - Hx of cardioversion - Not on home medications for this - HR improved today to 80s 90s. Plan to stop Cardizem drip and start Metoprolol tartrate 25mg bid then succinate 50mg if she remains rate controlled with this initial dose. - Eliquis for anticoagulation DEXTER - Pre renal vs medication induced - Patient with poor PO intake of both food and water - Creatinine stable at 2.30 this am - Continue IVF until PO intake improves - CMP am Hypoxia - pt does not wear oxygen at home; no hx of lung disease; pt denying feeling SO B/chest pain/wheezing - TTE (12/06/23): normal LV systolic function, EF of 55-60%, aortic valve sclerosis without stenosis (no significant change from 2020) - suspect pt may have a component of sleep apnea/nocturnal hypoxia contributing to current hypoxia - Not currently c/o SOB but oxygen need increased to 3-4 lpm by NC last night. Due to extremity swelling while on IVF, ordered CXR to r/o pulm edema, which was negative. - continue to monitor Left ankle pain - suspect secondary to chronic wound and arthritis - percocet from daily to q6h PRN for breakthrough pain - PT/OT eval ordered to ensure pt can walk/function with her current pain control Diabetes - last A1c 6.9% (10/2022); repeat ordered and was 7.2% - hold home metformin, glipizide - will cover with insulin glargine 15u BID, adjust SSI as needed Elevated trop - 16.7 upon admission - no symptoms; no ischemic EKG changes - Troponin peaked at 23.4 and decreased to 20.6 HTN - continue home losartan and HCTZ Diet: carb consistent VTE ppx: Eliquis Admission and Anticipated Discharge Date Admission Date: December 03, 2023 Supervising Physician Co-Signing Physician Notes I personally examined the patient and verified all cuello points of history and exam, discussed case, and agree with decision making with Dr House Not really any meaningful HPI review of systems obtainable from patient. Discussed with nursing again extensively at the bedside. updated her friends extensively at the bedside. Vitals noted, in general she is awake but seems to be disoriented no distress. Breathing unlabored no accessory muscle use good effort. Skin shows no rashes no pallor or icterus. Neuro without focal deficits. Foot wound appears clean IMPRESSION & PLAN Sepsis in the setting of chronic left foot diabetic ulcer/osteomyelitis, pressure ulcer of left heel stage 3, afib DEXTER, not present upon admission -continue zosyn for now given Pseudomonas (fortunately pansensitive Pseudomonas, but Pseudomonas nonetheless), consult infectious disease for assistance and prolonged antibiotics -DEXTER seems most likely prerenal (Especially with FENA confirming)slight worsening was probably due to RVR creating poor forward flowanticipate this to get back on track with improvement. -continue to adjust insulins -Delirium/metabolic encephalopathy definitely complicates things given that a lot of her care will require delicate/difficult/nuanced decision making regarding conservative versus more aggressive surgical plans, and the implications of long-term outcomes for both. She does not have a designated POA, her nephew Fernandez Hess is her closest living relative, and therefore her decision maker. - postop debridement, await surgical cultures DVT proph - anticoagulated otherwise as above Subjective Pt is a 78 yo female with PMH of chronic anemia, spinal meningioma, afib, left charcot foot, stroke (2019), and hypothyroidism presenting d/t left ankle pain. She was admitted after called EMS from her home due to significant left ankle pain that limited her mobility, and the in the ER was found to meet SIRS criteria (has chronic left diabetic foot ulcer). Patient was evaluated at bedside and found to be awake, alert, and slightly confused. Denies chest pain, SOB, fevers, chills, or any other symptom. No other concern. Review of Systems Review of Systems: As per HPI Physical Exam Physical Exam: General: AAOx3, febrile, NAD CV: fast rate that appears irregular, murmur on right sternal border Pulm: CTA, normal resp effort, no resp distress GI: soft, nontender Ext: swelling noted in bilateral LE and UE Results & Data Results & Data Vital Signs (Past 12 Hours) Vital Signs Temp Pulse Pulse Resp BP Pulse Ox O2 Del Method 12/10/23 10:32 36.7 C 77 18 95/69 L 98 Nasal Cannula 12/10/23 08:00 Nasal Cannula 12/10/23 08:00 107 H 12/10/23 07:35 36.8 C 91 H 18 100/70 99 Nasal Cannula 12/10/23 03:23 36.4 C L 106 H 18 128/62 96 Nasal Cannula 12/10/23 02:02 96 Nasal Cannula 12/10/23 02:02 88 L Nasal Cannula O2 Flow Rate 12/10/23 10:32 3 12/10/23 08:00 3 12/10/23 08:00 12/10/23 07:35 3 12/10/23 03:23 3 12/10/23 02:02 4 12/10/23 02:02 2 Resident Activity Tracking Resident Involvement: Resident Care Provided Care Provided: Adult Hospital Medicine
--- NOTE | 2023-12-10 14:01 | Infectious Disease Consult ---
Date of Consultation December 10, 2023 Assessment & Plan (1) Diabetic foot ulcer: (2) Osteomyelitis of foot, left, acute: (3) Peripheral arterial disease: Plan 78yo F with h/o chronic anemia, spinal meningioma, left Charcot foot, chronic arthritis/pain in left ankle, stroke in 2019, hypothyroidism, diabetes, afib, HTN who presented on 12/02 with acute on chronic left ankle pain. On admission, she was febrile, on 2-3L NC. WBC 15.32, Cr 1.17>>2.30. AST/ALT wnl. Trop elevated. PCT 0.68. RPP neg. MRSA screen neg. CXR neg. Ankle XR with soft tissue swelling, osteopenia with severe degenerative changes involving the ankle and hindfoot, typical for Charcot. CT left foot with OM of the calcaneus, erosive changes also seen on cuboid, complex fluid collection deep to wound likely representing an abscess. TTE with AV sclerosis without significant stenosis. She was seen by podiatry and noted to have probe to bone of left foot ulcer and c/f OM. Given Charcot foot, further imaging deferred since it is unhelpful. Arterial u/s with severe PAD. Seen by vascular who did not believe her to be a good candidate for endovascular intervention and BKA was offered, but patient declined. S/p OR on 12/08 for left foot I+D and bone biopsy. Will wait for culture results from OR. Given severe PAD, treatment will be difficult and will likely need IV abx for the course of 6 weeks. Vanc is stopped due to negative MRSA screen, which is appropriate. Continuing on zosyn. # Left foot OM of calcaneus # Left diabetic foot ulcer # Peripheral arterial disease # DEXTER - I added ESR and CRP for baseline to am labs - continue zosyn (renally dosed) - f/u OR cx and path - final regimen pending above ID will continue to follow. If questions or concerns, contact Infectious Disease Call Center . Dr. Solis to take over service on Wednesday. Mikayla Hatch MD [facility], Division of Infectious Diseases [facility]: [phone] Consultation Information Consultation was provided via telemedicine using two-way real-time interactive telecommunication between the patient and the telemedicine provider. For the duration of the visit, the provider was performing the assessment from a different facility than the patient. This includesuse of bluetooth stethoscope forauscultationperformed by the telepresenter that the telemedicine provider can hear if described in the physical exam. Spark Plug [employer]er contact information: Please call [facility] Call Center . (Phone Number For Physician Use Only) After establishing a telemedicine visit, patient was: Patient was verified with two unique identifiers, Patient/authorized rep acknowledged consent and understanding and Gave permission to continue telehealth session Time Spent with Patient: Initial => 75 min History of Present Illness Reason for Consultation: osteomyelitis Attending Physician: Aj Roberts DO History of Present Illness 78yo F with h/o chronic anemia, spinal meningioma, left Charcot foot, chronic arthritis/pain in left ankle, stroke in 2019, hypothyroidism, diabetes, afib, HTN who presented on 12/02 with left ankle pain. She reported that the left ankle was bothering her the day prior to admission to the point where she couldnt walk, which is worse from her baseline pain. She has a chronic left foot wound that she follows at wound care clinic. Otherwise no chest pain, sob, abdominal pain. On admission, she was febrile, on 2-3L NC. WBC 15.32, Cr 1.17>>2.30. AST/ALT wnl. Trop elevated. PCT 0.68. RPP neg. MRSA screen neg. CXR neg. Ankle XR with soft tissue swelling, osteopenia with severe degenerative changes involving the ankle and hindfoot, typical for Charcot. CT left foot with OM of the calcaneus, erosive changes also seen on cuboid, complex fluid collection deep to wound likely representing an abscess. TTE with AV sclerosis without significant stenosis. She was seen by podiatry and noted to have probe to bone of left foot ulcer and c/f OM. Given Charcot foot, further imaging deferred sin ce it is unhelpful. Arterial u/s with severe PAD. Seen by vascular who did not believe her to be a good candidate for endovascular intervention and BKA was offered, but patient declined. S/p OR on 12/08 for left foot I+D and bone biopsy. She is getting zosyn. On evaluation, patient reports that she feels ok. No pain in her ankle. She says she sustained an injury to her foot months ago but cannot recall how. She denies having any rashes, no n/v or diarrhea. No back pain, joint pain/swelling. Allergies Allergy/AdvReac Type Severity Reaction Status Date / Time animal dander Allergy Intermediate congestion Verified 11/26/23 13:06 pollen extracts Allergy Mild sneezing Verified 11/26/23 13:06 bacitracin Allergy Unknown neosporing-> Verified 11/26/23 13:06 rash latex Allergy Unknown blisters Verified 11/26/23 13:06 skin neomycin Allergy Unknown neosporins Verified 11/26/23 13:06 -> rash polymyxin B Allergy Unknown neosporins Verified 11/26/23 13:06 -> rash sulfabenzamide Allergy Unknown vaginal Verified 11/26/23 13:06 cream-> severe itch and irritation sulfacetamide Allergy Unknown vaginal Verified 11/26/23 13:06 cream-> severe itch and irritation sulfathiazole Allergy Unknown vaginal Verified 11/26/23 13:06 cream-> severe itch and irritation doxycycline AdvReac pt will Verified 11/26/23 13:06 not take due to potential side affects tramadol AdvReac Nausea, Verified 11/26/23 13:06 vomiting Home Medications Medication Instructions Recorded Confirmed Type folic acid 800 mcg tablet 800 mcg PO QAM 03/30/19 12/03/23 History paula (Zingiber officinalis) 550 1,100 mg PO HS 03/30/19 12/03/23 History mg capsule lancets 33 gauge (OneTouch Delica #100 ea 03/30/19 10/20/23 History Lancets) cyanocobalamin (vitamin B-12) 5,000 mcg PO QAM 05/28/20 12/03/23 History 5,000 mcg capsule oxycodone-acetaminophen 5 mg-325 0.5 - 1 tab PO DAILY PRN pain 90 10/09/20 12/03/23 Rx mg tablet days #20 tabs zinc acetate 25 mg (zinc) capsule 25 mg PO QPM 10/15/20 12/03/23 History ascorbic acid (vitamin C) 1,000 mg 1 g PO QPM 11/29/20 12/03/23 History tablet glipizide 5 mg tablet 2.5 mg PO QAM 04/18/21 12/03/23 History metformin 500 mg tablet 500 mg PO BID 04/18/21 12/03/23 History blood sugar diagnostic (OneTouch #100 ea 05/19/21 10/20/23 Rx Verio test strips) losartan 50 mg tablet 50 mg PO QAM #90 tabs 05/19/21 12/03/23 Rx cholecalciferol (vitamin D3) 10 10 mcg PO BID 06/06/21 12/03/23 History mcg (400 unit) tablet (Vitamin D3) levothyroxine 75 mcg tablet 75 mcg PO DAILY 03/20/22 12/03/23 History (Synthroid) aspirin 325 mg tablet 325 mg PO BID #60 tabs 01/21/23 12/03/23 Rx atorvastatin 80 mg tablet 80 mg PO DAILY 12/03/23 12/03/23 History hydrochlorothiazide 50 mg tablet 50 mg PO DAILY 12/03/23 12/03/23 History Patient History Medical History Chronic anemia Baseline hgb 9-10 range per chart review Kidney stones History of meningioma spinal cord SCC (squamous cell carcinoma) Hypertension Hyperlipidemia Atrial fibrillation Tachycardia Pulmonary edema Atrial fibrillation with RVR Ulcer of foot Left foot diabetic ulcer, following with [facility] [place] wound clinic Stroke 04/2020 > residual left sided weakness, uses crutches. follows with PCP currently Pulmonary hypertension per records, pt denies Peripheral neuropathy Hypothyroidism Generalized osteoarthritis Elevated WBC count Surgical History Hx of resection of meningioma History of carpal tunnel release History of tonsillectomy H/O squamous cell carcinoma excision History of back surgery T11/T12 benign tumor removed Hx of oral surgery S/P knee surgery Hx of hand surgery bilateral hands r/t gouty arthritis History of knee replacement R/L Family History Mother Myocardial infarction Hearing loss Heart disease Other No family history of adverse response to anesthesia No family history of bleeding disorder Denies family history of Ovarian cancer Prostate cancer Breast cancer Colorectal cancer Social History Smoking Status: Former smoker Second Hand Exposure: No; Do You Dip or Chew Tobacco: No; Hx Alcohol Use: No Hx Substance Use: No Preferred Language: Peruvian Communication Ability: Effective Turnstile Attendant Required: No Beliefs That Will Affect Care: None marital status: Single Current Living Situation: Alone current occupational status: retired Other Information That Helps Us Care for You: No Feels Safe at Home: Yes Safety Concerns: Feels Safe At This Time Childhood Exposure to Second-Hand Smoke: Yes Dental Care, Regularly: Yes Physical Activity Frequency: 3-4 Times per Week Seatbelt Use: always Sunscreen Use: Yes Assistive Devices: Cane and Crutches Review of System 10-point review of systems reviewed and are negative except for as above. Physical Exam Physical Exam: General: Awake, alert, no acute distress HEENT: NC/AT, EOMI, mmm Neck: supple Lungs: respirations non-labored Heart: nl peripheral perfusion Abdomen: soft, NT/ND Ext: dressing in place, LLE erythema seen over pederson, wound vac over heel Skin: as above Neuro: O x 3 Results & Data Vital Signs (Past 12 Hours) Vital Signs Temp Pulse Pulse Resp BP Pulse Ox O2 Del Method 12/10/23 10:32 36.7 C 77 18 95/69 L 98 Nasal Cannula 12/10/23 08:00 Nasal Cannula 12/10/23 08:00 107 H 12/10/23 07:35 36.8 C 91 H 18 100/70 99 Nasal Cannula 12/10/23 03:23 36.4 C L 106 H 18 128/62 96 Nasal Cannula 12/10/23 02:02 96 Nasal Cannula 12/10/23 02:02 88 L Nasal Cannula O2 Flow Rate 12/10/23 10:32 3 12/10/23 08:00 3 12/10/23 08:00 12/10/23 07:35 3 12/10/23 03:23 3 12/10/23 02:02 4 12/10/23 02:02 2 Laboratory Results Labs reviewed Diagnostic Findings Imaging reviewed
--- NOTE | 2023-12-10 16:03 | Podiatry Progress Note ---
Date of Service December 10, 2023 Assessment & Plan (1) Charcot's joint of foot in type 2 diabetes mellitus: (2) Osteomyelitis of foot, left, acute: (3) Other specified peripheral vascular diseases: (4) Diabetes mellitus type 2, uncontrolled: Plan Patient examined and evaluated -Discussed short and custodial risks/benfits and options for her left foot. Specifically that this specific combination of Charcot deformity and bone infection has a high risk of limb loss. - At this point, the wound is maximized for healing and she should continue with the wound VAC indefinitely, as long as she is attempting limb salvage. - When asked how long this process would take, I did discuss that this wound has a potential of never healing and if it does, it will take many months of dedicated wound care and continued treatment. - I did discuss that the more rapid route to recovery is certainly a higher level amputation - She is currently more alert and oriented 10 she had was earlier this week and would still like to attempt limb salvage overall. - From a foot and ankle perspective, she is stable and she will be and can be discharged whenever she is stabilized per internal medicine. Admission and Anticipated Discharge Date Admission Date: December 03, 2023 Subjective Patient seen at bedside with her local friends. She is doing well and in good spirits after surgery. She recently had her wound VAC placed. She denies any significant new pain post surgically. She also denies any new signs or symptoms of infection. Review of Systems Constitutional: no fever and no chills Eyes: no problem reported Ear, Nose, Mouth, Throat: no problem reported Respiratory: no problem reported Cardiovascular: + edema and + problem reported; no chest pain Gastrointestinal: no problem reported Genitourinary: no problem reported Musculoskeletal: + swelling, + muscle weakness and + musc le atrophy; no joint pain Integumentary: + non-healing lesions and + skin ulcer Neurologic: + generalized weakness and + loss of sen sation Physical Exam Physical Exam: Lower extremity focused exam: DP/PT Pulses nonpalpable. Diffuse edema noted to the left lower extremity. Skin atrophic to b/l LE. No hair growth noted. Distal cooling is noted, though local warmth appreciated to plantar left heel ulceration. Wound probes deep to bone, likely cuboid based on imaging. No kong purulence noted. Ulceration didn't probe 6 cm deep through the calcaneus. The wound bed was able to be converted to 100% granular tissue, though bone and te ndon were also exposed. No deep purulence or abscess formation was identified. Minimal active bleeding and no drain noted. Currently, the wound VAC is intact. Constitutional: WD/WN, vitals as above + ill appearing, + morbidly obese and + behavioral limitations Eyes: PERRL, conjunctivae normal, anicteric sclerae ENMT: Ears: no hearing impairment Nose: no external nose abnormality Mouth: + poor dentition Neck: normal visual inspection Respiratory: normal respiratory effort; no respiratory distress Cardiovascular: Rate/Rhythm: regular rate and regular rhythm Vessels: + posterior tibial pulses abnormal and + dorsalis pedis pulses abnormal Extremities: + edema; no calf tenderness Chest (Breasts): Chest: normal inspection of chest Gastrointestinal (Abdomen): Inspection/Auscultation: abdomen normal to inspection Musculoskeletal: Head/Neck/Chest: normocephalic and head atraumatic Extremities: + limited ROM of extremities and + foot abnormality Skin: no rashes, warm and dry + ulcer, + wound and + skin atrophy Neurologic: plantar reflexes intact bilaterally and moves all extremities; + abnormal sensation to monofilament Psychiatric: Orientation: alert and oriented to person; + uncooperative Apperance: + disheveled Eye Contact: + poor eye contact Mood: + irritable mood Results & Data Results & Data Vital Signs (Past 12 Hours) Vital Signs Temp Pulse Pulse Resp BP Pulse Ox O2 Del Method 12/10/23 15:38 107 H 12/10/23 10:32 36.7 C 77 18 95/69 L 98 Nasal Cannula 12/10/23 08:00 Nasal Cannula 12/10/23 08:00 107 H 12/10/23 07:35 36.8 C 91 H 18 100/70 99 Nasal Cannula O2 Flow Rate 12/10/23 15:38 12/10/23 10:32 3 12/10/23 08:00 3 12/10/23 08:00 12/10/23 07:35 3 (4) Diabetes mellitus type 2, uncontrolled Glycemic state: with hyperglycemia Qualified Code(s): E11.65 - Type 2 diabetes mellitus with hyperglycemia
--- NOTE | 2023-12-10 16:27 | Billing Data ---
Date of Service December 10, 2023 Coding Level of Care Code 48383 SUB INP/OBS CARE
--- NOTE | 2023-12-10 16:28 | Billing Data ---
Date of Service December 10, 2023 Coding Level of Care Code 43384 SUB INP/OBS CARE
[2023-12-10] MEDS: METOPROLOL TARTRATE 25 MG TAB PO SCH (20:40)
[2023-12-11 07:28] LABS: Albumin Globulin Ratio 0.9 (0.9-2); Albumin Level 2.2 gm/dl (3.4-5.0); BUN Creatinine Ratio 21.5 (10-20); Bilirubin,Total 0.2 mg/dl (0.2-1.0); C Reactive Protein 13.93 mg/dl (0-0.5); Est GFR (African American) 20.1 ml/min; Est GFR (Non-African American) 17.3 ml/min; Globulin 2.5 gm/dl (2.5-4.0); Potassium 4.3 mmol/L (3.5-5.1); Total Protein 4.7 gm/dl (6.0-8.3)
--- NOTE | 2023-12-11 07:53 | Hospitalist Progress Note ---
Date of Service December 11, 2023 Assessment & Plan (1) Sepsis: (2) Diabetic foot ulcer: (3) Paroxysmal atrial fibrillation: (4) Osteoarthritis: (5) Hypertension: (6) Left ankle pain: (7) Hypoxia: Plan Pt is a 78 yo female with PMH of chronic anemia, spinal meningioma, afib, left charcot foot, stroke (2019), and hypothyroidism presenting d/t left ankle pain. Medical Decision maker: Patient's nephew (Fernandez Hess; phone number [phone]). He was called a couple days ago and was given update. After discussion of all recommendations from podiatry, risk vs benefits discussed Made aware that patient's infection could be managed/kept at bay with IV antibiotics for a few months, but there was high likelihood that the infection could return in the future. Discussed that definitive therapy would be possible bka due to degree of infection in the bone. Mr. Hess expressed understanding and preferred to discuss IV antibiotics and possible SNF after discharge, and that if this should occur again, they could discuss options again. Sepsis in the setting of chronic left diabetic foot ulcer // Osteomyelitis - pt tachycardic, febrile upon presentation and has leukocytosis of 15.32 - lactate 1.1, procal 0.68 - Suspect wound of left foot may be the source - blood cultures negative - Wound culture: Pseudomonas sensitive to everything - (L) ankle x-ray: soft tissue swelling and osteopenia with degenerative changes typical for charcot foot - (L) foot CT: complex fluid collection deep to the wound likely represents an abscess, changes highly consistent with osteomyelitis. - B/l LE arterial Doppler: left popliteal artery with possible stenosis, possibly occluded portions of the peritoneal artery Would cause delayed healing if any healing at all. - Continue Zosyn - Wound care consulted - Podiatry to perform debridement/I&D/bone biopsy yesterday. - Vascular surgery consulted and determined that patient is not a candidate for vascular intervention/salvage. DEXTER Oliguria - ATN secondary to Sepsis vs AIN secondary to Zosyn - Patient with poor PO intake of both food and water - Creatinine stable at - Nephro consulted: - Recommended switching abx from Zosyn to Cefepime, will defer this until morning to reach out to ID - Lasix 80 mg IV once - Iron studies, renal function am - Continue IVF until PO intake improves - CMP am Anemia - unknown etiology - no Active bleeding - Will transfused 2 units today - Follow H/H post transfusion -iron studies - CBC am Hx of afib - Hx of cardioversion - Not on home medications for this - HR improved today to 80s 90s. Plan to stop Cardizem drip and start Metoprolol tartrate 25mg bid then succinate 50mg if she remains rate controlled with this initial dose. - Eliquis for anticoagulation Hypoxia - pt does not wear oxygen at home; no hx of lung disease; pt denying feeling SOB/chest pain/wheezing - TTE (12/06/23): normal LV systolic function, EF of 55-60%, aortic valve sclerosis without stenosis (no significant change from 2020) - suspect pt may have a component of sleep apnea/nocturnal hypoxia contributing to current hypoxia - Not currently c/o SOB but oxygen need increased to 3-4 lpm by NC last night. Due to extremity swelling while on IVF, ordered CXR to r/o pulm edema, which was negative. - continue to monitor Left ankle pain - suspect secondary to chronic wound and arthritis - percocet from daily to q6h PRN for breakthrough pain - PT/OT eval ordered to ensure pt can walk/function with her current pain control Diabetes - last A1c 6.9% (10/2022); repeat ordered and was 7.2% - hold home metformin, glipizide - will cover with insulin glargine 15u BID, adjust SSI as needed Elevated trop - 16.7 upon admission - no symptoms; no ischemic EKG changes - Troponin peaked at 23.4 and decreased to 20.6 HTN - continue home losartan and HCTZ Diet: carb consistent VTE ppx: Eliquis Admission and Anticipated Discharge Date Admission Date: December 03, 2023 Supervising Physician Co-Signing Physician Notes I personally examined the patient and verified all cuello points of history and exam, discussed case, and agree with decision making with Dr James Jack Not really any meaningful HPI review of systems obtainable from patient. no friends/family yet present at the bedside (expecting nephew to come today) Vitals noted, in general she is awake but seems to be disoriented no distress. Breathing unlabored no accessory muscle use good effort. Skin shows no rashes no pallor or icterus. Neuro without focal deficits. Foot wound appears clean IMPRESSION & PLAN Sepsis in the setting of chronic left foot diabetic ulcer/osteomyelitis, pressure ulcer of left heel stage 3, afib DEXTER, not present upon admission -continue zosyn for now given Pseudomonas (fortunately pansensitive Pseudomonas, but Pseudomonas nonetheless), consult infectious disease for assistance and prolonged antibiotics -DEXTER seems most likely prerenal but with ongoing worsening and third spacing - ?how to maintain forward flow (vs is DEXTER actually intrinsic renal - d/w nephro who will see / appreciate input) -continue to adjust insulins -Delirium/metabolic encephalopathy definitely complicates things given that a lot of her care will require delicate/difficult/nuanced decision making regarding conservative versus more aggressive surgical plans, and the implications of long-term outcomes for both. She does not have a designated POA, her nephew Fernandez Hess is her closest living relative, and therefore her decision maker. - postop debridement, await surgical cultures acute blood loss anemia - likely from wound + required anticoagulation - transfuse DVT proph - anticoagulated otherwise as above Mili Lock was evaluated this morning, she was asleep but responded to stimulus. Nursing refers less active than usual, she denied breakfast this morning. Her hgb today was 6.3. Will transfused 2 units of pRBCs today. Review of Systems Review of Systems: As per HPI Physical Exam Constitutional: + obese; no acute distress as leep Respiratory: normal respiratory effort, lungs clear to auscultation Cardiovascular: RRR, no murmur, no edema Gastrointestinal (Abdomen): normal bowel sounds, soft, nontender, no hepatosplenomegaly Skin: no rashes, warm and dry Edematous extremities Results & Data Results & Data Vital Signs (Past 12 Hours) Vital Signs Temp Pulse Pulse Resp BP Pulse Ox O2 Del Method 12/11/23 07:12 87 12/11/23 02:27 36.7 C 90 18 127/89 100 Oxymask 12/10/23 23:48 99 H 12/10/23 23:11 36.6 C 82 18 110/68 97 Oxymask 12/10/23 20:35 Oxymask 12/10/23 20:05 36.7 C 108 H 18 116/81 98 Oxymask O2 Flow Rate 12/11/23 07:12 12/11/23 02:27 3 12/10/23 23:48 12/10/23 23:11 2 12/10/23 20:35 3 12/10/23 20:05 3 Resident Activity Tracking Resident Involvement: Resident Care Provided Care Provided: Adult Hospital Medicine
[2023-12-11 09:57] LABS: Hematocrit (blood only) 23.4 % (37.0-47.0); Hemoglobin 6.3 g/dl (12.0-16.0); Mean Corpuscular Hemoglobin 23.6 pg (25.0-34.0); Mean Corpuscular Hgb Conc 26.9 g/dL (32.0-36.0); Mean Corpuscular Volume 87.6 fL (80.0-100.0); Mean Platelet Volume 9.6 fL (9.4-12.4); Nucleated RBC # (auto) 0.02 K/uL (0.00-0.12); Nucleated RBC % (auto) 0.1 %; Platelet Count 313 K/uL (130-400); RDW Coefficient of Variation 16.8 % (11.5-14.5); RDW Standard Deviation 53.8 fL (36.4-46.3); Red Blood Count 2.67 M/uL (4.20-5.40); White Blood Count 14.67 K/ul (4.8-10.8)
[2023-12-11 10:01] LABS: Basophils # (auto) 0.08 K/uL (0.00-0.20); Basophils % (auto) 0.5 %; Eosinophils # (auto) 0.43 K/uL (0.00-0.50); Eosinophils % (auto) 2.9 %; Immature Granulocytes # (auto) 0.61 K/uL (0.01-0.20); Immature Granulocytes % (auto) 4.2 %; Lymphocytes # (auto) 1.65 K/uL (1.20-3.40); Lymphocytes % (auto) 11.2 %; Monocytes # (auto) 1.05 K/uL (0.11-0.59); Monocytes % (auto) 7.2 %; Neutrophils # (auto) 10.85 K/uL (1.40-6.50)
[2023-12-11] MEDS ORDERED: SODIUM CHLORIDE 0.9% 250 ML IV PRN ×2 (10:02→10:15)
--- NOTE | 2023-12-11 12:53 | Nephrology Consultation ---
Date of Consultation December 11, 2023 Assessment & Plan (1) Acute kidney injury: (2) Osteomyelitis of foot, left, acute: (3) Hypertension: (4) Anemia: (5) Edema: Plan 78 yo f with baseline decent renal function with mild CKD, admitted to the hospital with left foot nonhealing diabetic ulcer and sepsis. Wound culture grew Pseudomonas and has been on Zosyn pending bone culture. Blood pressure has been relatively stable. On admission creatinine was 1.1 which has slowly wor sened over last more than a week and creatinine has been staying around 2.2-2.6 mg/dl. Urinalysis with proteinuria, hematuria and pyuria with normal urinalysis previously. No renal imaging available. Has been oliguric over last 24 hours and clinically significantly volume overloaded, although there is some component of third spacing with hypoalbuminemia which seems to be new with acute illnesses and during hospitalization. Acute kidney injury could be secondary to ATN with sepsis versus AIN with Zosyn for last 8 days, oliguria as well as some abnormality in urinalysis including pyuria without bacteriuria. -- Recommend switching antibiotic from Zosyn to cefepime -- Give Lasix 80 mg IV x 1 dose and monitor intake and output and use as needed. -- Unclear etiology for acute drop in hemoglobin, recommend repeating the hemoglobin and checking iron study. -- Close monitoring of renal function and electrolyte Thank you for allowing me to participate in your patient's care. It was a plea sure to see Ms. Rothman. History of Present Illness Reason for Consultation: DEXTER, Oliguria, volume overload Attending Physician: Aj Roberts, History of Present Illness Ms. Hayde Rothman is a 78 yo F with PMH of Type 2 DM and chronic foot ulcer admitted with sepsis with diabetic foot ulcer. Nephrology consult was requested for management of acute kidney injury, oliguria and volume overload. Electronic medical records are reviewed in detail during patient's visit. Chronic anemia, spinal meningioma, afib, left charcot foot, stroke (2019), and hypothyroidism presenting d/t left ankle pain. Ms. Rothman presented to ER on 12/03/2023 with left ankle pain and inability to walk due to the pain. She was brought to ER by EMS for further evaluation. Has history of chronic left foot wound, has been following with wound clinic weekly and has home health visit who usually changes her dressing. On admission she was noted to be septic with leukocytosis. She was empirically started on vancomycin and Zosyn as well as IV fluid. Eventually vancomycin was discontinued and she was just continued on Zosyn. Wound culture grew Pseudomonas but she had debridement and bone biopsy on 12/04/2023 which is currently pending. At baseline has recent renal function and with mildly low eGFR, baseline creatinine around 1.1-1.2 mg/dl with prior episode of mild DEXTER. Urinalysis was showing proteinuria, hematuria and pyuria with prior urinalysis was negative for proteinuria. On admission her kidney function was at baseline, creatinine was 1.1 mg/dl. Kidney function slowly started to worsen with creatinine 1.5 on 12/04/2023 and over last few days creatinine has been variable from 2.2-2.6. Clinically she looks quite volume overloaded significantly positive since admission. Her urine output has been dropping over last 2 days. Albumin has been low since admission although prior to admission her albumin has always been normal. No history of liver disease. 2D echo showed EF 55%, no significant LVH or critical valvular abnormality. Past medical history is notable for history of A fib, on Eliquis and BB, chronic anemia, hemoglobin has been staying around 8.5-9 since admission, dropped acutely to 6.3 this morning. History of left Charcot foot. During visit she denied any symptoms, no shortness of breath, fever, chills, skin rash or arthralgia. Blood pressure is relatively low but has been stable.. Has Collado catheter with minimal urine output. Allergies Allergy/AdvReac Type Severity Reaction Status Date / Time animal dander Allergy Intermediate congestion Verified 11/26/23 13:06 pollen extracts Allergy Mild sneezing Verified 11/26/23 13:06 bacitracin Allergy Unknown neosporing-> Verified 11/26/23 13:06 rash latex Allergy Unknown blisters Verified 11/26/23 13:06 skin neomycin Allergy Unknown neosporins Verified 11/26/23 13:06 -> rash polymyxin B Allergy Unknown neosporins Verified 11/26/23 13:06 -> rash sulfabenzamide Allergy Unknown vaginal Verified 11/26/23 13:06 cream-> severe itch and irritation sulfacetamide Allergy Unknown vaginal Verified 11/26/23 13:06 cream-> severe itch and irritation sulfathiazole Allergy Unknown vaginal Verified 11/26/23 13:06 cream-> severe itch and irritation doxycycline AdvReac pt will Verified 11/26/23 13:06 not take due to potential side affects tramadol AdvReac Nausea, Verified 11/26/23 13:06 vomiting Home Medications Medication Instructions Recorded Confirmed Type folic acid 800 mcg tablet 800 mcg PO QAM 03/30/19 12/03/23 History paula (Zingiber officinalis) 550 1,100 mg PO HS 03/30/19 12/03/23 History mg capsule lancets 33 gauge ([facility] #100 ea 03/30/19 10/20/23 History Lancets) cyanocobalamin (vitamin B-12) 5,000 mcg PO QAM 05/28/20 12/03/23 History 5,000 mcg capsule oxycodone-acetaminophen 5 mg-325 0.5 - 1 tab PO DAILY PRN pain 90 10/09/20 12/03/23 Rx mg tablet days #20 tabs zinc acetate 25 mg (zinc) capsule 25 mg PO QPM 10/15/20 12/03/23 History ascorbic acid (vitamin C) 1,000 mg 1 g PO QPM 11/29/20 12/03/23 History tablet glipizide 5 mg tablet 2.5 mg PO QAM 04/18/21 12/03/23 History metformin 500 mg tablet 500 mg PO BID 04/18/21 12/03/23 History blood sugar diagnostic [facility] 05/19/21 10/20/23 Rx Verio test strips) losartan 50 mg tablet 50 mg PO QAM #90 tabs 05/19/21 12/03/23 Rx cholecalciferol (vitamin D3) 10 10 mcg PO BID 06/06/21 12/03/23 History mcg (400 unit) tablet (Vitamin D3) levothyroxine 75 mcg tablet 75 mcg PO DAILY 03/20/22 12/03/23 History (Synthroid) aspirin 325 mg tablet 325 mg PO BID #60 tabs 01/21/23 12/03/23 Rx atorvastatin 80 mg tablet 80 mg PO DAILY 12/03/23 12/03/23 History hydrochlorothiazide 50 mg tablet 50 mg PO DAILY 12/03/23 12/03/23 History Patient History Medical History Chronic anemia Baseline hgb 9-10 range per chart review Kidney stones History of meningioma spinal cord SCC (squamous cell carcinoma) Hypertension Hyperlipidemia Atrial fibrillation Tachycardia Pulmonary edema Atrial fibrillation with RVR Ulcer of foot Left foot diabetic ulcer, following with [facility] wound clinic Stroke 04/2020 > residual left sided weakness, uses crutches. follows with PCP currently Pulmonary hypertension per records, pt denies Peripheral neuropathy Hypothyroidism Generalized osteoarthritis Elevated WBC count Surgical History Hx of resection of meningioma History of carpal tunnel release History of tonsillectomy H/O squamous cell carcinoma excision History of back surgery T11/T12 benign tumor removed Hx of oral surgery S/P knee surgery Hx of hand surgery bilateral hands r/t gouty arthritis History of knee replacement R/L Family History Mother Myocardial infarction Hearing loss Heart disease Other No family history of adverse response to anesthesia No family history of bleeding disorder Denies family history of Ovarian cancer Prostate cancer Breast cancer Colorectal cancer Social History Smoking Status: Former smoker Second Hand Exposure: No; Do You Dip or Chew Tobacco: No; Hx Alcohol Use: No Hx Substance Use: No Preferred Language: Nicaraguan Communication Ability: Effective Classification Case Manager Required: No Beliefs That Will Affect Care: None marital status: Single Current Living Situation: Alone current occupational status: retired Other Information That Helps Us Care for You: No Feels Safe at Home: Yes Safety Concerns: Feels Safe At This Time Childhood Exposure to Second-Hand Smoke: Yes Dental Care, Regularly: Yes Physical Activity Frequency: 3-4 Times per Week Seatbelt Use: always Sunscreen Use: Yes Assistive Devices: Cane and Crutches Review of Systems Review of Systems: Detailed review of system was done and pertinent positives and negatives are mentioned above. Physical Exam Constitutional: WD/WN, vitals as above + ill appearing, + morbidly obese and + edematous; no acute distress Eyes: + anicteric sclerae Respiratory: no respiratory distress Auscultation: + diminished lung sounds Cardiovascular: Rate/Rhythm: + tachycardic and + irregularly irregular Heart Sounds: normal S1 and normal S2 Extremities: + edema Gastrointestinal (Abdomen): Percussion/Palpation: abdomen soft; abdomen nontender Musculoskeletal: Extremities: + foot abnormality Skin: + ulcer Neurologic: no focal motor deficits speech normal Psychiatric: Orientation: alert and oriented x 3 Affect: euthymic affect Results & Data Vital Signs (Past 12 Hours) Vital Signs Temp Pulse Pulse Resp BP Pulse Ox O2 Del Method 12/11/23 11:25 36.6 C 93 H 18 105/69 100 Oxymask 12/11/23 07:51 36.6 C 67 18 122/63 98 Oxymask 12/11/23 07:12 87 12/11/23 02:27 36.7 C 90 18 127/89 100 Oxymask O2 Flow Rate 12/11/23 11:25 3 12/11/23 07:51 3 12/11/23 07:12 12/11/23 02:27 3 PG Care Time/CCT Total # of Minutes Spent Total Time Spent with Patient: Total time spent is greater than 50% in coordination of care (as documented) at patient's floor/unit and/or counseling patient: Coding Level of Care Code 46652 INT INP/OBS CARE 3/75MIN Diagnoses Acute kidney injury N17.9 Osteomyelitis of foot, left, acute M86.172 Hypertension I10 Anemia D64.9 Edema R60.9
[2023-12-11] MEDS: FUROSEMIDE 40 MG/4 ML VIAL IV ONE (13:22)
[2023-12-11 13:29] LABS: Appearance Urine Turbid (Clear); Bacteria Urine Automated None Seen (None Seen); Bilirubin Urine Negative (Negative); Blood Urine 3+ (Negative); Color Urine Yellow; Glucose Urine UA Negative (Negative); Ketones Urine Negative (Negative); Leukocyte Esterase Urine 2+ (Negative); Nitrite Urine Negative (Negative); Protein Urine 2+ (Negative); RBC Urine Automated >20 /hpf (0-2); Specific Gravity Urine 1.021 (1.000-1.030); Urobilinogen Urine Negative (Negative); WBC Urine Automated 21-50 /hpf (0-5)
[2023-12-11 13:45] LABS: Amorphous Sediment Urine Present (None Prsent)
[2023-12-11 13:46] LABS: Cast Urine Automated 0-2 /lpf (0-2)
--- NOTE | 2023-12-11 15:04 | Billing Data ---
Date of Service December 11, 2023 Coding Level of Care Code 41665 SUB INP/OBS CARE
[2023-12-11] MEDS: ALBUMIN 25% 25 GM/100 ML VIAL IV ONE (15:57)
[2023-12-11] MEDS: CEFEPIME 2,000 MG in SYRINGE 0 ML IV ONE (15:57)
[2023-12-12 00:39] LABS: Hematocrit (blood only) 37.6 % (37.0-47.0)
[2023-12-12] MEDS: CEFEPIME 1,000 MG in SYRINGE 0 ML IV SCH (03:06)
[2023-12-12 06:17] LABS: Hematocrit (blood only) 37.3 % (37.0-47.0); Hemoglobin 10.9 g/dl (12.0-16.0); Mean Corpuscular Hemoglobin 25.3 pg (25.0-34.0); Mean Corpuscular Hgb Conc 29.2 g/dL (32.0-36.0); Mean Corpuscular Volume 86.5 fL (80.0-100.0); Mean Platelet Volume 9.1 fL (9.4-12.4); Nucleated RBC # (auto) 0.08 K/uL (0.00-0.12); Nucleated RBC % (auto) 0.4 %; Platelet Count 431 K/uL (130-400); RDW Coefficient of Variation 16.6 % (11.5-14.5); RDW Standard Deviation 53.1 fL (36.4-46.3); Red Blood Count 4.31 M/uL (4.20-5.40); White Blood Count 21.56 K/ul (4.8-10.8)
[2023-12-12 06:39] LABS: Albumin Level 2.7 gm/dl (3.4-5.0); Calcium 8.6 mg/dl (8.6-10.3); Creatinine Clr Calc Pharmacy 17.3 ml/min; Est GFR (African American) 15.3 ml/min; Est GFR (Non-African American) 13.2 ml/min
[2023-12-12 06:42] LABS: Basophils # (auto) 0.16 K/uL (0.00-0.20); Basophils % (auto) 0.7 %; Eosinophils # (auto) 0.65 K/uL (0.00-0.50); Immature Granulocytes # (auto) 1.16 K/uL (0.01-0.20); Immature Granulocytes % (auto) 5.4 %; Lymphocytes # (auto) 1.96 K/uL (1.20-3.40); Lymphocytes % (auto) 9.1 %; Monocytes # (auto) 1.42 K/uL (0.11-0.59); Monocytes % (auto) 6.6 %; Neutrophils # (auto) 16.21 K/uL (1.40-6.50); Neutrophils % (auto) 75.2 %
[2023-12-12 06:48] LABS: Albumin Globulin Ratio 0.8 (0.9-2); Albumin Level 2.7 gm/dl (3.4-5.0); BUN Creatinine Ratio 18.6 (10-20); Bilirubin,Total 0.2 mg/dl (0.2-1.0); Calcium 8.6 mg/dl (8.6-10.3); Creatinine Clr Calc Pharmacy 17.3 ml/min; Est GFR (African American) 15.2 ml/min; Est GFR (Non-African American) 13.1 ml/min; Globulin 3.4 gm/dl (2.5-4.0); Magnesium 1.9 mg/dl (1.7-2.4); Total Protein 6.1 gm/dl (6.0-8.3)
--- NOTE | 2023-12-12 06:58 | Hospitalist Progress Note ---
Date of Service December 12, 2023 Assessment & Plan (1) Sepsis: (2) Diabetic foot ulcer: (3) Paroxysmal atrial fibrillation: (4) Osteoarthritis: (5) Hypertension: (6) Left ankle pain: (7) Hypoxia: Plan Pt is a 78 yo female with PMH of chronic anemia, spinal meningioma, afib, left charcot foot, stroke (2019), and hypothyroidism presenting d/t left ankle pain. Today, with increased WBC count, will add daptomycin to AB regime (cefepime). Steroids per nephro. Sepsis in the setting of chronic left diabetic foot ulcer // Osteomyelitis - pt tachycardic, febrile upon presentation and has leukocytosis of 15.32 - lactate 1.1, procal 0.68 - Suspect wound of left foot may be the source - blood cultures negative - Wound culture: Pseudomonas sensitive to everything - (L) ankle x-ray: soft tissue swelling and osteopenia with degenerative changes typical for charcot foot - (L) foot CT: complex fluid collection deep to the wound likely represents an abscess, changes highly consistent with osteomyelitis. - B/l LE arterial Doppler: left popliteal artery with possible stenosis, possibly occluded portions of the peritoneal artery Would cause delayed healing if any healing at all. - Podiatry perfomed debridement/I&D/bone biopsy 12/08 - Vascular surgery consulted and determined that patient is not a candidate for vascular intervention/salvage. - Continue IV cefepime (changed from zosyn due to renal function), will start IV daptomycin today given bump in WBC count DEXTER Oliguria - ATN secondary to Sepsis vs AIN secondary to Zosyn - Patient with poor PO intake of both food and water - Creatinine worsen 2.56 -> 3.22 - Nephro consulted: - Recommended switching abx from Zosyn to Cefepime, done yesterday - Lasix 80 mg IV once - concern for interstitial nephritis so will do steroids - Continue IVF until PO intake improves Anemia, stable today - unknown etiology - no Active bleeding - Will transfused 2 units today - Follow H/H post transfusion -iron studies - CBC am Hx of afib - Hx of cardioversion - Not on home medications for this - HR improved today to 80s 90s. Plan to stop Cardizem drip and start Metoprolol tartrate 25mg bid then succinate 50mg if she remains rate controlled with this initial dose. - Eliquis for anticoagulation Hypoxia - pt does not wear oxygen at home; no hx of lung disease; pt denying feeling SOB/chest pain/wheezing - TTE (12/06/23): normal LV systolic function, EF of 55-60%, aortic valve sclerosis without stenosis (no significant change from 2020) - suspect pt may have a component of sleep apnea/nocturnal hypoxia contributing to current hypoxia - Not currently c/o SOB but oxygen need increased to 3-4 lpm by NC last night. Due to extremity swelling while on IVF, ordered CXR to r/o pulm edema, which was negative. - continue to monitor Left ankle pain - suspect secondary to chronic wound and arthritis - percocet from daily to q6h PRN for breakthrough pain - PT/OT eval ordered to ensure pt can walk/function with her current pain control Diabetes - last A1c 6.9% (10/2022); repeat ordered and was 7.2% - hold home metformin, glipizide - will cover with insulin glargine 15u BID, adjust SSI as needed Elevated trop - 16.7 upon admission - no symptoms; no ischemic EKG changes - Troponin peaked at 23.4 and decreased to 20.6 HTN - continue home losartan and HCTZ Diet: carb consistent VTE ppx: Eliquis Admission and Anticipated Discharge Date Admission Date: December 03, 2023 Supervising Physician Co-Signing Physician Notes I personally examined the patient and verified all cuello points of history and exam, discussed case, and agree with decision making with Dr Rothman Not really any meaningful HPI review of systems obtainable from patient, but she is more talkative. Denies any chest pain or shortness of breath. Notes that she has pain but does not really clarify itwhenever I ask if it is in her back or joints she endorses yes but does not come up with this spontaneously. She expresses that we are in [place]. No friends/family yet present at the bedside. Vitals noted, in general she is awake but seems to be disoriented no distress. Breathing unlabored no accessory muscle use good effort. Lungs clear without rales rhonchi or wheezes good effort. Skin shows foot ulcer and may be a little bit of erythema and left leg. Neuro without focal deficits. Foot wound appears clean IMPRESSION & PLAN Sepsis in the setting of chronic left foot diabetic ulcer/osteomyelitis, pressure ulcer of left heel stage 3, afib DEXTER, not present upon admission -Given nephrology's reasonable concern that some of the DEXTER might be interstitial nephritis related to the Zosyn, we have changed this to cefepime. With new leukocytosis and a little bit of erythema in her skin of her leg, adding daptomycin to cover for MRSA secondary infection -DEXTER seems most likely prerenal but with ongoing worsening and third spacing - ?how to maintain forward flow (vs is DEXTER actually intrinsic renal - d/w nephro who will see / appreciate input)at the same time given that it is not improved with fluids and then blood, agree with nephrology it could easily be an element of interstitial nephritis as wellantibiotics have been changed, steroids initiated -continue to adjust insulinsespecially in light of steroids -Delirium/metabolic encephalopathy definitely complicates things given that a lot of her care will require delicate/difficult/nuanced decision making regardin g conservative versus more aggressive surgical plans, and the implications of long-term outcomes for both. She does not have a designated POA, her nephew Fernandez Hess is her closest living relative, and therefore her decision maker. (She does have close friendsDan and Winsome have been present daily and know her well, and they are willing to help Fernandez in his thought processes given that they know the patient far better, but legally Fernandez is her closest living relative) - postop debridement, follow surgical cultures acute blood loss anemia - likely from wound + required anticoagulation - transfused DVT proph - anticoagulated otherwise as above Subjective Pt states that today she generally feels fine. Denies chest pain, SOB, nausea, or abdominal pain. No questions or complaints at this time. Review of Systems Review of Systems: As per HPI Physical Exam Physical Exam: General:Alert, no acute distress, HEENT: Normocephalic, moist oral mucosa, Cardio: Regular rate and rhythm, Resp:Lungs clear to auscultation b/l, some wheezing appreciated GI: Soft and nontender, nondistended, bowel sounds active Skin: Warm, pink, dry, some erythema noted on L leg up to mid pederson Results & Data Results & Data Vital Signs (Past 12 Hours) Vital Signs Temp Pulse Pulse Resp BP Pulse Ox O2 Del Method 12/12/23 02:55 36.9 C 18 140/79 100 Oxymask 12/11/23 22:42 36.9 C 92 H 18 96/78 L 95 Oxymask 12/11/23 22:01 90 12/11/23 20:00 Oxymask 12/11/23 19:47 116/78 12/11/23 19:15 37.0 C 90 18 92 Oxymask O2 Flow Rate 12/12/23 02:55 3 12/11/23 22:42 2 12/11/23 22:01 12/11/23 20:00 2 12/11/23 19:47 12/11/23 19:15 3 Resident Activity Tracking Resident Involvement: Resident Care Provided Care Provided: Adult Hospital Medicine
[2023-12-12] MEDS: DEXTROSE 50% 50 ML SYRINGE IV PRN (07:15)
[2023-12-12 08:45] LABS: C Reactive Protein 12.64 mg/dl (0-0.5)
[2023-12-12] MEDS: DAPTOmycin 450 MG in SYRINGE 0 ML IV SCH (11:27)
--- NOTE | 2023-12-12 12:21 | Nephrology Progress Note ---
Date of Service December 12, 2023 Assessment & Plan (1) Acute kidney injury: (2) Osteomyelitis of foot, left, acute: (3) Hypertension: (4) Anemia: (5) Edema: Plan 78 yo f with baseline decent renal function with mild CKD, admitted to the hospital with left foot nonhealing diabetic ulcer and sepsis. Wound culture grew Pseudomonas and has been on Zosyn pending bone culture. Blood pressure has been relatively stable. On admission creatinine was 1.1 which has slowly worsened over last more than a week and creatinine has been staying around 2.2- 2.6 mg/dl. Urinalysis with proteinuria, hematuria and pyuria with normal urinalysis previously. No renal imaging available. Has been oliguric over last 24 hours and clinically significantly volume overloaded, although there is some component of third spacing with hypoalbuminemia which seems to be new with acute illnesses and during hospitalization. Acute kidney injury could be secondary to ATN with sepsis versus AIN with Zosyn for last 8 days, oliguria as well as some abnormality in urinalysis including pyuria without bacteriuria. Progressive worsening of kidney function with oligoanuria for last more than 24 hours and no response to diuretic. --Start on prednisone 60 mg daily, Protonix 40 mg daily -- Continue cefepime -- Give Lasix 120 mg IV x 1 dose and monitor intake and output. Admission and Anticipated Discharge Date Admission Date: December 03, 2023 Mili Lock was seen this morning. She denied any symptoms but overall seems to be doing poorly. P.o. intake minimal. No response to diuretics yesterday, remains oligoanuric for last more than 24 hours. Rapid worsening of kidney function despite switching to cefepime yesterday. Blood pressure remains relatively low. Review of Systems Review of Systems: Detailed review of system was done and pertinent positives and negatives are mentioned above. Physical Exam Constitutional: WD/WN, vitals as above + ill appearing, + morbidly obese and + edematous; no acute distress Eyes: + anicteric sclerae Respiratory: no respiratory distress Auscultation: + diminished lung sounds Cardiovascular: Rate/Rhythm: + tachycardic and + irregularly irregular Heart Sounds: normal S1 and normal S2 Extremities: + edema Gastrointestinal (Abdomen): Percussion/Palpation: abdomen soft; abdomen nontender Musculoskeletal: Extremities: + foot abnormality Skin: + ulcer Neurologic: no focal motor deficits speech normal Psychiatric: Orientation: alert and oriented x 3 Affect: euthymic affect Results & Data Vital Signs (Past 12 Hours) Vital Signs Temp Pulse Pulse Resp BP Pulse Ox O2 Del Method 12/12/23 11:17 36.6 C 73 18 105/76 97 Oxymask 12/12/23 10:25 Nasal Cannula 12/12/23 08:26 108 H 12/12/23 07:39 36.7 C 85 18 121/78 98 Oxymask 12/12/23 02:55 36.9 C 18 140/79 100 Oxymask O2 Flow Rate 12/12/23 11:17 3 12/12/23 10:25 3 12/12/23 08:26 12/12/23 07:39 3 12/12/23 02:55 3 PG Care Time/CCT Total # of Minutes Spent Total Time Spent with Patient: Total time spent is greater than 50% in coordination of care (as documented) at patient's floor/unit and/or counseling patient: Coding Level of Care Code 85938 SUB INP/OBS CARE 2/35MIN Diagnoses Acute kidney injury N17.9 Osteomyelitis of foot, left, acute M86.172 Hypertension I10 Anemia D64.9 Edema R60.9
[2023-12-12] MEDS: PANTOprazole 40 MG TAB PO SCH (13:44)
[2023-12-12] MEDS: methylPREDNISolone 50 MG in SYRINGE 0 ML IV SCH (13:44)
[2023-12-12] MEDS: PANTOprazole 40 MG in SYRINGE DAILY IV SCH (15:17)
[2023-12-12] MEDS: BUMETANIDE 4 MG in SYRINGE 0 ML IV ONE (15:18)
[2023-12-12] MEDS ORDERED: STAT IV Infusion **Titration per Protocol STA (15:32)
[2023-12-12] MEDS: dilTIAZem HCL 125 MG in DEXTROSE 5% 100 ML IV SCH (15:48)
--- NOTE | 2023-12-12 17:03 | Billing Data ---
Date of Service December 12, 2023 Coding Level of Care Code 50833 SUB INP/OBS CARE
[2023-12-12] MEDS: predniSONE 20 MG TAB PO SCH (19:35)
[2023-12-12] MEDS: LANTUS PER UNIT CHARGE SQ SCH (20:19)
--- NOTE | 2023-12-13 07:31 | Hospitalist Progress Note ---
Date of Service December 13, 2023 Assessment & Plan (1) Sepsis: (2) Diabetic foot ulcer: (3) Paroxysmal atrial fibrillation: (4) Osteoarthritis: (5) Hypertension: (6) Left ankle pain: (7) Hypoxia: Plan Pt is a 78 yo female with PMH of chronic anemia, spinal meningioma, afib, left charcot foot, stroke (2019), and hypothyroidism presenting d/t left ankle pain. Sepsis in the setting of chronic left diabetic foot ulcer // Osteomyelitis - pt tachycardic, febrile upon presentation and has leukocytosis of 15.32 - lactate 1.1, procal 0.68 - blood cultures negative - s/p debridement/I&D/bone biopsy 12/08 - Wound culture 12/02: Pseudomonas pansensitive - OR Wound culture 12/08: Cornynebacterium - (L) ankle x-ray: soft tissue swelling and osteopenia with degenerative changes typical for charcot foot - (L) foot CT: complex fluid collection deep to the wound likely represents an abscess, changes highly consistent with osteomyelitis. - B/l LE arterial Doppler: left popliteal artery with possible stenosis, possibly occluded portions of the peritoneal artery - Podiatry consulted aprec recommendations - Vascular surgery consulted and determined that patient is not a candidate for vascular intervention/salvage. - ID consulted, aprec recommendations: currently on IV Cefepime and Daptomycin. *will need IV abx for 6 weeks AIN/DEXTER Oliguria - ATN secondary to Sepsis vs AIN secondary to Zosyn - Patient with poor PO intake of both food and water - Creatinine worsen 3.46 - Nephro consulted: - Recommended switching abx from Zosyn to Cefepime, done yesterday - s/p Lasix 80 mg IV once, Bumex 4 mg once x2 - concern for interstitial nephritis - IV solumedrol - IVF discontinue Anemia, stable today Iron deficiency anemia - unknown etiology, no active bleeding - s/p 2 units of pRBCs - Holding Iron replacement due to current infection - CBC am Hx of afib - Hx of cardioversion - Not on home medications for this - HR improved today to 80s 90s. - Metoprolol tartrate 25mg BID - Eliquis for anticoagulation Hypoxia - pt does not wear oxygen at home; no hx of lung disease; pt denying feeling SOB/chest pain/wheezing - TTE (12/06/23): normal LV systolic function, EF of 55-60%, aortic valve sclerosis without stenosis (no significant change from 2020) - Suspect pt may have a component of sleep apnea/nocturnal hypoxia contributing to current hypoxia - Not currently c/o SOB but oxygen need increased to 3-4 lpm by NC last night. Due to extremity swelling while on IVF, ordered CXR to r/o pulm edema, which was negative. - Continue to monitor Left ankle pain - suspect secondary to chronic wound and arthritis - percocet q6h PRN for breakthrough pain - PT/OT eval ordered to ensure pt can walk/function with her current pain control Diabetes - last A1c 6.9% (10/2022); repeat ordered and was 7.2% - hold home metformin, glipizide - will cover with insulin glargine 15u BID, adjust SSI as needed Elevated trop - 16.7 upon admission, Troponin peaked at 23.4 and decreased to 20.6 - no symptoms; no ischemic EKG changes HTN - continue home losartan and HCTZ Diet: carb consistent VTE ppx: Eliquis Admission and Anticipated Discharge Date Admission Date: December 03, 2023 Supervising Physician Co-Signing Physician Notes Attending Physician Supervision Note: I independently interviewed and examined the patient and verified the cuello history and physical, reviewed labs and image studies and agree with findings and care plan noted above. Easily irritated during conversation this am. afraid about her leg and worried that she may . Exam - laying in bed. anasarca +, tachycardic this am, regular rhythm. clear lung field anterioly. IMPRESSION & PLAN Sepsis in the setting of chronic left foot diabetic ulcer/osteomyelitis, pressure ulcer of left heel stage 3, afib -postop debridement, cx - cornybacterium. -cefepime changed to zosyn for concern of AIN. Dapto added for rise in WBC. -further rise in wbc likely from steroids. DEXTER, not present upon admission -AIN per nephro - started on steroids. creatinine 3.4. -d/c ivf d/t third spacing. acute blood loss anemia - likely from wound + required anticoagulation - s/p transfusion Delirium/metabolic encephalopathy - at baseline mentation. DVT proph - apixaban No designated POA, her nephew Fernandez Hess is her closest living relative, and therefore her decision maker. (Close friendsJefferson and Caity) otherwise as above Subjective Hayde was seen this am, she was found awake in NAD. Denied any pain or complains today. She refer that she got appetite this morning. Still with oliguria. Denied any chest pain, SOB, dizziness, or any other symtoms Review of Systems Review of Systems: All systems reviewed & are unremarkable except as noted in HPI & below Physical Exam Physical Exam: General:Alert, no acute distress, HEENT: Normocephalic, moist oral mucosa, Cardio: Regular rate and rhythm, Resp:Lungs clear to auscultation b/l GI: Soft and nontender, nondistended, bowel sounds active Skin: Warm, pink, dry, some erythema noted on L leg up to mid pederson Results & Data Results & Data Vital Signs (Past 12 Hours) Vital Signs Temp Pulse Resp BP Pulse Ox O2 Del Method O2 Flow Rate 12/13/23 03:10 36.8 C 91 H 20 146/69 H 97 Oxymask 2 12/12/23 22:23 36.8 C 84 20 137/78 94 Oxymask 2 12/12/23 20:00 Nasal Cannula 3 Resident Activity Tracking Resident Involvement: Resident Care Provided Care Provided: Adult Hospital Medicine
[2023-12-13 07:37] LABS: Hematocrit (blood only) 37.9 % (37.0-47.0); Hemoglobin 11.4 g/dl (12.0-16.0); Mean Corpuscular Hemoglobin 25.4 pg (25.0-34.0); Mean Corpuscular Hgb Conc 30.1 g/dL (32.0-36.0); Mean Corpuscular Volume 84.4 fL (80.0-100.0); Mean Platelet Volume 8.9 fL (9.4-12.4); Nucleated RBC # (auto) 0.03 K/uL (0.00-0.12); Nucleated RBC % (auto) 0.1 %; Platelet Count 407 K/uL (130-400); RDW Coefficient of Variation 16.8 % (11.5-14.5); RDW Standard Deviation 51.8 fL (36.4-46.3); Red Blood Count 4.49 M/uL (4.20-5.40); White Blood Count 22.68 K/ul (4.8-10.8)
[2023-12-13 07:59] LABS: Albumin Level 2.7 gm/dl (3.4-5.0); BUN Creatinine Ratio 18.8 (10-20); Calcium 8.5 mg/dl (8.6-10.3); Creatinine Clr Calc Pharmacy 16.3 ml/min; Est GFR (African American) 13.9 ml/min; Magnesium 1.9 mg/dl (1.7-2.4); Phosphorus 6.3 mg/dl (2.5-4.9); Potassium 4.2 mmol/L (3.5-5.1)
[2023-12-13 08:39] LABS: Basophils % (auto) 0.4 %; Eosinophils # (auto) 0.01 K/uL (0.00-0.50); Immature Granulocytes # (auto) 1.32 K/uL (0.01-0.20); Immature Granulocytes % (auto) 5.8 %; Lymphocytes # (auto) 1.72 K/uL (1.20-3.40); Lymphocytes % (auto) 7.6 %; Monocytes # (auto) 0.53 K/uL (0.11-0.59); Monocytes % (auto) 2.3 %; Neutrophils % (auto) 83.9 %
--- NOTE | 2023-12-13 10:02 | Nephrology Progress Note ---
Date of Service December 13, 2023 Assessment & Plan (1) Acute kidney injury: (2) Osteomyelitis of foot, left, acute: (3) Hypertension: (4) Anemia: (5) Edema: Plan 78 yo f with baseline decent renal function with mild CKD, admitted to the hospital with left foot nonhealing diabetic ulcer and sepsis. Wound culture grew Pseudomonas and has been on Zosyn pending bone culture. Blood pressure has been relatively stable. On admission creatinine was 1.1 which has slowly worsened over last more than a week and creatinine has been staying around 2.2- 2.6 mg/dl. Urinalysis with proteinuria, hematuria and pyuria with normal urinalysis previously. No renal imaging available. Has been oliguric over last 24 hours and clinically significantly volume overloaded, although there is some component of third spacing with hypoalbuminemia which seems to be new with acute illnesses and during hospitalization. Acute kidney injury could be secondary to ATN with sepsis versus AIN with Zosyn for last 8 days, oliguria as well as some abnormality in urinalysis including pyuria without bacteriuria. Progressive worsening of kidney function with oligoanuria although slight improvement in urine output noted --Continue on methylprednisone today hopefully will be able to switch to oral prednisone by tomorrow if p.o. intake remains good, Protonix 40 mg daily --Continue cefepime --Discontinue IV fluid, continue to encourage oral intake --Bumex 4 mg IV x 1 dose now Admission and Anticipated Discharge Date Admission Date: December 03, 2023 Mili Lock was seen and evaluated this morning. She she looks much better today compared to last few days, much more awake, alert and answer question appropriately. Did not seem to be in any distress. Reports improvement in appetite and feels thirsty and feels like she will be able to drink. Urine output remains quite low only 150 mL overnight but slight improvement in from prior. Slow progressive worsening of kidney function creatinine up to 3.5. Physical Exam Constitutional: WD/WN, vitals as above + ill appearing, + morbidly obese and + edematous; no acute distress Eyes: + anicteric sclerae Respiratory: no respiratory distress Auscultation: + diminished lung sounds Cardiovascular: Rate/Rhythm: + tachycardic and + irregularly irregular Heart Sounds: normal S1 and normal S2 Extremities: + edema Musculoskeletal: Extremities: + foot abnormality Skin: + ulcer Neurologic: no focal motor deficits Psychiatric: Orientation: alert and oriented x 3 Affect: euthymic affect Results & Data Vital Signs (Past 12 Hours) Vital Signs Temp Pulse Resp BP Pulse Ox O2 Del Method O2 Flow Rate 12/13/23 08:02 36.7 C 81 19 112/60 95 Oxymask 2.0 12/13/23 03:10 36.8 C 91 H 20 146/69 H 97 Oxymask 2 12/12/23 22:23 36.8 C 84 20 137/78 94 Oxymask 2 PG Care Time/CCT Total # of Minutes Spent Total Time Spent with Patient: Total time spent is greater than 50% in coordination of care (as documented) at patient's floor/unit and/or counseling patient: Coding Level of Care Code 28483 SUB INP/OBS CARE 2/35MIN Diagnoses Acute kidney injury N17.9 Osteomyelitis of foot, left, acute M86.172 Hypertension I10 Anemia D64.9 Edema R60.9
[2023-12-13] MEDS: BUMETANIDE 4 MG in SYRINGE 0 ML IV ONE (11:07)
--- NOTE | 2023-12-13 15:30 | Infectious Disease Progress Nt ---
Date of Service December 13, 2023 Assessment & Plan (1) Diabetic foot ulcer: (2) Osteomyelitis of foot, left, acute: (3) Peripheral arterial disease: Plan 78yo F with h/o chronic anemia, spinal meningioma, left Charcot foot, chronic arthritis/pain in left ankle, stroke in 2019, hypothyroidism, diabetes, afib, HTN who presented on 12/02 with acute on chronic left ankle pain. On admission, she was febrile, on 2-3L NC. WBC 15.32, Cr 1.17>>2.30. AST/ALT wnl. Trop elevated. PCT 0.68. RPP neg. MRSA screen neg. CXR neg. Ankle XR with soft tissue swelling, osteopenia with severe degenerative changes involving the ankle and hindfoot, typical for Charcot. CT left foot with OM of the calcaneus, erosive changes also seen on cuboid, complex fluid collection deep to wound likely representing an abscess. TTE with AV sclerosis without significant stenosis. She was seen by podiatry and noted to have probe to bone of left foot ulcer and c/f OM. Given Charcot foot, further imaging deferred since it is unhelpful. Arterial u/s with severe PAD. Seen by vascular who did not believe her to be a good candidate for endovascular intervention and BKA was offered, but patient declined. S/p OR on 12/08 for left foot I+D and bone biopsy. OR cultures are + for corynebacterium thus far. Given severe PAD, treatment will be difficult and will likely need IV abx for the course of 6 weeks. Vanc is stopped due to negative MRSA screen, which is appropriate. Continuing on zosyn. # Left foot OM of calcaneus # Left diabetic foot ulcer # Peripheral arterial disease # DEXTER - Suspicious corynebacterium is contaminant will d/w Microbiology -Patient on Daptomycin and Cefepime, no changes to abx today Suzy Solis MD [facility], Division of Infectious Diseases Admission and Anticipated Discharge Date Admission Date: December 03, 2023 Subjective This patient recommendation is based on a telemedicine consult request which was completed asynchronously through chart review and information provided by the primary physician. The patient was not seen or examined today. The evaluation is consultative in nature and all patient care and treatment decisions can either be accepted or rejected by the patient's primary hospital-based treating physician using their own independent medical judgment for their patient. Time Spent Reviewing Chart: 31+ minutes Results & Data Vital Signs (Past 12 Hours) Vital Signs Temp Pulse Resp BP Pulse Ox O2 Del Method O2 Flow Rate 12/13/23 15:23 36.6 C 84 19 139/91 90 Room Air 12/13/23 11:21 36.4 C L 84 18 138/83 98 Oxymask 2.0 12/13/23 08:02 36.7 C 81 19 112/60 95 Oxymask 2.0 Laboratory Results Short CBC 12/13/23 Range/Units 07:25 WBC 22.68 H (4.8-10.8) K/ul Hgb 11.4 L (12.0-16.0) g/dl Hct 37.9 (37.0-47.0) % Plt Count 407 H (130-400) K/uL BMP 12/13/23 07:25 Sodium 138 Potassium 4.2 Chloride 106 Carbon Dioxide 22 BUN 65 H Creatinine 3.46 H Glucose 111 H Calcium 8.5 L Liver Function 12/13/23 Range/Units 07:25 Albumin 2.7 L (3.4-5.0) gm/dl Medications Administered Current Inpatient Medications Apixaban (Apixaban 5 Mg Tablet) 5 mg PO BID NEFTALY Stop: 01/07/24 20:59 Last Admin: 12/13/23 10:54 Dose: 5 mg Aspirin (Aspirin 325 Mg Ectab) 325 mg PO BID NEFTALY Stop: 01/02/24 08:59 Last Admin: 12/13/23 10:55 Dose: 325 mg Atorvastatin Calcium (Atorvastatin 40 Mg Tab) 80 mg PO HS NEFTALY Stop: 01/02/24 20:59 Last Admin: 12/12/23 20:15 Dose: Not Given Dextrose (Dextrose 50% 50 Ml Syringe) 25 - 50 ml IV UD PRN; Protocol PRN Reason: Hypoglycemia Protocol Stop: 01/02/24 06:01 Last Admin: 12/12/23 11:20 Dose: 25 ml Docusate Sodium (Docusate Sodium 100 Mg Cap) 100 mg PO DAILY NEFTALY Stop: 01/03/24 08:59 Last Admin: 12/13/23 11:37 Dose: 100 mg Glucagon (Glucagon For Inj 1 Mg Vial) 1 mg SQ UD PRN; Protocol PRN Reason: Hypoglycemia Protocol Stop: 01/02/24 06:01 Glucose (Glucose 10 Tab/Tube) 4 - 8 tab PO UD PRN; Protocol PRN Reason: Hypoglycemia Treatment Stop: 01/02/24 06:01 Glucose (Glucose 40% Gel 15 Gm Tube) 15 - 30 gm PO UD PRN; Protocol PRN Reason: Hypoglycemia Protocol Stop: 01/02/24 06:01 Cefepime HCl 1,000 mg/ Syringe 10 mls @ 5 mls/min IV Q12H [facility] Stop: 01/23/24 03:29 Last Admin: 12/13/23 00:18 Dose: 5 mls/min Daptomycin 450 mg/ Syringe 9 mls @ 4.5 mls/min IV Q48H [facility]; Protocol Stop: 12/19/23 11:59 Last Admin: 12/12/23 11:27 Dose: 4.5 mls/min Methylprednisolone 50 mg/ (Syringe) 0.8 mls @ 1.5 mls/min IV Q24H [facility] Stop: 01/11/24 13:29 Last Admin: 12/13/23 14:09 Dose: 1.5 mls/min Pantoprazole Sodium 40 mg/ (Syringe) 10 mls @ 5 mls/min IV DAILY@1100 [facility] Stop: 01/11/24 14:59 Last Admin: 12/13/23 12:13 Dose: 5 mls/min Diltiazem HCl 125 mg/ Dextrose 125 mls @ 5 mls/hr IV .Q24H [facility]; Protocol Stop: 01/11/24 15:44 Last Titration: 12/13/23 13:19 Dose: 5 mg/hr, 5 mls/hr Insulin Aspart (Insulin Aspart Per Unit Charge) 0 units SC ACHS [facility] Stop: 01/02/24 07:29 Last Admin: 12/13/23 13:09 Dose: 4 units Insulin Glargine (Lantus Per Unit Charge) 8 units SQ BID [facility] Stop: 01/11/24 20:59 Last Admin: 12/13/23 11:07 Dose: 8 units Levothyroxine Sodium (Levothyroxine Sodium 75 Mcg Tablet) 75 mcg PO DAILYBB [facility] Stop: 01/02/24 06:29 Last Admin: 12/13/23 00:22 Dose: Not Given Melatonin (Melatonin 3 Mg Tab) 3 mg PO HS PRN PRN Reason: Insomnia Stop: 05/19/24 05:37 Metoprolol Tartrate (Metoprolol Tartrate 25 Mg Tab) 25 mg PO BID NEFTALY Stop: 01/09/24 20:59 Last Admin: 12/13/23 10:55 Dose: 25 mg Miconazole Nitrate (Miconazole Nitrate Powder 85 Gm) 1 appln EXT BID NEFTALY Stop: 01/04/24 08:59 Last Admin: 12/13/23 11:38 Dose: 1 appln Miscellaneous (Carbohydrates For Hypoglycemia ) 15 - 30 gm PO UD PRN PRN Reason: Hypoglycemia Protocol Stop: 01/02/24 06:01 Ondansetron HCl (Ondansetron Inj 2 Mg/Ml 2 Ml Vial) 4 mg IV Q6H PRN PRN Reason: Nausea Stop: 01/02/24 05:37 Last Admin: 12/09/23 18:57 Dose: 4 mg Oxycodone/Acetaminophen (Oxycodone/Acetaminophen 5mg/325mg Tab) 1 tab PO Q6H PRN PRN Reason: pain Stop: 12/17/23 06:23 Last Admin: 12/10/23 13:00 Dose: 1 tab Polyethylene Glycol (Polyethylene (Miralax) 17 Gm Pack) 17 gm PO DAILY NEFTALY Stop: 01/03/24 08:59 Last Admin: 12/13/23 11:37 Dose: 17 gm
[2023-12-13] MEDS ORDERED: PHARMACY GLYCEMIC MGMT CONSULT PRN (18:05)
[2023-12-13] MEDS ORDERED: Nursing to Pharmacy Communication SCH (19:30)
--- NOTE | 2023-12-13 22:29 | Podiatry Progress Note ---
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 Specifically that this specific combination of Charcot deformity and bone infection has a high risk of limb loss. - At this point, the wound is maximized for healing and she should continue with the wound VAC indefinitely, as long as she is attempting limb salvage. - From a foot and ankle perspective, she is stable with the wound vac intact. - Can be discharged whenever she is stabilized per internal medicine, likely to rehab or similar for long-term abx and wound care. Admission and Anticipated Discharge Date Admission Date: December 03, 2023 Subjective Seen at bedside this morning. No new complaints. Tolerating wound vac well w/o pain or worsening infection symptoms. Review of Systems Constitutional: no fever and no chills Eyes: no problem reported Ear, Nose, Mouth, Throat: no problem reported Respiratory: no problem reported Cardiovascular: + edema and + problem reported; no chest pain Gastrointestinal: no problem reported Genitourinary: no problem reported Musculoskeletal: + swelling, + muscle weakness and + musc le atrophy; no joint pain Integumentary: + non-healing lesions and + skin ulcer Neurologic: + generalized weakness and + loss of sen sation Physical Exam Physical Exam: Lower extremity focused exam: DP/PT Pulses nonpalpable. Diffuse edema noted to the left lower extremity. Skin atrophic to b/l LE. No hair growth noted. Distal cooling is noted, though local warmth appreciated to plantar left heel ulceration. Wound probes deep to bone, likely cuboid based on imaging. No kong purulence noted. Ulceration didn't probe 6 cm deep through the calcaneus. The wound bed was able to be converted to 100% granular tissue, though bone and tendon were also exposed. No deep purulence or abscess formation was identified. Minimal active bleeding and no drain noted. Currently, the wound VAC is intact. Constitutional: WD/WN, vitals as above + ill appearing, + morbidly obese and + behavioral limitations Eyes: PERRL, conjunctivae normal, anicteric sclerae ENMT: Ears: no hearing impairment Nose: no external nose abnormality Mouth: + poor dentition Neck: normal visual inspection Respiratory: normal respiratory effort; no respiratory distress Cardiovascular: Rate/Rhythm: regular rate and regular rhythm Vessels: + posterior tibial pulses abnormal and + dorsalis pedis pulses abnormal Extremities: + edema; no calf tenderness Chest (Breasts): Chest: normal inspection of chest Gastrointestinal (Abdomen): Inspection/Auscultation: abdomen normal to inspection Musculoskeletal: Head/Neck/Chest: normocephalic and head atraumatic Extremities: + limited ROM of extremities and + foot abnormality Skin: no rashes, warm and dry + ulcer, + wound and + skin atrophy Neurologic: plantar reflexes intact bilaterally and moves all extremities; + abnormal sensation to monofilament Psychiatric: Orientation: alert and oriented to person; + uncooperative Apperance: + disheveled Eye Contact: + poor eye contact Mood: + irritable mood Results & Data Results & Data Vital Signs (Past 12 Hours) Vital Signs Temp Pulse Resp BP Pulse Ox O2 Del Method O2 Flow Rate 12/13/23 20:15 Oxymask 2 12/13/23 19:29 36.8 C 92 H 18 142/82 H 95 Oxymask 3 12/13/23 15:23 36.6 C 84 19 139/91 90 Room Air 12/13/23 11:21 36.4 C L 84 18 138/83 98 Oxymask 2.0 (4) Diabetes mellitus type 2, uncontrolled Glycemic state: with hyperglycemia Qualified Code(s): E11.65 - Type 2 diabetes mellitus with hyperglycemia
--- NOTE | 2023-12-14 07:08 | Hospitalist Progress Note ---
Date of Service December 14, 2023 Assessment & Plan (1) Sepsis: (2) Diabetic foot ulcer: (3) Paroxysmal atrial fibrillation: (4) Osteoarthritis: (5) Hypertension: (6) Left ankle pain: (7) Hypoxia: Plan Pt is a 78 yo female with PMH of chronic anemia, spinal meningioma, afib, left charcot foot, stroke (2019), and hypothyroidism presenting d/t left ankle pain. Sepsis in the setting of chronic left diabetic foot ulcer // Osteomyelitis - pt tachycardic, febrile upon presentation and leukocytosis - lactate 1.1, procal 0.68 - blood cultures negative - s/p debridement/I&D/bone biopsy 12/08 - Wound culture 12/02: Pseudomonas pansensitive - OR Wound culture 12/08: Cornynebacterium - ID consider this is a contaminant - (L) ankle x-ray: soft tissue swelling and osteopenia with degenerative changes typical for charcot foot - (L) foot CT: complex fluid collection deep to the wound likely represents an abscess, changes highly consistent with osteomyelitis. - B/l LE arterial Doppler: left popliteal artery with possible stenosis, possibly occluded portions of the peritoneal artery - Podiatry consulted aprec recommendations - Vascular surgery consulted and determined that patient is not a candidate for vascular intervention/salvage. - ID consulted, aprec recommendations: currently on IV Cefepime and Daptomycin. *will need IV abx for 6 weeks AIN/DEXTER Oliguria - today urine output 0.11 - ATN secondary to Sepsis vs AIN secondary to Zosyn - Patient with poor PO intake of both food and water - Creatinine worsen 3.82 - Nephro consulted: - Currently on Cefepime - s/p Lasix 80 mg IV once, Bumex 4 mg once x3 - concern for interstitial nephritis - PO prednisone - IVF discontinue Anemia, stable today Iron deficiency anemia - unknown etiology, no active bleeding - s/p 2 units of pRBCs - Holding Iron replacement due to current infection - CBC am Hx of afib - Hx of cardioversion. Current infection possible contributor - Not on home medications for this - HR improved today to 80s 90s. - Metoprolol tartrate 25mg BID - Eliquis for anticoagulation Hypoxia - pt does not wear oxygen at home; no hx of lung disease; pt denying feeling SOB/chest pain/wheezing - TTE (12/06/23): normal LV systolic function, EF of 55-60%, aortic valve sclerosis without stenosis (no significant change from 2020) - Suspect pt may have a component of sleep apnea/nocturnal hypoxia contributing to current hypoxia - Not currently c/o SOB but oxygen need increased to 2 lpm by NC overnight - Continue to monitor Left ankle pain - suspect secondary to chronic wound and arthritis - percocet q6h PRN for breakthrough pain - PT/OT eval ordered to ensure pt can walk/function with her current pain control Diabetes - last A1c 6.9% (10/2022); repeat ordered and was 7.2% - hold home metformin, glipizide - will cover with insulin glargine 15u BID, adjust SSI as needed Elevated trop - 16.7 upon admission, Troponin peaked at 23.4 and decreased to 20.6 - no symptoms; no ischemic EKG changes HTN - continue home losartan and HCTZ Diet: carb consistent VTE ppx: Eliquis On Collado catheter for strict I/Os Admission and Anticipated Discharge Date Admission Date: December 03, 2023 Supervising Physician Co-Signing Physician Notes Attending Physician Supervision Note: I independently interviewed and examined the patient and verified the cuello history and physical, reviewed labs and image studies and agree with findings and care plan noted above. More comfortable in bed. Improvement in edema across the body. RRR, clear lung field anteriorly. IMPRESSION & PLAN Sepsis in the setting of chronic left foot diabetic ulcer/osteomyelitis, pressure ulcer of left heel stage 3, afib -postop debridement - wound vac in place, cx - corynebacterium - ID suspect this is contaminant. -cefepime changed to zosyn for concern of AIN. Dapto was added for rise in WBC - will await final recommendation on abx and duration from ID. -further rise in wbc likely from steroids. DEXTER, not present upon admission -AIN per nephro - switch steroids to oral. -creatinine rise to 3.8. oliguria + -s/p bumex 12/12. bumex 12/13 for third spaced fluid. acute blood loss anemia - likely from wound + required anticoagulation - s/p transfusion Delirium/metabolic encephalopathy - at baseline mentation. DVT proph - apixaban PT/OT - Mostly in bed since admission. hasn't been participating in PT/OT. recommending SNF on discharge. No designated POA, her nephew Fernandez Hess is her closest living relative, and therefore her decision maker. (Close friendsDan and Caity) otherwise as above Subjective Patient seen this morning was asleep. She was asleep. As per nurse patient yesterday had a decent good amount of PO intake. Oliguria still present. Nephew was called today he was updated on current condition. Review of Systems Review of Systems: As per HPI Physical Exam Constitutional: + obese; no acute distress Respiratory: normal respiratory effort, lungs clear to auscultation Cardiovascular: RRR, no murmur, no edema Gastrointestinal (Abdomen): normal bowel sounds, soft, nontender, no hepatosplenomegaly Skin: no rashes, warm and dry Results & Data Results & Data Vital Signs (Past 12 Hours) Vital Signs Temp Pulse Pulse Resp BP Pulse Ox O2 Del Method 12/14/23 02:39 36.8 C 84 20 114/70 98 Oxymask 12/14/23 00:23 78 12/13/23 22:54 36.8 C 18 111/76 96 Oxymask 12/13/23 20:15 Oxymask 12/13/23 19:29 36.8 C 92 H 18 142/82 H 95 Oxymask O2 Flow Rate 12/14/23 02:39 2 12/14/23 00:23 12/13/23 22:54 2 12/13/23 20:15 2 12/13/23 19:29 3 Resident Activity Tracking Resident Involvement: Resident Care Provided Care Provided: Adult Hospital Medicine
[2023-12-14 07:50] LABS: Albumin Globulin Ratio 0.9 (0.9-2); Albumin Level 2.8 gm/dl (3.4-5.0); BUN Creatinine Ratio 19.6 (10-20); Bilirubin,Total 0.2 mg/dl (0.2-1.0); Calcium 8.3 mg/dl (8.6-10.3); Creatinine Clr Calc Pharmacy 14.8 ml/min; Est GFR (African American) 12.4 ml/min; Est GFR (Non-African American) 10.7 ml/min; Globulin 3.2 gm/dl (2.5-4.0); Phosphorus 7.3 mg/dl (2.5-4.9); Potassium 4.4 mmol/L (3.5-5.1)
[2023-12-14 07:58] LABS: Hematocrit (blood only) 39.8 % (37.0-47.0); Hemoglobin 11.5 g/dl (12.0-16.0); Mean Corpuscular Hemoglobin 24.6 pg (25.0-34.0); Mean Corpuscular Hgb Conc 28.9 g/dL (32.0-36.0); Mean Platelet Volume 8.8 fL (9.4-12.4); Nucleated RBC # (auto) 0.03 K/uL (0.00-0.12); Nucleated RBC % (auto) 0.1 %; Platelet Count 443 K/uL (130-400); Red Blood Count 4.68 M/uL (4.20-5.40); White Blood Count 20.35 K/ul (4.8-10.8)
[2023-12-14 07:59] LABS: Basophils # (auto) 0.09 K/uL (0.00-0.20); Basophils % (auto) 0.4 %; Immature Granulocytes # (auto) 1.49 K/uL (0.01-0.20); Immature Granulocytes % (auto) 7.3 %; Lymphocytes # (auto) 1.96 K/uL (1.20-3.40); Lymphocytes % (auto) 9.6 %; Monocytes # (auto) 0.44 K/uL (0.11-0.59); Monocytes % (auto) 2.2 %; Neutrophils # (auto) 16.37 K/uL (1.40-6.50); Neutrophils % (auto) 80.5 %; Polychromasia 1+
--- NOTE | 2023-12-14 08:54 | Pharmacy Report ---
Pharmacy Glycemic Short Note 2 - Date of Service December 14, 2023 - Glycemic Short BSG Results (Last 24 hours): 12/13/23 12/13/23 12/13/23 11:19 16:18 20:00 Glucose POC Glucose 130 H 114 H 113 H 12/14/23 12/14/23 12/14/23 03:03 06:40 07:09 Glucose 139 H POC Glucose 133 H 130 H OUTPATIENT ANTIDIABETIC REGIMEN: * Metformin 500 mg PO BID * Glipizide 2.5 mg PO qAM HbA1c: 7.2% (12/04/23) ASSESSMENT: * DC is a 78 year old female admitted on 12/03/23 w/ sepsis in setting of diabetic left foot infection/osteomyelitis * Pharmacy consulted for glycemic management on evening of 12/13/23. Most recent blood sugars surrounding consult of 97, 130, and 114 mg/dL. Consult likely related to hypoglycemia on 12/11 (64 mg/dL x 2) as well as continuation of IV steroids. * Steroids changed from methylprednisolone 50 mg IV daily to prednisone 60 mg PO daily (first dose at 1330 on 12/14/23) * Receiving IV cefepime/daptomycin per ID * Diltiazem gtt infusing (mixed in dextrose) * Blood sugars well-controlled at this time - will be conservative with changes given history of hypoglycemia this admission PLAN FOR INPATIENT GLYCEMIC CONTROL: * Hold outpatient oral diabetes medications * Basal insulin * Lantus 10 units SC daily * Lantus 0-5-10 units SC HS (see EHR for details) * Bolus insulin * NovoLog per scale ACHS or Q6hrs while NPO * Goal Range: Low 110 mg/dL - High 140 mg/dL * Correction Factor: 20 mg/dL/unit * Nutritional / Prandial insulin per carb ratio of 1 unit per 7 grams CHO consumed * Plan to tighten carb ratio tomorrow if blood sugars elevated with change to prednisone
[2023-12-14] MEDS: ALBUMIN 25% 25 GM/100 ML VIAL IV SCH (09:07)
[2023-12-14] MEDS: LANTUS PER UNIT CHARGE SQ SCH ×2 (09:08→20:53)
--- NOTE | 2023-12-14 10:54 | Nephrology Progress Note ---
Date of Service December 14, 2023 Assessment & Plan (1) Acute kidney injury: (2) Osteomyelitis of foot, left, acute: (3) Hypertension: (4) Anemia: (5) Edema: Plan 78 yo f with baseline decent renal function with mild CKD, admitted to the hospital with left foot nonhealing diabetic ulcer and sepsis. Wound culture grew Pseudomonas and was on Zosyn , Dced and now on Cefepime since 12/11/23. Blood pressure has been relatively stable. On admission creatinine was 1.1 which has slowly worsened. Urinalysis with proteinuria, hematuria and pyuria with normal urinalysis previously. Has been oliguric over last 3 days and clinically significantly volume overloaded, although there is some component of third spacing with hypoalbuminemia which seems to be new with acute illnesses and during hospitalization. Acute kidney injury could be secondary to ATN with sepsis versus AIN with Zosyn for last 8 days, oliguria as well as some abnormality in urinalysis including pyuria without bacteriuria. Progressive worsening of kidney function with oligoanuria although slight improvement in urine output noted. Cr up to 3.8 -- switch to oral prednisone, Protonix 40 mg daily --Continue cefepime --continue to encourage oral intake --Bumex 4 mg IV x 1 dose now --progressive worsening of kidney function with oliguria is concerning Admission and Anticipated Discharge Date Admission Date: December 03, 2023 Mili Lock was seen and evaluated this morning. She was awake, alert, denies SOB. UO slightly improved to around 350 ml/24 h. Progressive worsening of kidney function creatinine up to 3.8. Review of Systems Review of Systems: Detailed review of system was done and pertinent positives and negatives are mentioned above. Physical Exam Constitutional: WD/WN, vitals as above + ill appearing, + morbidly obese and + edematous; no acute distress Eyes: + anicteric sclerae Respiratory: no respiratory distress Auscultation: + diminished lung sounds Cardiovascular: Rate/Rhythm: + irregularly irregular Heart Sounds: normal S1 and normal S2 Extremities: + edema Musculoskeletal: Extremities: + foot abnormality Skin: + ulcer Neurologic: no focal motor deficits Psychiatric: Orientation: alert and oriented x 3 Affect: euthymic affect Results & Data Vital Signs (Past 12 Hours) Vital Signs Temp Pulse Pulse Resp BP Pulse Ox O2 Del Method 12/14/23 07:11 36.7 C 76 20 131/75 98 Oxymask 12/14/23 02:39 36.8 C 84 20 114/70 98 Oxymask 12/14/23 00:23 78 12/13/23 22:54 36.8 C 18 111/76 96 Oxymask O2 Flow Rate 12/14/23 07:11 3.0 12/14/23 02:39 2 12/14/23 00:23 12/13/23 22:54 2 PG Care Time/CCT Total # of Minutes Spent Total Time Spent with Patient: Total time spent is greater than 50% in coordination of care (as documented) at patient's floor/unit and/or counseling patient: Coding Level of Care Code 48663 SUB INP/OBS CARE 2/35MIN Diagnoses Acute kidney injury N17.9 Osteomyelitis of foot, left, acute M86.172 Hypertension I10 Anemia D64.9 Edema R60.9
[2023-12-14] MEDS ORDERED: PHARMACY GLYCEMIC MGMT CONSULT PRN (11:26)
[2023-12-14] MEDS: BUMETANIDE 4 MG in SYRINGE 0 ML IV ONE (11:45)
[2023-12-14] MEDS: predniSONE 20 MG TAB PO SCH (13:55)
[2023-12-15 07:43] LABS: Hematocrit (blood only) 36.6 % (37.0-47.0); Hemoglobin 10.7 g/dl (12.0-16.0); Mean Corpuscular Hemoglobin 24.7 pg (25.0-34.0); Mean Corpuscular Hgb Conc 29.2 g/dL (32.0-36.0); Mean Corpuscular Volume 84.3 fL (80.0-100.0); Nucleated RBC # (auto) 0.06 K/uL (0.00-0.12); Nucleated RBC % (auto) 0.3 %; Platelet Count 407 K/uL (130-400); RDW Coefficient of Variation 17.2 % (11.5-14.5); RDW Standard Deviation 53.1 fL (36.4-46.3); Red Blood Count 4.34 M/uL (4.20-5.40); White Blood Count 20.25 K/ul (4.8-10.8)
[2023-12-15 08:03] LABS: Albumin Level 3.1 gm/dl (3.4-5.0); BUN Creatinine Ratio 20.2 (10-20); Creatinine Clr Calc Pharmacy 12.4 ml/min; Est GFR (Non-African American) 9.5 ml/min; Phosphorus 7.3 mg/dl (2.5-4.9); Potassium 4.4 mmol/L (3.5-5.1)
--- NOTE | 2023-12-15 08:13 | Hospitalist Progress Note ---
Date of Service December 15, 2023 Assessment & Plan (1) Sepsis: (2) Diabetic foot ulcer: (3) Paroxysmal atrial fibrillation: (4) Osteoarthritis: (5) Hypertension: (6) Left ankle pain: (7) Hypoxia: Plan Pt is a 78 yo female with PMH of chronic anemia, spinal meningioma, afib, left charcot foot, stroke (2019), and hypothyroidism presenting d/t left ankle pain. Sepsis in the setting of chronic left diabetic foot ulcer // Osteomyelitis - pt tachycardic, febrile upon presentation and leukocytosis - Leukocytosis of 20.25 this am - might be secondary to steroids - blood cultures negative - s/p debridement/I&D/bone biopsy on 12/08 - VAC on the wound - Wound culture 12/02: Pseudomonas pansensitive - OR Wound culture 12/08: Cornynebacterium - ID consider this is a contaminant - B/l LE arterial Doppler: left popliteal artery with possible stenosis, po ssibly occluded portions of the peritoneal artery - Podiatry consulted aprec recommendations - Vascular surgery consulted and determined that patient is not a candidate for vascular intervention/salvage. - ID consulted, aprec recommendations: currently on IV Cefepime and Daptomycin. Awaiting for final recommendations AIN/DEXTER Oliguria - today urine output 0.15 - ATN secondary to Sepsis vs AIN secondary to Zosyn - Patient with poor PO intake of both food and water - Creatinine worsen today at 4.20 - Nephro consulted: - Bumex drip today, may consider hemodialysis mainly for UF if not response - concern for interstitial nephritis - Currently on PO prednisone - continue PO hydration Anemia, stable today Iron deficiency anemia - unknown etiology, no active bleeding - s/p 2 units of pRBCs - Holding Iron replacement due to current infection - CBC daily Hx of afib - Hx of cardioversion. Current infection possible contributor - Not on home medications for this - HR improved today to 80s - Metoprolol tartrate 25mg BID - Eliquis for anticoagulation Hypoxia - pt does not wear oxygen at home - TTE (12/06/23): normal LV systolic function, EF of 55-60%, aortic valve sclerosis without stenosis (no significant change from 2020) - Suspect pt may have a component of sleep apnea/nocturnal hypoxia contributing to current hypoxia - Not currently c/o SOB but oxygen need increased to 2 lpm by NC overnight - Continue to monitor Diabetes - last A1c 6.9% (10/2022); repeat ordered and was 7.2% - hold home metformin, glipizide - will cover with insulin glargine 20u BID, adjust SSI as needed - Pharmacy following Elevated trop - 16.7 upon admission, Troponin peaked at 23.4 and decreased to 20.6 - no symptoms; no ischemic EKG changes HTN - continue home losartan and HCTZ Diet: carb consistent VTE ppx: Eliquis On Collado catheter for strict I/Os Admission and Anticipated Discharge Date Admission Date: December 03, 2023 Supervising Physician Co-Signing Physician Notes Attending Physician Supervision Note: I independently interviewed and examined the patient and verified the cuello history and physical, reviewed labs and image studies and agree with findings and care plan noted above. Sepsis in the setting of chronic left foot diabetic ulcer/osteomyelitis, pressure ulcer of left heel stage 3, afib -postop debridement - wound vac in place, cx - corynebacterium - ID suspect this is contaminant. -cefepime changed to zosyn for concern of AIN. Dapto was added for rise in WBC - will await final recommendation on abx and duration from ID. -further rise in wbc likely from steroids. DEXTER, not present upon admission Anasarca -AIN per nephro - continue steroids - to stop if renal function further worsens. -creatinine continuing to rise. oliguria + -now on bumex drip. if worsens - plan for Ultrafiltration HD. -renal US ordered. -27L + per I and O but unclear reliability. weight 109 on admission - built in weight -Collado in place -Echo normal EF. -UA 2+ protein, RBC >20, wbc 21-50 (12/10), albumin 3.1 acute blood loss anemia - likely from wound + required anticoagulation - s/p transfusion DVT proph - apixaban PT/OT - Mostly in bed since admission. hasn't been participating in PT/OT. recommending SNF on discharge. No designated POA, her nephew Fernandez Hess is her closest living relative, and therefore her decision maker. (Close friendsDan and Caity) otherwise as above Subjective Patient seen this am. Found awake and talkative. She was eating some food. Dyspnea while speaking. Denied any chest pain, abdominal pain, palpitations, or any other symtoms. Review of Systems Review of Systems: All systems reviewed & are unremarkable except as noted in HPI & below Physical Exam Constitutional: + obese; no acute distress Respiratory: normal respiratory effort, lungs clear to auscultation Cardiovascular: Rate/Rhythm: regular rate and regular rhythm Heart Sounds: no murmur peripheral edema Gastrointestinal (Abdomen): normal bowel sounds, soft, nontender, no hepatosplenomegaly Skin: no rashes, warm and dry Results & Data Results & Data Vital Signs (Past 12 Hours) Vital Signs Temp Pulse Pulse Resp BP Pulse Ox O2 Del Method 12/15/23 07:09 36.4 C L 87 18 119/79 97 Oxymask 12/15/23 03:12 36.8 C 78 18 128/64 96 Oxymask 12/14/23 23:49 77 12/14/23 22:06 36.4 C L 81 18 134/79 91 Oxymask 12/14/23 20:30 Room Air O2 Flow Rate 12/15/23 07:09 2.0 12/15/23 03:12 2 12/14/23 23:49 12/14/23 22:06 2 12/14/23 20:30 Resident Activity Tracking Resident Involvement: Resident Care Provided Care Provided: Adult Hospital Medicine
[2023-12-15 08:15] LABS: Acanthocytes 1+; Basophilic Stippling 1+; Basophils # (auto) 0.06 K/uL (0.00-0.20); Basophils % (auto) 0.3 %; Echinocytes 1+; Immature Granulocytes # (auto) 1.05 K/uL (0.01-0.20); Immature Granulocytes % (auto) 5.2 %; Lymphocytes # (auto) 1.96 K/uL (1.20-3.40); Lymphocytes % (auto) 9.7 %; Monocytes # (auto) 1.08 K/uL (0.11-0.59); Monocytes % (auto) 5.3 %; Neutrophils % (auto) 79.5 %; Ovalocytes 1+; Polychromasia 1+
[2023-12-15] MEDS: LANTUS PER UNIT CHARGE SQ SCH (08:39)
[2023-12-15] MEDS ORDERED: BUMETANIDE 0.5 MG in DEXTROSE 5% 10 ML IV SCH (10:00)
--- NOTE | 2023-12-15 10:02 | Pharmacy Report ---
Pharmacy Glycemic Short Note 2 - Date of Service December 15, 2023 - Glycemic Short BSG Results (Last 24 hours): 12/14/23 12/14/23 12/14/23 11:06 16:22 19:56 Glucose POC Glucose 184 H 174 H 214 H 12/15/23 12/15/23 07:18 07:47 Glucose 164 H POC Glucose 147 H OUTPATIENT ANTIDIABETIC REGIMEN: * Metformin 500 mg PO BID * Glipizide 2.5 mg PO qAM HbA1c: 7.2% (12/04/23) ASSESSMENT: 12/15/23: * Blood sugars trended up throughout the day yesterday * Received 37 units of insulin (20 units of basal and 17 units of prandial/correctional bolus) * Elevation certainly related to increased steroid dose * Will give full dose of yesterday's basal this AM w/ possible scale this evening * Tighten Novolog parameters to combat hyperglycemic effects of prednisone 60 mg PO daily 12/14/23: * DC is a 78 year old female admitted on 12/03/23 w/ sepsis in setting of diabetic left foot infection/osteomyelitis * Pharmacy consulted for glycemic management on evening of 12/13/23. Most recent blood sugars surrounding consult of 97, 130, and 114 mg/dL. Consult likely related to hypoglycemia on 12/11 (64 mg/dL x 2) as well as continuation of IV steroids. * Steroids changed from methylprednisolone 50 mg IV daily to prednisone 60 mg PO daily (first dose at 1330 on 12/14/23) * Receiving IV cefepime/daptomycin per ID * Diltiazem gtt infusing (mixed in dextrose) * Blood sugars well-controlled at this time - will be conservative with changes given history of hypoglycemia this admission PLAN FOR INPATIENT GLYCEMIC CONTROL: * Hold outpatient oral diabetes medications * Basal insulin * Lantus 20 units SC daily * Lantus 0-5-10 units SC HS (see EHR for details) * Bolus insulin * NovoLog per scale ACHS or Q6hrs while NPO * Goal Range: Low 110 mg/dL - High 140 mg/dL * Correction Factor: 15 mg/dL/unit * Nutritional / Prandial insulin per carb ratio of 1 unit per 5 grams CHO consumed
--- NOTE | 2023-12-15 10:21 | Nephrology Progress Note ---
Date of Service December 15, 2023 Assessment & Plan (1) Acute kidney injury: (2) Osteomyelitis of foot, left, acute: (3) Hypertension: (4) Anemia: (5) Edema: (6) Oliguria: Plan 78 yo f with baseline decent renal function with mild CKD, admitted to the hospital with left foot nonhealing diabetic ulcer and sepsis. Wound culture grew Pseudomonas and was on Zosyn , Dced and now on Cefepime since 12/11/23. Blood pressure has been relatively stable. On admission creatinine was 1.1 which has slowly worsened. Urinalysis with proteinuria, hematuria and pyuria with normal urinalysis previously. Has been oliguric over last 3 days and clinically significantly volume overloaded, although there is some component of third spacing with hypoalbuminemia which seems to be new with acute illnesses and during hospitalization. Acute kidney injury could be secondary to ATN with sepsis versus AIN with Zosyn, oliguria as well as some abnormality in urinalysis including pyuria without bacteriuria. Started on Prednisone on 12/12/23. Progressive worsening of kidney function with oligoanuria and Cr up to 4.2. --continue on prednisone, Protonix 40 mg daily, if progressive worsening of cr, will stop soon --Continue cefepime --continue to encourage oral intake --start on Bumex drip, if no response, will consider hemodialysis mainly for UF. Spoke with Liang Navarrete over telephone ) who is in agreement. Admission and Anticipated Discharge Date Admission Date: December 03, 2023 Mili Lock was seen and evaluated this morning. She was awake, alert, has conversational dyspnea. UO slightly improved to around 400 ml/24 h. Progressive worsening of kidney function creatinine up to 4.2. Remain significantly volume overloaded. Review of Systems Review of Systems: Detailed review of system was done and pertinent positives and negatives are m entioned above. Physical Exam Constitutional: WD/WN, vitals as above + ill appearing, + morbidly obese and + edematous; no acute distress Eyes: + anicteric sclerae Respiratory: no respiratory distress Auscultation: + diminished lung sounds Cardiovascular: Rate/Rhythm: + irregularly irregular Heart Sounds: normal S1 and normal S2 Extremities: + edema Musculoskeletal: Extremities: + foot abnormality Skin: + ulcer Neurologic: no focal motor deficits Psychiatric: Orientation: alert and oriented x 3 Affect: euthymic affect Results & Data Vital Signs (Past 12 Hours) Vital Signs Temp Pulse Pulse Resp BP Pulse Ox O2 Del Method 12/15/23 08:00 Oxymask 12/15/23 07:09 36.4 C L 87 18 119/79 97 Oxymask 12/15/23 03:12 36.8 C 78 18 128/64 96 Oxymask 12/14/23 23:49 77 O2 Flow Rate 12/15/23 08:00 2 12/15/23 07:09 2.0 12/15/23 03:12 2 12/14/23 23:49 PG Care Time/CCT Total # of Minutes Spent Total Time Spent with Patient: Total time spent is greater than 50% in coordination of care (as documented) at patient's floor/unit and/or counseling patient: Coding Level of Care Code 98386 SUB INP/OBS CARE 3/50MIN Diagnoses Acute kidney injury N17.9 Osteomyelitis of foot, left, acute M86.172 Hypertension I10 Anemia D64.9 Edema R60.9 Oliguria R34
[2023-12-15] MEDS: IRON SUCROSE 200 MG in 0.9 % SODIUM CHLORIDE 100 ML IV SCH (11:41)
[2023-12-15] MEDS: BUMETANIDE 10 MG in DEXTROSE 5% 10 ML IV SCH (11:41)
--- NOTE | 2023-12-15 14:08 | Ultrasound Report ---
ULTRASOUND KIDNEYS AND BLADDER CLINICAL HISTORY: Acute renal insufficiency. COMPARISON STUDY: Abdominal CT dated 10/04/2017. TECHNIQUE: Real-time, grayscale, and color flow sonography of the kidneys and bladder is performed. I mages are reviewed in the transverse and longitudinal planes. FINDINGS: Kidneys: The kidneys demonstrate cortical atrophy. Echotexture is normal. The right kidney measures 9 .7 x 5.2 x 5.1 cm and the left kidney measures 12.4 x 5.5 x 6.5 cm. There is no hydronephrosis. A 5 mm nonobstructing calculus is seen on the left. A 5.5 cm exophytic cyst arises from the left kidney. There is no sonographic evidence of contour deforming renal mass lesion. No perinephric fluid is iden tified. Bladder: The bladder is decompressed around a Collado catheter and could not be assessed. IMPRESSION: 1. The kidneys demonstrate cortical atrophy and are without hydronephrosis. 2. Left-sided nephrolithiasis. 3. The bladder is decompressed around a Collado catheter and could not be assessed. ACT 112: Negative or not required by law. Electronically signed by: Bennie Andrea M.D. 12/15/2023 2:07 PM
[2023-12-15] MEDS: METOPROLOL SUCC 25MG EXT REL TAB PO SCH (20:45)
[2023-12-16 06:34] LABS: Hematocrit (blood only) 37.2 % (37.0-47.0); Mean Corpuscular Hemoglobin 24.9 pg (25.0-34.0); Mean Corpuscular Hgb Conc 29.6 g/dL (32.0-36.0); Mean Corpuscular Volume 84.4 fL (80.0-100.0); Mean Platelet Volume 9.2 fL (9.4-12.4); Nucleated RBC # (auto) 0.12 K/uL (0.00-0.12); Nucleated RBC % (auto) 0.5 %; Platelet Count 363 K/uL (130-400); RDW Coefficient of Variation 17.2 % (11.5-14.5); RDW Standard Deviation 53.1 fL (36.4-46.3); Red Blood Count 4.41 M/uL (4.20-5.40); White Blood Count 25.12 K/ul (4.8-10.8)
[2023-12-16 07:20] LABS: Albumin Level 3.3 gm/dl (3.4-5.0); BUN Creatinine Ratio 21.5 (10-20); Calcium 8.3 mg/dl (8.6-10.3); Est GFR (African American) 10.6 ml/min; Est GFR (Non-African American) 9.2 ml/min; Phosphorus 7.6 mg/dl (2.5-4.9); Potassium 4.3 mmol/L (3.5-5.1)
[2023-12-16 07:32] LABS: Basophils % (auto) 0.4 %; Eosinophils # (auto) 0.02 K/uL (0.00-0.50); Eosinophils % (auto) 0.1 %; Immature Granulocytes # (auto) 1.65 K/uL (0.01-0.20); Immature Granulocytes % (auto) 6.6 %; Lymphocytes # (auto) 2.14 K/uL (1.20-3.40); Lymphocytes % (auto) 8.5 %; Monocytes # (auto) 1.48 K/uL (0.11-0.59); Monocytes % (auto) 5.9 %; Neutrophils # (auto) 19.73 K/uL (1.40-6.50); Neutrophils % (auto) 78.5 %
--- NOTE | 2023-12-16 08:01 | Infectious Disease Progress Nt ---
Date of Service December 16, 2023 Assessment & Plan (1) Diabetic foot ulcer: (2) Osteomyelitis of foot, left, acute: (3) Peripheral arterial disease: Plan 78yo F with h/o chronic anemia, spinal meningioma, left Charcot foot, chronic arthritis/pain in left ankle, stroke in 2019, hypothyroidism, diabetes, afib, HTN who presented on 12/02 with acute on chronic left ankle pain. On admission, she was febrile, on 2-3L NC. WBC 15.32, Cr 1.17>>2.30. AST/ALT wnl. Trop elevated. PCT 0.68. RPP neg. MRSA screen neg. CXR neg. Ankle XR with soft tissue swelling, osteopenia with severe degenerative changes involving the ankle and hindfoot, typical for Charcot. CT left foot with OM of the calcaneus, erosive changes also seen on cuboid, complex fluid collection deep to wound likely representing an abscess. TTE with AV sclerosis without significant stenosis. She was seen by podiatry and noted to have probe to bone of left foot ulcer and c/f OM. Given Charcot foot, further imaging deferred since it is unhelpful. Arterial u/s with severe PAD. Seen by vascular who did not believe her to be a good candidate for endovascular intervention and BKA was offered, but patient declined. S/p OR on 12/08 for left foot I+D and bone biopsy. OR cultures are + for corynebacterium thus far. Given severe PAD, treatment will be difficult and will likely need IV abx for the course of 6 weeks. Vanc is stopped due to negative MRSA screen, which is appropriate. Continuing on zosyn. # Left foot OM of calcaneus # Left diabetic foot ulcer # Peripheral arterial disease # DEXTER - Suspicious corynebacterium is contaminant will d/w Microbiology -Patient on Daptomycin and Cefepime, no changes to abx today Suzy Solis MD [facility], Division of Infectious Diseases Admission and Anticipated Discharge Date Admission Date: December 03, 2023 Subjective This patient recommendation is based on a telemedicine consult request which was completed asynchronously through chart review and information provided by the primary physician. The patient was not seen or examined today. The evaluation is consultative in nature and all patient care and treatment decisions can either be accepted or rejected by the patient's primary hospital-based treating physician using their own independent medical judgment for their patient. Time Spent Reviewing Chart: 21 - 30 minutes Results & Data Vital Signs (Past 12 Hours) Vital Signs Temp Pulse Pulse Pulse Resp BP Pulse Ox 12/16/23 07:16 12/16/23 07:16 36.6 C 131 H 20 126/87 98 12/16/23 03:20 76 12/16/23 02:34 36.2 C L 101 H 22 141/81 H 98 12/15/23 23:35 85 12/15/23 23:24 121 H 12/15/23 23:00 36.4 C L 117 H 22 107/75 99 12/15/23 20:20 Pulse Ox O2 Del Method O2 Del Method O2 Flow Rate O2 Flow Rate 12/16/23 07:16 Oxymask 3 12/16/23 07:16 Oxymask 12/16/23 03:20 99 Oxymask 2 12/16/23 02:34 Oxymask 2 12/15/23 23:35 97 Oxymask 2 12/15/23 23:24 12/15/23 23:00 Oxymask 2 12/15/23 20:20 Oxymask 2
--- NOTE | 2023-12-16 08:03 | Infectious Disease Progress Nt ---
Date of Service December 16, 2023 Assessment & Plan (1) Diabetic foot ulcer: (2) Osteomyelitis of foot, left, acute: (3) Peripheral arterial disease: Plan 78yo F with h/o chronic anemia, spinal meningioma, left Charcot foot, chronic arthritis/pain in left ankle, stroke in 2019, hypothyroidism, diabetes, afib, HTN who presented on 12/02 with acute on chronic left ankle pain. On admission, she was febrile, on 2-3L NC. WBC 15.32, Cr 1.17>>2.30. AST/ALT wnl. Trop elevated. PCT 0.68. RPP neg. MRSA screen neg. CXR neg. Ankle XR with soft tissue swelling, osteopenia with severe degenerative changes involving the ankle and hindfoot, typical for Charcot. CT left foot with OM of the calcaneus, erosive changes also seen on cuboid, complex fluid collection deep to wound likely representing an abscess. TTE with AV sclerosis without significant stenosis. She was seen by podiatry and noted to have probe to bone of left foot ulcer and c/f OM. Given Charcot foot, further imaging deferred since it is unhelpful. Arterial u/s with severe PAD. Seen by vascular who did not believe her to be a good candidate for endovascular intervention and BKA was offered, but patient declined. S/p OR on 12/08 for left foot I+D and bone biopsy. OR cultures are + for corynebacterium thus far. Given severe PAD, treatment will be difficult and will likely need IV abx for the course of 6 weeks. Vanc is stopped due to negative MRSA screen, which is appropriate. Continuing on zosyn. Discussion with podiatry post debridement cx few coryne which is likely contaminant and they believe all infected bone has been removed. At this time will only treat for deep seated SSTI and c/w Zosyn for now. Given calcaneal location overall poor blood flow, 4 weeks may be best duration of therapy from time of debridment Unclear cause of increasing WBCs may be d/t overall worsening DEXTER +steroids # Left foot OM of calcaneus # Left diabetic foot ulcer # Peripheral arterial disease # DEXTER # Worsening leukocytosis Rec: Check blood cultures If diarrhea (patient denies) would check cdiff If WBC cont to increase may need to fisher CT ID will follow Suzy Solis MD Infectious Diseases Admission and Anticipated Discharge Date Admission Date: December 03, 2023 Subjective Subsequent visit was provided via telemedicine using two-way real-time interactive telecommunication between the patient and the telemedicine provider. For the duration of the visit, the provider was performing the assessment from a different facility than the patient. This includesuse of bluetooth stethoscope forauscultationperformed by the telepresenter that the telemedicine provider can hear if described in the physical exam. Cloth Sander contact information: Please call [facility] . (Phone Number For Physician Use Only) After establishing a telemedicine visit, patient was: Patient was verified with two unique identifiers, Patient/authorized rep acknowledged consent and understanding and Gave permission to continue telehealth session Time Spent with Patient: Subsequent => 35 min Pain everywhere on 2L mask Review of System Abdomen firm, L foot with wound vac R foot no open draining or erythema Urine dark red Results & Data Vital Signs (Past 12 Hours) Vital Signs Temp Pulse Pulse Pulse Resp BP Pulse Ox 12/16/23 07:16 12/16/23 07:16 36.6 C 131 H 20 126/87 98 12/16/23 03:20 76 12/16/23 02:34 36.2 C L 101 H 22 141/81 H 98 12/15/23 23:35 85 12/15/23 23:24 121 H 12/15/23 23:00 36.4 C L 117 H 22 107/75 99 12/15/23 20:20 Pulse Ox O2 Del Method O2 Del Method O2 Flow Rate O2 Flow Rate 12/16/23 07:16 Oxymask 3 12/16/23 07:16 Oxymask 12/16/23 03:20 99 Oxymask 2 12/16/23 02:34 Oxymask 2 12/15/23 23:35 97 Oxymask 2 12/15/23 23:24 12/15/23 23:00 Oxymask 2 12/15/23 20:20 Oxymask 2
[2023-12-16] MEDS: METOPROLOL SUCC 50MG EXT REL TAB PO SCH (08:27)
[2023-12-16] MEDS: LANTUS PER UNIT CHARGE SQ SCH (08:33)
[2023-12-16] MEDS ORDERED: STAT IV Infusion **Titration per Protocol STA (09:32)
[2023-12-16] MEDS: dilTIAZem HCL 125 MG in DEXTROSE 5% 100 ML IV SCH (10:00)
--- NOTE | 2023-12-16 13:22 | Hospitalist Progress Note ---
Date of Service December 16, 2023 Assessment & Plan (1) Sepsis: (2) Diabetic foot ulcer: (3) Paroxysmal atrial fibrillation: (4) Osteoarthritis: (5) Hypertension: (6) Left ankle pain: (7) Hypoxia: Plan Pt is a 78 yo female with PMH of chronic anemia, spinal meningioma, afib, left charcot foot, stroke (2019), and hypothyroidism presenting d/t left ankle pain. AIN/DEXTER Oliguria - today urine output 0.38 - ATN secondary to Sepsis vs AIN secondary to Zosyn - Patient with poor PO intake of both food and water - Creatinine worsen today at 4.3 - Nephro consulted: - Continue Bumex drip today - proceed with HD tomorrow - concern for interstitial nephritis - Currently on PO prednisone - continue PO hydration - Vascular surgery consulted for tunneled dialysis catheter tomorrow - NPO at midnight Sepsis in the setting of chronic left diabetic foot ulcer- resolved Osteomyelitis - Leukocytosis- might be secondary to steroids - blood cultures negative - s/p debridement/I&D/bone biopsy on 12/08 - VAC on the wound - Wound culture 12/02: Pseudomonas pansensitive - OR Wound culture 12/08: Cornynebacterium - ID consider this is a contaminant - B/l LE arterial Doppler: left popliteal artery with possible stenosis, p ossibly occluded portions of the peritoneal artery - Podiatry consulted aprec recommendations - Vascular surgery consulted and determined that patient is not a candidate for vascular intervention/salvage. - ID consulted, aprec recommendations: currently on IV Cefepime. Awaiting for final recommendations Hx of afib - Hx of cardioversion. Current infection possible contributor - HR on 140s today - Not on home medications for this - Metoprolol tartrate 50 mg BID - Cardizem drip today - Eliquis for anticoagulation Anemia, stable today Iron deficiency anemia - unknown etiology, no active bleeding - s/p 2 units of pRBCs - Holding Iron replacement due to current infection - CBC daily Hypoxia - pt does not wear oxygen at home - TTE (12/06/23): normal LV systolic function, EF of 55-60%, aortic valve sclerosis without stenosis (no significant change from 2020) - Suspect pt may have a component of sleep apnea/nocturnal hypoxia contributing to current hypoxia - Not currently c/o SOB but oxygen need increased to 2 lpm by NC overnight - Continue to monitor Diabetes - last A1c 6.9% (10/2022); repeat ordered and was 7.2% - hold home metformin, glipizide - will cover with insulin glargine 20u BID, adjust SSI as needed - Pharmacy following Elevated trop - 16.7 upon admission, Troponin peaked at 23.4 and decreased to 20.6 - no symptoms; no ischemic EKG changes HTN - continue home losartan and HCTZ Diet: carb consistent VTE ppx: Eliquis On Collado catheter for strict I/Os Admission and Anticipated Discharge Date Admission Date: December 03, 2023 Supervising Physician Co-Signing Physician Notes Attending Physician Supervision Note: I independently interviewed and examined the patient and verified the cuello history and physical, reviewed labs and image studies and agree with findings and care plan noted above. More lethargic this am but responsive. family at bedside. Sepsis in the setting of chronic left foot diabetic ulcer/osteomyelitis, pressure ulcer of left heel stage 3, afib -postop debridement - wound vac in place, cx - corynebacterium - ID suspect this is contaminant. -cefepime changed to zosyn for concern of AIN. Dapto was added for rise in WBC - will await final recommendation on abx and duration from ID. -further rise in wbc likely from steroids. DEXTER, not present upon admission Anasarca -AIN per nephro - continue steroids - to stop if renal function further worsens. -creatinine continuing to rise. oliguria + -On bumex drip. plan for Ultrafiltration HD - vascular consulted for cath placement. -27L + per I and O but unclear reliability. weight 109 on admission - built in weight -Collado in place - 900 ml in last 24hrs. -Echo normal EF. -UA 2+ protein, RBC >20, wbc 21-50 (12/10), albumin 3.1 A fib with RVR - Known PAF. metoprolol dose increased to 50mgs bid with no improvement -resumed cardizem drip. -follow Hypoxia - Likely from fluid overload. -continue O2 support. DVT proph - apixaban PT/OT - Mostly in bed since admission. hasn't been participating in PT/OT. recommending SNF on discharge. No designated POA, her nephew Fernandez Hess is her closest living relative, and therefore her decision maker. (Close friendsDan and Caity) Patient is continuing to want aggressive treatment and same is listed on her living will. Nephew at bedside aware of the poor prognosis in the current setting. otherwise as above Subjective Patient was seen this morning, she was found more lethargic but responsive to questions. Nephew was at bedside. Poor po intake. Her creatine continue to increased. UA is slightly more improved. Patient would want to continue with the hemodialysis Review of Systems Review of Systems: All systems reviewed & are unremarkable except as noted in HPI & below Physical Exam Constitutional: WD/WN, vitals as above Respiratory: normal respiratory effort, lungs clear to auscultation Cardiovascular: Rate/Rhythm: + irregularly irregular Heart Sounds: no murmur Extremities: + edema Gastrointestinal (Abdomen): normal bowel sounds, soft, nontender, no hepatosplenomegaly Skin: + ulcer Results & Data Results & Data Vital Signs (Past 12 Hours) Vital Signs Temp Pulse Pulse Pulse Resp BP Pulse Ox 12/16/23 07:16 36.6 C 131 H 20 126/87 98 12/16/23 03:20 76 12/16/23 02:34 36.2 C L 101 H 22 141/81 H 98 12/15/23 23:35 85 12/15/23 23:24 121 H 12/15/23 23:00 36.4 C L 117 H 22 107/75 99 12/15/23 20:20 12/15/23 19:35 36.4 C L 115 H 20 132/83 94 Pulse Ox O2 Del Method O2 Del Method O2 Flow Rate O2 Flow Rate 12/16/23 07:16 Oxymask 12/16/23 03:20 99 Oxymask 2 12/16/23 02:34 Oxymask 2 12/15/23 23:35 97 Oxymask 2 12/15/23 23:24 12/15/23 23:00 Oxymask 2 12/15/23 20:20 Oxymask 2 12/15/23 19:35 Oxymask 2 Resident Activity Tracking Resident Involvement: Resident Care Provided Care Provided: Adult Hospital Medicine
--- NOTE | 2023-12-16 14:06 | Nephrology Progress Note ---
Date of Service December 16, 2023 Assessment & Plan (1) Acute kidney injury: (2) Osteomyelitis of foot, left, acute: (3) Hypertension: (4) Anemia: (5) Edema: (6) Oliguria: Plan 78 yo f with baseline decent renal function with mild CKD, admitted to the hospital with left foot nonhealing diabetic ulcer and sepsis. Wound culture grew Pseudomonas and was on Zosyn , Dced and now on Cefepime since 12/11/23. Blood pressure has been relatively stable. On admission creatinine was 1.1 which has slowly worsened. Urinalysis with proteinuria, hematuria and pyuria with normal urinalysis previously. Has been oliguric over last 3 days and clinically significantly volume overloaded, although there is some component of third spacing with hypoalbuminemia which seems to be new with acute illnesses and during hospitalization. Acute kidney injury could be secondary to ATN with sepsis versus AIN with Zosyn, oliguria as well as some abnormality in urinalysis including pyuria without bacteriuria. Started on Prednisone on 12/12/23. Progressive worsening of kidney function, Cr up to 4.3, urine output slightly improved to 900 mL over last 24 hours on Bumex drip. However, she remained significantly volume overloaded. --Had detailed discussion with Hayde and her nephew today, she remained clear about wanting to have everything done including dialysis. Considering significant volume overload and no improvement in kidney function, best option would be to consider dialysis to improve volume status and then monitor for recovery of kidney function. Will consult vascular surgery for tunneled dialysis catheter tomorrow and then first dialysis after the placement of the catheter unless there is significant improvement in urine output and kidney function in next 24 hours. --continue on prednisone, Protonix 40 mg daily, will consider stopping prednisone tomorrow if no improvement in kidney function and plan to start on dialysis. --continue to encourage oral intake --Continue on Bumex drip, if no response, will consider hemodialysis mainly for UF. Spoke with Liang Navarrete over telephone ) on 12/15/2023 who is in agreement. Also had long discussion with her nephew Pillo today. Admission and Anticipated Discharge Date Admission Date: December 03, 2023 Mili Wills was seen this morning with her nephew at bedside. She was quite lethargic but easily woke up and answered questions mainly with yes or no. Progressive worsening of kidney function although electrolyte somewhat acceptable. Urine output slightly improved on IV Bumex drip, around 900 mL over last 24 hours although remains significantly volume overloaded.. Review of Systems Review of Systems: Detailed review of system was done and pertinent positives and negatives are mentioned above. Physical Exam Constitutional: WD/WN, vitals as above + ill appearing, + morbidly obese and + edematous; no acute distress Eyes: + anicteric sclerae Respiratory: no respiratory distress Auscultation: + diminished lung sounds Cardiovascular: Rate/Rhythm: + irregularly irregular Heart Sounds: normal S1 and normal S2 Extremities: + edema Musculoskeletal: Extremities: + foot abnormality Skin: + ulcer Neurologic: no focal motor deficits Psychiatric: Orientation: alert and oriented x 3 Affect: euthymic affect Results & Data Vital Signs (Past 12 Hours) Vital Signs Temp Pulse Pulse Resp BP Pulse Ox Pulse Ox 12/16/23 10:50 36.4 C L 106 H 20 100/60 98 12/16/23 07:16 12/16/23 07:16 36.6 C 131 H 20 126/87 98 12/16/23 03:20 76 99 12/16/23 02:34 36.2 C L 101 H 22 141/81 H 98 O2 Del Method O2 Del Method O2 Flow Rate O2 Flow Rate 12/16/23 10:50 Oxymask 12/16/23 07:16 Oxymask 3 12/16/23 07:16 Oxymask 12/16/23 03:20 Oxymask 2 12/16/23 02:34 Oxymask 2 PG Care Time/CCT Total # of Minutes Spent Total Time Spent with Patient: Total time spent is greater than 50% in coordination of care (as documented) at patient's floor/unit and/or counseling patient: Coding Level of Care Code 50276 SUB INP/OBS CARE 3/50MIN Diagnoses Acute kidney injury N17.9 Osteomyelitis of foot, left, acute M86.172 Hypertension I10 Anemia D64.9 Edema R60.9 Oliguria R34
[2023-12-16 14:47] LABS: HBSAG NON-REACTIVE (NON-REACTIVE); Hepatitis B Core Antibody Total NON-REACTIVE (NON-REACTIVE); Hepatitis B Surface Ab, Quant <5 mIU/mL (> OR = 10)
--- NOTE | 2023-12-17 08:05 | Hospitalist Progress Note ---
Date of Service December 17, 2023 Assessment & Plan (1) Sepsis: (2) Diabetic foot ulcer: (3) Paroxysmal atrial fibrillation: (4) Osteoarthritis: (5) Hypertension: (6) Left ankle pain: (7) Hypoxia: Plan Pt is a 78 yo female with PMH of chronic anemia, spinal meningioma, afib, left charcot foot, stroke (2019), and hypothyroidism presenting d/t left ankle pain. AIN/DEXTER Oliguria - today urine output 0.38 - ATN secondary to Sepsis vs AIN secondary to Zosyn - Patient with poor PO intake of both food and water - Creatinine worsen today at 4.3 - Nephro consulted: - Discontinue Bumex drip today - HD catheter was placed today - Plan for dialysis today - concern for interstitial nephritis - Currently on PO prednisone taper - continue PO hydration Sepsis in the setting of chronic left diabetic foot ulcer- resolved Osteomyelitis - Leukocytosis- likely secondary to steroids - s/p debridement/I&D/bone biopsy on 12/08 - VAC on the wound - Wound culture 12/02: Pseudomonas pansensitive - OR Wound culture 12/08: Cornynebacterium - ID consider this is a contaminant - Podiatry consulted aprec recommendations - Vascular surgery consulted and determined that patient is not a candidate for vascular intervention/salvage. - ID consulted, aprec recommendations: currently on IV Cefepime. Plan for a total of 4 weeks of IV. Blood culture repeated as per ID recommendations Hx of afib - Hx of cardioversion. Current infection possible contributor - HR on 80s, better rate today - Not on home medications for this - Metoprolol tartrate 50 mg BID - Cardizem drip today - Eliquis for anticoagulation Anemia, stable today Iron deficiency anemia - unknown etiology, no active bleeding - s/p 2 units of pRBCs - Holding Iron replacement due to current infection - CBC daily Hypoxia - pt does not wear oxygen at home - TTE (12/06/23): normal LV systolic function, EF of 55-60%, aortic valve sclerosis without stenosis (no significant change from 2020) - Suspect pt may have a component of sleep apnea/nocturnal hypoxia contributing to current hypoxia - Not currently c/o SOB but oxygen need increased to 2 lpm by NC overnight - Continue to monitor Diabetes - last A1c 6.9% (10/2022); repeat ordered and was 7.2% - hold home metformin, glipizide - will cover with insulin glargine 20u BID, adjust SSI as needed - Pharmacy following HTN - continue home losartan and HCTZ Diet: carb consistent VTE ppx: Eliquis On Collado catheter for strict I/Os Admission and Anticipated Discharge Date Admission Date: December 03, 2023 Supervising Physician Co-Signing Physician Notes Attending Physician Supervision Note: I independently interviewed and examined the patient and verified the cuello history and physical, reviewed labs and image studies and agree with findings and care plan noted above. Again drowsy this am and answering questions with only yes. Sepsis in the setting of chronic left foot diabetic ulcer/osteomyelitis, pressure ulcer of left heel stage 3, afib -postop debridement - wound vac in place, cx - corynebacterium - ID suspect this is contaminant. -cefepime changed to zosyn for concern of AIN. Pending ID recommendation rega rding duration of abx. -further rise in wbc likely from steroids. DEXTER, not present upon admission Anasarca -AIN per nephro - prednisone tapered today to 40mgs. -creatinine continuing to rise. -Bumex drip d/estrellita. plan for Ultrafiltration HD - vascular consulted for cath placement - placed 12/16. A fib with RVR - Known PAF. metoprolol dose increased to 50mgs bid with no improvement -continue cardizem drip. -follow Hypoxia - Likely from fluid overload. -continue O2 support. DVT proph - apixaban PT/OT - Mostly in bed since admission. hasn't been participating in PT/OT. recommending SNF on discharge. Palliative care consulted - patient wants aggressive medical care at this time. otherwise as above Subjective Patient evaluated this morning. She was found asleep, but responded to stimulus. More lethargic today. To OR today for catheter placement. First dialysis today. Review of Systems Review of Systems: as per hpi Physical Exam Physical Exam: General:Alert, no acute distress, HEENT: Normocephalic, moist oral mucosa, Cardio: Regular rate and rhythm, Resp:Lungs clear to auscultation b/l GI: Soft and nontender, nondistended, bowel sounds active Skin: Warm, pink, dry, some erythema noted on L leg up to mid pederson Results & Data Results & Data Vital Signs (Past 12 Hours) Vital Signs Temp Pulse Pulse Resp BP Pulse Ox O2 Del Method 12/17/23 07:09 36.2 C L 67 20 132/75 98 Oxymask 12/17/23 03:14 36.6 C 90 20 146/89 H 98 Oxymask 12/16/23 23:08 36.7 C 91 H 19 141/69 H 97 Oxymask 12/16/23 23:00 84 O2 Flow Rate 12/17/23 07:09 12/17/23 03:14 2 12/16/23 23:08 2 12/16/23 23:00 Resident Activity Tracking Resident Involvement: Resident Care Provided Care Provided: Adult Hospital Medicine
[2023-12-17 08:57] LABS: Albumin Level 3.1 gm/dl (3.4-5.0); BUN Creatinine Ratio 21.9 (10-20); Creatinine Clr Calc Pharmacy 12.1 ml/min; Est GFR (African American) 9.8 ml/min; Est GFR (Non-African American) 8.5 ml/min; Phosphorus 7.6 mg/dl (2.5-4.9); Potassium 4.1 mmol/L (3.5-5.1)
[2023-12-17] MEDS: LANTUS PER UNIT CHARGE SQ SCH ×2 (09:46→13:01)
--- NOTE | 2023-12-17 09:55 | Nephrology Progress Note ---
Date of Service December 17, 2023 Assessment & Plan (1) Acute kidney injury: (2) Osteomyelitis of foot, left, acute: (3) Hypertension: (4) Anemia: (5) Edema: (6) Oliguria: Plan 78 yo f with baseline decent renal function with mild CKD, admitted to the hospital with left foot nonhealing diabetic ulcer and sepsis. Wound culture grew Pseudomonas and was on Zosyn , Dced and now on Cefepime since 12/11/23. Blood pressure has been relatively stable. On admission creatinine was 1.1 which has slowly worsened. Urinalysis with proteinuria, hematuria and pyuria with normal urinalysis previously. Has been oliguric over last 3 days and clinically significantly volume overloaded, although there is some component of third spacing with hypoalbuminemia which seems to be new with acute illnesses and during hospitalization. Acute kidney injury could be secondary to ATN with sepsis versus AIN with Zosyn, oliguria.Started on Prednisone on 12/12/23 but has been having progressive worsening of kidney function, Cr up to 4.8, BUN >90, remained significantly volume overloaded. --plan for HD catheter and first dialysis today. Plan for dialysis tomorrow and try UF as much as possible. Reassess Wednesday for need for dialysis and for improvement in kidney function. -- Discontinue Bumex drip, started rapid taper of prednisone down to 40 mg Protonix 40 mg daily, will consider stopping prednisone tomorrow if no improvement in kidney function and plan to start on dialysis. --continue to encourage oral intake --had discussion with Liang Navarrete ) on 12/15/2023. Admission and Anticipated Discharge Date Admission Date: December 03, 2023 Mili Lock was seen this morning. She was awake, alert was answering question appropriately. Kidney function continue to worsen but urine output slightly improved on Bumex drip although still remained quite volume overloaded. Review of Systems Review of Systems: Detailed review of system was done and pertinent positives and negatives are mentioned above. Physical Exam Constitutional: WD/WN, vitals as above + ill appearing, + morbidly obese and + edematous; no acute distress Eyes: + anicteric sclerae Respiratory: no respiratory distress Auscultation: + diminished lung sounds Cardiovascular: Rate/Rhythm: + irregularly irregular Heart Sounds: normal S1 and normal S2 Extremities: + edema Musculoskeletal: Extremities: + foot abnormality Skin: + ulcer Neurologic: no focal motor deficits Psychiatric: Orientation: alert and oriented x 3 Affect: euthymic affect Results & Data Vital Signs (Past 12 Hours) Vital Signs Temp Pulse Pulse Resp BP Pulse Ox O2 Del Method 12/17/23 07:09 36.2 C L 67 20 132/75 98 Oxymask 12/17/23 03:14 36.6 C 90 20 146/89 H 98 Oxymask 12/16/23 23:08 36.7 C 91 H 19 141/69 H 97 Oxymask 12/16/23 23:00 84 O2 Flow Rate 12/17/23 07:09 12/17/23 03:14 2 12/16/23 23:08 2 12/16/23 23:00 PG Care Time/CCT Total # of Minutes Spent Total Time Spent with Patient: Total time spent is greater than 50% in coordination of care (as documented) at patient's floor/unit and/or counseling patient: Coding Level of Care Code 85476 SUB INP/OBS CARE 2/35MIN Diagnoses Acute kidney injury N17.9 Osteomyelitis of foot, left, acute M86.172 Hypertension I10 Anemia D64.9 Edema R60.9 Oliguria R34
--- NOTE | 2023-12-17 10:39 | Consultation ---
Date of Consultation December 17, 2023 Assessment & Plan (1) Acute kidney injury: Pt with DEXTER, needing HD. Planning on temporary HD catheter insertion today d/t pt still on Eliquis and unable to place permcath d/t risk of bleeding. Attempted to discuss with pt, but she is unable to comprehend. Therefore discussed procedure, risks, benefits, and alternatives with her nephew, Fernandez, who has POA along with his brother Pillo. Fernandez gives telephone consent for procedure. History of Present Illness Reason for Consultation: DEXTER, need HD access Attending Physician: Thao Patel MD History of Present Illness 78 yo f with multiple medical problems, including CAD, CKD, HTN, DMII, A fib on eliquis, hyperlipidemia, PAD, osteoarthritis, anemia, hypothyroidism, admitted with R foot wound/infection, seen in consultation today for HD catheter insertion for HD initiation d/t DEXTER. Pt unable to verbalize any pertinent information d/t obtundation. Per chart, pt renal fxn declining over past few days. Allergies Allergy/AdvReac Type Severity Reaction Status Date / Time animal dander Allergy Intermediate congestion Verified 11/26/23 13:06 pollen extracts Allergy Mild sneezing Verified 11/26/23 13:06 bacitracin Allergy Unknown neosporing-> Verified 11/26/23 13:06 rash latex Allergy Unknown blisters Verified 11/26/23 13:06 skin neomycin Allergy Unknown neosporins Verified 11/26/23 13:06 -> rash polymyxin B Allergy Unknown neosporins Verified 11/26/23 13:06 -> rash sulfabenzamide Allergy Unknown vaginal Verified 11/26/23 13:06 cream-> severe itch and irritation sulfacetamide Allergy Unknown vaginal Verified 11/26/23 13:06 cream-> severe itch and irritation sulfathiazole Allergy Unknown vaginal Verified 11/26/23 13:06 cream-> severe itch and irritation doxycycline AdvReac pt will Verified 11/26/23 13:06 not take due to potential side affects tramadol AdvReac Nausea, Verified 11/26/23 13:06 vomiting Home Medications Medication Instructions Recorded Confirmed Type folic acid 800 mcg tablet 800 mcg PO QAM 03/30/19 12/03/23 History paula (Zingiber officinalis) 550 1,100 mg PO HS 03/30/19 12/03/23 History mg capsule lancets 33 gauge (OneTouch Delica #100 ea 03/30/19 10/20/23 History Lancets) cyanocobalamin (vitamin B-12) 5,000 mcg PO QAM 05/28/20 12/03/23 History 5,000 mcg capsule oxycodone-acetaminophen 5 mg-325 0.5 - 1 tab PO DAILY PRN pain 90 10/09/20 12/03/23 Rx mg tablet days #20 tabs zinc acetate 25 mg (zinc) capsule 25 mg PO QPM 10/15/20 12/03/23 History ascorbic acid (vitamin C) 1,000 mg 1 g PO QPM 11/29/20 12/03/23 History tablet glipizide 5 mg tablet 2.5 mg PO QAM 04/18/21 12/03/23 History metformin 500 mg tablet 500 mg PO BID 04/18/21 12/03/23 [facility] 05/19/21 10/20/23 Rx Verio test strips) losartan 50 mg tablet 50 mg PO QAM #90 tabs 05/19/21 12/03/23 Rx cholecalciferol (vitamin D3) 10 10 mcg PO BID 06/06/21 12/03/23 History mcg (400 unit) tablet (Vitamin D3) levothyroxine 75 mcg tablet 75 mcg PO DAILY 03/20/22 12/03/23 History (Synthroid) aspirin 325 mg tablet 325 mg PO BID #60 tabs 01/21/23 12/03/23 Rx atorvastatin 80 mg tablet 80 mg PO DAILY 12/03/23 12/03/23 History hydrochlorothiazide 50 mg tablet 50 mg PO DAILY 12/03/23 12/03/23 History Patient History Medical History Oliguria Chronic anemia Baseline hgb 9-10 range per chart review Kidney stones History of meningioma spinal cord SCC (squamous cell carcinoma) Hypertension Hyperlipidemia Atrial fibrillation Tachycardia Pulmonary edema Atrial fibrillation with RVR Ulcer of foot Left foot diabetic ulcer, [place] [facility] [place] 04/2020 > residual left sided weakness, uses crutches. follows with PCP currently Pulmonary hypertension per records, pt denies Peripheral neuropathy Hypothyroidism Generalized osteoarthritis Elevated WBC count Surgical History Hx of resection of meningioma History of carpal tunnel release History of tonsillectomy H/O squamous cell carcinoma excision History of back surgery T11/T12 benign tumor removed Hx of oral surgery S/P knee surgery Hx of hand surgery bilateral hands r/t gouty arthritis History of knee replacement R/L Family History Mother Myocardial infarction Hearing loss Heart disease Other No family history of adverse response to anesthesia No family history of bleeding disorder Denies family history of Ovarian cancer Prostate cancer Breast cancer Colorectal cancer Social History Smoking Status: Former smoker Second Hand Exposure: No; Do You Dip or Chew Tobacco: No; Hx Alcohol Use: No Hx Substance Use: No Preferred Language: Icelandic Communication Ability: Effective Ocean 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 Required: No Beliefs That Will Affect Care: None marital status: Single Current Living Situation: Alone current occupational status: retired Other Information That Helps Us Care for You: No Feels Safe at Home: Yes Safety Concerns: Feels Safe At This Time Childhood Exposure to Second-Hand Smoke: Yes Dental Care, Regularly: Yes Physical Activity Frequency: 3-4 Times per Week Seatbelt Use: always Sunscreen Use: Yes Assistive Devices: Cane and Crutches Review of Systems Review of Systems: Unobtainable due to cognitive status Physical Exam Constitutional: WD/WN, vitals as above + morbidly obese; not in distress ENMT: Ears: + hearing impairment Neck: trachea midline Respiratory: + abnormal respiratory effort (mildly in creased) Auscultation: + diminished lung sounds and + crackles Cardiovascular: Rate/Rhythm: + irregularly irregular Vessels: posterior tibial pulses present (dopplerable), dorsalis pedis pulses present (dopplerable distal AT, no signal on foot) and radial pulses present; + abnormal peripheral pulses Extremities: + edema; + abnormal capillary refill Gastrointestinal (Abdomen): Inspection/Auscultation: abdomen normal to inspection and normal bowel sounds Percussion/Palpation: abdomen soft; abdomen nontender Musculoskeletal: no cyanosis or clubbing, extremities motor strength 5/5 Skin: + wound (L foot) Neurologic: moves all extremities, awake and + confused; no focal motor deficits Psychiatric: Orientation: alert and oriented to person; + not oriented to place, + not oriented to time and + uncooperative Affect: + depressed affect and + flat affect Results & Data Vital Signs (Past 12 Hours) Vital Signs Temp Pulse Pulse Resp BP Pulse Ox O2 Del Method 12/17/23 07:09 36.2 C L 67 20 132/75 98 Oxymask 12/17/23 03:14 36.6 C 90 20 146/89 H 98 Oxymask 12/16/23 23:08 36.7 C 91 H 19 141/69 H 97 Oxymask 12/16/23 23:00 84 O2 Flow Rate 12/17/23 07:09 12/17/23 03:14 2 12/16/23 23:08 2 12/16/23 23:00
[2023-12-17] MEDS: LIDOCAINE 1% LOCAL 20 ML VIAL ONE (11:28)
--- NOTE | 2023-12-17 11:28 | Post Operative Brief Note ---
Immediate Post Op Note v1 Date of Surgery December 17, 2023 Pre & Post Diagnosis Operation Date: 12/17/23 13:40 Pre-Op Diagnosis: Acute Kidney Injury Post-Op Diagnosis: Acute Kidney Injury I identified the patient and participated in the time-out.: Yes Procedure Operation Date: 12/17/23 13:40 Actual Procedures p Insertion of Temporary Dialysis Catheter, Right Femoral Approach, Ultrasound Localization of Right Femoral Vein, Fluoroscopy for Positioning - Mark Hammer MD Surgeon Mark Hammer MD Wing Mailer Machine Operator MD [place] Estimated Blood Loss 3 Findings Consistent with Post-Op Diagnosis Anesthesia Type Local Complications none Disposition Accompanied Patient To Recovery: No Disposition: Recovery Room
--- NOTE | 2023-12-17 11:30 | Procedure Note ---
Angiogram Post Procedure Fluoroscopy Time (minutes): 0.2 Radiation (mGy): 10 Contrast: 0 Post Operative Report Pre & Post Diagnosis Operation Date: 12/17/23 13:40 Pre-Op Diagnosis: Acute Kidney Injury Post-Op Diagnosis: Acute Kidney Injury I identified the patient and participated in the time-out.: Yes Procedure Operation Date: 12/17/23 13:40 Actual Procedures p Insertion of Temporary Dialysis Catheter, Right Femoral Approach, Ultrasound Localization of Right Femoral Vein, Fluoroscopy for Positioning - Mark Hammer MD Surgeon Mark Hammer MD Car Repairman Petey Cedeño MD Estimated Blood Loss 3 Findings See Below Right CFV temporary dialysis line in place that both lumens draw back and flush Fluids 50mL Specimens none Anesthesia Type Local Complications none Disposition Accompanied Patient To Recovery: Yes Disposition: Recovery Room Indications DEXTER with need for hemodialysis access Description of Procedure Patient was taken to the angio suite and placed in the supine position. The right femoral area was prepped and draped in a sterile manner. Local anesthesia was then administered to the appropriate areas of the femoral areal. Ultrasound was then used to locate the right Common femoral vein. The vein compressed easily, had no filing defects, and was patent. The vein was then punctured under direct ultrasound imaging. A guidewire was then passed centrally under fluoroscopic imaging. The puncture site was then dilated. The 24cm temporary dialysis line was then inserted over the wire to a central position in the distal inferior vena cava. The catheter was then sutured in place using silk sutures. Both ports aspirated and flushed easily and were then packed with heparin. A sterile dressing was applied to the catheter. The patient left the angio suite in good condition and tolerated the procedure well. I, Dr. Hammer was present and scrubbed for the entire procedure. I attest to the content of the Intraoperative Record and any orders documented therein. Any exceptions are noted below.
[2023-12-17] MEDS: ACETAMINOPHEN 1,000 MG/100 ML VIAL IV PRN (12:39)
--- NOTE | 2023-12-17 12:51 | Pharmacy Report ---
Pharmacy Glycemic Short Note 2 - Date of Service December 17, 2023 - Glycemic Short BSG Results (Last 24 hours): 12/16/23 12/16/23 12/17/23 15:56 20:13 07:05 Glucose POC Glucose 148 H 137 H 110 H 12/17/23 12/17/23 12/17/23 07:21 10:43 11:57 Glucose 111 H POC Glucose 99 121 H OUTPATIENT ANTIDIABETIC REGIMEN: * Metformin 500 mg PO BID * Glipizide 2.5 mg PO qAM HbA1c: 7.2% (12/04/23) ASSESSMENT: 12/17/23: * Blood sugars reasonably well-controlled yesterday, ranging 137-152 mg/dL * Received 37 units of insulin (30 units of which were basal) * Prednisone decreased today from 60 mg to 40 mg PO daily (first dose this afternoon) * Patient was originally NPO for permcath insertion for HD today * Fasting blood sugar of 110 mg/dL - will decrease basal insulin today in light of HD, decreased overal blood sugar trend, and reduced steroid dose 12/15/23: * Blood sugars trended up throughout the day yesterday * Received 37 units of insulin (20 units of basal and 17 units of prandial/correctional bolus) * Elevation certainly related to increased steroid dose * Will give full dose of yesterday's basal this AM w/ possible scale this evening * Tighten Novolog parameters to combat hyperglycemic effects of prednisone 60 mg PO daily 12/14/23: * DC is a 78 year old female admitted on 12/03/23 w/ sepsis in setting of diabetic left foot infection/osteomyelitis * Pharmacy consulted for glycemic management on evening of 12/13/23. Most recent blood sugars surrounding consult of 97, 130, and 114 mg/dL. Consult likely related to hypoglycemia on 12/11 (64 mg/dL x 2) as well as continuation of IV steroids. * Steroids changed from methylprednisolone 50 mg IV daily to prednisone 60 mg PO daily (first dose at 1330 on 12/14/23) * Receiving IV cefepime/daptomycin per ID * Diltiazem gtt infusing (mixed in dextrose) * Blood sugars well-controlled at this time - will be conservative with changes given history of hypoglycemia this admission PLAN FOR INPATIENT GLYCEMIC CONTROL: * Hold outpatient oral diabetes medications * Basal insulin * Lantus 10 units SC daily w/ PO prednisone * Lantus 0-5-10 units SC HS (see EHR for details) * Bolus insulin * NovoLog per scale ACHS or Q6hrs while NPO * Goal Range: Low 110 mg/dL - High 140 mg/dL * Correction Factor: 20 mg/dL/unit * Nutritional / Prandial insulin per carb ratio of 1 unit per 6 grams CHO consumed
[2023-12-17] MEDS: predniSONE 20 MG TAB PO ONE (12:59)
--- NOTE | 2023-12-17 14:27 | Palliative Care Consultation ---
Date of Consultation December 17, 2023 Assessment & Plan (1) Weakness generalized: (2) Advanced care planning/counseling discussion: Face to face ACP with pt and her close friend of 50 years, Guanako at bedside x 30min Pt states her nephew Landon will be here tomorrow, he is bringing her adv directive She is very clear for now she wants every intervention available to help her improve. She accepts she will need SNF and possibly longer term dialysis. She hopes she can return home at some point. Guanako had a lot of questions about how this extent of care (wound, dialysis, nutrition, etc) can be managed locally/do SNF transport pt to HD routinely, can it be done on site etc. Advised this varies SNF to SNF but those with HD capacity on site are not in our local area. (3) Palliative care by specialist: Met with pt/family. Provided overview of Palliative Medicine, a subspecialty that provides specialized medical care for people living with a serious illness by offering a focus on quality of life through reduction of symptom burden/more control over their illness, for both the patient and family. We care for patients of any age/advancing stage of a serious illness and can be provided along with curative treatment. We are not hospice, which is a visiting nurse service that focuses on care delivered at the very end of life. Plan ACP discussion as noted above. Nephew coming this weekend with her AD, please have copy scanned into EMR [employer] med consulted for C, documented above, I will sign off for now but if re engagement is needed, please page me. Thank you for allowing us to participate in the ongoing care of this patient. Please don't hesitate to call or page with any additional concerns. Dr. Ariana Betancourt DNP Director, Palliative Care History of Present Illness Reason for Consultation: goals of care Attending Physician: Thao Patel MD History of Present Illness Hayde is a 78yo female presenting with left ankle pain which she reports as "immense pain in my left ankle." She has a longtime h/o arthritis. She does not recall hx of trauma to LLE. She was not able to weight bear. her long time friend Guanako is at bedside, Guanako shares she is visiting from [facility] and has been close friends with pt 50+ years. Guanako tells me Hayde has a diabetic foot wound on her left foot and a chronic wound to her left pederson followed by wound clinic. Guanako suspects this was getting infected and pt was unaware until pain and immobility set in and she called EMS for help when she fell at home. She was noted to be hypoxic and febrile. Admitted for osteomyelitis and sepsis; admission creatinine = 1.1 which has slowly worsened, UA +proteinuria, hematuria, pyuria now improved however she has been been oliguric over last 3 days and she is now volume overloaded with third spacing from hypoalbuminemia. Not improving with Bumex. PMH: DM, CKD, obesity, chronic anemia, spinal meningioma, afib, left charcot foot, stroke (2019), and hypothyroidism Worsening oliguria this admission now s/p dialysis catheter placement Hayde notes dialysis is expected to be a longer term aspect of her life but she is unsure for how long. Allergies Allergy/AdvReac Type Severity Reaction Status Date / Time animal dander Allergy Intermediate congestion Verified 11/26/23 13:06 pollen extracts Allergy Mild sneezing Verified 11/26/23 13:06 bacitracin Allergy Unknown neosporing-> Verified 11/26/23 13:06 rash latex Allergy Unknown blisters Verified 11/26/23 13:06 skin neomycin Allergy Unknown neosporins Verified 11/26/23 13:06 -> rash polymyxin B Allergy Unknown neosporins Verified 11/26/23 13:06 -> rash sulfabenzamide Allergy Unknown vaginal Verified 11/26/23 13:06 cream-> severe itch and irritation sulfacetamide Allergy Unknown vaginal Verified 11/26/23 13:06 cream-> severe itch and irritation sulfathiazole Allergy Unknown vaginal Verified 11/26/23 13:06 cream-> severe itch and irritation doxycycline AdvReac pt will Verified 11/26/23 13:06 not take due to potential side affects tramadol AdvReac Nausea, Verified 11/26/23 13:06 vomiting Home Medications Medication Instructions Recorded Confirmed Type folic acid 800 mcg tablet 800 mcg PO QAM 03/30/19 12/03/23 History paula (Zingiber officinalis) 550 1,100 mg PO HS 03/30/19 12/03/23 History mg capsule lancets 33 gauge (OneTouch Delica #100 ea 03/30/19 10/20/23 History Lancets) cyanocobalamin (vitamin B-12) 5,000 mcg PO QAM 05/28/20 12/03/23 History 5,000 mcg capsule oxycodone-acetaminophen 5 mg-325 0.5 - 1 tab PO DAILY PRN pain 90 10/09/20 12/03/23 Rx mg tablet days #20 tabs zinc acetate 25 mg (zinc) capsule 25 mg PO QPM 10/15/20 12/03/23 History ascorbic acid (vitamin C) 1,000 mg 1 g PO QPM 11/29/20 12/03/23 History tablet glipizide 5 mg tablet 2.5 mg PO QAM 04/18/21 12/03/23 History metformin 500 mg tablet 500 mg PO BID 04/18/21 12/03/23 History blood sugar diagnostic (OneTouch #100 ea 05/19/21 10/20/23 Rx Verio test strips) losartan 50 mg tablet 50 mg PO QAM #90 tabs 05/19/21 12/03/23 Rx cholecalciferol (vitamin D3) 10 10 mcg PO BID 06/06/21 12/03/23 History mcg (400 unit) tablet (Vitamin D3) levothyroxine 75 mcg tablet 75 mcg PO DAILY 03/20/22 12/03/23 History (Synthroid) aspirin 325 mg tablet 325 mg PO BID #60 tabs 01/21/23 12/03/23 Rx atorvastatin 80 mg tablet 80 mg PO DAILY 12/03/23 12/03/23 History hydrochlorothiazide 50 mg tablet 50 mg PO DAILY 12/03/23 12/03/23 History Patient History Medical History (Updated 12/17/23 @ 14:52 by Ariana Betancourt DNP) Palliative care by specialist Advanced care planning/counseling discussion Weakness generalized Oliguria Chronic anemia Baseline hgb 9-10 range per chart review Kidney stones History of meningioma spinal cord SCC (squamous cell carcinoma) Hypertension Hyperlipidemia Atrial fibrillation Tachycardia Pulmonary edema Atrial fibrillation with RVR Ulcer of foot Left foot diabetic ulcer, following with [facility] wound clinic Stroke 04/2020 > residual left sided weakness, uses crutches. follows with PCP currently Pulmonary hypertension per records, pt denies Peripheral neuropathy Hypothyroidism Generalized osteoarthritis Elevated WBC count Surgical History Hx of resection of meningioma History of carpal tunnel release History of tonsillectomy H/O squamous cell carcinoma excision History of back surgery T11/T12 benign tumor removed Hx of oral surgery S/P knee surgery Hx of hand surgery bilateral hands r/t gouty arthritis History of knee replacement R/L Family History Mother Myocardial infarction Hearing loss Heart disease Other No family history of adverse response to anesthesia No family history of bleeding disorder Denies family history of Ovarian cancer Prostate cancer Breast cancer Colorectal cancer Social History Smoking Status: Former smoker Second Hand Exposure: No; Do You Dip or Chew Tobacco: No; Hx Alcohol Use: No Hx Substance Use: No Preferred Language: Hebrew Communication Ability: Effective 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 Supervisor Required: No Beliefs That Will Affect Care: None marital status: Single Current Living Situation: Alone current occupational status: retired Other Information That Helps Us Care for You: No Feels Safe at Home: Yes Safety Concerns: Feels Safe At This Time Childhood Exposure to Second-Hand Smoke: Yes Dental Care, Regularly: Yes Physical Activity Frequency: 3-4 Times per Week Seatbelt Use: always Sunscreen Use: Yes Assistive Devices: Cane and Crutches Review of Systems Review of Systems: All systems reviewed & are unremarkable except as noted in Subjective Physical Exam Physical Exam: Chronically ill appearing female pale, cool skin bitemp wasting PERRLA MM dry dentition poor neck supple, no stridor lungs limited anterior exam, diminished S1S2 irreg irreg abd obese, non tender, BS+ LLE wound vac, RLE in heel boot, +edema, +onychomycotic nails AAOx3, at times a little slow to reply but can do accurately Results & Data Vital Signs (Past 12 Hours) Vital Signs Temp Pulse Pulse Pulse Resp BP BP 12/17/23 13:12 36.5 C 12/17/23 13:02 76 118/68 12/17/23 12:30 71 120/52 L 12/17/23 12:15 90 124/72 12/17/23 12:00 85 131/69 12/17/23 11:45 36.3 C L 98 H 20 127/87 12/17/23 11:22 979 H 18 198/92 H 12/17/23 11:16 97 H 18 184/98 H 12/17/23 10:27 36.5 C 87 24 180/110 H 12/17/23 09:00 12/17/23 07:09 36.2 C L 67 20 12/17/23 03:14 36.6 C 90 20 BP Pulse Ox O2 Del Method O2 Flow Rate 12/17/23 13:12 12/17/23 13:02 94 Nasal Cannula 2 12/17/23 12:30 94 Oxymask 2 12/17/23 12:15 95 Oxymask 2 12/17/23 12:00 95 Oxymask 2 12/17/23 11:45 98 Oxymask 2 12/17/23 11:22 96 Oxymask 6 12/17/23 11:16 94 Oxymask 6 12/17/23 10:27 99 Oxymask 2 12/17/23 09:00 Oxymask 2 12/17/23 07:09 132/75 98 Oxymask 12/17/23 03:14 146/89 H 98 Oxymask 2 Laboratory Results 12/17/23 12/17/23 12/17/23 Range/Units 11:57 10:43 07:21 WBC RBC Hgb Hct MCV MCH MCHC RDW Std Deviation RDW Coeff of Isidoro Plt Count MPV Immature Gran % (Auto) Neut % (Auto) Lymph % (Auto) Lassen % (Auto) Eos % (Auto) Baso % (Auto) Neut # (Auto) Lymph # (Auto) Lassen # (Auto) Eos # (Auto) Baso # (Auto) Immature Gran # (Auto) Absolute Nucleated RBC Nucleated RBC % (auto) Neutrophils % (Manual) Band Neutrophils % Lymphocytes % (Manual) Prolymphocyte % Reactive Lymphs % (Man) Monocytes % (Manual) Eosinophils % (Manual) Basophils % (Manual) Metamyelocytes % (Man) Myelocytes % (Man) Promyelocytes % (Man) Blast Cells % (Manual) Plasma Cell % (Manual) Other Cells % Nucleated RBC % Neutrophils # (Manual) Band Neutrophils # Total Absolute Neuts Lymphocytes # (Manual) Prolymphocyte # Reactive Lymphs # Total Abs Lymphocytes Monocytes # (Manual) Eosinophils # (Manual) Basophils # (Manual) Metamyelocytes # (Man) Myelocytes # (Manual) Promyelocytes # (Man) Blast Cells # (Man) Plasma Cell # (Manual) Other Cells # Nucleated RBCs # (Man) Hypersegmented Neuts Hyposegmented Neuts Hypogranular Neuts Large Granular Lymphs # Lrg Granular Lymphs Hairy Cells Smudge Cells Toxic Granulation Toxic Vacuolation Dohle Bodies Ina Rods Platelet Estimate Hypogranular Platelets Giant Platelets Platelet Satelliting RBC Morphology Polychromasia Hypochromasia Poikilocytosis Basophilic Stippling Anisocytosis Microcytosis Macrocytosis Spherocytes Pappenheimer Bodies Sickle Cells Target Cells Tear Drop Cells Ovalocytes Stomatocytes Trinh-Wacissa Bodies Echinocytes Acanthocytes (Spur) Rouleaux RBC Agglutinates Schistocytes ESR (0-30) mm/hr Sezary Cell Sodium 139 (136-145) mmol/L Potassium 4.1 (3.5-5.1) mmol/L Chloride 105 (98-107) mmol/L Carbon Dioxide 23 (21-32) mmol/L Anion Gap 11 (3-11) BUN 101 H (6-23) mg/dl Creatinine 4.61 H* (0.6-1.2) mg/dl Est Cr Clr Drug Dosing 12.1 ml/min Est GFR ( Amer) 9.8 ml/min Est GFR (Non-Af Amer) 8.5 ml/min BUN/Creatinine Ratio 21.9 H (10-20) Glucose 111 H (70-99(Fasting)) mg/dl POC Glucose 121 H 99 (70-99) mg/dl Calcium 8.0 L (8.6-10.3) mg/dl Phosphorus 7.6 H (2.5-4.9) mg/dl Magnesium (1.7-2.4) mg/dl Iron (35-150) mcg/dl TIBC (250-450) mcg/dl Unsaturated IBC (155-355) mcg/dl Transferrin % Sat (15-50) % Ferritin (8-388) ng/ml Total Bilirubin (0.2-1.0) mg/dl AST (13-39) U/L ALT (7-52) U/L Alkaline Phosphatase (34-104) U/L Total Creatine Kinase (26-192) U/L C-Reactive Protein (0-0.5) mg/dl Total Protein (6.0-8.3) gm/dl Albumin 3.1 L (3.4-5.0) gm/dl Globulin (2.5-4.0) gm/dl Albumin/Globulin Ratio (0.9-2) Urine Color Urine Appearance (Clear) Urine pH (4.5-7.5) Ur Specific Tyler (1.000-1.030) Urine Protein (Negative) Urine Glucose (UA) (Negative) Urine Ketones (Negative) Urine Blood (Negative) Urine Nitrite (Negative) Urine Bilirubin (Negative) Urine Urobilinogen (Negative) Ur Leukocyte Esterase (Negative) Urine WBC (Auto) (0-5) /hpf Urine RBC (Auto) (0-2) /hpf U Hyaline Cast (Auto) (0-2) /lpf U Epithel Cells (Auto) (0-2) /hpf Urine Bacteria (Auto) (None Seen) Amorphous Sediment (None Prsent) Urine Yeast (None Prsent) Ur Random Creatinine mg/dl Ur Random Sodium mmol/L Hep Bs Antigen (NON-REACTIVE) Hep Bs Ag Confirmation Hep Bs Antibody, Quant (> OR = 10) mIU/mL Hep B Core Total Ab (NON-REACTIVE) Blood Parasites ID Blood Type Antibody Screen Crossmatch 12/17/23 12/16/23 12/16/23 Range/Units 07:05 20:13 15:56 WBC RBC Hgb Hct MCV MCH MCHC RDW Std Deviation RDW Coeff of Isidoro Plt Count MPV Immature Gran % (Auto) Neut % (Auto) Lymph % (Auto) Lassen % (Auto) Eos % (Auto) Baso % (Auto) Neut # (Auto) Lymph # (Auto) Lassen # (Auto) Eos # (Auto) Baso # (Auto) Immature Gran # (Auto) Absolute Nucleated RBC Nucleated RBC % (auto) Neutrophils % (Manual) Band Neutrophils % Lymphocytes % (Manual) Prolymphocyte % Reactive Lymphs % (Man) Monocytes % (Manual) Eosinophils % (Manual) Basophils % (Manual) Metamyelocytes % (Man) Myelocytes % (Man) Promyelocytes % (Man) Blast Cells % (Manual) Plasma Cell % (Manual) Other Cells % Nucleated RBC % Neutrophils # (Manual) Band Neutrophils # Total Absolute Neuts Lymphocytes # (Manual) Prolymphocyte # Reactive Lymphs # Total Abs Lymphocytes Monocytes # (Manual) Eosinophils # (Manual) Basophils # (Manual) Metamyelocytes # (Man) Myelocytes # (Manual) Promyelocytes # (Man) Blast Cells # (Man) Plasma Cell # (Manual) Other Cells # Nucleated RBCs # (Man) Hypersegmented Neuts Hyposegmented Neuts Hypogranular Neuts Large Granular Lymphs # Lrg Granular Lymphs Hairy Cells Smudge Cells Toxic Granulation Toxic Vacuolation Dohle Bodies Ina Rods Platelet Estimate Hypogranular Platelets Giant Platelets Platelet Satelliting RBC Morphology Polychromasia Hypochromasia Poikilocytosis Basophilic Stippling Anisocytosis Microcytosis Macrocytosis Spherocytes Pappenheimer Bodies Sickle Cells Target Cells Tear Drop Cells Ovalocytes Stomatocytes Trinh-Wacissa Bodies Echinocytes Acanthocytes (Spur) Rouleaux RBC Agglutinates Schistocytes ESR (0-30) mm/hr Sezary Cell Sodium (136-145) mmol/L Potassium (3.5-5.1) mmol/L Chloride (98-107) mmol/L Carbon Dioxide (21-32) mmol/L Anion Gap (3-11) BUN (6-23) mg/dl Creatinine (0.6-1.2) mg/dl Est Cr Clr Drug Dosing ml/min Est GFR ( Amer) ml/min Est GFR (Non-Af Amer) ml/min BUN/Creatinine Ratio (10-20) Glucose (70-99(Fasting)) mg/dl POC Glucose 110 H 137 H 148 H (70-99) mg/dl Calcium (8.6-10.3) mg/dl Phosphorus (2.5-4.9) mg/dl Magnesium (1.7-2.4) mg/dl Iron (35-150) mcg/dl TIBC (250-450) mcg/dl Unsaturated IBC (155-355) mcg/dl Transferrin % Sat (15-50) % Ferritin (8-388) ng/ml Total Bilirubin (0.2-1.0) mg/dl AST (13-39) U/L ALT (7-52) U/L Alkaline Phosphatase (34-104) U/L Total Creatine Kinase (26-192) U/L C-Reactive Protein (0-0.5) mg/dl Total Protein (6.0-8.3) gm/dl Albumin (3.4-5.0) gm/dl Globulin (2.5-4.0) gm/dl Albumin/Globulin Ratio (0.9-2) Urine Color Urine Appearance (Clear) Urine pH (4.5-7.5) Ur Specific Tyler (1.000-1.030) Urine Protein (Negative) Urine Glucose (UA) (Negative) Urine Ketones (Negative) Urine Blood (Negative) Urine Nitrite (Negative) Urine Bilirubin (Negative) Urine Urobilinogen (Negative) Ur Leukocyte Esterase (Negative) Urine WBC (Auto) (0-5) /hpf Urine RBC (Auto) (0-2) /hpf U Hyaline Cast (Auto) (0-2) /lpf U Epithel Cells (Auto) (0-2) /hpf Urine Bacteria (Auto) (None Seen) Amorphous Sediment (None Prsent) Urine Yeast (None Prsent) Ur Random Creatinine mg/dl Ur Random Sodium mmol/L Hep Bs Antigen (NON-REACTIVE) Hep Bs Ag Confirmation Hep Bs Antibody, Quant (> OR = 10) mIU/mL Hep B Core Total Ab (NON-REACTIVE) Blood Parasites ID Blood Type Antibody Screen Crossmatch 12/16/23 12/16/23 12/16/23 Range/Units 10:59 07:32 07:16 WBC RBC Hgb Hct MCV MCH MCHC RDW Std Deviation RDW Coeff of Isidoro Plt Count MPV Immature Gran % (Auto) Neut % (Auto) Lymph % (Auto) Lassen % (Auto) Eos % (Auto) Baso % (Auto) Neut # (Auto) Lymph # (Auto) Lassen # (Auto) Eos # (Auto) Baso # (Auto) Immature Gran # (Auto) Absolute Nucleated RBC Nucleated RBC % (auto) Neutrophils % (Manual) Band Neutrophils % Lymphocytes % (Manual) Prolymphocyte % Reactive Lymphs % (Man) Monocytes % (Manual) Eosinophils % (Manual) Basophils % (Manual) Metamyelocytes % (Man) Myelocytes % (Man) Promyelocytes % (Man) Blast Cells % (Manual) Plasma Cell % (Manual) Other Cells % Nucleated RBC % Neutrophils # (Manual) Band Neutrophils # Total Absolute Neuts Lymphocytes # (Manual) Prolymphocyte # Reactive Lymphs # Total Abs Lymphocytes Monocytes # (Manual) Eosinophils # (Manual) Basophils # (Manual) Metamyelocytes # (Man) Myelocytes # (Manual) Promyelocytes # (Man) Blast Cells # (Man) Plasma Cell # (Manual) Other Cells # Nucleated RBCs # (Man) Hypersegmented Neuts Hyposegmented Neuts Hypogranular Neuts Large Granular Lymphs # Lrg Granular Lymphs Hairy Cells Smudge Cells Toxic Granulation Toxic Vacuolation Dohle Bodies Ina Rods Platelet Estimate Hypogranular Platelets Giant Platelets Platelet Satelliting RBC Morphology Polychromasia Hypochromasia Poikilocytosis Basophilic Stippling Anisocytosis Microcytosis Macrocytosis Spherocytes Pappenheimer Bodies Sickle Cells Target Cells Tear Drop Cells Ovalocytes Stomatocytes Trinh-Wacissa Bodies Echinocytes Acanthocytes (Spur) Rouleaux RBC Agglutinates Schistocytes ESR (0-30) mm/hr Sezary Cell Sodium (136-145) mmol/L Potassium (3.5-5.1) mmol/L Chloride (98-107) mmol/L Carbon Dioxide (21-32) mmol/L Anion Gap (3-11) BUN (6-23) mg/dl Creatinine (0.6-1.2) mg/dl Est Cr Clr Drug Dosing ml/min Est GFR ( Amer) ml/min Est GFR (Non-Af Amer) ml/min BUN/Creatinine Ratio (10-20) Glucose (70-99(Fasting)) mg/dl POC Glucose 141 H 152 H (70-99) mg/dl Calcium (8.6-10.3) mg/dl Phosphorus (2.5-4.9) mg/dl Magnesium 2.2 (1.7-2.4) mg/dl Iron (35-150) mcg/dl TIBC (250-450) mcg/dl Unsaturated IBC (155-355) mcg/dl Transferrin % Sat (15-50) % Ferritin (8-388) ng/ml Total Bilirubin (0.2-1.0) mg/dl AST (13-39) U/L ALT (7-52) U/L Alkaline Phosphatase (34-104) U/L Total Creatine Kinase (26-192) U/L C-Reactive Protein (0-0.5) mg/dl Total Protein (6.0-8.3) gm/dl Albumin (3.4-5.0) gm/dl Globulin (2.5-4.0) gm/dl Albumin/Globulin Ratio (0.9-2) Urine Color Urine Appearance (Clear) Urine pH (4.5-7.5) Ur Specific Tyler (1.000-1.030) Urine Protein (Negative) Urine Glucose (UA) (Negative) Urine Ketones (Negative) Urine Blood (Negative) Urine Nitrite (Negative) Urine Bilirubin (Negative) Urine Urobilinogen (Negative) Ur Leukocyte Esterase (Negative) Urine WBC (Auto) (0-5) /hpf Urine RBC (Auto) (0-2) /hpf U Hyaline Cast (Auto) (0-2) /lpf U Epithel Cells (Auto) (0-2) /hpf Urine Bacteria (Auto) (None Seen) Amorphous Sediment (None Prsent) Urine Yeast (None Prsent) Ur Random Creatinine mg/dl Ur Random Sodium mmol/L Hep Bs Antigen (NON-REACTIVE) Hep Bs Ag Confirmation Hep Bs Antibody, Quant (> OR = 10) mIU/mL Hep B Core Total Ab (NON-REACTIVE) Blood Parasites ID Blood Type Antibody Screen Crossmatch 12/16/23 12/16/23 12/15/23 Range/Units 06:03 05:48 20:15 WBC 25.12 H RBC 4.41 Hgb 11.0 L Hct 37.2 MCV 84.4 MCH 24.9 L MCHC 29.6 L RDW Std Deviation 53.1 H RDW Coeff of Isidoro 17.2 H Plt Count 363 MPV 9.2 L Immature Gran % (Auto) 6.6 Neut % (Auto) 78.5 Lymph % (Auto) 8.5 Lassen % (Auto) 5.9 Eos % (Auto) 0.1 Baso % (Auto) 0.4 Neut # (Auto) 19.73 H Lymph # (Auto) 2.14 Lassen # (Auto) 1.48 H Eos # (Auto) 0.02 Baso # (Auto) 0.10 Immature Gran # (Auto) 1.65 H Absolute Nucleated RBC 0.12 Nucleated RBC % (auto) 0.5 Neutrophils % (Manual) Band Neutrophils % Lymphocytes % (Manual) Prolymphocyte % Reactive Lymphs % (Man) Monocytes % (Manual) Eosinophils % (Manual) Basophils % (Manual) Metamyelocytes % (Man) Myelocytes % (Man) Promyelocytes % (Man) Blast Cells % (Manual) Plasma Cell % (Manual) Other Cells % Nucleated RBC % Neutrophils # (Manual) Band Neutrophils # Total Absolute Neuts Lymphocytes # (Manual) Prolymphocyte # Reactive Lymphs # Total Abs Lymphocytes Monocytes # (Manual) Eosinophils # (Manual) Basophils # (Manual) Metamyelocytes # (Man) Myelocytes # (Manual) Promyelocytes # (Man) Blast Cells # (Man) Plasma Cell # (Manual) Other Cells # Nucleated RBCs # (Man) Hypersegmented Neuts Hyposegmented Neuts Hypogranular Neuts Large Granular Lymphs # Lrg Granular Lymphs Hairy Cells Smudge Cells Toxic Granulation Toxic Vacuolation Dohle Bodies Ina Rods Platelet Estimate Hypogranular Platelets Giant Platelets Platelet Satelliting RBC Morphology Polychromasia Hypochromasia Poikilocytosis Basophilic Stippling Anisocytosis Microcytosis Macrocytosis Spherocytes Pappenheimer Bodies Sickle Cells Target Cells Tear Drop Cells Ovalocytes Stomatocytes Trinh-Wacissa Bodies Echinocytes Acanthocytes (Spur) Rouleaux RBC Agglutinates Schistocytes ESR (0-30) mm/hr Sezary Cell Sodium 137 (136-145) mmol/L Potassium 4.3 (3.5-5.1) mmol/L Chloride 105 (98-107) mmol/L Carbon Dioxide 21 (21-32) mmol/L Anion Gap 11 (3-11) BUN 93 H (6-23) mg/dl Creatinine 4.33 H (0.6-1.2) mg/dl Est Cr Clr Drug Dosing 13.0 ml/min Est GFR ( Amer) 10.6 ml/min Est GFR (Non-Af Amer) 9.2 ml/min BUN/Creatinine Ratio 21.5 H (10-20) Glucose 158 H (70-99(Fasting)) mg/dl POC Glucose 153 H 154 H (70-99) mg/dl Calcium 8.3 L (8.6-10.3) mg/dl Phosphorus 7.6 H (2.5-4.9) mg/dl Magnesium (1.7-2.4) mg/dl Iron (35-150) mcg/dl TIBC (250-450) mcg/dl Unsaturated IBC (155-355) mcg/dl Transferrin % Sat (15-50) % Ferritin (8-388) ng/ml Total Bilirubin (0.2-1.0) mg/dl AST (13-39) U/L ALT (7-52) U/L Alkaline Phosphatase (34-104) U/L Total Creatine Kinase 19 L (26-192) U/L C-Reactive Protein (0-0.5) mg/dl Total Protein (6.0-8.3) gm/dl Albumin 3.3 L (3.4-5.0) gm/dl Globulin (2.5-4.0) gm/dl Albumin/Globulin Ratio (0.9-2) Urine Color Urine Appearance (Clear) Urine pH (4.5-7.5) Ur Specific Tyler (1.000-1.030) Urine Protein (Negative) Urine Glucose (UA) (Negative) Urine Ketones (Negative) Urine Blood (Negative) Urine Nitrite (Negative) Urine Bilirubin (Negative) Urine Urobilinogen (Negative) Ur Leukocyte Esterase (Negative) Urine WBC (Auto) (0-5) /hpf Urine RBC (Auto) (0-2) /hpf U Hyaline Cast (Auto) (0-2) /lpf U Epithel Cells (Auto) (0-2) /hpf Urine Bacteria (Auto) (None Seen) Amorphous Sediment (None Prsent) Urine Yeast (None Prsent) Ur Random Creatinine mg/dl Ur Random Sodium mmol/L Hep Bs Antigen (NON-REACTIVE) Hep Bs Ag Confirmation Hep Bs Antibody, Quant (> OR = 10) mIU/mL Hep B Core Total Ab (NON-REACTIVE) Blood Parasites ID Blood Type Antibody Screen Crossmatch 12/15/23 12/15/23 12/15/23 Range/Units 15:59 11:44 10:47 WBC RBC Hgb Hct MCV MCH MCHC RDW Std Deviation RDW Coeff of Isidoro Plt Count MPV Immature Gran % (Auto) Neut % (Auto) Lymph % (Auto) Lassen % (Auto) Eos % (Auto) Baso % (Auto) Neut # (Auto) Lymph # (Auto) Lassen # (Auto) Eos # (Auto) Baso # (Auto) Immature Gran # (Auto) Absolute Nucleated RBC Nucleated RBC % (auto) Neutrophils % (Manual) Band Neutrophils % Lymphocytes % (Manual) Prolymphocyte % Reactive Lymphs % (Man) Monocytes % (Manual) Eosinophils % (Manual) Basophils % (Manual) Metamyelocytes % (Man) Myelocytes % (Man) Promyelocytes % (Man) Blast Cells % (Manual) Plasma Cell % (Manual) Other Cells % Nucleated RBC % Neutrophils # (Manual) Band Neutrophils # Total Absolute Neuts Lymphocytes # (Manual) Prolymphocyte # Reactive Lymphs # Total Abs Lymphocytes Monocytes # (Manual) Eosinophils # (Manual) Basophils # (Manual) Metamyelocytes # (Man) Myelocytes # (Manual) Promyelocytes # (Man) Blast Cells # (Man) Plasma Cell # (Manual) Other Cells # Nucleated RBCs # (Man) Hypersegmented Neuts Hyposegmented Neuts Hypogranular Neuts Large Granular Lymphs # Lrg Granular Lymphs Hairy Cells Smudge Cells Toxic Granulation Toxic Vacuolation Dohle Bodies Ina Rods Platelet Estimate Hypogranular Platelets Giant Platelets Platelet Satelliting RBC Morphology Polychromasia Hypochromasia Poikilocytosis Basophilic Stippling Anisocytosis Microcytosis Macrocytosis Spherocytes Pappenheimer Bodies Sickle Cells Target Cells Tear Drop Cells Ovalocytes Stomatocytes Trinh-Wacissa Bodies Echinocytes Acanthocytes (Spur) Rouleaux RBC Agglutinates Schistocytes ESR (0-30) mm/hr Sezary Cell Sodium (136-145) mmol/L Potassium (3.5-5.1) mmol/L Chloride (98-107) mmol/L Carbon Dioxide (21-32) mmol/L Anion Gap (3-11) BUN (6-23) mg/dl Creatinine (0.6-1.2) mg/dl Est Cr Clr Drug Dosing ml/min Est GFR ( Amer) ml/min Est GFR (Non-Af Amer) ml/min BUN/Creatinine Ratio (10-20) Glucose (70-99(Fasting)) mg/dl POC Glucose 163 H 184 H (70-99) mg/dl Calcium (8.6-10.3) mg/dl Phosphorus (2.5-4.9) mg/dl Magnesium (1.7-2.4) mg/dl Iron (35-150) mcg/dl TIBC (250-450) mcg/dl Unsaturated IBC (155-355) mcg/dl Transferrin % Sat (15-50) % Ferritin (8-388) ng/ml Total Bilirubin (0.2-1.0) mg/dl AST (13-39) U/L ALT (7-52) U/L Alkaline Phosphatase (34-104) U/L Total Creatine Kinase (26-192) U/L C-Reactive Protein (0-0.5) mg/dl Total Protein (6.0-8.3) gm/dl Albumin (3.4-5.0) gm/dl Globulin (2.5-4.0) gm/dl Albumin/Globulin Ratio (0.9-2) Urine Color Urine Appearance (Clear) Urine pH (4.5-7.5) Ur Specific Tyler (1.000-1.030) Urine Protein (Negative) Urine Glucose (UA) (Negative) Urine Ketones (Negative) Urine Blood (Negative) Urine Nitrite (Negative) Urine Bilirubin (Negative) Urine Urobilinogen (Negative) Ur Leukocyte Esterase (Negative) Urine WBC (Auto) (0-5) /hpf Urine RBC (Auto) (0-2) /hpf U Hyaline Cast (Auto) (0-2) /lpf U Epithel Cells (Auto) (0-2) /hpf Urine Bacteria (Auto) (None Seen) Amorphous Sediment (None Prsent) Urine Yeast (None Prsent) Ur Random Creatinine mg/dl Ur Random Sodium mmol/L Hep Bs Antigen NON-REACTIVE (NON-REACTIVE) Hep Bs Ag Confirmation TNP Hep Bs Antibody, Quant <5 L (> OR = 10) mIU/mL Hep B Core Total Ab NON-REACTIVE (NON-REACTIVE) Blood Parasites ID Blood Type Antibody Screen Crossmatch 12/15/23 12/15/23 12/14/23 Range/Units 07:47 07:18 19:56 WBC 20.25 H RBC 4.34 Hgb 10.7 L Hct 36.6 L MCV 84.3 MCH 24.7 L MCHC 29.2 L RDW Std Deviation 53.1 H RDW Coeff of Isidoro 17.2 H Plt Count 407 H MPV 9.0 L Immature Gran % (Auto) 5.2 Neut % (Auto) 79.5 Lymph % (Auto) 9.7 Lassen % (Auto) 5.3 Eos % (Auto) 0.0 Baso % (Auto) 0.3 Neut # (Auto) 16.10 H Lymph # (Auto) 1.96 Lassen # (Auto) 1.08 H Eos # (Auto) 0.00 Baso # (Auto) 0.06 Immature Gran # (Auto) 1.05 H Absolute Nucleated RBC 0.06 Nucleated RBC % (auto) 0.3 Neutrophils % (Manual) Band Neutrophils % Lymphocytes % (Manual) Prolymphocyte % Reactive Lymphs % (Man) Monocytes % (Manual) Eosinophils % (Manual) Basophils % (Manual) Metamyelocytes % (Man) Myelocytes % (Man) Promyelocytes % (Man) Blast Cells % (Manual) Plasma Cell % (Manual) Other Cells % Nucleated RBC % Neutrophils # (Manual) Band Neutrophils # Total Absolute Neuts Lymphocytes # (Manual) Prolymphocyte # Reactive Lymphs # Total Abs Lymphocytes Monocytes # (Manual) Eosinophils # (Manual) Basophils # (Manual) Metamyelocytes # (Man) Myelocytes # (Manual) Promyelocytes # (Man) Blast Cells # (Man) Plasma Cell # (Manual) Other Cells # Nucleated RBCs # (Man) Hypersegmented Neuts Hyposegmented Neuts Hypogranular Neuts Large Granular Lymphs # Lrg Granular Lymphs Hairy Cells Smudge Cells Toxic Granulation Toxic Vacuolation Dohle Bodies Ina Rods Platelet Estimate Hypogranular Platelets Giant Platelets Platelet Satelliting RBC Morphology Polychromasia 1+ Hypochromasia Poikilocytosis Basophilic Stippling 1+ Anisocytosis Microcytosis Macrocytosis Spherocytes Pappenheimer Bodies Sickle Cells Target Cells Tear Drop Cells Ovalocytes 1+ Stomatocytes Trinh-Wacissa Bodies Echinocytes 1+ Acanthocytes (Spur) 1+ Rouleaux RBC Agglutinates Schistocytes ESR (0-30) mm/hr Sezary Cell Sodium 137 (136-145) mmol/L Potassium 4.4 (3.5-5.1) mmol/L Chloride 105 (98-107) mmol/L Carbon Dioxide 21 (21-32) mmol/L Anion Gap 11 (3-11) BUN 85 H (6-23) mg/dl Creatinine 4.20 H D (0.6-1.2) mg/dl Est Cr Clr Drug Dosing 12.4 ml/min Est GFR ( Amer) 11.0 ml/min Est GFR (Non-Af Amer) 9.5 ml/min BUN/Creatinine Ratio 20.2 H (10-20) Glucose 164 H (70-99(Fasting)) mg/dl POC Glucose 147 H 214 H (70-99) mg/dl Calcium 8.0 L (8.6-10.3) mg/dl Phosphorus 7.3 H (2.5-4.9) mg/dl Magnesium (1.7-2.4) mg/dl Iron (35-150) mcg/dl TIBC (250-450) mcg/dl Unsaturated IBC (155-355) mcg/dl Transferrin % Sat (15-50) % Ferritin (8-388) ng/ml Total Bilirubin (0.2-1.0) mg/dl AST (13-39) U/L ALT (7-52) U/L Alkaline Phosphatase (34-104) U/L Total Creatine Kinase (26-192) U/L C-Reactive Protein (0-0.5) mg/dl Total Protein (6.0-8.3) gm/dl Albumin 3.1 L (3.4-5.0) gm/dl Globulin (2.5-4.0) gm/dl Albumin/Globulin Ratio (0.9-2) Urine Color Urine Appearance (Clear) Urine pH (4.5-7.5) Ur Specific Tyler (1.000-1.030) Urine Protein (Negative) Urine Glucose (UA) (Negative) Urine Ketones (Negative) Urine Blood (Negative) Urine Nitrite (Negative) Urine Bilirubin (Negative) Urine Urobilinogen (Negative) Ur Leukocyte Esterase (Negative) Urine WBC (Auto) (0-5) /hpf Urine RBC (Auto) (0-2) /hpf U Hyaline Cast (Auto) (0-2) /lpf U Epithel Cells (Auto) (0-2) /hpf Urine Bacteria (Auto) (None Seen) Amorphous Sediment (None Prsent) Urine Yeast (None Prsent) Ur Random Creatinine mg/dl Ur Random Sodium mmol/L Hep Bs Antigen (NON-REACTIVE) Hep Bs Ag Confirmation Hep Bs Antibody, Quant (> OR = 10) mIU/mL Hep B Core Total Ab (NON-REACTIVE) Blood Parasites ID Blood Type Antibody Screen Crossmatch 12/14/23 12/14/23 12/14/23 Range/Units 16:22 11:06 07:09 WBC RBC Hgb Hct MCV MCH MCHC RDW Std Deviation RDW Coeff of Isidoro Plt Count MPV Immature Gran % (Auto) Neut % (Auto) Lymph % (Auto) Lassen % (Auto) Eos % (Auto) Baso % (Auto) Neut # (Auto) Lymph # (Auto) Lassen # (Auto) Eos # (Auto) Baso # (Auto) Immature Gran # (Auto) Absolute Nucleated RBC Nucleated RBC % (auto) Neutrophils % (Manual) Band Neutrophils % Lymphocytes % (Manual) Prolymphocyte % Reactive Lymphs % (Man) Monocytes % (Manual) Eosinophils % (Manual) Basophils % (Manual) Metamyelocytes % (Man) Myelocytes % (Man) Promyelocytes % (Man) Blast Cells % (Manual) Plasma Cell % (Manual) Other Cells % Nucleated RBC % Neutrophils # (Manual) Band Neutrophils # Total Absolute Neuts Lymphocytes # (Manual) Prolymphocyte # Reactive Lymphs # Total Abs Lymphocytes Monocytes # (Manual) Eosinophils # (Manual) Basophils # (Manual) Metamyelocytes # (Man) Myelocytes # (Manual) Promyelocytes # (Man) Blast Cells # (Man) Plasma Cell # (Manual) Other Cells # Nucleated RBCs # (Man) Hypersegmented Neuts Hyposegmented Neuts Hypogranular Neuts Large Granular Lymphs # Lrg Granular Lymphs Hairy Cells Smudge Cells Toxic Granulation Toxic Vacuolation Dohle Bodies Ina Rods Platelet Estimate Hypogranular Platelets Giant Platelets Platelet Satelliting RBC Morphology Polychromasia Hypochromasia Poikilocytosis Basophilic Stippling Anisocytosis Microcytosis Macrocytosis Spherocytes Pappenheimer Bodies Sickle Cells Target Cells Tear Drop Cells Ovalocytes Stomatocytes Trinh-Wacissa Bodies Echinocytes Acanthocytes (Spur) Rouleaux RBC Agglutinates Schistocytes ESR (0-30) mm/hr Sezary Cell Sodium (136-145) mmol/L Potassium (3.5-5.1) mmol/L Chloride (98-107) mmol/L Carbon Dioxide (21-32) mmol/L Anion Gap (3-11) BUN (6-23) mg/dl Creatinine (0.6-1.2) mg/dl Est Cr Clr Drug Dosing ml/min Est GFR ( Amer) ml/min Est GFR (Non-Af Amer) ml/min BUN/Creatinine Ratio (10-20) Glucose (70-99(Fasting)) mg/dl POC Glucose 174 H 184 H 130 H (70-99) mg/dl Calcium (8.6-10.3) mg/dl Phosphorus (2.5-4.9) mg/dl Magnesium (1.7-2.4) mg/dl Iron (35-150) mcg/dl TIBC (250-450) mcg/dl Unsaturated IBC (155-355) mcg/dl Transferrin % Sat (15-50) % Ferritin (8-388) ng/ml Total Bilirubin (0.2-1.0) mg/dl AST (13-39) U/L ALT (7-52) U/L Alkaline Phosphatase (34-104) U/L Total Creatine Kinase (26-192) U/L C-Reactive Protein (0-0.5) mg/dl Total Protein (6.0-8.3) gm/dl Albumin (3.4-5.0) gm/dl Globulin (2.5-4.0) gm/dl Albumin/Globulin Ratio (0.9-2) Urine Color Urine Appearance (Clear) Urine pH (4.5-7.5) Ur Specific Tyler (1.000-1.030) Urine Protein (Negative) Urine Glucose (UA) (Negative) Urine Ketones (Negative) Urine Blood (Negative) Urine Nitrite (Negative) Urine Bilirubin (Negative) Urine Urobilinogen (Negative) Ur Leukocyte Esterase (Negative) Urine WBC (Auto) (0-5) /hpf Urine RBC (Auto) (0-2) /hpf U Hyaline Cast (Auto) (0-2) /lpf U Epithel Cells (Auto) (0-2) /hpf Urine Bacteria (Auto) (None Seen) Amorphous Sediment (None Prsent) Urine Yeast (None Prsent) Ur Random Creatinine mg/dl Ur Random Sodium mmol/L Hep Bs Antigen (NON-REACTIVE) Hep Bs Ag Confirmation Hep Bs Antibody, Quant (> OR = 10) mIU/mL Hep B Core Total Ab (NON-REACTIVE) Blood Parasites ID Blood Type Antibody Screen Crossmatch 12/14/23 12/14/23 12/13/23 Range/Units 06:40 03:03 20:00 WBC 20.35 H RBC 4.68 Hgb 11.5 L Hct 39.8 MCV 85.0 MCH 24.6 L MCHC 28.9 L RDW Std Deviation 53.0 H RDW Coeff of Isidoro 17.0 H Plt Count 443 H MPV 8.8 L Immature Gran % (Auto) 7.3 Neut % (Auto) 80.5 Lymph % (Auto) 9.6 Lassen % (Auto) 2.2 Eos % (Auto) 0.0 Baso % (Auto) 0.4 Neut # (Auto) 16.37 H Lymph # (Auto) 1.96 Lassen # (Auto) 0.44 Eos # (Auto) 0.00 Baso # (Auto) 0.09 Immature Gran # (Auto) 1.49 H Absolute Nucleated RBC 0.03 Nucleated RBC % (auto) 0.1 Neutrophils % (Manual) Band Neutrophils % Lymphocytes % (Manual) Prolymphocyte % Reactive Lymphs % (Man) Monocytes % (Manual) Eosinophils % (Manual) Basophils % (Manual) Metamyelocytes % (Man) Myelocytes % (Man) Promyelocytes % (Man) Blast Cells % (Manual) Plasma Cell % (Manual) Other Cells % Nucleated RBC % Neutrophils # (Manual) Band Neutrophils # Total Absolute Neuts Lymphocytes # (Manual) Prolymphocyte # Reactive Lymphs # Total Abs Lymphocytes Monocytes # (Manual) Eosinophils # (Manual) Basophils # (Manual) Metamyelocytes # (Man) Myelocytes # (Manual) Promyelocytes # (Man) Blast Cells # (Man) Plasma Cell # (Manual) Other Cells # Nucleated RBCs # (Man) Hypersegmented Neuts Hyposegmented Neuts Hypogranular Neuts Large Granular Lymphs # Lrg Granular Lymphs Hairy Cells Smudge Cells Toxic Granulation Toxic Vacuolation Dohle Bodies Ina Rods Platelet Estimate Hypogranular Platelets Giant Platelets Platelet Satelliting RBC Morphology Polychromasia 1+ Hypochromasia Poikilocytosis Basophilic Stippling Anisocytosis Microcytosis Macrocytosis Spherocytes Pappenheimer Bodies Sickle Cells Target Cells Tear Drop Cells Ovalocytes Stomatocytes Trinh-Wacissa Bodies Echinocytes Acanthocytes (Spur) Rouleaux RBC Agglutinates Schistocytes ESR (0-30) mm/hr Sezary Cell Sodium 136 (136-145) mmol/L Potassium 4.4 (3.5-5.1) mmol/L Chloride 104 (98-107) mmol/L Carbon Dioxide 21 (21-32) mmol/L Anion Gap 11 (3-11) BUN 75 H (6-23) mg/dl Creatinine 3.82 H D (0.6-1.2) mg/dl Est Cr Clr Drug Dosing 14.8 ml/min Est GFR ( Amer) 12.4 ml/min Est GFR (Non-Af Amer) 10.7 ml/min BUN/Creatinine Ratio 19.6 (10-20) Glucose 139 H (70-99(Fasting)) mg/dl POC Glucose 133 H 113 H (70-99) mg/dl Calcium 8.3 L (8.6-10.3) mg/dl Phosphorus 7.3 H (2.5-4.9) mg/dl Magnesium (1.7-2.4) mg/dl Iron (35-150) mcg/dl TIBC (250-450) mcg/dl Unsaturated IBC (155-355) mcg/dl Transferrin % Sat (15-50) % Ferritin (8-388) ng/ml Total Bilirubin 0.2 (0.2-1.0) mg/dl AST 9 L (13-39) U/L ALT 5 L (7-52) U/L Alkaline Phosphatase 73 (34-104) U/L Total Creatine Kinase (26-192) U/L C-Reactive Protein (0-0.5) mg/dl Total Protein 6.0 (6.0-8.3) gm/dl Albumin 2.8 L (3.4-5.0) gm/dl Globulin 3.2 (2.5-4.0) gm/dl Albumin/Globulin Ratio 0.9 (0.9-2) Urine Color Urine Appearance (Clear) Urine pH (4.5-7.5) Ur Specific Tyler (1.000-1.030) Urine Protein (Negative) Urine Glucose (UA) (Negative) Urine Ketones (Negative) Urine Blood (Negative) Urine Nitrite (Negative) Urine Bilirubin (Negative) Urine Urobilinogen (Negative) Ur Leukocyte Esterase (Negative) Urine WBC (Auto) (0-5) /hpf Urine RBC (Auto) (0-2) /hpf U Hyaline Cast (Auto) (0-2) /lpf U Epithel Cells (Auto) (0-2) /hpf Urine Bacteria (Auto) (None Seen) Amorphous Sediment (None Prsent) Urine Yeast (None Prsent) Ur Random Creatinine mg/dl Ur Random Sodium mmol/L Hep Bs Antigen (NON-REACTIVE) Hep Bs Ag Confirmation Hep Bs Antibody, Quant (> OR = 10) mIU/mL Hep B Core Total Ab (NON-REACTIVE) Blood Parasites ID Blood Type Antibody Screen Crossmatch 12/13/23 12/13/23 12/13/23 Range/Units 16:18 11:19 07:25 WBC 22.68 H RBC 4.49 Hgb 11.4 L Hct 37.9 MCV 84.4 MCH 25.4 MCHC 30.1 L RDW Std Deviation 51.8 H RDW Coeff of Isidoro 16.8 H Plt Count 407 H MPV 8.9 L Immature Gran % (Auto) 5.8 Neut % (Auto) 83.9 Lymph % (Auto) 7.6 Lassen % (Auto) 2.3 Eos % (Auto) 0.0 Baso % (Auto) 0.4 Neut # (Auto) 19.00 H Lymph # (Auto) 1.72 Lassen # (Auto) 0.53 Eos # (Auto) 0.01 Baso # (Auto) 0.10 Immature Gran # (Auto) 1.32 H Absolute Nucleated RBC 0.03 Nucleated RBC % (auto) 0.1 Neutrophils % (Manual) Band Neutrophils % Lymphocytes % (Manual) Prolymphocyte % Reactive Lymphs % (Man) Monocytes % (Manual) Eosinophils % (Manual) Basophils % (Manual) Metamyelocytes % (Man) Myelocytes % (Man) Promyelocytes % (Man) Blast Cells % (Manual) Plasma Cell % (Manual) Other Cells % Nucleated RBC % Neutrophils # (Manual) Band Neutrophils # Total Absolute Neuts Lymphocytes # (Manual) Prolymphocyte # Reactive Lymphs # Total Abs Lymphocytes Monocytes # (Manual) Eosinophils # (Manual) Basophils # (Manual) Metamyelocytes # (Man) Myelocytes # (Manual) Promyelocytes # (Man) Blast Cells # (Man) Plasma Cell # (Manual) Other Cells # Nucleated RBCs # (Man) Hypersegmented Neuts Hyposegmented Neuts Hypogranular Neuts Large Granular Lymphs # Lrg Granular Lymphs Hairy Cells Smudge Cells Toxic Granulation Toxic Vacuolation Dohle Bodies Ina Rods Platelet Estimate Hypogranular Platelets Giant Platelets Platelet Satelliting RBC Morphology Polychromasia Hypochromasia Poikilocytosis Basophilic Stippling Anisocytosis Microcytosis Macrocytosis Spherocytes Pappenheimer Bodies Sickle Cells Target Cells Tear Drop Cells Ovalocytes Stomatocytes Trinh-Wacissa Bodies Echinocytes Acanthocytes (Spur) Rouleaux RBC Agglutinates Schistocytes ESR (0-30) mm/hr Sezary Cell Sodium 138 (136-145) mmol/L Potassium 4.2 (3.5-5.1) mmol/L Chloride 106 (98-107) mmol/L Carbon Dioxide 22 (21-32) mmol/L Anion Gap 10 (3-11) BUN 65 H (6-23) mg/dl Creatinine 3.46 H (0.6-1.2) mg/dl Est Cr Clr Drug Dosing 16.3 ml/min Est GFR ( Amer) 13.9 ml/min Est GFR (Non-Af Amer) 12.0 ml/min BUN/Creatinine Ratio 18.8 (10-20) Glucose 111 H (70-99(Fasting)) mg/dl POC Glucose 114 H 130 H (70-99) mg/dl Calcium 8.5 L (8.6-10.3) mg/dl Phosphorus 6.3 H (2.5-4.9) mg/dl Magnesium 1.9 (1.7-2.4) mg/dl Iron (35-150) mcg/dl TIBC (250-450) mcg/dl Unsaturated IBC (155-355) mcg/dl Transferrin % Sat (15-50) % Ferritin (8-388) ng/ml Total Bilirubin (0.2-1.0) mg/dl AST (13-39) U/L ALT (7-52) U/L Alkaline Phosphatase (34-104) U/L Total Creatine Kinase (26-192) U/L C-Reactive Protein (0-0.5) mg/dl Total Protein (6.0-8.3) gm/dl Albumin 2.7 L (3.4-5.0) gm/dl Globulin (2.5-4.0) gm/dl Albumin/Globulin Ratio (0.9-2) Urine Color Urine Appearance (Clear) Urine pH (4.5-7.5) Ur Specific Tyler (1.000-1.030) Urine Protein (Negative) Urine Glucose (UA) (Negative) Urine Ketones (Negative) Urine Blood (Negative) Urine Nitrite (Negative) Urine Bilirubin (Negative) Urine Urobilinogen (Negative) Ur Leukocyte Esterase (Negative) Urine WBC (Auto) (0-5) /hpf Urine RBC (Auto) (0-2) /hpf U Hyaline Cast (Auto) (0-2) /lpf U Epithel Cells (Auto) (0-2) /hpf Urine Bacteria (Auto) (None Seen) Amorphous Sediment (None Prsent) Urine Yeast (None Prsent) Ur Random Creatinine mg/dl Ur Random Sodium mmol/L Hep Bs Antigen (NON-REACTIVE) Hep Bs Ag Confirmation Hep Bs Antibody, Quant (> OR = 10) mIU/mL Hep B Core Total Ab (NON-REACTIVE) Blood Parasites ID Blood Type Antibody Screen Crossmatch 12/13/23 12/12/23 12/12/23 Range/Units 07:13 19:51 16:04 WBC RBC Hgb Hct MCV MCH MCHC RDW Std Deviation RDW Coeff of Isidoro Plt Count MPV Immature Gran % (Auto) Neut % (Auto) Lymph % (Auto) Lassen % (Auto) Eos % (Auto) Baso % (Auto) Neut # (Auto) Lymph # (Auto) Lassen # (Auto) Eos # (Auto) Baso # (Auto) Immature Gran # (Auto) Absolute Nucleated RBC Nucleated RBC % (auto) Neutrophils % (Manual) Band Neutrophils % Lymphocytes % (Manual) Prolymphocyte % Reactive Lymphs % (Man) Monocytes % (Manual) Eosinophils % (Manual) Basophils % (Manual) Metamyelocytes % (Man) Myelocytes % (Man) Promyelocytes % (Man) Blast Cells % (Manual) Plasma Cell % (Manual) Other Cells % Nucleated RBC % Neutrophils # (Manual) Band Neutrophils # Total Absolute Neuts Lymphocytes # (Manual) Prolymphocyte # Reactive Lymphs # Total Abs Lymphocytes Monocytes # (Manual) Eosinophils # (Manual) Basophils # (Manual) Metamyelocytes # (Man) Myelocytes # (Manual) Promyelocytes # (Man) Blast Cells # (Man) Plasma Cell # (Manual) Other Cells # Nucleated RBCs # (Man) Hypersegmented Neuts Hyposegmented Neuts Hypogranular Neuts Large Granular Lymphs # Lrg Granular Lymphs Hairy Cells Smudge Cells Toxic Granulation Toxic Vacuolation Dohle Bodies Ina Rods Platelet Estimate Hypogranular Platelets Giant Platelets Platelet Satelliting RBC Morphology Polychromasia Hypochromasia Poikilocytosis Basophilic Stippling Anisocytosis Microcytosis Macrocytosis Spherocytes Pappenheimer Bodies Sickle Cells Target Cells Tear Drop Cells Ovalocytes Stomatocytes Trinh-Wacissa Bodies Echinocytes Acanthocytes (Spur) Rouleaux RBC Agglutinates Schistocytes ESR (0-30) mm/hr Sezary Cell Sodium (136-145) mmol/L Potassium (3.5-5.1) mmol/L Chloride (98-107) mmol/L Carbon Dioxide (21-32) mmol/L Anion Gap (3-11) BUN (6-23) mg/dl Creatinine (0.6-1.2) mg/dl Est Cr Clr Drug Dosing ml/min Est GFR ( Amer) ml/min Est GFR (Non-Af Amer) ml/min BUN/Creatinine Ratio (10-20) Glucose (70-99(Fasting)) mg/dl POC Glucose 97 94 87 (70-99) mg/dl Calcium (8.6-10.3) mg/dl Phosphorus (2.5-4.9) mg/dl Magnesium (1.7-2.4) mg/dl Iron (35-150) mcg/dl TIBC (250-450) mcg/dl Unsaturated IBC (155-355) mcg/dl Transferrin % Sat (15-50) % Ferritin (8-388) ng/ml Total Bilirubin (0.2-1.0) mg/dl AST (13-39) U/L ALT (7-52) U/L Alkaline Phosphatase (34-104) U/L Total Creatine Kinase (26-192) U/L C-Reactive Protein (0-0.5) mg/dl Total Protein (6.0-8.3) gm/dl Albumin (3.4-5.0) gm/dl Globulin (2.5-4.0) gm/dl Albumin/Globulin Ratio (0.9-2) Urine Color Urine Appearance (Clear) Urine pH (4.5-7.5) Ur Specific Tyler (1.000-1.030) Urine Protein (Negative) Urine Glucose (UA) (Negative) Urine Ketones (Negative) Urine Blood (Negative) Urine Nitrite (Negative) Urine Bilirubin (Negative) Urine Urobilinogen (Negative) Ur Leukocyte Esterase (Negative) Urine WBC (Auto) (0-5) /hpf Urine RBC (Auto) (0-2) /hpf U Hyaline Cast (Auto) (0-2) /lpf U Epithel Cells (Auto) (0-2) /hpf Urine Bacteria (Auto) (None Seen) Amorphous Sediment (None Prsent) Urine Yeast (None Prsent) Ur Random Creatinine mg/dl Ur Random Sodium mmol/L Hep Bs Antigen (NON-REACTIVE) Hep Bs Ag Confirmation Hep Bs Antibody, Quant (> OR = 10) mIU/mL Hep B Core Total Ab (NON-REACTIVE) Blood Parasites ID Blood Type Antibody Screen Crossmatch 12/12/23 12/12/23 12/12/23 Range/Units 11:37 10:55 07:31 WBC RBC Hgb Hct MCV MCH MCHC RDW Std Deviation RDW Coeff of Isidoro Plt Count MPV Immature Gran % (Auto) Neut % (Auto) Lymph % (Auto) Lassen % (Auto) Eos % (Auto) Baso % (Auto) Neut # (Auto) Lymph # (Auto) Lassen # (Auto) Eos # (Auto) Baso # (Auto) Immature Gran # (Auto) Absolute Nucleated RBC Nucleated RBC % (auto) Neutrophils % (Manual) Band Neutrophils % Lymphocytes % (Manual) Prolymphocyte % Reactive Lymphs % (Man) Monocytes % (Manual) Eosinophils % (Manual) Basophils % (Manual) Metamyelocytes % (Man) Myelocytes % (Man) Promyelocytes % (Man) Blast Cells % (Manual) Plasma Cell % (Manual) Other Cells % Nucleated RBC % Neutrophils # (Manual) Band Neutrophils # Total Absolute Neuts Lymphocytes # (Manual) Prolymphocyte # Reactive Lymphs # Total Abs Lymphocytes Monocytes # (Manual) Eosinophils # (Manual) Basophils # (Manual) Metamyelocytes # (Man) Myelocytes # (Manual) Promyelocytes # (Man) Blast Cells # (Man) Plasma Cell # (Manual) Other Cells # Nucleated RBCs # (Man) Hypersegmented Neuts Hyposegmented Neuts Hypogranular Neuts Large Granular Lymphs # Lrg Granular Lymphs Hairy Cells Smudge Cells Toxic Granulation Toxic Vacuolation Dohle Bodies Ina Rods Platelet Estimate Hypogranular Platelets Giant Platelets Platelet Satelliting RBC Morphology Polychromasia Hypochromasia Poikilocytosis Basophilic Stippling Anisocytosis Microcytosis Macrocytosis Spherocytes Pappenheimer Bodies Sickle Cells Target Cells Tear Drop Cells Ovalocytes Stomatocytes Trinh-Wacissa Bodies Echinocytes Acanthocytes (Spur) Rouleaux RBC Agglutinates Schistocytes ESR (0-30) mm/hr Sezary Cell Sodium (136-145) mmol/L Potassium (3.5-5.1) mmol/L Chloride (98-107) mmol/L Carbon Dioxide (21-32) mmol/L Anion Gap (3-11) BUN (6-23) mg/dl Creatinine (0.6-1.2) mg/dl Est Cr Clr Drug Dosing ml/min Est GFR ( Amer) ml/min Est GFR (Non-Af Amer) ml/min BUN/Creatinine Ratio (10-20) Glucose (70-99(Fasting)) mg/dl POC Glucose 113 H 64 L* 114 H (70-99) mg/dl Calcium (8.6-10.3) mg/dl Phosphorus (2.5-4.9) mg/dl Magnesium (1.7-2.4) mg/dl Iron (35-150) mcg/dl TIBC (250-450) mcg/dl Unsaturated IBC (155-355) mcg/dl Transferrin % Sat (15-50) % Ferritin (8-388) ng/ml Total Bilirubin (0.2-1.0) mg/dl AST (13-39) U/L ALT (7-52) U/L Alkaline Phosphatase (34-104) U/L Total Creatine Kinase (26-192) U/L C-Reactive Protein (0-0.5) mg/dl Total Protein (6.0-8.3) gm/dl Albumin (3.4-5.0) gm/dl Globulin (2.5-4.0) gm/dl Albumin/Globulin Ratio (0.9-2) Urine Color Urine Appearance (Clear) Urine pH (4.5-7.5) Ur Specific Tyler (1.000-1.030) Urine Protein (Negative) Urine Glucose (UA) (Negative) Urine Ketones (Negative) Urine Blood (Negative) Urine Nitrite (Negative) Urine Bilirubin (Negative) Urine Urobilinogen (Negative) Ur Leukocyte Esterase (Negative) Urine WBC (Auto) (0-5) /hpf Urine RBC (Auto) (0-2) /hpf U Hyaline Cast (Auto) (0-2) /lpf U Epithel Cells (Auto) (0-2) /hpf Urine Bacteria (Auto) (None Seen) Amorphous Sediment (None Prsent) Urine Yeast (None Prsent) Ur Random Creatinine mg/dl Ur Random Sodium mmol/L Hep Bs Antigen (NON-REACTIVE) Hep Bs Ag Confirmation Hep Bs Antibody, Quant (> OR = 10) mIU/mL Hep B Core Total Ab (NON-REACTIVE) Blood Parasites ID Blood Type Antibody Screen Crossmatch 12/12/23 12/12/23 12/12/23 Range/Units 07:07 05:56 05:56 WBC RBC Hgb Hct MCV MCH MCHC RDW Std Deviation RDW Coeff of Isidoro Plt Count MPV Immature Gran % (Auto) Neut % (Auto) Lymph % (Auto) Lassen % (Auto) Eos % (Auto) Baso % (Auto) Neut # (Auto) Lymph # (Auto) Lassen # (Auto) Eos # (Auto) Baso # (Auto) Immature Gran # (Auto) Absolute Nucleated RBC Nucleated RBC % (auto) Neutrophils % (Manual) Band Neutrophils % Lymphocytes % (Manual) Prolymphocyte % Reactive Lymphs % (Man) Monocytes % (Manual) Eosinophils % (Manual) Basophils % (Manual) Metamyelocytes % (Man) Myelocytes % (Man) Promyelocytes % (Man) Blast Cells % (Manual) Plasma Cell % (Manual) Other Cells % Nucleated RBC % Neutrophils # (Manual) Band Neutrophils # Total Absolute Neuts Lymphocytes # (Manual) Prolymphocyte # Reactive Lymphs # Total Abs Lymphocytes Monocytes # (Manual) Eosinophils # (Manual) Basophils # (Manual) Metamyelocytes # (Man) Myelocytes # (Manual) Promyelocytes # (Man) Blast Cells # (Man) Plasma Cell # (Manual) Other Cells # Nucleated RBCs # (Man) Hypersegmented Neuts Hyposegmented Neuts Hypogranular Neuts Large Granular Lymphs # Lrg Granular Lymphs Hairy Cells Smudge Cells Toxic Granulation Toxic Vacuolation Dohle Bodies Ina Rods Platelet Estimate Hypogranular Platelets Giant Platelets Platelet Satelliting RBC Morphology Polychromasia Hypochromasia Poikilocytosis Basophilic Stippling Anisocytosis Microcytosis Macrocytosis Spherocytes Pappenheimer Bodies Sickle Cells Target Cells Tear Drop Cells Ovalocytes Stomatocytes Trinh-Wacissa Bodies Echinocytes Acanthocytes (Spur) Rouleaux RBC Agglutinates Schistocytes ESR (0-30) mm/hr Sezary Cell Sodium (136-145) mmol/L Potassium (3.5-5.1) mmol/L Chloride (98-107) mmol/L Carbon Dioxide (21-32) mmol/L Anion Gap (3-11) BUN (6-23) mg/dl Creatinine (0.6-1.2) mg/dl Est Cr Clr Drug Dosing ml/min Est GFR ( Amer) ml/min Est GFR (Non-Af Amer) ml/min BUN/Creatinine Ratio (10-20) Glucose (70-99(Fasting)) mg/dl POC Glucose 64 L* (70-99) mg/dl Calcium 8.6 (8.6-10.3) mg/dl Phosphorus 6.0 H (2.5-4.9) mg/dl Magnesium 1.9 (1.7-2.4) mg/dl Iron (35-150) mcg/dl TIBC (250-450) mcg/dl Unsaturated IBC (155-355) mcg/dl Transferrin % Sat (15-50) % Ferritin (8-388) ng/ml Total Bilirubin 0.2 (0.2-1.0) mg/dl AST 10 L (13-39) U/L ALT 6 L (7-52) U/L Alkaline Phosphatase 90 (34-104) U/L Total Creatine Kinase (26-192) U/L C-Reactive Protein 12.64 H (0-0.5) mg/dl Total Protein 6.1 D (6.0-8.3) gm/dl Albumin 2.7 L 2.7 L (3.4-5.0) gm/dl Globulin 3.4 (2.5-4.0) gm/dl Albumin/Globulin Ratio 0.8 L (0.9-2) Urine Color Urine Appearance (Clear) Urine pH (4.5-7.5) Ur Specific Tyler (1.000-1.030) Urine Protein (Negative) Urine Glucose (UA) (Negative) Urine Ketones (Negative) Urine Blood (Negative) Urine Nitrite (Negative) Urine Bilirubin (Negative) Urine Urobilinogen (Negative) Ur Leukocyte Esterase (Negative) Urine WBC (Auto) (0-5) /hpf Urine RBC (Auto) (0-2) /hpf U Hyaline Cast (Auto) (0-2) /lpf U Epithel Cells (Auto) (0-2) /hpf Urine Bacteria (Auto) (None Seen) Amorphous Sediment (None Prsent) Urine Yeast (None Prsent) Ur Random Creatinine mg/dl Ur Random Sodium mmol/L Hep Bs Antigen (NON-REACTIVE) Hep Bs Ag Confirmation Hep Bs Antibody, Quant (> OR = 10) mIU/mL Hep B Core Total Ab (NON-REACTIVE) Blood Parasites ID Blood Type Antibody Screen Crossmatch 12/12/23 12/12/23 12/12/23 Range/Units 05:56 05:56 05:56 WBC RBC Hgb Hct MCV MCH MCHC RDW Std Deviation RDW Coeff of Isidoro Plt Count MPV Immature Gran % (Auto) Neut % (Auto) Lymph % (Auto) Lassen % (Auto) Eos % (Auto) Baso % (Auto) Neut # (Auto) Lymph # (Auto) Lassen # (Auto) Eos # (Auto) Baso # (Auto) Immature Gran # (Auto) Absolute Nucleated RBC Nucleated RBC % (auto) Neutrophils % (Manual) Band Neutrophils % Lymphocytes % (Manual) Prolymphocyte % Reactive Lymphs % (Man) Monocytes % (Manual) Eosinophils % (Manual) Basophils % (Manual) Metamyelocytes % (Man) Myelocytes % (Man) Promyelocytes % (Man) Blast Cells % (Manual) Plasma Cell % (Manual) Other Cells % Nucleated RBC % Neutrophils # (Manual) Band Neutrophils # Total Absolute Neuts Lymphocytes # (Manual) Prolymphocyte # Reactive Lymphs # Total Abs Lymphocytes Monocytes # (Manual) Eosinophils # (Manual) Basophils # (Manual) Metamyelocytes # (Man) Myelocytes # (Manual) Promyelocytes # (Man) Blast Cells # (Man) Plasma Cell # (Manual) Other Cells # Nucleated RBCs # (Man) Hypersegmented Neuts Hyposegmented Neuts Hypogranular Neuts Large Granular Lymphs # Lrg Granular Lymphs Hairy Cells Smudge Cells Toxic Granulation Toxic Vacuolation Dohle Bodies Ina Rods Platelet Estimate Hypogranular Platelets Giant Platelets Platelet Satelliting RBC Morphology Polychromasia Hypochromasia Poikilocytosis Basophilic Stippling Anisocytosis Microcytosis Macrocytosis Spherocytes Pappenheimer Bodies Sickle Cells Target Cells Tear Drop Cells Ovalocytes Stomatocytes Trinh-Wacissa Bodies Echinocytes Acanthocytes (Spur) Rouleaux RBC Agglutinates Schistocytes ESR (0-30) mm/hr Sezary Cell Sodium (136-145) mmol/L Potassium (3.5-5.1) mmol/L Chloride (98-107) mmol/L Carbon Dioxide (21-32) mmol/L Anion Gap (3-11) BUN (6-23) mg/dl Creatinine (0.6-1.2) mg/dl Est Cr Clr Drug Dosing ml/min Est GFR ( Amer) ml/min Est GFR (Non-Af Amer) 13.1 ml/min BUN/Creatinine Ratio 18.6 19.0 (10-20) Glucose 75 75 (70-99(Fasting)) mg/dl POC Glucose (70-99) mg/dl Calcium 8.6 (8.6-10.3) mg/dl Phosphorus (2.5-4.9) mg/dl Magnesium (1.7-2.4) mg/dl Iron (35-150) mcg/dl TIBC (250-450) mcg/dl Unsaturated IBC (155-355) mcg/dl Transferrin % Sat (15-50) % Ferritin (8-388) ng/ml Total Bilirubin (0.2-1.0) mg/dl AST (13-39) U/L ALT (7-52) U/L Alkaline Phosphatase (34-104) U/L Total Creatine Kinase (26-192) U/L C-Reactive Protein (0-0.5) mg/dl Total Protein (6.0-8.3) gm/dl Albumin (3.4-5.0) gm/dl Globulin (2.5-4.0) gm/dl Albumin/Globulin Ratio (0.9-2) Urine Color Urine Appearance (Clear) Urine pH (4.5-7.5) Ur Specific Tyler (1.000-1.030) Urine Protein (Negative) Urine Glucose (UA) (Negative) Urine Ketones (Negative) Urine Blood (Negative) Urine Nitrite (Negative) Urine Bilirubin (Negative) Urine Urobilinogen (Negative) Ur Leukocyte Esterase (Negative) Urine WBC (Auto) (0-5) /hpf Urine RBC (Auto) (0-2) /hpf U Hyaline Cast (Auto) (0-2) /lpf U Epithel Cells (Auto) (0-2) /hpf Urine Bacteria (Auto) (None Seen) Amorphous Sediment (None Prsent) Urine Yeast (None Prsent) Ur Random Creatinine mg/dl Ur Random Sodium mmol/L Hep Bs Antigen (NON-REACTIVE) Hep Bs Ag Confirmation Hep Bs Antibody, Quant (> OR = 10) mIU/mL Hep B Core Total Ab (NON-REACTIVE) Blood Parasites ID Blood Type Antibody Screen Crossmatch 12/12/23 12/12/23 12/12/23 Range/Units 05:56 05:56 05:56 WBC RBC Hgb Hct MCV MCH MCHC RDW Std Deviation RDW Coeff of Isidoro Plt Count MPV Immature Gran % (Auto) Neut % (Auto) Lymph % (Auto) Lassen % (Auto) Eos % (Auto) Baso % (Auto) Neut # (Auto) Lymph # (Auto) Lassen # (Auto) Eos # (Auto) Baso # (Auto) Immature Gran # (Auto) Absolute Nucleated RBC Nucleated RBC % (auto) Neutrophils % (Manual) Band Neutrophils % Lymphocytes % (Manual) Prolymphocyte % Reactive Lymphs % (Man) Monocytes % (Manual) Eosinophils % (Manual) Basophils % (Manual) Metamyelocytes % (Man) Myelocytes % (Man) Promyelocytes % (Man) Blast Cells % (Manual) Plasma Cell % (Manual) Other Cells % Nucleated RBC % Neutrophils # (Manual) Band Neutrophils # Total Absolute Neuts Lymphocytes # (Manual) Prolymphocyte # Reactive Lymphs # Total Abs Lymphocytes Monocytes # (Manual) Eosinophils # (Manual) Basophils # (Manual) Metamyelocytes # (Man) Myelocytes # (Manual) Promyelocytes # (Man) Blast Cells # (Man) Plasma Cell # (Manual) Other Cells # Nucleated RBCs # (Man) Hypersegmented Neuts Hyposegmented Neuts Hypogranular Neuts Large Granular Lymphs # Lrg Granular Lymphs Hairy Cells Smudge Cells Toxic Granulation Toxic Vacuolation Dohle Bodies Ina Rods Platelet Estimate Hypogranular Platelets Giant Platelets Platelet Satelliting RBC Morphology Polychromasia Hypochromasia Poikilocytosis Basophilic Stippling Anisocytosis Microcytosis Macrocytosis Spherocytes Pappenheimer Bodies Sickle Cells Target Cells Tear Drop Cells Ovalocytes Stomatocytes Trinh-Wacissa Bodies Echinocytes Acanthocytes (Spur) Rouleaux RBC Agglutinates Schistocytes ESR (0-30) mm/hr Sezary Cell Sodium (136-145) mmol/L Potassium (3.5-5.1) mmol/L Chloride (98-107) mmol/L Carbon Dioxide (21-32) mmol/L Anion Gap (3-11) BUN (6-23) mg/dl Creatinine 3.22 H (0.6-1.2) mg/dl Est Cr Clr Drug Dosing 17.3 17.3 ml/min Est GFR ( Amer) 15.2 15.3 ml/min Est GFR (Non-Af Amer) 13.2 ml/min BUN/Creatinine Ratio (10-20) Glucose (70-99(Fasting)) mg/dl POC Glucose (70-99) mg/dl Calcium (8.6-10.3) mg/dl Phosphorus (2.5-4.9) mg/dl Magnesium (1.7-2.4) mg/dl Iron (35-150) mcg/dl TIBC (250-450) mcg/dl Unsaturated IBC (155-355) mcg/dl Transferrin % Sat (15-50) % Ferritin (8-388) ng/ml Total Bilirubin (0.2-1.0) mg/dl AST (13-39) U/L ALT (7-52) U/L Alkaline Phosphatase (34-104) U/L Total Creatine Kinase (26-192) U/L C-Reactive Protein (0-0.5) mg/dl Total Protein (6.0-8.3) gm/dl Albumin (3.4-5.0) gm/dl Globulin (2.5-4.0) gm/dl Albumin/Globulin Ratio (0.9-2) Urine Color Urine Appearance (Clear) Urine pH (4.5-7.5) Ur Specific Tyler (1.000-1.030) Urine Protein (Negative) Urine Glucose (UA) (Negative) Urine Ketones (Negative) Urine Blood (Negative) Urine Nitrite (Negative) Urine Bilirubin (Negative) Urine Urobilinogen (Negative) Ur Leukocyte Esterase (Negative) Urine WBC (Auto) (0-5) /hpf Urine RBC (Auto) (0-2) /hpf U Hyaline Cast (Auto) (0-2) /lpf U Epithel Cells (Auto) (0-2) /hpf Urine Bacteria (Auto) (None Seen) Amorphous Sediment (None Prsent) Urine Yeast (None Prsent) Ur Random Creatinine mg/dl Ur Random Sodium mmol/L Hep Bs Antigen (NON-REACTIVE) Hep Bs Ag Confirmation Hep Bs Antibody, Quant (> OR = 10) mIU/mL Hep B Core Total Ab (NON-REACTIVE) Blood Parasites ID Blood Type Antibody Screen Crossmatch 12/12/23 12/12/23 12/12/23 Range/Units 05:56 05:56 05:56 WBC RBC Hgb Hct MCV MCH MCHC RDW Std Deviation RDW Coeff of Isidoro Plt Count MPV Immature Gran % (Auto) Neut % (Auto) Lymph % (Auto) Lassen % (Auto) Eos % (Auto) Baso % (Auto) Neut # (Auto) Lymph # (Auto) Lassen # (Auto) Eos # (Auto) Baso # (Auto) Immature Gran # (Auto) Absolute Nucleated RBC Nucleated RBC % (auto) Neutrophils % (Manual) Band Neutrophils % Lymphocytes % (Manual) Prolymphocyte % Reactive Lymphs % (Man) Monocytes % (Manual) Eosinophils % (Manual) Basophils % (Manual) Metamyelocytes % (Man) Myelocytes % (Man) Promyelocytes % (Man) Blast Cells % (Manual) Plasma Cell % (Manual) Other Cells % Nucleated RBC % Neutrophils # (Manual) Band Neutrophils # Total Absolute Neuts Lymphocytes # (Manual) Prolymphocyte # Reactive Lymphs # Total Abs Lymphocytes Monocytes # (Manual) Eosinophils # (Manual) Basophils # (Manual) Metamyelocytes # (Man) Myelocytes # (Manual) Promyelocytes # (Man) Blast Cells # (Man) Plasma Cell # (Manual) Other Cells # Nucleated RBCs # (Man) Hypersegmented Neuts Hyposegmented Neuts Hypogranular Neuts Large Granular Lymphs # Lrg Granular Lymphs Hairy Cells Smudge Cells Toxic Granulation Toxic Vacuolation Dohle Bodies Ina Rods Platelet Estimate Hypogranular Platelets Giant Platelets Platelet Satelliting RBC Morphology Polychromasia Hypochromasia Poikilocytosis Basophilic Stippling Anisocytosis Microcytosis Macrocytosis Spherocytes Pappenheimer Bodies Sickle Cells Target Cells Tear Drop Cells Ovalocytes Stomatocytes Trinh-Wacissa Bodies Echinocytes Acanthocytes (Spur) Rouleaux RBC Agglutinates Schistocytes ESR (0-30) mm/hr Sezary Cell Sodium (136-145) mmol/L Potassium (3.5-5.1) mmol/L Chloride (98-107) mmol/L Carbon Dioxide 24 (21-32) mmol/L Anion Gap 9 9 (3-11) BUN 60 H 61 H (6-23) mg/dl Creatinine 3.21 H D (0.6-1.2) mg/dl Est Cr Clr Drug Dosing ml/min Est GFR ( Amer) ml/min Est GFR (Non-Af Amer) ml/min BUN/Creatinine Ratio (10-20) Glucose (70-99(Fasting)) mg/dl POC Glucose (70-99) mg/dl Calcium (8.6-10.3) mg/dl Phosphorus (2.5-4.9) mg/dl Magnesium (1.7-2.4) mg/dl Iron (35-150) mcg/dl TIBC (250-450) mcg/dl Unsaturated IBC (155-355) mcg/dl Transferrin % Sat (15-50) % Ferritin (8-388) ng/ml Total Bilirubin (0.2-1.0) mg/dl AST (13-39) U/L ALT (7-52) U/L Alkaline Phosphatase (34-104) U/L Total Creatine Kinase (26-192) U/L C-Reactive Protein (0-0.5) mg/dl Total Protein (6.0-8.3) gm/dl Albumin (3.4-5.0) gm/dl Globulin (2.5-4.0) gm/dl Albumin/Globulin Ratio (0.9-2) Urine Color Urine Appearance (Clear) Urine pH (4.5-7.5) Ur Specific Tyler (1.000-1.030) Urine Protein (Negative) Urine Glucose (UA) (Negative) Urine Ketones (Negative) Urine Blood (Negative) Urine Nitrite (Negative) Urine Bilirubin (Negative) Urine Urobilinogen (Negative) Ur Leukocyte Esterase (Negative) Urine WBC (Auto) (0-5) /hpf Urine RBC (Auto) (0-2) /hpf U Hyaline Cast (Auto) (0-2) /lpf U Epithel Cells (Auto) (0-2) /hpf Urine Bacteria (Auto) (None Seen) Amorphous Sediment (None Prsent) Urine Yeast (None Prsent) Ur Random Creatinine mg/dl Ur Random Sodium mmol/L Hep Bs Antigen (NON-REACTIVE) Hep Bs Ag Confirmation Hep Bs Antibody, Quant (> OR = 10) mIU/mL Hep B Core Total Ab (NON-REACTIVE) Blood Parasites ID Blood Type Antibody Screen Crossmatch 12/12/23 12/12/23 12/12/23 Range/Units 05:56 05:56 05:56 WBC RBC Hgb Hct MCV MCH MCHC RDW Std Deviation RDW Coeff of Isidoro Plt Count MPV Immature Gran % (Auto) Neut % (Auto) Lymph % (Auto) Lassen % (Auto) Eos % (Auto) Baso % (Auto) Neut # (Auto) Lymph # (Auto) Lassen # (Auto) Eos # (Auto) Baso # (Auto) Immature Gran # (Auto) Absolute Nucleated RBC Nucleated RBC % (auto) Neutrophils % (Manual) Band Neutrophils % Lymphocytes % (Manual) Prolymphocyte % Reactive Lymphs % (Man) Monocytes % (Manual) Eosinophils % (Manual) Basophils % (Manual) Metamyelocytes % (Man) Myelocytes % (Man) Promyelocytes % (Man) Blast Cells % (Manual) Plasma Cell % (Manual) Other Cells % Nucleated RBC % Neutrophils # (Manual) Band Neutrophils # Total Absolute Neuts Lymphocytes # (Manual) Prolymphocyte # Reactive Lymphs # Total Abs Lymphocytes Monocytes # (Manual) Eosinophils # (Manual) Basophils # (Manual) Metamyelocytes # (Man) Myelocytes # (Manual) Promyelocytes # (Man) Blast Cells # (Man) Plasma Cell # (Manual) Other Cells # Nucleated RBCs # (Man) Hypersegmented Neuts Hyposegmented Neuts Hypogranular Neuts Large Granular Lymphs # Lrg Granular Lymphs Hairy Cells Smudge Cells Toxic Granulation Toxic Vacuolation Dohle Bodies Ina Rods Platelet Estimate Hypogranular Platelets Giant Platelets Platelet Satelliting RBC Morphology Polychromasia Hypochromasia Poikilocytosis Basophilic Stippling Anisocytosis Microcytosis Macrocytosis Spherocytes Pappenheimer Bodies Sickle Cells Target Cells Tear Drop Cells Ovalocytes Stomatocytes Trinh-Wacissa Bodies Echinocytes Acanthocytes (Spur) Rouleaux RBC Agglutinates Schistocytes ESR (0-30) mm/hr Sezary Cell Sodium 139 (136-145) mmol/L Potassium 4.0 4.0 (3.5-5.1) mmol/L Chloride 106 106 (98-107) mmol/L Carbon Dioxide 24 (21-32) mmol/L Anion Gap (3-11) BUN (6-23) mg/dl Creatinine (0.6-1.2) mg/dl Est Cr Clr Drug Dosing ml/min Est GFR ( Amer) ml/min Est GFR (Non-Af Amer) ml/min BUN/Creatinine Ratio (10-20) Glucose (70-99(Fasting)) mg/dl POC Glucose (70-99) mg/dl Calcium (8.6-10.3) mg/dl Phosphorus (2.5-4.9) mg/dl Magnesium (1.7-2.4) mg/dl Iron (35-150) mcg/dl TIBC (250-450) mcg/dl Unsaturated IBC (155-355) mcg/dl Transferrin % Sat (15-50) % Ferritin (8-388) ng/ml Total Bilirubin (0.2-1.0) mg/dl AST (13-39) U/L ALT (7-52) U/L Alkaline Phosphatase (34-104) U/L Total Creatine Kinase (26-192) U/L C-Reactive Protein (0-0.5) mg/dl Total Protein (6.0-8.3) gm/dl Albumin (3.4-5.0) gm/dl Globulin (2.5-4.0) gm/dl Albumin/Globulin Ratio (0.9-2) Urine Color Urine Appearance (Clear) Urine pH (4.5-7.5) Ur Specific Tyler (1.000-1.030) Urine Protein (Negative) Urine Glucose (UA) (Negative) Urine Ketones (Negative) Urine Blood (Negative) Urine Nitrite (Negative) Urine Bilirubin (Negative) Urine Urobilinogen (Negative) Ur Leukocyte Esterase (Negative) Urine WBC (Auto) (0-5) /hpf Urine RBC (Auto) (0-2) /hpf U Hyaline Cast (Auto) (0-2) /lpf U Epithel Cells (Auto) (0-2) /hpf Urine Bacteria (Auto) (None Seen) Amorphous Sediment (None Prsent) Urine Yeast (None Prsent) Ur Random Creatinine mg/dl Ur Random Sodium mmol/L Hep Bs Antigen (NON-REACTIVE) Hep Bs Ag Confirmation Hep Bs Antibody, Quant (> OR = 10) mIU/mL Hep B Core Total Ab (NON-REACTIVE) Blood Parasites ID Blood Type Antibody Screen Crossmatch 12/12/23 12/12/23 12/11/23 Range/Units 05:56 00:22 20:16 WBC 21.56 H RBC 4.31 Hgb 10.9 L 11.0 L D Hct 37.3 37.6 MCV 86.5 MCH 25.3 MCHC 29.2 L RDW Std Deviation 53.1 H RDW Coeff of Isidoro 16.6 H Plt Count 431 H MPV 9.1 L Immature Gran % (Auto) 5.4 Neut % (Auto) 75.2 Lymph % (Auto) 9.1 Lassen % (Auto) 6.6 Eos % (Auto) 3.0 Baso % (Auto) 0.7 Neut # (Auto) 16.21 H Lymph # (Auto) 1.96 Lassen # (Auto) 1.42 H Eos # (Auto) 0.65 H Baso # (Auto) 0.16 Immature Gran # (Auto) 1.16 H Absolute Nucleated RBC 0.08 Nucleated RBC % (auto) 0.4 Neutrophils % (Manual) Band Neutrophils % Lymphocytes % (Manual) Prolymphocyte % Reactive Lymphs % (Man) Monocytes % (Manual) Eosinophils % (Manual) Basophils % (Manual) Metamyelocytes % (Man) Myelocytes % (Man) Promyelocytes % (Man) Blast Cells % (Manual) Plasma Cell % (Manual) Other Cells % Nucleated RBC % Neutrophils # (Manual) Band Neutrophils # Total Absolute Neuts Lymphocytes # (Manual) Prolymphocyte # Reactive Lymphs # Total Abs Lymphocytes Monocytes # (Manual) Eosinophils # (Manual) Basophils # (Manual) Metamyelocytes # (Man) Myelocytes # (Manual) Promyelocytes # (Man) Blast Cells # (Man) Plasma Cell # (Manual) Other Cells # Nucleated RBCs # (Man) Hypersegmented Neuts Hyposegmented Neuts Hypogranular Neuts Large Granular Lymphs # Lrg Granular Lymphs Hairy Cells Smudge Cells Toxic Granulation Toxic Vacuolation Dohle Bodies Ina Rods Platelet Estimate Hypogranular Platelets Giant Platelets Platelet Satelliting RBC Morphology Polychromasia Hypochromasia Poikilocytosis Basophilic Stippling Anisocytosis Microcytosis Macrocytosis Spherocytes Pappenheimer Bodies Sickle Cells Target Cells Tear Drop Cells Ovalocytes Stomatocytes Trinh-Wacissa Bodies Echinocytes Acanthocytes (Spur) Rouleaux RBC Agglutinates Schistocytes ESR (0-30) mm/hr Sezary Cell Sodium 139 (136-145) mmol/L Potassium (3.5-5.1) mmol/L Chloride (98-107) mmol/L Carbon Dioxide (21-32) mmol/L Anion Gap (3-11) BUN (6-23) mg/dl Creatinine (0.6-1.2) mg/dl Est Cr Clr Drug Dosing ml/min Est GFR ( Amer) ml/min Est GFR (Non-Af Amer) ml/min BUN/Creatinine Ratio (10-20) Glucose (70-99(Fasting)) mg/dl POC Glucose 110 H (70-99) mg/dl Calcium (8.6-10.3) mg/dl Phosphorus (2.5-4.9) mg/dl Magnesium (1.7-2.4) mg/dl Iron (35-150) mcg/dl TIBC (250-450) mcg/dl Unsaturated IBC (155-355) mcg/dl Transferrin % Sat (15-50) % Ferritin (8-388) ng/ml Total Bilirubin (0.2-1.0) mg/dl AST (13-39) U/L ALT (7-52) U/L Alkaline Phosphatase (34-104) U/L Total Creatine Kinase (26-192) U/L C-Reactive Protein (0-0.5) mg/dl Total Protein (6.0-8.3) gm/dl Albumin (3.4-5.0) gm/dl Globulin (2.5-4.0) gm/dl Albumin/Globulin Ratio (0.9-2) Urine Color Urine Appearance (Clear) Urine pH (4.5-7.5) Ur Specific Tyler (1.000-1.030) Urine Protein (Negative) Urine Glucose (UA) (Negative) Urine Ketones (Negative) Urine Blood (Negative) Urine Nitrite (Negative) Urine Bilirubin (Negative) Urine Urobilinogen (Negative) Ur Leukocyte Esterase (Negative) Urine WBC (Auto) (0-5) /hpf Urine RBC (Auto) (0-2) /hpf U Hyaline Cast (Auto) (0-2) /lpf U Epithel Cells (Auto) (0-2) /hpf Urine Bacteria (Auto) (None Seen) Amorphous Sediment (None Prsent) Urine Yeast (None Prsent) Ur Random Creatinine mg/dl Ur Random Sodium mmol/L Hep Bs Antigen (NON-REACTIVE) Hep Bs Ag Confirmation Hep Bs Antibody, Quant (> OR = 10) mIU/mL Hep B Core Total Ab (NON-REACTIVE) Blood Parasites ID Blood Type Antibody Screen Crossmatch 12/11/23 12/11/23 12/11/23 Range/Units 16:05 10:24 09:50 WBC RBC Hgb Hct MCV MCH MCHC RDW Std Deviation RDW Coeff of Isidoro Plt Count MPV Immature Gran % (Auto) Neut % (Auto) Lymph % (Auto) Lassen % (Auto) Eos % (Auto) Baso % (Auto) Neut # (Auto) Lymph # (Auto) Lassen # (Auto) Eos # (Auto) Baso # (Auto) Immature Gran # (Auto) Absolute Nucleated RBC Nucleated RBC % (auto) Neutrophils % (Manual) Band Neutrophils % Lymphocytes % (Manual) Prolymphocyte % Reactive Lymphs % (Man) Monocytes % (Manual) Eosinophils % (Manual) Basophils % (Manual) Metamyelocytes % (Man) Myelocytes % (Man) Promyelocytes % (Man) Blast Cells % (Manual) Plasma Cell % (Manual) Other Cells % Nucleated RBC % Neutrophils # (Manual) Band Neutrophils # Total Absolute Neuts Lymphocytes # (Manual) Prolymphocyte # Reactive Lymphs # Total Abs Lymphocytes Monocytes # (Manual) Eosinophils # (Manual) Basophils # (Manual) Metamyelocytes # (Man) Myelocytes # (Manual) Promyelocytes # (Man) Blast Cells # (Man) Plasma Cell # (Manual) Other Cells # Nucleated RBCs # (Man) Hypersegmented Neuts Hyposegmented Neuts Hypogranular Neuts Large Granular Lymphs # Lrg Granular Lymphs Hairy Cells Smudge Cells Toxic Granulation Toxic Vacuolation Dohle Bodies Ina Rods Platelet Estimate Hypogranular Platelets Giant Platelets Platelet Satelliting RBC Morphology Polychromasia Hypochromasia Poikilocytosis Basophilic Stippling Anisocytosis Microcytosis Macrocytosis Spherocytes Pappenheimer Bodies Sickle Cells Target Cells Tear Drop Cells Ovalocytes Stomatocytes Trinh-Wacissa Bodies Echinocytes Acanthocytes (Spur) Rouleaux RBC Agglutinates Schistocytes ESR (0-30) mm/hr Sezary Cell Sodium (136-145) mmol/L Potassium (3.5-5.1) mmol/L Chloride (98-107) mmol/L Carbon Dioxide (21-32) mmol/L Anion Gap (3-11) BUN (6-23) mg/dl Creatinine (0.6-1.2) mg/dl Est Cr Clr Drug Dosing ml/min Est GFR ( Amer) ml/min Est GFR (Non-Af Amer) ml/min BUN/Creatinine Ratio (10-20) Glucose (70-99(Fasting)) mg/dl POC Glucose 96 (70-99) mg/dl Calcium (8.6-10.3) mg/dl Phosphorus (2.5-4.9) mg/dl Magnesium (1.7-2.4) mg/dl Iron (35-150) mcg/dl TIBC (250-450) mcg/dl Unsaturated IBC (155-355) mcg/dl Transferrin % Sat (15-50) % Ferritin (8-388) ng/ml Total Bilirubin (0.2-1.0) mg/dl AST (13-39) U/L ALT (7-52) U/L Alkaline Phosphatase (34-104) U/L Total Creatine Kinase (26-192) U/L C-Reactive Protein (0-0.5) mg/dl Total Protein (6.0-8.3) gm/dl Albumin (3.4-5.0) gm/dl Globulin (2.5-4.0) gm/dl Albumin/Globulin Ratio (0.9-2) Urine Color Yellow Urine Appearance Turbid A (Clear) Urine pH 5.0 (4.5-7.5) Ur Specific Tyler 1.021 (1.000-1.030) Urine Protein 2+ H (Negative) Urine Glucose (UA) Negative (Negative) Urine Ketones Negative (Negative) Urine Blood 3+ H (Negative) Urine Nitrite Negative (Negative) Urine Bilirubin Negative (Negative) Urine Urobilinogen Negative (Negative) Ur Leukocyte Esterase 2+ H (Negative) Urine WBC (Auto) 21-50 H (0-5) /hpf Urine RBC (Auto) >20 H (0-2) /hpf U Hyaline Cast (Auto) 0-2 (0-2) /lpf U Epithel Cells (Auto) 3-5 H (0-2) /hpf Urine Bacteria (Auto) None Seen (None Seen) Amorphous Sediment Present A (None Prsent) Urine Yeast Present A (None Prsent) Ur Random Creatinine 131.6 mg/dl Ur Random Sodium 20 mmol/L Hep Bs Antigen (NON-REACTIVE) Hep Bs Ag Confirmation Hep Bs Antibody, Quant (> OR = 10) mIU/mL Hep B Core Total Ab (NON-REACTIVE) Blood Parasites ID Blood Type A Positive Antibody Screen NEGATIVE Crossmatch See Detail 12/11/23 12/11/23 12/11/23 Range/Units 09:09 07:14 06:25 WBC 14.67 H Cancelled RBC 2.67 L Cancelled Hgb 6.3 L* Cancelled Hct 23.4 L Cancelled MCV 87.6 Cancelled MCH 23.6 L Cancelled MCHC 26.9 L Cancelled RDW Std Deviation 53.8 H Cancelled RDW Coeff of Isidoro 16.8 H Cancelled Plt Count 313 Cancelled MPV 9.6 Cancelled Immature Gran % (Auto) 4.2 Cancelled Neut % (Auto) 74.0 Cancelled Lymph % (Auto) 11.2 Cancelled Lassen % (Auto) 7.2 Cancelled Eos % (Auto) 2.9 Cancelled Baso % (Auto) 0.5 Cancelled Neut # (Auto) 10.85 H Cancelled Lymph # (Auto) 1.65 Cancelled Lassen # (Auto) 1.05 H Cancelled Eos # (Auto) 0.43 Cancelled Baso # (Auto) 0.08 Cancelled Immature Gran # (Auto) 0.61 H Cancelled Absolute Nucleated RBC 0.02 Cancelled Nucleated RBC % (auto) 0.1 Cancelled Neutrophils % (Manual) Cancelled Band Neutrophils % Cancelled Lymphocytes % (Manual) Cancelled Prolymphocyte % Cancelled Reactive Lymphs % (Man) Cancelled Monocytes % (Manual) Cancelled Eosinophils % (Manual) Cancelled Basophils % (Manual) Cancelled Metamyelocytes % (Man) Cancelled Myelocytes % (Man) Cancelled Promyelocytes % (Man) Cancelled Blast Cells % (Manual) Cancelled Plasma Cell % (Manual) Cancelled Other Cells % Cancelled Nucleated RBC % Cancelled Neutrophils # (Manual) Cancelled Band Neutrophils # Cancelled Total Absolute Neuts Cancelled Lymphocytes # (Manual) Cancelled Prolymphocyte # Cancelled Reactive Lymphs # Cancelled Total Abs Lymphocytes Cancelled Monocytes # (Manual) Cancelled Eosinophils # (Manual) Cancelled Basophils # (Manual) Cancelled Metamyelocytes # (Man) Cancelled Myelocytes # (Manual) Cancelled Promyelocytes # (Man) Cancelled Blast Cells # (Man) Cancelled Plasma Cell # (Manual) Cancelled Other Cells # Cancelled Nucleated RBCs # (Man) Cancelled Hypersegmented Neuts Cancelled Hyposegmented Neuts Cancelled Hypogranular Neuts Cancelled Large Granular Lymphs Cancelled # Lrg Granular Lymphs Cancelled Hairy Cells Cancelled Smudge Cells Cancelled Toxic Granulation Cancelled Toxic Vacuolation Cancelled Dohle Bodies Cancelled Ina Rods Cancelled Platelet Estimate Cancelled Hypogranular Platelets Cancelled Giant Platelets Cancelled Platelet Satelliting Cancelled RBC Morphology Cancelled Polychromasia Cancelled Hypochromasia Cancelled Poikilocytosis Cancelled Basophilic Stippling Cancelled Anisocytosis Cancelled Microcytosis Cancelled Macrocytosis Cancelled Spherocytes Cancelled Pappenheimer Bodies Cancelled Sickle Cells Cancelled Target Cells Cancelled Tear Drop Cells Cancelled Ovalocytes Cancelled Stomatocytes Cancelled Trinh-Wacissa Bodies Cancelled Echinocytes Cancelled Acanthocytes (Spur) Cancelled Rouleaux Cancelled RBC Agglutinates Cancelled Schistocytes Cancelled ESR 65 H (0-30) mm/hr Sezary Cell Cancelled Sodium 140 (136-145) mmol/L Potassium 4.3 D (3.5-5.1) mmol/L Chloride 109 H (98-107) mmol/L Carbon Dioxide 26 (21-32) mmol/L Anion Gap 5 (3-11) BUN 55 H (6-23) mg/dl Creatinine 2.56 H (0.6-1.2) mg/dl Est Cr Clr Drug Dosing 21.0 ml/min Est GFR ( Amer) 20.1 ml/min Est GFR (Non-Af Amer) 17.3 ml/min BUN/Creatinine Ratio 21.5 H (10-20) Glucose 104 H (70-99(Fasting)) mg/dl POC Glucose 109 H (70-99) mg/dl Calcium 8.0 L (8.6-10.3) mg/dl Phosphorus (2.5-4.9) mg/dl Magnesium (1.7-2.4) mg/dl Iron 14 L (35-150) mcg/dl TIBC 127 L (250-450) mcg/dl Unsaturated IBC 113 L (155-355) mcg/dl Transferrin % Sat 11 L (15-50) % Ferritin 153.0 (8-388) ng/ml Total Bilirubin 0.2 (0.2-1.0) mg/dl AST 7 L (13-39) U/L ALT 4 L (7-52) U/L Alkaline Phosphatase 74 (34-104) U/L Total Creatine Kinase (26-192) U/L C-Reactive Protein 13.93 H (0-0.5) mg/dl Total Protein 4.7 L D (6.0-8.3) gm/dl Albumin 2.2 L (3.4-5.0) gm/dl Globulin 2.5 (2.5-4.0) gm/dl Albumin/Globulin Ratio 0.9 (0.9-2) Urine Color Urine Appearance (Clear) Urine pH (4.5-7.5) Ur Specific Tyler (1.000-1.030) Urine Protein (Negative) Urine Glucose (UA) (Negative) Urine Ketones (Negative) Urine Blood (Negative) Urine Nitrite (Negative) Urine Bilirubin (Negative) Urine Urobilinogen (Negative) Ur Leukocyte Esterase (Negative) Urine WBC (Auto) (0-5) /hpf Urine RBC (Auto) (0-2) /hpf U Hyaline Cast (Auto) (0-2) /lpf U Epithel Cells (Auto) (0-2) /hpf Urine Bacteria (Auto) (None Seen) Amorphous Sediment (None Prsent) Urine Yeast (None Prsent) Ur Random Creatinine mg/dl Ur Random Sodium mmol/L Hep Bs Antigen (NON-REACTIVE) Hep Bs Ag Confirmation Hep Bs Antibody, Quant (> OR = 10) mIU/mL Hep B Core Total Ab (NON-REACTIVE) Blood Parasites ID Cancelled Blood Type Antibody Screen Crossmatch 12/10/23 12/10/23 Range/Units 20:21 16:26 WBC RBC Hgb Hct MCV MCH MCHC RDW Std Deviation RDW Coeff of Isidoro Plt Count MPV Immature Gran % (Auto) Neut % (Auto) Lymph % (Auto) Lassen % (Auto) Eos % (Auto) Baso % (Auto) Neut # (Auto) Lymph # (Auto) Lassen # (Auto) Eos # (Auto) Baso # (Auto) Immature Gran # (Auto) Absolute Nucleated RBC Nucleated RBC % (auto) Neutrophils % (Manual) Band Neutrophils % Lymphocytes % (Manual) Prolymphocyte % Reactive Lymphs % (Man) Monocytes % (Manual) Eosinophils % (Manual) Basophils % (Manual) Metamyelocytes % (Man) Myelocytes % (Man) Promyelocytes % (Man) Blast Cells % (Manual) Plasma Cell % (Manual) Other Cells % Nucleated RBC % Neutrophils # (Manual) Band Neutrophils # Total Absolute Neuts Lymphocytes # (Manual) Prolymphocyte # Reactive Lymphs # Total Abs Lymphocytes Monocytes # (Manual) Eosinophils # (Manual) Basophils # (Manual) Metamyelocytes # (Man) Myelocytes # (Manual) Promyelocytes # (Man) Blast Cells # (Man) Plasma Cell # (Manual) Other Cells # Nucleated RBCs # (Man) Hypersegmented Neuts Hyposegmented Neuts Hypogranular Neuts Large Granular Lymphs # Lrg Granular Lymphs Hairy Cells Smudge Cells Toxic Granulation Toxic Vacuolation Dohle Bodies Ina Rods Platelet Estimate Hypogranular Platelets Giant Platelets Platelet Satelliting RBC Morphology Polychromasia Hypochromasia Poikilocytosis Basophilic Stippling Anisocytosis Microcytosis Macrocytosis Spherocytes Pappenheimer Bodies Sickle Cells Target Cells Tear Drop Cells Ovalocytes Stomatocytes Trinh-Wacissa Bodies Echinocytes Acanthocytes (Spur) Rouleaux RBC Agglutinates Schistocytes ESR (0-30) mm/hr Sezary Cell Sodium (136-145) mmol/L Potassium (3.5-5.1) mmol/L Chloride (98-107) mmol/L Carbon Dioxide (21-32) mmol/L Anion Gap (3-11) BUN (6-23) mg/dl Creatinine (0.6-1.2) mg/dl Est Cr Clr Drug Dosing ml/min Est GFR ( Amer) ml/min Est GFR (Non-Af Amer) ml/min BUN/Creatinine Ratio (10-20) Glucose (70-99(Fasting)) mg/dl POC Glucose 130 H 138 H (70-99) mg/dl Calcium (8.6-10.3) mg/dl Phosphorus (2.5-4.9) mg/dl Magnesium (1.7-2.4) mg/dl Iron (35-150) mcg/dl TIBC (250-450) mcg/dl Unsaturated IBC (155-355) mcg/dl Transferrin % Sat (15-50) % Ferritin (8-388) ng/ml Total Bilirubin (0.2-1.0) mg/dl AST (13-39) U/L ALT (7-52) U/L Alkaline Phosphatase (34-104) U/L Total Creatine Kinase (26-192) U/L C-Reactive Protein (0-0.5) mg/dl Total Protein (6.0-8.3) gm/dl Albumin (3.4-5.0) gm/dl Globulin (2.5-4.0) gm/dl Albumin/Globulin Ratio (0.9-2) Urine Color Urine Appearance (Clear) Urine pH (4.5-7.5) Ur Specific Tyler (1.000-1.030) Urine Protein (Negative) Urine Glucose (UA) (Negative) Urine Ketones (Negative) Urine Blood (Negative) Urine Nitrite (Negative) Urine Bilirubin (Negative) Urine Urobilinogen (Negative) Ur Leukocyte Esterase (Negative) Urine WBC (Auto) (0-5) /hpf Urine RBC (Auto) (0-2) /hpf U Hyaline Cast (Auto) (0-2) /lpf U Epithel Cells (Auto) (0-2) /hpf Urine Bacteria (Auto) (None Seen) Amorphous Sediment (None Prsent) Urine Yeast (None Prsent) Ur Random Creatinine mg/dl Ur Random Sodium mmol/L Hep Bs Antigen (NON-REACTIVE) Hep Bs Ag Confirmation Hep Bs Antibody, Quant (> OR = 10) mIU/mL Hep B Core Total Ab (NON-REACTIVE) Blood Parasites ID Blood Type Antibody Screen Crossmatch Diagnostic Findings Chest X-Ray 12/03/23 01:54 SINGLE VIEW CHEST CLINICAL HISTORY: Sepsis. FINDINGS: An AP, portable, upright chest radiograph is compared to study dated 04/18/2021. The heart is enlarged noting atherosclerotic calcification of the thoracic aorta. There is pulmonary vascular congestion. The mitral annulus is densely calcified. There is bibasilar atelectasis. No large pleural effusion or pneumothorax is seen. The skeletal structures are osteopenic. The bony thorax is grossly intact. Calcific tendinopathy is noted in the left shoulder. IMPRESSION: Cardiomegaly with pulmonary vascular congestion. ACT 112: Negative or not required by law. Electronically signed by: Bennie Andrea M.D. 12/03/2023 8:18 AM Ankle X-Ray 12/03/23 02:39 LEFT ANKLE 2 VIEWS CLINICAL HISTORY: Left ankle pain. FINDINGS: AP and lateral views of the left ankle are correlated with radiographic study left foot dated 08/25/2023. The skeletal structures are heterogeneously osteopenic. The ankle mortise is maintained noting severe arthritic change at the tibiotalar joint. There is bony overgrowth posterior to the ankle joint. Pes planus is noted with a rocker-bottom deformity. Advanced arthritic change is seen in the midfoot and hindfoot. There is a plantar heel spur. No erosive change is seen. Benign-appearing periostitis is seen along the distal fibular shaft. Diffuse soft tissue edema is noted. A wound is suggested along the plantar aspect of foot. IMPRESSION: 1. Soft tissue swelling with no acute bony abnormality identified. 2. Osteopenia with severe degenerative change involving the ankle and hindfoot as above. The appearance is typical for a Charcot foot. Correlate clinically. 3. A wound is suggested along the plantar aspect of the foot. Electronically signed by: Bennie Andrea M.D. 12/03/2023 8:22 AM Duplex Scan Lower Extremity Artery 12/03/23 05:43 ULTRASOUND BILATERAL LOWER EXTREMITY ARTERIAL; TOE BRACHIAL INDICES CLINICAL HISTORY: Chronic left foot wound. Diabetes. TECHNIQUE: Real-time grayscale and color Doppler sonography of the right and left lower extremity arteries is performed from the inguinal crease to the foot. Ankle brachial indices could not be performed due to lower extremity edema. Toe brachial indices were assessed. FINDINGS: Ankle brachial indices: Right brachial pressure measures 154 and left brachial pressure measures 150. Pressures in the right first toe measure 107 for TBI of 0.69 and pressures in the left great toe measure 55 for TBI of 0.36. Right lower extremity: Atherosclerotic plaque and irregularity is seen throughout the arteries of the right lower extremity. There are triphasic arterial waveforms in the common femoral artery with velocities measuring up to 107 cm/s. The profunda femoris artery is patent with velocities measuring up to 84 cm/s. There are triphasic arterial waveforms throughout the superficial, femoral and popliteal arteries. Velocities in the superficial femoral artery measure up to 128 cm/s, and velocities in the popliteal artery measure up to 182 cm/s. There is three-vessel runoff to the foot. Velocities in the calf arteries measure up to 62 cm/s. The dorsalis pedis artery is patent with velocities measuring up to 107 cm/s. Normal arterial waveforms are shown in the calf arteries. Left lower extremity: There is atherosclerotic plaque and irregularity throughout the arteries of the left lower extremity. There are triphasic arterial waveforms in the common femoral artery with velocities measuring up to 123 cm/s. The profunda femoris artery is patent with velocities measuring up to 70 cm/s. There are triphasic waveforms in the superficial femoral and popliteal arteries. Velocities in the superficial femoral artery measure up to 134 cm/s and velocities in the popliteal artery measure up to 200 cm/s. There is at least two-vessel runoff to the foot. Velocities in the posterior tibial artery measure up to 155 cm/s and velocities in the anterior tibial artery measure up to 122 cm/s. The proximal portions of the peroneal artery are patent with velocities m easuring up to 97 cm/s. The distal vessel is not well assessed and may be occluded. The dorsalis pedis artery is patent with velocities measuring up to 53 cm/s. IMPRESSION: 1. There are mildly elevated velocities in the left popliteal artery suggesting stenosis. 2. There is three-vessel runoff to the right foot. 3. There is at least two-vessel runoff to the left foot. Portions of the peron eal artery are not well visualized and may be occluded. 4. Toe brachial indices as above. Dictated: 12/03/2023 11:05 AM Transcribed: 12/03/2023 11:50 AM Olegario [id number] [email or web address] Electronically signed by: Bennie Andrea M.D. 12/03/2023 1:[address] 12/03/23 05:43 CT SCAN OF THE LEFT FOOT WITHOUT IV CONTRAST CLINICAL HISTORY: Chronic wound. COMPARISON STUDY: CT scan of the left foot dated 07/26/2020. Radiographs of the left ankle dated 12/03/2023. TECHNIQUE: CT scan of the left foot is performed from the distal tibia and fibula to the base of the foot. Images are reviewed in the axial, sagittal, and coronal planes. IV contrast was not administered for this examination. A dose lowering technique was utilized adhering to the principles of ALARA. CT DOSE: 835.68 mGy.cm FINDINGS: The skeletal structures are heterogeneously osteopenic. No acute fracture is identified. The ankle mortise is intact noting severe arthritic change. Bony overgrowth is seen posterior to the ankle joint. Severe degenerative changes are noted throughout the foot, greatest in the midfoot and hindfoot. There is pes planus with a rocker-bottom deformity. There is even bony overgrowth, fragmentation, and sclerosis seen throughout the midfoot. This is consistent with a Charcot joint. Widening between the base of the first and second metatarsals indicates a chronic Lisfranc injury. Benign-appearing periostitis is seen along the distal shafts of the tibia and fibula. There is a large plantar heel spur. A large wound is seen along the plantar aspect of the midfoot/hindfoot. There is periostitis involving the plantar aspect of the calcaneus and cuboid. There are foci of erosion seen along the plantar aspect of the cuboid seen on sagittal image #33. There is also likely erosive change along the plantar aspect of the anterior calcaneus. Osteomyelitis is not excluded. This may be acute versus acute on chronic. There is a thin-pocket of fluid deep to the wound seen on axial image #44 of 67. This measures approximately 1 x 4 x 3 cm and may represent a small abscess. There are foci of adjacent soft tissue gas. Diffuse soft tissue edema is noted throughout the remainder of the foot. Advanced atherosclerotic calcification is seen in the regional arteries. IMPRESSION: 1. Osteopenia with severe chronic degenerative change throughout the ankle and foot as above. This is consistent with a Charcot foot. 2. There is a large wound along the plantar aspect of the midfoot/hindfoot as above. 3. A complex fluid collection deep to the wound likely represents an abscess. 4. Erosive change is seen along the plantar aspect of the cuboid, and also likely along the anterior aspect of the calcaneus. There is also periostitis. This is highly consistent with osteomyelitis and this could be acute versus acute on chronic. Correlate clinically. ACT 112: Negative or not required by law. Dictated: 12/03/2023 10:01 AM Transcribed: 12/03/2023 10:20 AM Olegario [id number] [email or web address] Electronically signed by: Bennie Andrea M.D. 12/03/2023 1:47 PM Chest X-Ray 12/10/23 10:27 SINGLE VIEW CHEST CLINICAL HISTORY: Dyspnea. Lower extremity edema FINDINGS: 2 AP, portable, upright chest radiographs are compared to study dated 12/03/2023. The examination is degraded by portable technique and patient rotation. The examination is degraded by portable technique and patient rotation. The heart is enlarged noting atherosclerotic calcification of the thoracic aorta. The pulmonary vasculature is noncongested. Chronic interstitial thickening and elevation of the right hemidiaphragm is similar to previous. There is bibasilar scarring/atelectasis. No airspace consolidation or large pleural effusion is identified. No pneumothorax is seen. The skeletal structures are osteopenic. The bony thorax is grossly intact. Calcific tendinopathy is noted in the left shoulder. IMPRESSION: Cardiomegaly with no acute cardiopulmonary abnormality identified. ACT 112: Negative or not required by law Electronically signed by: Bennie Andrea M.D. 12/10/2023 11:17 AM Renal Ultrasound 12/15/23 08:21 ULTRASOUND KIDNEYS AND BLADDER CLINICAL HISTORY: Acute renal insufficiency. COMPARISON STUDY: Abdominal CT dated 10/04/2017. TECHNIQUE: Real-time, grayscale, and color flow sonography of the kidneys and bladder is performed. Images are reviewed in the transverse and longitudinal planes. FINDINGS: Kidneys: The kidneys demonstrate cortical atrophy. Echotexture is normal. The right kidney measures 9.7 x 5.2 x 5.1 cm and the left kidney measures 12.4 x 5.5 x 6.5 cm. There is no hydronephrosis. A 5 mm nonobstructing calculus is seen on the left. A 5.5 cm exophytic cyst arises from the left kidney. There is no sonographic evidence of contour deforming renal mass lesion. No perinephric fluid is identified. Bladder: The bladder is decompressed around a Collado catheter and could not be assessed. IMPRESSION: 1. The kidneys demonstrate cortical atrophy and are without hydronephrosis. 2. Left-sided nephrolithiasis. 3. The bladder is decompressed around a Collado catheter and could not be assessed. ACT 112: Negative or not required by law. Electronically signed by: Bennie Andrea M.D. 12/15/2023 2:07 PM PG Care Time/CCT Total # of Minutes Spent Total Time Spent with Patient: Total time spent is greater than 50% in coordination of care (as documented) at patient's floor/unit and/or counseling patient: I spent 90 minutes overall addressing this case: 15 min in medical data review/discussion with referring provider(s) and/or preparation for the visit 20 min in direct interaction with the patient/exam 30 min in Advance Care Planning/Goals of Care discussions as detailed above in note (must be >16min) 10 min in subsequent review and synthesis of assessment and plan 15 min communicating with other providers regarding the patient's case: Advanced Care Planning 71729 Advanced Care Planning 30 [place] [address] IN/OBS CONSULT LVL 4,60M (25 - SIGNIFICANT, SEPARATELY IDENTIFIABLE ) Patient Type New Medical Decision Making High Complexity Diagnoses Weakness generalized R53.1 Advanced care planning/counseling discussion Z71.89 Palliative care by specialist Z51.5 Additional Codes Advanced Care Planning - 66684 Advanced Care Planning 30 Min: 99076 Advanced Care Planning 30 Min ([id number])
[2023-12-17] MEDS: HEPARIN SOD (PORCINE) 5,000 UNITS/ML VIAL ONE ×2 (16:45→16:46)
[2023-12-17] MEDS: CEFEPIME 1,000 MG in SYRINGE 0 ML IV SCH (16:49)
--- NOTE | 2023-12-17 17:31 | Infectious Disease Progress Nt ---
Date of Service December 17, 2023 Assessment & Plan (1) Diabetic foot ulcer: (2) Osteomyelitis of foot, left, acute: (3) Peripheral arterial disease: Plan 78yo F with h/o chronic anemia, spinal meningioma, left Charcot foot, chronic arthritis/pain in left ankle, stroke in 2019, hypothyroidism, diabetes, afib, HTN who presented on 12/02 with acute on chronic left ankle pain. On admission, she was febrile, on 2-3L NC. WBC 15.32, Cr 1.17>>2.30. AST/ALT wnl. Trop elevated. PCT 0.68. RPP neg. MRSA screen neg. CXR neg. Ankle XR with soft tissue swelling, osteopenia with severe degenerative changes involving the ankle and hindfoot, typical for Charcot. CT left foot with OM of the calcaneus, erosive changes also seen on cuboid, complex fluid collection deep to wound likely representing an abscess. TTE with AV sclerosis without significant stenosis. She was seen by podiatry and noted to have probe to bone of left foot ulcer and c/f OM. Given Charcot foot, further imaging deferred since it is unhelpful. Arterial u/s with severe PAD. Seen by vascular who did not believe her to be a good candidate for endovascular intervention and BKA was offered, but patient declined. S/p OR on 12/08 for left foot I+D and bone biopsy. OR cultures are + for corynebacterium thus far. Given severe PAD, treatment will be difficult and will likely need IV abx for the course of 6 weeks. Vanc is stopped due to negative MRSA screen, which is appropriate. Continuing on zosyn. Discussion with podiatry post debridement cx few coryne which is likely contaminant and they believe all infected bone has been removed. At this time will only treat for deep seated SSTI and c/w Zosyn for now. Given calcaneal location overall poor blood flow, 4 weeks may be best duration of therapy from time of debridment Unclear cause of increasing WBCs may be d/t overall worsening DEXTER +steroids # Left foot OM of calcaneus # Left diabetic foot ulcer # Peripheral arterial disease # DEXTER # Worsening leukocytosis Rec: Check blood cultures If diarrhea (patient denies) would check cdiff If WBC cont to increase may need to fisher CT Please check CBC Page IDC with any questions over the weekend. Dr. Martinez to start service on Wednesday. Suzy Solis MD Infectious Diseases Admission and Anticipated Discharge Date Admission Date: December 03, 2023 Subjective This patient recommendation is based on a telemedicine consult request which was completed asynchronously through chart review and information provided by the primary physician. The patient was not seen or examined today. The evaluation is consultative in nature and all patient care and treatment decisions can either be accepted or rejected by the patient's primary hospital-based treating physician using their own independent medical judgment for their patient. Time Spent Reviewing Chart: 21 - 30 minutes Results & Data Vital Signs (Past 12 Hours) Vital Signs Temp Pulse Pulse Pulse Resp BP BP 12/17/23 16:43 36.4 C L 85 18 138/81 12/17/23 15:48 82 12/17/23 15:30 84 117/79 12/17/23 15:00 85 132/89 12/17/23 14:30 66 110/65 12/17/23 14:00 80 98/77 L 12/17/23 13:30 71 140/69 12/17/23 13:20 71 140/69 12/17/23 13:12 36.5 C 12/17/23 13:02 76 118/68 12/17/23 12:30 71 120/52 L 12/17/23 12:15 90 124/72 12/17/23 12:00 85 131/69 12/17/23 11:45 36.3 C L 98 H 20 127/87 12/17/23 11:22 979 H 18 198/92 H 12/17/23 11:16 97 H 18 184/98 H 12/17/23 10:27 36.5 C 87 24 180/110 H 12/17/23 09:00 12/17/23 07:09 36.2 C L 67 20 12/17/23 07:00 91 H BP Pulse Ox O2 Del Method O2 Flow Rate 12/17/23 16:43 94 Oxymask 2 12/17/23 15:48 12/17/23 15:30 12/17/23 15:00 12/17/23 14:30 12/17/23 14:00 12/17/23 13:30 12/17/23 13:20 12/17/23 13:12 12/17/23 13:02 94 Nasal Cannula 2 12/17/23 12:30 94 Oxymask 2 12/17/23 12:15 95 Oxymask 2 12/17/23 12:00 95 Oxymask 2 12/17/23 11:45 98 Oxymask 2 12/17/23 11:22 96 Oxymask 6 12/17/23 11:16 94 Oxymask 6 12/17/23 10:27 99 Oxymask 2 12/17/23 09:00 Oxymask 2 12/17/23 07:09 132/75 98 Oxymask 12/17/23 07:00 Laboratory Results BMP 12/17/23 07:21 Sodium 139 Potassium 4.1 Chloride 105 Carbon Dioxide 23 BUN 101 H Creatinine 4.61 H* Glucose 111 H Calcium 8.0 L Liver Function 12/17/23 Range/Units 07:21 Albumin 3.1 L (3.4-5.0) gm/dl Medications Administered Current Inpatient Medications Apixaban (Apixaban 5 Mg Tablet) 5 mg PO BID ENFTALY Stop: 01/07/24 20:59 Last Admin: 12/17/23 09:46 Dose: Not Given Atorvastatin Calcium (Atorvastatin 40 Mg Tab) 80 mg PO HS NEFTALY Stop: 01/02/24 20:59 Last Admin: 12/16/23 21:40 Dose: 80 mg Dextrose (Dextrose 50% 50 Ml Syringe) 25 - 50 ml IV UD PRN; Protocol PRN Reason: Hypoglycemia Protocol Stop: 01/02/24 06:01 Last Admin: 12/12/23 11:20 Dose: 25 ml Docusate Sodium (Docusate Sodium 100 Mg Cap) 100 mg PO DAILY NEFTALY Stop: 01/03/24 08:59 Last Admin: 12/17/23 09:46 Dose: Not Given Glucagon (Glucagon For Inj 1 Mg Vial) 1 mg SQ UD PRN; Protocol PRN Reason: Hypoglycemia Protocol Stop: 01/02/24 06:01 Glucose (Glucose 10 Tab/Tube) 4 - 8 tab PO UD PRN; Protocol PRN Reason: Hypoglycemia Treatment Stop: 01/02/24 06:01 Glucose (Glucose 40% Gel 15 Gm Tube) 15 - 30 gm PO UD PRN; Protocol PRN Reason: Hypoglycemia Protocol Stop: 01/02/24 06:01 Pantoprazole Sodium 40 mg/ (Syringe) 10 mls @ 5 mls/min IV DAILY@1100 NEFTALY Stop: 01/11/24 14:59 Last Admin: 12/17/23 12:09 Dose: 5 mls/min Iron Sucrose 200 mg/ Sodium (Chloride) 110 mls @ 220 mls/hr IV DAILY [facility] Stop: 12/19/23 10:29 Last Infusion: 12/17/23 12:51 Dose: Infused Diltiazem HCl 125 mg/ Dextrose 125 mls @ 10 mls/hr IV .[id number] [facility]; Protocol Stop: 01/15/24 09:44 Last Admin: 12/17/23 13:03 Dose: 10 mg/hr, 10 mls/hr Acetaminophen (Ofirmev) 1,000 mg in 100 mls @ 400 mls/hr IV Q8H PRN PRN Reason: Pain or Fever Stop: 12/20/23 12:01 Last Infusion: 12/17/23 12:56 Dose: Infused Cefepime HCl 1,000 mg/ Syringe 10 mls @ 5 mls/min IV Q24H [facility] Stop: 01/28/24 15:59 Last Admin: 12/17/23 16:49 Dose: 5 mls/min Insulin Aspart (Insulin Aspart Per Unit Charge) 0 units SC ACHS [facility] Stop: 01/02/24 07:29 Last Admin: 12/17/23 16:46 Dose: Not Given Insulin Glargine (Lantus Per Unit Charge) 0 units SQ HS [facility]; Protocol Stop: 01/13/24 20:59 Last Admin: 12/16/23 20:57 Dose: Not Given Insulin Glargine (Lantus Per Unit Charge) 10 units SQ DAILY [facility] Stop: 01/16/24 12:59 Last Admin: 12/17/23 13:01 Dose: 10 units Levothyroxine Sodium ([facility]othyroxine Sodium 75 Mcg Tablet) [facility]: 01/02/24 06:29 Last Admin: 12/17/23 05:44 Dose: Not Given Melatonin (Melatonin 3 Mg Tab) 3 mg PO HS PRN PRN Reason: Insomnia Stop: 01/02/24 05:37 Metoprolol Succinate (Metoprolol Succ 50mg Ext Rel Tab) 50 mg PO BID [facility] Stop: 01/15/24 07:19 Last Admin: 12/17/23 09:46 Dose: Not Given Miconazole Nitrate (Miconazole Nitrate Powder 85 Gm) 1 appln EXT BID [facility] Stop: 01/04/24 08:59 Last Admin: 12/17/23 09:53 Dose: 1 appln Miscellaneous (Carbohydrates For Hypoglycemia ) 15 - 30 gm PO UD PRN PRN Reason: Hypoglycemia Protocol Stop: 01/02/24 06:01 Miscellaneous Information (Pharmacy Glycemic Mgmt Consult) 1 each N/A UD PRN; Protocol PRN Reason: Consult Stop: 01/12/24 18:04 Ondansetron HCl (Ondansetron Inj 2 Mg/Ml 2 Ml Vial) 4 mg IV Q6H PRN PRN Reason: Nausea Stop: 01/02/24 05:37 Last Admin: 12/09/23 18:57 Dose: 4 mg Polyethylene Glycol (Polyethylene (Miralax) 17 Gm Pack) 17 gm PO DAILY [facility] Stop: 01/03/24 08:59 Last Admin: 12/17/23 09:46 Dose: Not Given Prednisone (Prednisone 20 Mg Tab) 40 mg PO DAILY [facility] Stop: 01/17/24 08:59
[2023-12-18] MEDS: HYDROmorphone INJ 0.5 MG/0.5 ML SYR IV STA (01:20)
[2023-12-18 07:36] LABS: BUN Creatinine Ratio 20.7 (10-20); Calcium 7.7 mg/dl (8.6-10.3); Creatinine Clr Calc Pharmacy 14.8 ml/min; Est GFR (Non-African American) 11.2 ml/min; Potassium 3.9 mmol/L (3.5-5.1)
[2023-12-18] MEDS: predniSONE 20 MG TAB PO SCH (08:54)
[2023-12-18 08:56] LABS: Basophils # (auto) 0.05 K/uL (0.00-0.20); Basophils % (auto) 0.3 %; Eosinophils # (auto) 0.03 K/uL (0.00-0.50); Eosinophils % (auto) 0.2 %; Hemoglobin 9.9 g/dl (12.0-16.0); Immature Granulocytes # (auto) 0.72 K/uL (0.01-0.20); Immature Granulocytes % (auto) 3.7 %; Lymphocytes # (auto) 2.28 K/uL (1.20-3.40); Lymphocytes % (auto) 11.6 %; Mean Corpuscular Hemoglobin 24.6 pg (25.0-34.0); Mean Corpuscular Volume 82.1 fL (80.0-100.0); Mean Platelet Volume 10.2 fL (9.4-12.4); Monocytes # (auto) 1.31 K/uL (0.11-0.59); Monocytes % (auto) 6.7 %; Neutrophils # (auto) 15.19 K/uL (1.40-6.50); Neutrophils % (auto) 77.5 %; Nucleated RBC # (auto) 0.04 K/uL (0.00-0.12); Nucleated RBC % (auto) 0.2 %; Platelet Count 256 K/uL (130-400); RDW Coefficient of Variation 17.3 % (11.5-14.5); RDW Standard Deviation 51.2 fL (36.4-46.3); Red Blood Count 4.02 M/uL (4.20-5.40); White Blood Count 19.58 K/ul (4.8-10.8)
--- NOTE | 2023-12-18 10:38 | Hospitalist Progress Note ---
Date of Service December 18, 2023 Assessment & Plan (1) Sepsis: (2) Diabetic foot ulcer: (3) Paroxysmal atrial fibrillation: (4) Osteoarthritis: (5) Hypertension: (6) Left ankle pain: (7) Hypoxia: Plan Pt is a 78 yo female with PMH of chronic anemia, spinal meningioma, afib, left charcot foot, stroke (2019), and hypothyroidism presenting d/t left ankle pain. AIN/DEXTER Oliguria - today urine output 0.65 ml/kg/hr - ATN secondary to Sepsis vs AIN secondary to Zosyn - Patient with poor PO intake of both food and water - speech eval; unable to evaluate / mentation - Creatinine improving now 3.67 - Nephro consulted: - Had dialysis yesterday for ultrafiltrate 2042mL - concern for interstitial nephritis - prednisone stopped today - continue PO hydration Sepsis in the setting of chronic left diabetic foot ulcer- resolved Osteomyelitis - Leukocytosis- likely secondary to steroids - s/p debridement/I&D/bone biopsy on 12/08 - Wound vac in place - Wound culture 12/02: Pseudomonas pansensitive - OR Wound culture 12/08: Cornynebacterium - ID consider this is a contaminant - Podiatry consulted aprec recommendations - Vascular surgery consulted and determined that patient is not a candidate for vascular intervention/salvage. - ID consulted, appreciate recs currently on IV Cefepime. Plan for a total of 4 weeks of IV. Blood culture repeated as per ID recommendations Hx of afib - Hx of cardioversion. Current infection possible contributor - No recurrence of RVR since initiation of diltiazem - Not on home medications for this - Metoprolol tartrate 50 mg BID - Dc diltiazem drip, will start with 30mg PO TID, can increase if rates increase - Eliquis for anticoagulation Anemia, stable today Iron deficiency anemia - unknown etiology, no active bleeding - s/p 2 units of pRBCs - Continue Venofer - CBC daily Hypoxia - pt does not wear oxygen at home - TTE (12/06/23): normal LV systolic function, EF of 55-60%, aortic valve sclero sis without stenosis (no significant change from 2020) - Suspect pt may have a component of sleep apnea/nocturnal hypoxia contributing to current hypoxia - Not currently c/o SOB but oxygen need increased to 2 lpm by [place] overnight - Continue to monitor Diabetes - last A1c 6.9% (10/2022); repeat ordered and was 7.2% - hold home metformin, glipizide - will cover with insulin glargine 20u BID, adjust SSI as needed - Pharmacy following HTN - continue home losartan and HCTZ Diet: carb consistent VTE ppx: Eliquis On Collado catheter for strict I/Os Admission and Anticipated Discharge Date Admission Date: December 03, 2023 Supervising Physician Co-Signing Physician Notes Attending Physician Supervision Note: I independently interviewed and examined the patient and verified the cuello history and physical, reviewed labs and image studies and agree with findings and care plan noted above. Seen at dialysis. drowsy but responsive. nephew at bedside. Sepsis in the setting of chronic left foot diabetic ulcer/osteomyelitis, pressure ulcer of left heel stage 3, afib -postop debridement - wound vac in place, cx - corynebacterium - ID suspect this is contaminant. -cefepime changed to zosyn for concern of AIN. Pending ID recommendation regarding duration of abx. -further rise in wbc likely from steroids. no fever. cx neg. DEXTER, not present upon admission Anasarca -No response to prednisone for concern of AIN. d/estrellita. DEXTER likely from ATN> -vascular consulted for cath placement - placed 12/16. -UF HD for fluid removal - Tolerating. A fib with RVR - Known PAF. metoprolol dose increased to 50mgs bid with no improvement -continue cardizem drip. consider transition to PO meds once fluid status stabilized. -follow Hypoxia - Improving. With lethargy - likely limited resp effort. Lethargy - likely from fluid overload, DEXTER. Follow. DVT proph - apixaban PT/OT - Mostly in bed since admission. hasn't been participating in PT/OT. recommending SNF on discharge. Palliative care consulted - patient wants aggressive medical care at this time. otherwise as above Subjective Patient seen and evaluated at bedside this morning. No acute events overnight. History, ROS limited 2/2 poor mentation. Review of Systems Review of Systems: reviewed, per HPI Physical Exam Physical Exam: Constitutional: [well-appearing, no acute distress] HEENT: [NCAT, no conjunctival injection] CV: [regular rhythm, no murmur appreciated, extremities well-perfused, no LE edema] Resp: [CTABL, no wheezes/rales/rhonchi appreciated, no increased work of breathing] GI: [soft, nondistended, nontender, BS normoactive] MSK: [no gross deformities appreciated] Skin: [warm, dry, no rash appreciated] Neuro: [alert, oriented, no focal neurologic deficit appreciated] Results & Data Results & Data Vital Signs (Past 12 Hours) Vital Signs Temp Pulse Pulse Pulse Pulse Resp BP 12/18/23 10:00 85 118/64 12/18/23 09:40 36.5 C 79 12/18/23 07:02 36.5 C 75 18 12/18/23 03:49 80 12/18/23 03:15 79 12/18/23 02:55 71 20 12/18/23 02:38 36.5 C 87 20 12/18/23 01:23 36.9 C 72 20 12/17/23 23:00 68 12/17/23 22:54 36.6 C 88 20 BP Pulse Ox O2 Del Method O2 Flow Rate 12/18/23 10:00 12/18/23 09:40 12/18/23 07:02 116/59 L 97 Oxymask 2 12/18/23 03:49 126/75 12/18/23 03:15 117/72 12/18/23 02:55 121/69 96 Oxymask 2 12/18/23 02:38 135/72 93 Oxymask 12/18/23 01:23 162/80 H 96 Oxymask 2 12/17/23 23:00 12/17/23 22:54 190/81 H 96 Oxymask 2 Resident Activity Tracking Resident Involvement: Resident Care Provided Care Provided: Adult Hospital Medicine
--- NOTE | 2023-12-18 11:14 | Nephrology Progress Note ---
Date of Service December 18, 2023 Assessment & Plan (1) Acute kidney injury: Plan: Non-oliguric. Bumex stopped yesterday. Baseline creatinine 1.2-1.3 mg/dL. DEXTER consistent with ATN versus AIN. R fem HD catheter placed by Dr. Hammer 12/17/23. First HD treatment completed yesterday as well. Net UF 2 L. Orders for second treatment today were entered into the EHR and reviewed with peritoneal dialysis registered nurse. Hayde is tolerating treatment well. HD for UF and clearance. Hayde was seen and evaluated during HD. Started on prednisone for possible AIN. No significant response to therapy. Prednisone will be stopped today. Medications are appropriate for kidney function. Document strict I/O's. Repeat metabolic profile tomorrow AM. (2) Osteomyelitis of foot, left, acute: Plan: Remains on cefepime dosed for kidney dysfunction/dialysis. Started cefepime 12/10. Previously on Zosyn. Wound cultures +pseudomonas aeruginosa 12/02. Bld cx no growth. Abx per ID and hospitalist. (3) Anemia: Plan: 2 u PRBC transfusion support provided 12/10. Venofer 200 mg daily dose 4 of 5 today. Hgb stable. (4) Hypertension: Plan: BP acceptable. Losartan and HCTZ held. Volume status hypervolemic with notable generalized edema. (5) Edema: Plan: UF with HD as tolerated. Admission and Anticipated Discharge Date Admission Date: December 03, 2023 Mili Lock was seen and evaluated during HD this morning. She is very lethargic appearing and slow to respond. Hayde opened her eyes to voice but provided only short (1-2 word answers to questions). She denied shortness of breath. She told me that she was tolerating dialysis well. She denied chest pains or palpitations. Review of Systems Review of Systems: All systems reviewed & are unremarkable except as noted in HPI & below (Limited due to mental status. Hayde did not answer all questions. She provided very short responses. ) Physical Exam Constitutional: + ill appearing, + morbidly obese, + alt ered mental status and + lethargic Eyes: + anicteric sclerae; no corneal abnormal ity ENMT: Mouth: + dry oral mucous membranes Neck: normal visual inspection, trachea midline and + thick neck Respiratory: + tachypneic (short and shallow breaths) Auscultation: + diminished lung sounds; no rales, no rhonchi and no wheezes Cardiovascular: Rate/Rhythm: + irregularly irregular Heart Sounds: normal S1 and normal S2 Extremities: + edema (generalized 2-3+) R femoral HD catheter deep in right groin/inguinal fold Musculoskeletal: Extremities: no cyanosis and no clubbing Skin: normal turgor; no lesions Neurologic: Motor/Sensory: no tremor and no asterixis Genitourinary: Collado draining slightly cloudy yellow urine Results & Data Vital Signs (Past 12 Hours) Vital Signs Temp Pulse Pulse Pulse Pulse Resp BP 12/18/23 11:00 90 120/77 12/18/23 10:00 83 125/64 12/18/23 10:00 85 118/64 12/18/23 09:40 36.5 C 79 12/18/23 07:02 36.5 C 75 18 12/18/23 03:49 80 12/18/23 03:15 79 12/18/23 02:55 71 20 12/18/23 02:38 36.5 C 87 20 12/18/23 01:23 36.9 C 72 20 BP Pulse Ox O2 Del Method O2 Flow Rate 12/18/23 11:00 12/18/23 10:00 12/18/23 10:00 12/18/23 09:40 12/18/23 07:02 116/59 L 97 Oxymask 2 12/18/23 03:49 126/75 12/18/23 03:15 117/72 12/18/23 02:55 121/69 96 Oxymask 2 12/18/23 02:38 135/72 93 Oxymask 12/18/23 01:23 162/80 H 96 Oxymask 2 Laboratory Results Laboratory Results - last 24 hr 12/17/23 12/17/23 12/17/23 11:57 16:40 20:21 WBC RBC Hgb Hct MCV MCH MCHC RDW Std Deviation RDW Coeff of Isidoro Plt Count MPV Immature Gran % (Auto) Neut % (Auto) Lymph % (Auto) Carlton % (Auto) Eos % (Auto) Baso % (Auto) Neut # (Auto) Lymph # (Auto) Carlton # (Auto) Eos # (Auto) Baso # (Auto) Immature Gran # (Auto) Absolute Nucleated RBC Nucleated RBC % (auto) Sodium Potassium Chloride Carbon Dioxide Anion Gap BUN Creatinine Est Cr Clr Drug Dosing Est GFR ( Amer) Est GFR (Non-Af Amer) BUN/Creatinine Ratio Glucose POC Glucose 121 H 96 95 Calcium Phosphorus Albumin 12/18/23 12/18/23 12/18/23 06:08 06:11 07:01 WBC 19.58 H RBC 4.02 L Hgb 9.9 L Hct 33.0 L MCV 82.1 MCH 24.6 L MCHC 30.0 L RDW Std Deviation 51.2 H RDW Coeff of Isidoro 17.3 H Plt Count 256 MPV 10.2 Immature Gran % (Auto) 3.7 Neut % (Auto) 77.5 Lymph % (Auto) 11.6 Carlton % (Auto) 6.7 Eos % (Auto) 0.2 Baso % (Auto) 0.3 Neut # (Auto) 15.19 H Lymph # (Auto) 2.28 Carlton # (Auto) 1.31 H Eos # (Auto) 0.03 Baso # (Auto) 0.05 Immature Gran # (Auto) 0.72 H Absolute Nucleated RBC 0.04 Nucleated RBC % (auto) 0.2 Sodium 140 Potassium 3.9 Chloride 104 Carbon Dioxide 26 Anion Gap 10 BUN 76 H D Creatinine 3.67 H D Est Cr Clr Drug Dosing 14.8 Est GFR ( Amer) 13.0 Est GFR (Non-Af Amer) 11.2 BUN/Creatinine Ratio 20.7 H Glucose 95 POC Glucose 90 Calcium 7.7 L Phosphorus 6.0 H Albumin 3.0 L PG Care Time/CCT Total # of Minutes Spent Total Time Spent with Patient: Total time spent is greater than 50% in coordination of care (as documented) at patient's floor/unit and/or counseling patient: Coding Level of Care Code 69788 SUB INP/OBS CARE 3/50MIN Diagnoses Acute kidney injury N17.9 Osteomyelitis of foot, left, acute M86.172 Anemia D64.9 Hypertension I10 Edema R60.9
[2023-12-18] MEDS: dilTIAZem HCL 30 MG TAB PO SCH (15:10)
[2023-12-19 07:31] LABS: BUN Creatinine Ratio 18.6 (10-20); C Reactive Protein 3.48 mg/dl (0-0.5); Calcium 7.5 mg/dl (8.6-10.3); Creatinine Clr Calc Pharmacy 20.2 ml/min; Est GFR (African American) 18.9 ml/min; Est GFR (Non-African American) 16.3 ml/min; Magnesium 1.8 mg/dl (1.7-2.4); Phosphorus 4.8 mg/dl (2.5-4.9); Potassium 3.6 mmol/L (3.5-5.1)
[2023-12-19] MEDS: LANTUS PER UNIT CHARGE SC SCH (08:18)
--- NOTE | 2023-12-19 10:20 | Hospitalist Progress Note ---
Date of Service December 19, 2023 Assessment & Plan (1) Sepsis: (2) Diabetic foot ulcer: (3) Paroxysmal atrial fibrillation: (4) Osteoarthritis: (5) Hypertension: (6) Left ankle pain: (7) Hypoxia: Plan Pt is a 78 yo female with PMH of chronic anemia, spinal meningioma, afib, left charcot foot, stroke (2019), and hypothyroidism presenting d/t left ankle pain. AIN/DEXTER Oliguria - today urine output 0.53 ml/kg/hr - ATN secondary to Sepsis vs AIN secondary to Zosyn - Patient with poor PO intake of both food and water - speech eval - Creatinine improving now 3.67 - Nephro consulted: - Had dialysis yesterday for ultrafiltrate 3.5L - concern for interstitial nephritis - prednisone stopped today - continue PO hydration Sepsis in the setting of chronic left diabetic foot ulcer- resolved Osteomyelitis - Leukocytosis- likely secondary to steroids - s/p debridement/I&D/bone biopsy on 12/08 - Wound vac in place - Wound culture 12/02: Pseudomonas pansensitive - OR Wound culture 12/08: Cornynebacterium - ID consider this is a contaminant - Podiatry consulted aprec recommendations - Vascular surgery consulted and determined that patient is not a candidate for vascular intervention/salvage. - ID consulted, appreciate recs currently on IV Cefepime. Plan for a total of 4 weeks of IV. Blood culture repeated as per ID recommendations Hx of afib - Hx of cardioversion. Current infection possible contributor - No recurrence of RVR since initiation of diltiazem - Not on home medications for this - Metoprolol tartrate 50 mg BID - Dc diltiazem drip, will start with 30mg PO TID, can increase if rates increase - Eliquis for anticoagulation Anemia, stable today Iron deficiency anemia - unknown etiology, no active bleeding - s/p 2 units of pRBCs - Continue Venofer - CBC daily Hypoxia - pt does not wear oxygen at home - TTE (12/06/23): normal LV systolic function, EF of 55-60%, aortic valve sclerosis without stenosis (no significant change from 2020) - Suspect pt may have a component of sleep apnea/nocturnal hypoxia contributing to current hypoxia - Not currently c/o SOB but oxygen need increased to 2 lpm by [place] overnight - Continue to monitor Diabetes - last A1c 6.9% (10/2022); repeat ordered and was 7.2% - hold home metformin, glipizide - will cover with insulin glargine 20u BID, adjust SSI as needed - Pharmacy following HTN - continue home losartan and HCTZ Diet: carb consistent VTE ppx: Eliquis On Collado catheter for strict I/Os Admission and Anticipated Discharge Date Admission Date: December 03, 2023 Supervising Physician Co-Signing Physician Notes Attending Physician Supervision Note: I independently interviewed and examined the patient and verified the cuello history and physical, reviewed labs and image studies and agree with findings and care plan noted above. More alert this am. holding conversation but easily falls asleep. Repeated said that she is feeling better. Sepsis in the setting of chronic left foot diabetic ulcer/osteomyelitis, pressure ulcer of left heel stage 3, afib -postop debridement - wound vac in place, cx 12/02 - pseudomonas, cx 12/08 - corynebacterium - ID suspect this is contaminant. -zosyn changed to cefepime for concern of AIN. Pending ID recommendation regarding duration of abx. -further rise in wbc likely from steroids. no fever. cx neg. DEXTER, not present upon admission Anasarca -DEXTER likely from ATN. No response to steroids for initial concern of AIN- d/estrellita. -dialysis cath placement - placed 12/16. -UF HD x 2. Nephro anticipating improvement in renal fx - if not - then will need perm cath placement. A fib with RVR - Known PAF. metoprolol dose increased to 50mgs bid with no improvement -was kept on cardizem drip - HR controlled- switched to PO. Hypoxia - Improving. With lethargy - likely limited resp effort. Lethargy - improving. anticipate participation in PT/OT in am will help further. DVT proph - apixaban PT/OT - last PT note - Mostly in bed since admission. hasn't been participating in PT/OT. recommending SNF on discharge. otherwise as above Subjective Patient seen and evaluated at bedside this morning. No acute events overnight. More alert today. No acute complaints. Review of Systems Review of Systems: reviewed, per HPI Physical Exam Physical Exam: Constitutional: chronically ill-appearing, no acute distress HEENT: NCAT, no conjunctival injection CV: regular rhythm, no murmur appreciated, extremities well-perfused, anasarca Resp: CTABL, no wheezes/rales/rhonchi appreciated, no increased work of breathing MSK: Wound vac in place on L foot Skin: warm, dry, no rash appreciated Neuro: alert, oriented, no focal neurologic deficit appreciated Results & Data Results & Data Vital Signs (Past 12 Hours) Vital Signs Temp Pulse Pulse Resp BP Pulse Ox O2 Del Method 12/19/23 07:06 36.7 C 98 H 19 132/75 96 Aerosol Mask 12/19/23 02:58 36.6 C 84 18 134/68 97 Oxymask 12/18/23 23:00 95 H 12/18/23 22:57 36.8 C 90 18 156/79 H 100 Nasal Cannula O2 Flow Rate 12/19/23 07:06 2 12/19/23 02:58 12/18/23 23:00 12/18/23 22:57 2 Resident Activity Tracking Resident Involvement: Resident Care Provided Care Provided: Adult Hospital Medicine
--- NOTE | 2023-12-19 11:55 | Nephrology Progress Note ---
Date of Service December 19, 2023 Assessment & Plan (1) Acute kidney injury: Plan: Non-oliguric. Bumex held. Baseline creatinine 1.2-1.3 mg/dL. DEXTER consistent with ATN versus AIN. R fem HD catheter placed by Dr. Hammer 12/17/23. First HD treatment completed 12/17/23. Second treatment completed yesterday. Hayde tolerated HD well. Adequate clearance and UF. No plan for dialysis today. Will monitor kidney function for signs of recovery over the next 24 hours. Daily evaluations for next HD treatment. If no renal recovery in the next couple of days, permcath placement will be requested. Prednisone stopped yesterday. Medications are appropriate for kidney function. Document strict I/O's. Repeat metabolic profile tomorrow AM. (2) Osteomyelitis of foot, left, acute: Plan: Remains on cefepime dosed for kidney dysfunction/dialysis. Started cefepime 12/10. Previously on Zosyn. Wound cultures +pseudomonas aeruginosa 12/02. Bld cx no growth. Abx per ID and hospitalist. (3) Anemia: Plan: 2 u PRBC transfusion support provided 12/10. Venofer 200 mg daily dose 5 of 5 today. Hgb stable. (4) Hypertension: Plan: BP acceptable. Losartan and HCTZ held. Volume status hypervolemic with notable generalized edema. (5) Edema: Plan: UF with HD as tolerated. May resume Bumex to encouraged urine output and negative fluid balance as needed. Admission and Anticipated Discharge Date Admission Date: December 03, 2023 Subjective No acute events overnight. Hayde was resting comfortably in bed this morning. She was seen and evaluated with friends at the bedside. She is more awake. She was oriented to person and time. She continues to answer questions with very short responses and limited information. She does not feed herself without some assistance from the nursing staff. Appetite is very poor. Significant weakness persists. Hayde tolerated HD well yesterday. Edema improving. She denies difficulty breathing or shortness of breath. No fevers or chills. Review of Systems Review of Systems: All systems reviewed & are unremarkable except as noted in HPI & below Ear, Nose, Mouth, Throat: + hearing loss (reports difficulty heari ng) Physical Exam Constitutional: + ill appearing, + morbidly obese and + lethargic Eyes: + anicteric sclerae; no corneal abnormal ity ENMT: Mouth: + dry oral mucous membranes Neck: normal visual inspection, trachea midline and + thick neck Respiratory: normal respiratory effort Auscultation: + diminished lung sounds; no rales, no rhonchi and no wheezes Cardiovascular: Rate/Rhythm: + irregularly irregular Heart Sounds: normal S1 and normal S2 Extremities: + edema (generalized improved) Musculoskeletal: Extremities: no cyanosis and no clubbing Skin: normal turgor; no lesions Neurologic: Motor/Sensory: no tremor and no asterixis Psychiatric: Orientation: oriented to person and oriented to place Eye Contact: + fair eye contact Results & Data Vital Signs (Past 12 Hours) Vital Signs Temp Pulse Resp BP Pulse Ox O2 Del Method O2 Flow Rate 12/19/23 11:13 36.4 C L 91 H 20 151/80 H 98 Oxymask 2 12/19/23 10:46 36.8 C 90 20 138/79 99 Oxymask 2 12/19/23 10:17 36.4 C L 83 20 147/79 H 98 Oxymask 2 12/19/23 08:20 Oxymask 2 12/19/23 07:06 36.7 C 98 H 19 132/75 96 Aerosol Mask 2 12/19/23 02:58 36.6 C 84 18 134/68 97 Oxymask Laboratory Results Laboratory Results - last 24 hr 12/18/23 12/18/23 12/18/23 14:11 16:10 20:01 Sodium Potassium Chloride Carbon Dioxide Anion Gap BUN Creatinine Est Cr Clr Drug Dosing Est GFR ( Amer) Est GFR (Non-Af Amer) BUN/Creatinine Ratio Glucose POC Glucose 97 104 H 116 H Calcium Phosphorus Magnesium C-Reactive Protein 12/19/23 12/19/23 12/19/23 06:38 07:06 11:10 Sodium 140 Potassium 3.6 Chloride 103 Carbon Dioxide 29 Anion Gap 8 BUN 50 H D Creatinine 2.69 H D Est Cr Clr Drug Dosing 20.2 Est GFR ( Amer) 18.9 Est GFR (Non-Af Amer) 16.3 BUN/Creatinine Ratio 18.6 Glucose 115 H POC Glucose 121 H 133 H Calcium 7.5 L Phosphorus 4.8 D Magnesium 1.8 C-Reactive Protein 3.48 H PG Care Time/CCT Total # of Minutes Spent Total Time Spent with Patient: Total time spent is greater than 50% in coordination of care (as documented) at patient's floor/unit and/or counseling patient: Coding Level of Care Code 12079 SUB INP/OBS CARE 350MIN Diagnoses Acute kidney injury N17.9 Osteomyelitis of foot, left, acute M86.172 Anemia D64.9 Hypertension I10 Edema R60.9
--- NOTE | 2023-12-20 07:39 | Hospitalist Progress Note ---
Date of Service December 20, 2023 Assessment & Plan (1) Sepsis: (2) Diabetic foot ulcer: (3) Paroxysmal atrial fibrillation: (4) Osteoarthritis: (5) Hypertension: (6) Left ankle pain: (7) Hypoxia: Plan Pt is a 78 yo female with PMH of chronic anemia, spinal meningioma, afib, left charcot foot, stroke (2019), and hypothyroidism presenting d/t left ankle pain. AIN/DEXTER Oliguria - today urine output 0.53 ml/kg/hr - ATN secondary to Sepsis vs AIN secondary to Zosyn - Patient with poor PO intake of both food and water - speech eval - Creatinine improving now 2.75 - Nephro consulted: - Had 2 HD over the weekend. - s/p prednisone - continue PO hydration - No dialysis today Strict I/Os BMP am Sepsis in the setting of chronic left diabetic foot ulcer- resolved Osteomyelitis - Leukocytosis- likely secondary to steroids - s/p debridement/I&D/bone biopsy on 12/08 - Wound vac in place - Wound culture 12/02: Pseudomonas pansensitive - repeat blood culture: negative - Podiatry consulted aprec recommendations - Vascular surgery consulted and determined that patient is not a candidate for vascular intervention/salvage. - ID consulted, appreciate recs currently on IV Cefepime. Plan for a total of 4 weeks of IV. Atrail fibrillation - on rate control - Hx of cardioversion. Current infection possible contributor - No recurrence of RVR since initiation of diltiazem - Not on home medications for this - Metoprolol tartrate 50 mg BID - Dc diltiazem drip - on Diltiazem 30mg PO TID, can increase if rates increase - Eliquis for anticoagulation Anemia, stable today Iron deficiency anemia - unknown etiology, no active bleeding - s/p 2 units of pRBCs - s/p Venofer - CBC daily Hypoxia - pt does not wear oxygen at home - TTE (12/06/23): normal LV systolic function, EF of 55-60%, aortic valve sclerosis without stenosis (no significant change from 2020) - Suspect pt may have a component of sleep apnea/nocturnal hypoxia contributing to current hypoxia - Not currently c/o SOB but oxygen need increased to 2 L by NC overnight - Continue to monitor Diabetes - last A1c 6.9% (10/2022); repeat ordered and was 7.2% - hold home metformin, glipizide - On Lantus and adjust SSI as needed - Pharmacy following HTN - continue home losartan and HCTZ Diet: carb consistent VTE ppx: [place] On Collado catheter for strict I/Os Admission and Anticipated Discharge Date Admission Date: December 03, 2023 Supervising Physician Co-Signing Physician Notes I personally examined the patient and verified all cuello points of history and exam, discussed case, and agree with decision making with Dr James Jack no new issues identified. Sleeping comfortably whenever I see her. Case discussed with resident physician. Poultry Scalder input appreciated. Vitals noted, in general she is resting comfortably appears to be in no distress. Breathing unlabored no accessory muscle use good effort. Skin without rashes pallor or icterus. Given that deliriums sounds like it might be starting to improve, I opted to allow patient to rest so as to not disrupt sleep. Sepsis in the setting of chronic left foot diabetic ulcer/osteomyelitis, pressure ulcer of left heel stage 3, afib -postop debridement - wound vac in place, cx 12/02 - pseudomonas, cx 12/08 - corynebacterium - ID suspect this is contaminant. -zosyn changed to cefepime for concern of AIN. Appreciate ID input in regards to antibiotics -further rise in wbc likely from steroids. no fever. cx neg. CRP trending down - long-term concern given that she likely will have ongoing/recurrent infections until/unless proceeding with BKA, right now trying to follow patient's wishes/family guidance in the face of very difficult situation and her delirium DEXTER, not present upon admission Anasarca - likely due to ATN, considered AIN, but no response to steroids. Ongoing hemodialysis per nephrology, nephrology input greatly appreciated. A fib with RVR - Now rate controlled, anticoagulated Hypoxia - Improving. With lethargy - likely limited resp effort. Lethargy - improving. anticipate participation in PT/OT in am will help further. DVT proph - apixaban PT/OT - Mostly in bed since admission. hasn't been participating in PT/OT. recommending SNF on discharge. otherwise as above Subjective Patient seen and evaluated at bedside this morning. No acute events overnight. More alert today. No acute complaints. Urine output had increased. Better kidney function today. Poor appetite. Edema seem to be improving. Review of Systems Constitutional: as per Subjective / HPI Physical Exam Physical Exam: General:Alert, no acute distress, HEENT: Normocephalic, moist oral mucosa, Cardio: Regular rate and rhythm, Resp:Lungs clear to auscultation b/l GI: Soft and nontender, nondistended, bowel sounds active Skin: Warm, pink, dry, some erythema noted on L leg up to mid pederson Results & Data Results & Data Vital Signs (Past 12 Hours) Vital Signs Temp Pulse Pulse Resp BP BP Pulse Ox 12/20/23 07:35 92 H 12/20/23 07:02 36.4 C L 90 18 153/88 H 99 12/20/23 02:41 36.3 C L 85 17 145/84 H 99 12/19/23 23:00 85 12/19/23 23:00 36.7 C 84 16 142/78 H 99 12/19/23 20:00 O2 Del Method O2 Flow Rate 12/20/23 07:35 12/20/23 07:02 Oxymask 2 12/20/23 02:41 Oxymask 2 12/19/23 23:00 12/19/23 23:00 Oxymask 2 12/19/23 20:00 Oxymask 2 Resident Activity Tracking Resident Involvement: Resident Care Provided Care Provided: Adult Hospital Medicine
[2023-12-20 08:00] LABS: C Reactive Protein 3.3 mg/dl (0-0.5); Calcium 7.7 mg/dl (8.6-10.3); Creatinine Clr Calc Pharmacy 19.7 ml/min; Est GFR (African American) 18.4 ml/min; Est GFR (Non-African American) 15.9 ml/min; Magnesium 1.8 mg/dl (1.7-2.4); Phosphorus 5.3 mg/dl (2.5-4.9); Potassium 3.7 mmol/L (3.5-5.1)
[2023-12-20] MEDS: LANTUS PER UNIT CHARGE SC SCH (08:56)
[2023-12-20 09:59] LABS: Basophils # (auto) 0.05 K/uL (0.00-0.20); Basophils % (auto) 0.2 %; Eosinophils # (auto) 0.52 K/uL (0.00-0.50); Eosinophils % (auto) 2.6 %; Hematocrit (blood only) 35.3 % (37.0-47.0); Hemoglobin 10.3 g/dl (12.0-16.0); Immature Granulocytes # (auto) 0.45 K/uL (0.01-0.20); Immature Granulocytes % (auto) 2.2 %; Lymphocytes # (auto) 2.69 K/uL (1.20-3.40); Lymphocytes % (auto) 13.2 %; Mean Corpuscular Hemoglobin 24.8 pg (25.0-34.0); Mean Corpuscular Hgb Conc 29.2 g/dL (32.0-36.0); Mean Corpuscular Volume 85.1 fL (80.0-100.0); Mean Platelet Volume 11.1 fL (9.4-12.4); Monocytes # (auto) 1.19 K/uL (0.11-0.59); Monocytes % (auto) 5.9 %; Neutrophils # (auto) 15.41 K/uL (1.40-6.50); Neutrophils % (auto) 75.9 %; Nucleated RBC # (auto) 0.03 K/uL (0.00-0.12); Nucleated RBC % (auto) 0.1 %; Platelet Count 195 K/uL (130-400); RDW Coefficient of Variation 17.7 % (11.5-14.5); RDW Standard Deviation 54.1 fL (36.4-46.3); Red Blood Count 4.15 M/uL (4.20-5.40); White Blood Count 20.31 K/ul (4.8-10.8)
--- NOTE | 2023-12-20 10:39 | Nephrology Progress Note ---
Date of Service December 20, 2023 Assessment & Plan (1) Acute kidney injury: Plan: Non-oliguric. Bumex held. Baseline creatinine 1.2-1.3 mg/dL. DEXTER consistent with ATN versus AIN. R fem HD catheter placed by Dr. Hammer 12/17/23. First HD treatment completed 12/17/23. Second treatment completed 12/18/23.. Hayde tolerated HD well. Adequate clearance and UF. No plan for dialysis today. Will monitor kidney function for signs of recovery. Daily evaluations for next HD treatment. If no renal recovery in the next couple of days, permcath placement will be requested. Prednisone stopped 12/17. Medications are appropriate for kidney function. Document strict I/O's. Repeat metabolic profile tomorrow AM. Increased UOP. Maintain Collado. (2) Osteomyelitis of foot, left, acute: Plan: Remains on cefepime dosed for kidney dysfunction/dialysis. Started cefepime 12/10. Previously on Zosyn. Wound cultures +pseudomonas aeruginosa 12/02. Bld cx no growth. Abx per ID and hospitalist. (3) Anemia: Plan: 2 u PRBC transfusion support provided 12/10. Venofer 200 mg daily dose 5 of 5 yesterday. (4) Hypertension: Plan: BP acceptable. Losartan and HCTZ held. Volume status hypervolemic with notable generalized edema. Negative fluid balance without diuretics. Urine output increased. (5) Edema: Plan: UF with HD as tolerated. May resume Bumex to encouraged urine output and negative fluid balance as needed. Admission and Anticipated Discharge Date Admission Date: December 03, 2023 Subjective No acute events overnight. No complaints this morning. Notable weakness persists. Appetite poor. Urine output increased. Breathing comfortably. Review of Systems Review of Systems: All systems reviewed & are unremarkable except as noted in HPI & below Physical Exam Constitutional: + morbidly obese and + lethargic Eyes: + anicteric sclerae; no corneal abnormal ity ENMT: Mouth: + dry oral mucous membranes Neck: normal visual inspection, trachea midline and + thick neck Respiratory: normal respiratory effort Auscultation: + diminished lung sounds; no rales, no rhonchi and no wheezes Cardiovascular: Rate/Rhythm: + irregularly irregular Heart Sounds: normal S1 and normal S2 Extremities: + edema (generalized improved) Musculoskeletal: Extremities: no cyanosis and no clubbing Skin: normal turgor; no lesions Neurologic: Motor/Sensory: no tremor and no asterixis Psychiatric: Orientation: alert and oriented x 3 Results & Data Vital Signs (Past 12 Hours) Vital Signs Temp Pulse Pulse Resp BP BP Pulse Ox 12/20/23 08:44 12/20/23 07:35 92 H 12/20/23 07:02 36.4 C L 90 18 153/88 H 99 12/20/23 02:41 36.3 C L 85 17 145/84 H 99 12/19/23 23:00 85 12/19/23 23:00 36.7 C 84 16 142/78 H 99 O2 Del Method O2 Flow Rate 12/20/23 08:44 Oxymask 2 12/20/23 07:35 12/20/23 07:02 Oxymask 2 12/20/23 02:41 Oxymask 2 12/19/23 23:00 12/19/23 23:00 Oxymask 2 Laboratory Results Laboratory Results - last 24 hr 12/19/23 12/19/23 12/19/23 11:10 16:11 20:10 WBC RBC Hgb Hct MCV MCH MCHC RDW Std Deviation RDW Coeff of Isidoro Plt Count MPV Immature Gran % (Auto) Neut % (Auto) Lymph % (Auto) [place] % (Auto) Eos % (Auto) Baso % (Auto) Neut # (Auto) Lymph # (Auto) [place] # (Auto) Eos # (Auto) Baso # (Auto) Immature Gran # (Auto) Absolute Nucleated RBC Nucleated RBC % (auto) Sodium Potassium Chloride Carbon Dioxide Anion Gap BUN Creatinine Est Cr Clr Drug Dosing Est GFR ( Amer) Est GFR (Non-Af Amer) BUN/Creatinine Ratio Glucose POC Glucose 133 H 167 H 174 H Calcium Phosphorus Magnesium C-Reactive Protein 12/20/23 12/20/23 12/20/23 07:18 07:32 09:23 WBC 20.31 H RBC 4.15 L Hgb 10.3 L Hct 35.3 L MCV 85.1 MCH 24.8 L MCHC 29.2 L RDW Std Deviation 54.1 H RDW Coeff of Isidoro 17.7 H Plt Count 195 MPV 11.1 Immature Gran % (Auto) 2.2 Neut % (Auto) 75.9 Lymph % (Auto) 13.2 [place] % (Auto) 5.9 Eos % (Auto) 2.6 Baso % (Auto) 0.2 Neut # (Auto) 15.41 H Lymph # (Auto) 2.69 [place] # (Auto) 1.19 H Eos # (Auto) 0.52 H Baso # (Auto) 0.05 Immature Gran # (Auto) 0.45 H Absolute Nucleated RBC 0.03 Nucleated RBC % (auto) 0.1 Sodium 141 Potassium 3.7 Chloride 103 Carbon Dioxide 29 Anion Gap 9 BUN 55 H Creatinine 2.75 H Est Cr Clr Drug Dosing 19.7 Est GFR ( Amer) 18.4 Est GFR (Non-Af Amer) 15.9 BUN/Creatinine Ratio 20.0 Glucose 125 H POC Glucose 108 H Calcium 7.7 L Phosphorus 5.3 H Magnesium 1.8 C-Reactive Protein 3.30 H PG Care Time/CCT Total # of Minutes Spent Total Time Spent with Patient: Total time spent is greater than 50% in coordination of care (as documented) at patient's floor/unit and/or counseling patient: Coding Level of Care Code 01963 SUB INP/OBS CARE 3/50MIN Diagnoses Acute kidney injury N17.9 Osteomyelitis of foot, left, acute M86.172 Anemia D64.9 Hypertension I10 Edema R60.9
--- NOTE | 2023-12-20 13:49 | Pharmacy Report ---
Pharmacy Glycemic Short Note 2 - Date of Service December 20, 2023 - Glycemic Short BSG Results (Last 24 hours): 12/19/23 12/19/23 12/20/23 16:11 20:10 07:18 Glucose 125 H POC Glucose 167 H 174 H 12/20/23 12/20/23 07:32 11:08 Glucose POC Glucose 108 H 131 H OUTPATIENT ANTIDIABETIC REGIMEN: * Metformin 500 mg PO BID * Glipizide 2.5 mg PO qAM HbA1c: 7.2% (12/04/23) ASSESSMENT: 12/17/23: * Hayde received 9 units of insulin yesterday (6 were basal) * Fasting BSG this AM within goal range, basal slightly reduced due to poor PO intake per nursing documentation * No changes to Novolog at this time, she continues on cefepime. 12/20/23: * Blood sugars reasonably well-controlled yesterday, ranging 137-152 mg/dL * Received 37 units of insulin (30 units of which were basal) * Prednisone decreased today from 60 mg to 40 mg PO daily (first dose this afternoon) * Patient was originally NPO for permcath insertion for HD today * Fasting blood sugar of 110 mg/dL - will decrease basal insulin today in light of HD, decreased overal blood sugar trend, and reduced steroid dose 12/15/23: * Blood sugars trended up throughout the day yesterday * Received 37 units of insulin (20 units of basal and 17 units of p randial/correctional bolus) * Elevation certainly related to increased steroid dose * Will give full dose of yesterday's basal this AM w/ possible scale this evening * Tighten Novolog parameters to combat hyperglycemic effects of prednisone 60 mg PO daily 12/14/23: * DC is a 78 year old female admitted on 12/03/23 w/ sepsis in setting of diabetic left foot infection/osteomyelitis * Pharmacy consulted for glycemic management on evening of 12/13/23. Most recent blood sugars surrounding consult of 97, 130, and 114 mg/dL. Consult likely related to hypoglycemia on 12/11 (64 mg/dL x 2) as well as continuation of IV steroids. * Steroids changed from methylprednisolone 50 mg IV daily to prednisone 60 mg PO daily (first dose at 1330 on 12/14/23) * Receiving IV cefepime/daptomycin per ID * Diltiazem gtt infusing (mixed in dextrose) * Blood sugars well-controlled at this time - will be conservative with changes given history of hypoglycemia this admission PLAN FOR INPATIENT GLYCEMIC CONTROL: * Hold outpatient oral diabetes medications * Basal insulin * Lantus 5 units SC daily * Bolus insulin * NovoLog per scale ACHS or Q6hrs while NPO * Goal Range: Low 110 mg/dL - High 140 mg/dL * Correction Factor: 225 mg/dL/unit * Nutritional / Prandial insulin per carb ratio of 1 unit per 8 grams CHO consumed
--- NOTE | 2023-12-20 14:24 | Infectious Disease Progress Nt ---
Date of Service December 20, 2023 Assessment & Plan (1) Diabetic foot ulcer: (2) Osteomyelitis of foot, left, acute: (3) Peripheral arterial disease: Plan 78yo F with h/o chronic anemia, spinal meningioma, left Charcot foot, chronic arthritis/pain in left ankle, stroke in 2019, hypothyroidism, diabetes, afib, HTN who presented on 12/02 with acute on chronic left ankle pain. On admission, she was febrile, on 2-3L NC. WBC 15.32, Cr 1.17>>2.30. AST/ALT wnl. Trop elevated. PCT 0.68. RPP neg. MRSA screen neg. CXR neg. Ankle XR with soft tissue swelling, osteopenia with severe degenerative changes involving the ankle and hindfoot, typical for Charcot. CT left foot with OM of the calcaneus, erosive changes also seen on cuboid, complex fluid collection deep to wound likely representing an abscess. TTE with AV sclerosis without significant stenosis. She was seen by podiatry and noted to have probe to bone of left foot ulcer and c/f OM. Given Charcot foot, further imaging deferred since it is unhelpful. Arterial u/s with severe PAD. Seen by vascular who did not believe her to be a good candidate for endovascular intervention and BKA was offered, but patient declined. S/p OR on 12/08 for left foot I+D and bone biopsy. Micro: Left foot plantar ulcer 12/03/2023: Rare Pseudomonas aeruginosa (pansensitive) Left foot wound tissue culture 12/09/2023, few corynebacterium species Left foot bone culture,12/09/2023, rare corynebacterium species Urine culture, 12/11/2023 .> 100 K Mi albicans Blood culture 12/17/2023 no growth to date Antibiotics: Vancomycin Zosyn Daptomycin 12/11-12/13 Cefepime 12/10-ongoing Pathology 12/09/23 FINAL DIAGNOSIS Synovial tissue and bone, left calcaneus (incision and drainage of left foot wound with bone biopsy): - Moderately inflamed hyperplastic synovial tissue and viable bony trabeculae are seen. - The changes of osteonecrosis and osteomyelitis are not seen. # Left foot OM of calcaneus, sp I and d, no remaining osteo on path and per Podiatry # Left diabetic foot ulcer # Peripheral arterial disease # DEXTER # Worsening leukocytosis Discussion ID had discussion with podiatry post debridement. Few corynebacterium grew on bone and tissue cx, while pt was on zoayn. Zosyn may have suppressed further growth of PsA on OR cx. Corynebacterium sp growth was initially thought to be a contaminant . Podiatry felt all infected bone had been removed and Bone pathology WITHOUT osteomyelitis or osteonecrosis changes. Her WBC remains elevated. Plan was to initially treat for deep seated SSTI . Given calcaneal locations and overall poor blood flow, it was decided to treat with 4 weeks of IV from time of debridement. ON zosyn CR worsened and Abx changed to Cefepime. Unclear cause of increasing WBC Rec: WBC remains elevated. Since Corynebacterium grew in calcaneal bone as well as tissue, will ADD daptomycin 4 mg/kg Iv q48 to Cefepime 1 g iv q 12h ( cr c ~19.7) to target both corynebacterium and PSA ?SSTI . EOT 01/06/24. Ordered CPK Monitor cbc with diff, bmp, lft, cpk on IV abx Follow up blood cultures If diarrhea (patient denies) would check cdiff If WBC cont to increase may need to fisher CT Beth Martinez MD, MPH Infectious Disease [facility] Call [phone] with questions. Admission and Anticipated Discharge Date Admission Date: December 03, 2023 Subjective This patient recommendation is based on a telemedicine consult request which was completed asynchronously through chart review and information provided by the primary physician. The patient was not seen or examined today. The evaluation is consultative in nature and all patient care and treatment decisions can either be accepted or rejected by the patient's primary hospital-based treating physician using their own independent medical judgment for their patient. Time Spent Reviewing Chart: 21 - 30 minutes Afebrile. WBC 20.31 cr 2.75 Results & Data Vital Signs (Past 12 Hours) Vital Signs Temp Pulse Pulse Pulse Resp BP BP 12/20/23 11:20 36.3 C L 92 H 19 143/86 H 12/20/23 08:44 12/20/23 07:35 92 H 12/20/23 07:02 36.4 C L 90 18 153/88 H 12/20/23 02:41 36.3 C L 85 17 145/84 H Pulse Ox O2 Del Method O2 Flow Rate 12/20/23 11:20 99 Oxymask 2 12/20/23 08:44 Oxymask 2 12/20/23 07:35 12/20/23 07:02 99 Oxymask 2 12/20/23 02:41 99 Oxymask 2 Laboratory Results Short CBC 12/20/23 Range/Units 09:23 WBC 20.31 H (4.8-10.8) K/ul Hgb 10.3 L (12.0-16.0) g/dl Hct 35.3 L (37.0-47.0) % Plt Count 195 (130-400) K/uL BMP 12/20/23 07:18 Sodium 141 Potassium 3.7 Chloride 103 Carbon Dioxide 29 BUN 55 H Creatinine 2.75 H Glucose 125 H Calcium 7.7 L Microbiology 12/17/23 09:42 Blood Aerobic Blood Culture - Preliminary No growth in Aerobic bottle after 48 hours. 12/17/23 09:42 Blood Anaerobic Blood Culture - Preliminary No growth in Anaerobic bottle after 48 hours. 12/17/23 08:35 Blood Aerobic Blood Culture - Preliminary No growth in Aerobic bottle after 48 hours. 12/17/23 08:35 Blood Anaerobic Blood Culture - Preliminary No growth in Anaerobic bottle after 48 hours. 12/09/23 Unknown Foot,Left Gram Stain - Final 12/09/23 Unknown Foot,Left Aerobic and Anaerobic Culture - Final Corynebacterium species 12/09/23 Unknown Foot,Left Gram Stain - Final 12/09/23 Unknown Foot,Left Aerobic and Anaerobic Culture - Final Corynebacterium species 12/11/23 09:50 Urine,Straight Cath Urine Culture - Final Yeast not Mi albicans/dub 12/03/23 Unknown Foot,Left Gram Stain - Final 12/03/23 Unknown Foot,Left Aerobic and Anaerobic Culture - Final Pseudomonas aeruginosa 12/03/23 02:10 Blood Aerobic Blood Culture - Final No growth in Aerobic bottle after 5 days. 12/03/23 02:10 Blood Anaerobic Blood Culture - Final No growth in Anaerobic bottle after 5 days. 12/03/23 01:50 Blood Aerobic Blood Culture - Final No growth in Aerobic bottle after 5 days. 12/03/23 01:50 Blood Anaerobic Blood Culture - Final No growth in Anaerobic bottle after 5 days. Medications Administered Home Medications Medication Instructions Recorded Confirmed Last Taken folic acid 800 mcg tablet 800 mcg PO QAM 03/30/19 12/03/23 04/18/21 paula (Zingiber officinalis) 550 1,100 mg PO HS 03/30/19 12/03/23 04/17/21 mg capsule lancets 33 gauge ([facility] #100 ea 03/30/19 10/20/23 Unknown Lancets) cyanocobalamin (vitamin B-12) 5,000 mcg PO QAM 05/28/20 12/03/23 04/18/21 5,000 mcg capsule oxycodone-acetaminophen 5 mg-325 0.5 - 1 tab PO DAILY PRN pain 90 10/09/20 12/03/23 Unknown mg tablet days #20 tabs zinc acetate 25 mg (zinc) capsule 25 mg PO QPM 10/15/20 12/03/23 04/17/21 ascorbic acid (vitamin C) 1,000 mg 1 g PO QPM 11/29/20 12/03/23 04/17/21 tablet glipizide 5 mg tablet 2.5 mg PO QAM 04/18/21 12/03/23 04/18/21 metformin 500 mg tablet 500 mg PO BID 04/18/21 12/03/23 04/17/21 blood sugar diagnostic ([facility] #100 ea 05/19/21 10/20/23 Unknown Verio test strips) losartan 50 mg tablet 50 mg PO QAM #90 tabs 05/19/21 12/03/23 Unknown cholecalciferol (vitamin D3) 10 10 mcg PO BID 06/06/21 12/03/23 Unknown mcg (400 unit) tablet (Vitamin D3) levothyroxine 75 mcg tablet 75 mcg PO DAILY 03/20/22 12/03/23 Unknown (Synthroid) aspirin 325 mg tablet 325 mg PO BID #60 tabs 01/21/23 12/03/23 Unknown atorvastatin 80 mg tablet 80 mg PO DAILY 12/03/23 12/03/23 Unknown hydrochlorothiazide 50 mg tablet 50 mg PO DAILY 12/03/23 12/03/23 Unknown Active Medications Generic Name Dose Route Start Last Admin Trade Name Fre PRN Reason Stop Dose Admin Apixaban 5 mg 12/08/23 21:00 12/20/23 08:49 Apixaban 5 Mg Tablet PO 01/07/24 20:59 5 mg BID NEFTALY Administration Atorvastatin Calcium 80 mg 12/03/23 21:00 12/19/23 21:58 Atorvastatin 40 Mg Tab PO 01/02/24 20:59 80 mg HS NEFTALY Administration Dextrose 25 - 50 ml 12/03/23 06:02 12/12/23 11:20 Dextrose 50% 50 Ml Syringe IV 01/02/24 06:01 25 ml UD PRN Administration Hypoglycemia Protocol Protocol Diltiazem HCl 30 mg 12/18/23 14:00 12/20/23 13:32 Diltiazem Hcl 30 Mg Tab PO 01/17/24 13:59 30 mg TID NEFTALY Administration Docusate Sodium 100 mg 12/04/23 09:00 12/20/23 08:49 Docusate Sodium 100 Mg Cap PO 01/03/24 08:59 100 mg DAILY NEFTALY Administration Pantoprazole Sodium 40 mg/ 10 mls @ 5 mls/min 12/12/23 15:00 12/20/23 11:09 Syringe IV 01/11/24 14:59 5 mls/min DAILY@1100 NEFTALY Administration Cefepime HCl 1,000 mg/ Syringe 10 mls @ 5 mls/min 12/17/23 16:00 12/19/23 16:14 IV 01/28/24 15:59 5 mls/min Q24H NEFTALY Administration Insulin Aspart 0 units 12/03/23 07:30 12/20/23 12:23 Insulin Aspart Per Unit Charge SC 01/02/24 07:29 Not Given ACHS NEFTALY Insulin Glargine 5 units 12/20/23 09:00 12/20/23 08:56 Lantus Per Unit Charge SC 01/19/24 08:59 5 units DAILY NEFTALY Administration Levothyroxine Sodium 75 mcg 12/03/23 06:30 12/20/23 06:15 Levothyroxine Sodium 75 Mcg Tablet PO 01/02/24 06:29 75 mcg DAILYBB NEFTALY Administration Metoprolol Succinate 50 mg 12/16/23 07:20 12/20/23 08:50 Metoprolol Succ 50mg Ext Rel Tab PO 01/15/24 07:19 50 mg BID NEFTALY Administration Miconazole Nitrate 1 appln 12/05/23 09:00 12/20/23 08:49 Miconazole Nitrate Powder 85 Gm EXT 01/04/24 08:59 1 appln BID NEFTALY Administration Ondansetron HCl 4 mg 12/03/23 05:38 12/09/23 18:57 Ondansetron Inj 2 Mg/Ml 2 Ml Vial IV 01/02/24 05:37 4 mg Q6H PRN Administration Nausea Polyethylene Glycol 17 gm 12/04/23 09:00 12/20/23 08:48 Polyethylene (Miralax) 17 Gm Pack PO 01/03/24 08:59 17 gm DAILY NEFTALY Administration
--- NOTE | 2023-12-20 17:51 | Billing Data ---
Date of Service December 20, 2023 Coding Level of Care Code 62099 SUB INP/OBS CARE
[2023-12-20] MEDS: DAPTOmycin 300 MG in SYRINGE 0 ML IV SCH (18:37)
[2023-12-21] MEDS: CEFEPIME 1,000 MG in SYRINGE 0 ML IV SCH (05:30)
--- NOTE | 2023-12-21 07:44 | Hospitalist Progress Note ---
Date of Service December 21, 2023 Assessment & Plan (1) Sepsis: (2) Diabetic foot ulcer: (3) Paroxysmal atrial fibrillation: (4) Osteoarthritis: (5) Hypertension: (6) Left ankle pain: (7) Hypoxia: Plan Pt is a 78 yo female with PMH of chronic anemia, spinal meningioma, afib, left charcot foot, stroke (2019), and hypothyroidism presenting d/t left ankle pain. AIN/DEXTER Oliguria - improving Anasarca - ATN secondary to Sepsis vs AIN secondary to Zosyn - Patient with poor PO intake of both food and water - speech eval - Creatinine improving now 2.70 - Nephro consulted: - Had 2 HD over the weekend. - s/p prednisone - continue PO hydration - No dialysis today Strict I/Os BMP am Sepsis in the setting of chronic left diabetic foot ulcer- resolved Osteomyelitis - Leukocytosis- likely secondary to steroids - No fever - s/p debridement/I&D/bone biopsy on 12/08 - Wound vac in place - Wound culture 12/02: Pseudomonas pansensitive - repeat blood culture: negative - Podiatry consulted aprec recommendations - Vascular surgery consulted and determined that patient is not a candidate for vascular intervention/salvage. - ID consulted, appreciate recs currently on IV Cefepime. Plan for a total of 4 weeks of IV. Atrail fibrillation - on rate control - Hx of cardioversion. Current infection possible contributor - No recurrence of RVR since initiation of diltiazem - Not on home medications for this - Metoprolol tartrate 50 mg BID - Dc diltiazem drip - on Diltiazem 30mg PO TID, can increase if rates increase - Eliquis for anticoagulation Anemia, stable today- stable Iron deficiency anemia - unknown etiology, no active bleeding - s/p 2 units of pRBCs - s/p Venofer - CBC daily Hypoxia - pt does not wear oxygen at home - TTE (12/06/23): normal LV systolic function, EF of 55-60%, aortic valve sclerosis without stenosis (no significant change from 2020) - Suspect pt may have a component of sleep apnea/nocturnal hypoxia contributing to current hypoxia - Not currently c/o SOB but oxygen need increased to 2 L - Continue to monitor Diabetes - last A1c 6.9% (10/2022); repeat ordered and was 7.2% - hold home metformin, glipizide - On Lantus and adjust SSI as needed - Pharmacy following HTN - Hold losartan and HCTZ - Continue to monitor Diet: carb consistent VTE ppx: Melani On Collado catheter for strict I/Os Admission and Anticipated Discharge Date Admission Date: December 03, 2023 Supervising Physician Co-Signing Physician Notes I personally examined the patient and verified all cuello points of history and exam, discussed case, and agree with decision making with Dr James Jack Awake. No complaints. Does not really know what was going onupdated to the best my ability. No pain. Vitals noted, in general she is awake seems to be easily confused but definitely more coherent than previously. HEENT normocephalic atraumatic mucous membranes moist. Breathing unlabored no accessory muscle use good effort. Skin shows no rashes no pallor or icterus. Neuro without focal deficits. Sepsis in the setting of chronic left foot diabetic ulcer/osteomyelitis, pressure ulcer of left heel stage 3, afib -postop debridement - wound vac in place, cx 12/02 - pseudomonas, cx 12/08 - corynebacterium - ID suspect this is contaminant. -zosyn changed to cefepime for concern of AIN. Appreciate ID input in regards to antibiotics -further rise in wbc likely from steroids. no fever. cx neg. CRP trending down - long-term concern given that she likely will have ongoing/recurrent infections until/unless proceeding with BKA, right now trying to follow patient's wishes/family guidance in the face of very difficult situation and her delirium DEXTER, not present upon admission Anasarca - likely due to ATN, considered AIN, but no response to steroids. Kidney function stable off of dialysishopefully starting to show renal recovery. A fib with RVR - Now rate controlled, anticoagulated Hypoxia - Improving. With lethargy - likely limited resp effort. Lethargy - improving. anticipate participation in PT/OT in am will help further. DVT proph - apixaban PT/OT - continue to eval and treat, almost certainly will need SNF otherwise as above Subjective Hayde evaluated this am, seem awake. More awake. Friend at bedside. No events overnight. Refers some mild dyspnea. Urine output 0.44, remained in negative balance. WBC elevated, no fever, no tachycardia, Afib had remained rate controlled. Review of Systems Review of Systems: reviewed, per HPI Physical Exam Physical Exam: General:Alert, no acute distress, HEENT: Normocephalic, moist oral mucosa, Cardio: Regular rate and rhythm, Resp:Lungs clear to auscultation b/l GI: Soft and nontender, nondistended, bowel sounds active Skin: Warm, pink, dry, LLE on wound VAC, edema Results & Data Results & Data Vital Signs (Past 12 Hours) Vital Signs Temp Pulse Pulse Resp BP Pulse Ox O2 Del Method 12/21/23 07:22 Oxymask 12/21/23 07:15 36.5 C 78 19 145/77 H 99 Oxymask 12/21/23 02:32 36.6 C 90 18 148/88 H 98 Oxymask 12/20/23 23:00 99 H 12/20/23 22:46 36.7 C 86 18 129/74 95 Oxymask 12/20/23 20:00 Room Air O2 Flow Rate 12/21/23 07:22 2 12/21/23 07:15 1.5 12/21/23 02:32 2 12/20/23 23:00 12/20/23 22:46 2 12/20/23 20:00 Resident Activity Tracking Resident Involvement: Resident Care Provided Care Provided: Adult Hospital Medicine
[2023-12-21 07:47] LABS: Basophils # (auto) 0.05 K/uL (0.00-0.20); Basophils % (auto) 0.2 %; Eosinophils # (auto) 0.47 K/uL (0.00-0.50); Eosinophils % (auto) 2.3 %; Hematocrit (blood only) 34.2 % (37.0-47.0); Hemoglobin 10.2 g/dl (12.0-16.0); Immature Granulocytes # (auto) 0.38 K/uL (0.01-0.20); Immature Granulocytes % (auto) 1.8 %; Lymphocytes # (auto) 2.15 K/uL (1.20-3.40); Lymphocytes % (auto) 10.3 %; Mean Corpuscular Hemoglobin 25.2 pg (25.0-34.0); Mean Corpuscular Hgb Conc 29.8 g/dL (32.0-36.0); Mean Corpuscular Volume 84.4 fL (80.0-100.0); Mean Platelet Volume 11.1 fL (9.4-12.4); Monocytes # (auto) 1.19 K/uL (0.11-0.59); Monocytes % (auto) 5.7 %; Neutrophils # (auto) 16.61 K/uL (1.40-6.50); Neutrophils % (auto) 79.7 %; Platelet Count 179 K/uL (130-400); RDW Coefficient of Variation 17.8 % (11.5-14.5); RDW Standard Deviation 54.4 fL (36.4-46.3); Red Blood Count 4.05 M/uL (4.20-5.40); White Blood Count 20.85 K/ul (4.8-10.8)
[2023-12-21 08:05] LABS: C Reactive Protein 4.72 mg/dl (0-0.5); Calcium 7.6 mg/dl (8.6-10.3); Creatinine Clr Calc Pharmacy 20.1 ml/min; Est GFR (African American) 18.8 ml/min; Est GFR (Non-African American) 16.2 ml/min; Magnesium 1.8 mg/dl (1.7-2.4); Potassium 3.8 mmol/L (3.5-5.1)
--- NOTE | 2023-12-21 10:10 | Nephrology Progress Note ---
Date of Service December 21, 2023 Assessment & Plan (1) Acute kidney injury: Plan: Non-oliguric. Bumex held. Baseline creatinine 1.2-1.3 mg/dL. DEXTER consistent with ATN versus AIN. R fem HD catheter placed by Dr. Hammer 12/17/23. First HD treatment completed 12/17/23. Second treatment completed 12/18/23. No HD since 12/18/23. Creatinine stable at 2.7 mg/dL. Electrolytes acceptable. Remains in a net negative fluid balance with good urine output. Hayde tolerated HD well. Adequate clearance and UF. No plan for dialysis today. Will monitor kidney function for signs of recovery. Daily evaluations for next HD treatment. Prednisone stopped 12/17. Medications are appropriate for kidney function. Document strict I/O's. Repeat metabolic profile tomorrow AM. Increased UOP. Maintain Collado. (2) Osteomyelitis of foot, left, acute: Plan: Remains on cefepime dosed for kidney dysfunction/dialysis. Started cefepime 12/10. Daptomycin added yesterday per ID recs. (3) Anemia: Plan: 2 u PRBC transfusion support provided 12/10. Venofer 200 mg daily dose 5 of 5 12/19/23. (4) Hypertension: Plan: BP acceptable. Losartan and HCTZ held. Volume status hypervolemic with notable generalized edema. Negative fluid balance without diuretics. (5) Edema: Plan: Improving. Admission and Anticipated Discharge Date Admission Date: December 03, 2023 Subjective No acute events overnight. Generalized weakness and poor appetite persist. Hayde reports dyspnea with minimal exertion and when sitting up. She is breathing comfortably at rest. No fevers or chills. She denies pain. Review of Systems Review of Systems: All systems reviewed & are unremarkable except as noted in HPI & below Physical Exam Constitutional: + morbidly obese; no acute distress Eyes: + anicteric sclerae; no corneal abnormal ity ENMT: Mouth: oral mucous membranes not dry Neck: normal visual inspection and + thick neck Respiratory: normal respiratory effort Auscultation: + diminished lung sounds; no rales, no rhonchi and no wheezes Cardiovascular: Rate/Rhythm: + irregularly irregular Heart Sounds: normal S1 and normal S2 Extremities: + edema (generalized improved) Musculoskeletal: Extremities: no cyanosis and no clubbing Skin: normal turgor; no lesions Neurologic: Motor/Sensory: no tremor and no asterixis Genitourinary: Collado with clear yellow urine in bag Results & Data Vital Signs (Past 12 Hours) Vital Signs Temp Pulse Pulse Resp BP Pulse Ox O2 Del Method 12/21/23 07:22 Oxymask 12/21/23 07:15 36.5 C 78 19 145/77 H 99 Oxymask 12/21/23 02:32 36.6 C 90 18 148/88 H 98 Oxymask 12/20/23 23:00 99 H 12/20/23 22:46 36.7 C 86 18 129/74 95 Oxymask O2 Flow Rate 12/21/23 07:22 2 12/21/23 07:15 1.5 12/21/23 02:32 2 12/20/23 23:00 12/20/23 22:46 2 Laboratory Results Laboratory Results - last 24 hr 12/20/23 12/20/23 12/20/23 07:18 11:08 16:06 WBC RBC Hgb Hct MCV MCH MCHC RDW Std Deviation RDW Coeff of Isidoro Plt Count MPV Immature Gran % (Auto) Neut % (Auto) Lymph % (Auto) [place] % (Auto) Eos % (Auto) Baso % (Auto) Neut # (Auto) Lymph # (Auto) [place] # (Auto) Eos # (Auto) Baso # (Auto) Immature Gran # (Auto) Sodium Potassium Chloride Carbon Dioxide Anion Gap BUN Creatinine Est Cr Clr Drug Dosing Est GFR ( Amer) Est GFR (Non-Af Amer) BUN/Creatinine Ratio Glucose POC Glucose 131 H 154 H Calcium Phosphorus Magnesium Total Creatine Kinase 29 C-Reactive Protein 12/20/23 12/21/23 12/21/23 20:05 07:14 07:21 WBC 20.85 H RBC 4.05 L Hgb 10.2 L Hct 34.2 L MCV 84.4 MCH 25.2 MCHC 29.8 L RDW Std Deviation 54.4 H RDW Coeff of Isidoro 17.8 H Plt Count 179 MPV 11.1 Immature Gran % (Auto) 1.8 Neut % (Auto) 79.7 Lymph % (Auto) 10.3 [place] % (Auto) 5.7 Eos % (Auto) 2.3 Baso % (Auto) 0.2 Neut # (Auto) 16.61 H Lymph # (Auto) 2.15 [place] # (Auto) 1.19 H Eos # (Auto) 0.47 Baso # (Auto) 0.05 Immature Gran # (Auto) 0.38 H Sodium 141 Potassium 3.8 Chloride 103 Carbon Dioxide 29 Anion Gap 9 BUN 62 H Creatinine 2.70 H Est Cr Clr Drug Dosing 20.1 Est GFR ( Amer) 18.8 Est GFR (Non-Af Amer) 16.2 BUN/Creatinine Ratio 23.0 H Glucose 154 H POC Glucose 175 H 152 H Calcium 7.6 L Phosphorus 5.0 H Magnesium 1.8 Total Creatine Kinase C-Reactive Protein 4.72 H PG Care Time/CCT Total # of Minutes Spent Total Time Spent with Patient: Total time spent is greater than 50% in coordination of care (as documented) at patient's floor/unit and/or counseling patient: Coding Level of Care Code 53564 SUB INP/OBS CARE 3/50MIN Diagnoses Acute kidney injury N17.9 Osteomyelitis of foot, left, acute M86.172 Anemia D64.9 Hypertension I10 Edema R60.9
--- NOTE | 2023-12-21 19:43 | Billing Data ---
Date of Service December 21, 2023 Coding Level of Care Code 35759 SUB INP/OBS CARE
[2023-12-22 07:46] LABS: Basophils # (auto) 0.04 K/uL (0.00-0.20); Basophils % (auto) 0.2 %; Eosinophils # (auto) 0.45 K/uL (0.00-0.50); Eosinophils % (auto) 2.3 %; Hematocrit (blood only) 33.2 % (37.0-47.0); Hemoglobin 9.9 g/dl (12.0-16.0); Immature Granulocytes # (auto) 0.17 K/uL (0.01-0.20); Immature Granulocytes % (auto) 0.9 %; Lymphocytes # (auto) 1.63 K/uL (1.20-3.40); Lymphocytes % (auto) 8.3 %; Mean Corpuscular Hemoglobin 25.1 pg (25.0-34.0); Mean Corpuscular Hgb Conc 29.8 g/dL (32.0-36.0); Mean Corpuscular Volume 84.1 fL (80.0-100.0); Mean Platelet Volume 12.2 fL (9.4-12.4); Monocytes # (auto) 1.22 K/uL (0.11-0.59); Monocytes % (auto) 6.2 %; Neutrophils # (auto) 16.07 K/uL (1.40-6.50); Neutrophils % (auto) 82.1 %; Platelet Count 160 K/uL (130-400); RDW Coefficient of Variation 17.9 % (11.5-14.5); RDW Standard Deviation 53.8 fL (36.4-46.3); Red Blood Count 3.95 M/uL (4.20-5.40); White Blood Count 19.58 K/ul (4.8-10.8)
--- NOTE | 2023-12-22 07:46 | Hospitalist Progress Note ---
Date of Service December 22, 2023 Assessment & Plan (1) Sepsis: (2) Diabetic foot ulcer: (3) Paroxysmal atrial fibrillation: (4) Osteoarthritis: (5) Hypertension: (6) Left ankle pain: (7) Hypoxia: Plan Pt is a 78 yo female with PMH of chronic anemia, spinal meningioma, afib, left charcot foot, stroke (2019), and hypothyroidism presenting d/t left ankle pain. AIN/DEXTER Oliguria - improving Anasarca - ATN secondary to Sepsis vs AIN secondary to Zosyn - Patient with poor PO intake of both food and water - speech eval - Creatinine improving now 2.70 - Nephro consulted: - Had 2 HD over the weekend. - s/p prednisone - continue PO hydration - No dialysis toay - HD will be discontinue today Strict I/Os BMP am Sepsis in the setting of chronic left diabetic foot ulcer- resolved Osteomyelitis - Leukocytosis- likely secondary to steroids - No fever - s/p debridement/I&D/bone biopsy on 12/08 - Wound vac in place - Wound culture 12/02: Pseudomonas pansensitive - repeat blood culture: negative - Podiatry consulted aprec recommendations - Vascular surgery consulted and determined that patient is not a candidate for vascular intervention/salvage. - ID consulted, appreciate recs currently on IV Cefepime and Daptomycin. Plan for a total of 4 weeks of IV. - WBC and CRP continue to be elevated will repeat blood cultue and urine culture. Continue monitoring Atrail fibrillation - on rate control - Hx of cardioversion. Current infection possible contributor - No recurrence of RVR since initiation of diltiazem - Not on home medications for this - Metoprolol tartrate 50 mg BID - Dc diltiazem drip - on Diltiazem 30mg PO TID, can increase if rates increase - Eliquis for anticoagulation Anemia, stable today- stable Iron deficiency anemia - unknown etiology, no active bleeding - s/p 2 units of pRBCs - s/p Venofer - CBC daily Hypoxia - pt does not wear oxygen at home - TTE (12/06/23): normal LV systolic function, EF of 55-60%, aortic valve sclerosis without stenosis (no significant change from 2020) - Suspect pt may have a component of sleep apnea/nocturnal hypoxia contributing to current hypoxia - Not currently c/o SOB but oxygen need increased to 2 L - Continue to monitor Diabetes - last A1c 6.9% (10/2022); repeat ordered and was 7.2% - hold home metformin, glipizide - On Lantus and adjust SSI as needed - Pharmacy following HTN - Hold losartan and HCTZ - Continue to monitor Diet: carb consistent VTE ppx: Eliquis On Collado catheter for strict I/Os Admission and Anticipated Discharge Date Admission Date: December 03, 2023 Supervising Physician Co-Signing Physician Notes I personally examined the patient and verified all cuello points of history and exam, discussed case, and agree with decision making with Dr James Jack No new issues today. friend present at the bedside. Updated to the best my ability and to her satisfaction. Discussed current course of care, ongoing issues, discharge planning, etc. Vitals noted, in general she is awake seems to be easily confused but definitely more coherent than Last week, very similar to yesterday.. HEENT normocephalic atraumatic mucous membranes moist. Breathing unlabored no accessory muscle use good effort. Skin shows no rashes no pallor or icterus. Neuro without focal deficits. Sepsis in the setting of chronic left foot diabetic ulcer/osteomyelitis, pressure ulcer of left heel stage 3, afib -postop debridement - wound vac in place, cx 12/02 - pseudomonas, cx 12/08 - corynebacterium - ID suspect this is contaminant. -zosyn changed to cefepime for concern of AIN. Appreciate ID input in regards to antibiotics - White count persistently elevatedmost likely steroid effect, but it is a little bit unsettling that her CRP is risingstill in a nonspecific range, however. No clear foci of new infection, given that she is on daptomycin and cefepime new infection would be quite unlikely outside of may be an ESBL UTIchecking urine culture. Continue to follow clinically. - long-term concern given that she likely will have ongoing/recurrent infections until/unless proceeding with BKA, right now trying to follow patient's wishes/family guidance in the face of very difficult situation and her delirium DEXTER, not present upon admission Anasarca - likely due to ATN, considered AIN, but no response to steroids. Kidney function stable now days off of dialysis, hopefully continues to show renal recovery. Continue supportive care. A fib with RVR - Now rate controlled, anticoagulated Hypoxia - Improving. Nonspecific/multifactorial, likely to a degree effort driven. DVT proph - apixaban PT/OT - continue to eval and treat, almost certainly will need SNF otherwise as above Subjective Patient evaluated this morning found awake and alert. Friend at bedside. No HD today. Plan to remove HD cathether today. Her WBC continue to be elevated and CRP was elevated as well. Currently on Dapto and Cefepime. Will repeat her blood culture and sent for urine culture. No fever, no chills. Poor appetite Review of Systems Review of Systems: reviewed, per HPI Physical Exam Physical Exam: General:Alert, no acute distress, HEENT: Normocephalic, moist oral mucosa, Cardio: Regular rate and rhythm, Resp:Lungs clear to auscultation b/l GI: Soft and nontender, nondistended, bowel sounds active Skin: Warm, pink, dry, LLE on wound VAC, edema Results & Data Results & Data Vital Signs (Past 12 Hours) Vital Signs Temp Pulse Pulse Resp BP Pulse Ox O2 Del Method 12/22/23 07:12 36.8 C 82 19 138/73 98 Oxymask 12/22/23 07:00 116 H 12/22/23 02:48 36.7 C 74 18 134/69 100 Oxymask 12/21/23 23:00 80 12/21/23 22:55 36.8 C 63 18 137/76 99 Oxymask 12/21/23 20:00 Oxymask O2 Flow Rate 12/22/23 07:12 1.5 12/22/23 07:00 12/22/23 02:48 12/21/23 23:00 12/21/23 22:55 12/21/23 20:00 2 Resident Activity Tracking Resident Involvement: Resident Care Provided Care Provided: Adult Hospital Medicine
[2023-12-22 08:25] LABS: BUN Creatinine Ratio 22.4 (10-20); C Reactive Protein 11.36 mg/dl (0-0.5); Calcium 7.7 mg/dl (8.6-10.3); Creatinine Clr Calc Pharmacy 20.2 ml/min; Est GFR (Non-African American) 16.4 ml/min; Magnesium 1.7 mg/dl (1.7-2.4); Phosphorus 4.5 mg/dl (2.5-4.9); Potassium 3.7 mmol/L (3.5-5.1)
--- NOTE | 2023-12-22 09:50 | Nephrology Progress Note ---
Date of Service December 22, 2023 Assessment & Plan (1) Acute kidney injury: Plan: Non-oliguric. Bumex held. Baseline creatinine 1.2-1.3 mg/dL. DEXTER consistent with ATN versus AIN. R fem HD catheter placed by Dr. Hammer 12/17/23. First HD treatment completed 12/17/23. Second treatment completed 12/18/23. Off HD since 12/18/23. Creatinine stable at 2.7 mg/dL. Electrolytes acceptable. Remains in a net negative fluid balance with good urine output. Femoral HD catheter will be removed today. Medications are appropriate for kidney function. Document strict I/O's. Repeat metabolic profile tomorrow AM. (2) Osteomyelitis of foot, left, acute: Plan: Remains on cefepime dosed for kidney dysfunction/dialysis. Started cefepime 12/10. Daptomycin added yesterday per ID recs. (3) Anemia: Plan: 2 u PRBC transfusion support provided 12/10. Venofer 200 mg daily dose 5 of 12/19/23. (4) Hypertension: Plan: BP acceptable. Losartan and HCTZ held. Volume status hypervolemic with notable generalized edema. Negative fluid balance without diuretics. (5) Edema: Plan: Improving. Admission and Anticipated Discharge Date Admission Date: December 03, 2023 Subjective No acute events overnight. Hayde was uncomfortable this morning. It is very difficult for her to move in bed. Being rotated and cleaned by staff is exhausting for her. Significant weakness persists. No fevers or chills. No dyspnea at rest. Collado remains intact. Hayde remains non-oliguric. Appetite remains very poor. Review of Systems Review of Systems: All systems reviewed & are unremarkable except as noted in HPI & below Physical Exam Constitutional: + morbidly obese and + lethargic; no acu te distress Eyes: + anicteric sclerae; no corneal abnormal ity ENMT: Mouth: oral mucous membranes not dry Neck: normal visual inspection and + thick neck Respiratory: normal respiratory effort Auscultation: + diminished lung sounds; no rales, no rhonchi and no wheezes Cardiovascular: Rate/Rhythm: + irregularly irregular Heart Sounds: normal S1 and normal S2 Extremities: + edema (generalized improved) Musculoskeletal: Extremities: no cyanosis and no clubbing Skin: normal turgor; no lesions Neurologic: Motor/Sensory: no tremor and no asterixis Psychiatric: Orientation: alert and oriented x 3 Results & Data Vital Signs (Past 12 Hours) Vital Signs Temp Pulse Pulse Resp BP Pulse Ox O2 Del Method 12/22/23 07:12 36.8 C 82 19 138/73 98 Oxymask 12/22/23 07:00 116 H 12/22/23 02:48 36.7 C 74 18 134/69 100 Oxymask 12/21/23 23:00 80 12/21/23 22:55 36.8 C 63 18 137/76 99 Oxymask O2 Flow Rate 12/22/23 07:12 1.5 12/22/23 07:00 12/22/23 02:48 12/21/23 23:00 12/21/23 22:55 Laboratory Results Laboratory Results - last 24 hr 12/21/23 12/21/23 12/21/23 11:09 16:15 20:15 WBC RBC Hgb Hct MCV MCH MCHC RDW Std Deviation RDW Coeff of Isidoro Plt Count MPV Immature Gran % (Auto) Neut % (Auto) Lymph % (Auto) [place] % (Auto) Eos % (Auto) Baso % (Auto) Neut # (Auto) Lymph # (Auto) [place] # (Auto) Eos # (Auto) Baso # (Auto) Immature Gran # (Auto) Sodium Potassium Chloride Carbon Dioxide Anion Gap BUN Creatinine Est Cr Clr Drug Dosing Est GFR ( Amer) Est GFR (Non-Af Amer) BUN/Creatinine Ratio Glucose POC Glucose 131 H 134 H 139 H Calcium Phosphorus Magnesium C-Reactive Protein 12/22/23 12/22/23 07:11 07:28 WBC 19.58 H RBC 3.95 L Hgb 9.9 L Hct 33.2 L MCV 84.1 MCH 25.1 MCHC 29.8 L RDW Std Deviation 53.8 H RDW Coeff of Isidoro 17.9 H Plt Count 160 MPV 12.2 Immature Gran % (Auto) 0.9 Neut % (Auto) 82.1 Lymph % (Auto) 8.3 [place] % (Auto) 6.2 Eos % (Auto) 2.3 Baso % (Auto) 0.2 Neut # (Auto) 16.07 H Lymph # (Auto) 1.63 [place] # (Auto) 1.22 H Eos # (Auto) 0.45 Baso # (Auto) 0.04 Immature Gran # (Auto) 0.17 Sodium 143 Potassium 3.7 Chloride 105 Carbon Dioxide 30 Anion Gap 8 BUN 60 H Creatinine 2.68 H Est Cr Clr Drug Dosing 20.2 Est GFR ( Amer) 19.0 Est GFR (Non-Af Amer) 16.4 BUN/Creatinine Ratio 22.4 H Glucose 174 H POC Glucose 158 H Calcium 7.7 L Phosphorus 4.5 Magnesium 1.7 C-Reactive Protein 11.36 H PG Care Time/CCT Total # of Minutes Spent Total Time Spent with Patient: Total time spent is greater than 50% in coordination of care (as documented) at patient's floor/unit and/or counseling patient: Coding Level of Care Code 39788 SUB INP/OBS CARE 3/50MIN Diagnoses Acute kidney injury N17.9 Osteomyelitis of foot, left, acute M86.172 Anemia D64.9 Hypertension I10 Edema R60.9
--- NOTE | 2023-12-22 13:55 | Pharmacy Report ---
Pharmacy Glycemic Short Note 2 - Date of Service December 22, 2023 - Glycemic Short BSG Results (Last 24 hours): 12/21/23 12/21/23 12/22/23 16:15 20:15 07:11 Glucose POC Glucose 134 H 139 H 158 H 12/22/23 12/22/23 07:28 11:19 Glucose 174 H POC Glucose 158 H OUTPATIENT ANTIDIABETIC REGIMEN: * Metformin 500 mg PO BID * Glipizide 2.5 mg PO qAM HbA1c: 7.2% (12/04/23) ASSESSMENT: 12/22/23: * Hayde received 12 units of insulin yesterday (5 were basal) * Fasting BSG this AM acceptable, continue basal regimen * No changes to Novolog at this time * She is awaiting placement 12/20/23 * Hayde received 9 units of insulin yesterday (6 were basal) * Fasting BSG this AM within goal range, basal slightly reduced due to poor PO intake per nursing documentation * No changes to Novolog at this time, she continues on cefepime. 12/17/23: * Blood sugars reasonably well-controlled yesterday, ranging 137-152 mg/dL * Received 37 units of insulin (30 units of which were basal) * Prednisone decreased today from 60 mg to 40 mg PO daily (first dose this afternoon) * Patient was originally NPO for permcath insertion for HD today * Fasting blood sugar of 110 mg/dL - will decrease basal insulin today in light of HD, decreased overal blood sugar trend, and reduced steroid dose 12/15/23: * Blood sugars trended up throughout the day yesterday * Received 37 units of insulin (20 units of basal and 17 units of prandial/co rrectional bolus) * Elevation certainly related to increased steroid dose * Will give full dose of yesterday's basal this AM w/ possible scale this evening * Tighten Novolog parameters to combat hyperglycemic effects of prednisone 60 mg PO daily 12/14/23: * DC is a 78 year old female admitted on 12/03/23 w/ sepsis in setting of diabetic left foot infection/osteomyelitis * Pharmacy consulted for glycemic management on evening of 12/13/23. Most recent blood sugars surrounding consult of 97, 130, and 114 mg/dL. Consult likely related to hypoglycemia on 12/11 (64 mg/dL x 2) as well as continuation of IV steroids. * Steroids changed from methylprednisolone 50 mg IV daily to prednisone 60 mg PO daily (first dose at 1330 on 12/14/23) * Receiving IV cefepime/daptomycin per ID * Diltiazem gtt infusing (mixed in dextrose) * Blood sugars well-controlled at this time - will be conservative with changes given history of hypoglycemia this admission PLAN FOR INPATIENT GLYCEMIC CONTROL: * Hold outpatient oral diabetes medications * Basal insulin * Lantus 5 units SC daily * Bolus insulin * NovoLog per scale ACHS or Q6hrs while NPO * Goal Range: Low 110 mg/dL - High 140 mg/dL * Correction Factor: 25 mg/dL/unit * Nutritional / Prandial insulin per carb ratio of 1 unit per 8 grams CHO consumed
--- NOTE | 2023-12-22 16:32 | Billing Data ---
Date of Service December 22, 2023 Coding Level of Care Code 89758 SUB INP/OBS CARE
[2023-12-23] MEDS: METOPROLOL TARTRATE 1 MG/ML VIAL IV STA (00:47)
[2023-12-23] MEDS: dilTIAZem HCL 30 MG TAB PO ONE (02:53)
[2023-12-23] MEDS ORDERED: STAT IV Infusion **Titration per Protocol STA (05:30)
--- NOTE | 2023-12-23 05:31 | Communication Note ---
Date of Service: December 23, 2023 I was notified by nursing that patient had an episode of bleeding and purulent discharge from her vaginal region. I inquired about completing an external exam but patient did not have any additional episodes of discharge. Considering patient has had an increasing white blood cell count, I would consider investigating this further with possible imaging if indicated. Patient later was found to have an increased heart rate to 110s-130s, asymptomatic and stable BP. I ordered a 5mg dose of IV Lopressor, which brought her HR down to 100s for a period of time. Several hours later I was notified again that her HR was staying between 110s-130s, I ordered an additional dose of PO diltiazem at that time. However, patient's HR was still not responding to the se measures and was reaching up to HR of 150 so after a period of time so the decision was made to restart the diltiazem drip.
[2023-12-23] MEDS: dilTIAZem HCL 125 MG in DEXTROSE 5% 100 ML IV SCH (05:41)
[2023-12-23 06:59] LABS: Basophils # (auto) 0.03 K/uL (0.00-0.20); Basophils % (auto) 0.2 %; Eosinophils # (auto) 0.15 K/uL (0.00-0.50); Eosinophils % (auto) 0.8 %; Hematocrit (blood only) 33.1 % (37.0-47.0); Hemoglobin 9.9 g/dl (12.0-16.0); Immature Granulocytes # (auto) 0.26 K/uL (0.01-0.20); Immature Granulocytes % (auto) 1.4 %; Lymphocytes # (auto) 1.34 K/uL (1.20-3.40); Mean Corpuscular Hemoglobin 25.3 pg (25.0-34.0); Mean Corpuscular Hgb Conc 29.9 g/dL (32.0-36.0); Mean Corpuscular Volume 84.7 fL (80.0-100.0); Monocytes # (auto) 1.23 K/uL (0.11-0.59); Monocytes % (auto) 6.4 %; Neutrophils # (auto) 16.06 K/uL (1.40-6.50); Neutrophils % (auto) 84.2 %; Platelet Count 139 K/uL (130-400); RDW Coefficient of Variation 18.4 % (11.5-14.5); RDW Standard Deviation 55.1 fL (36.4-46.3); Red Blood Count 3.91 M/uL (4.20-5.40); White Blood Count 19.07 K/ul (4.8-10.8)
--- NOTE | 2023-12-23 07:04 | Hospitalist Progress Note ---
Date of Service December 23, 2023 Assessment & Plan (1) Sepsis: (2) Diabetic foot ulcer: (3) Paroxysmal atrial fibrillation: (4) Osteoarthritis: (5) Hypertension: (6) Left ankle pain: (7) Hypoxia: Plan Pt is a 78 yo female with PMH of chronic anemia, spinal meningioma, afib, left charcot foot, stroke (2019), and hypothyroidism presenting d/t left ankle pain. AIN/DEXTER Oliguria - improving Anasarca - ATN secondary to Sepsis vs AIN secondary to Zosyn - Patient with poor PO intake of both food and water - Creatinine improving now 2.70 - Nephro consulted - Had 2 HD over the weekend. - s/p prednisone Continue PO hydration Strict I/Os BMP - will hold on daily labs as per patient wishes Sepsis in the setting of chronic left diabetic foot ulcer Osteomyelitis - Leukocytosis + CRP elevation - No fever - s/p debridement/I&D/bone biopsy on 12/08 - Wound vac in place - Wound culture 12/02: Pseudomonas pansensitive - repeat blood culture: negative x2 - Podiatry consulted aprec recommendations - Vascular surgery consulted and determined that patient is not a candidate for vascular intervention/salvage. - ID consulted, appreciate recs currently on IV Cefepime and Daptomycin. Plan for a total of 4 weeks of IV. - Chest + feet xray were ordered today - Patient decline both, Atrail fibrillation - - Hx of cardioversion. Current infection possible contributor - No recurrence of RVR since initiation of diltiazem - Not on home medications for this - Metoprolol tartrate 50 mg BID - On diltiazem drip, place overnight - Eliquis for anticoagulation Anemia, stable today- stable Iron deficiency anemia - unknown etiology, no active bleeding - s/p 2 units of pRBCs - s/p Venofer Hypoxia - pt does not wear oxygen at home - TTE (12/06/23): normal LV systolic function, EF of 55-60%, aortic valve sclerosis without stenosis (no significant change from 2020) - Suspect pt may have a component of sleep apnea/nocturnal hypoxia contributing to current hypoxia - Not currently c/o SOB but oxygen need increased to 2 L - Continue to monitor Diabetes - last A1c 6.9% (10/2022); repeat ordered and was 7.2% - hold home metformin, glipizide - On Lantus and adjust SSI as needed - Pharmacy following HTN - Hold losartan and HCTZ - Continue to monitor Diet: carb consistent VTE ppx: Melani On Collado catheter for strict I/Os Admission and Anticipated Discharge Date Admission Date: December 03, 2023 Supervising Physician Co-Signing Physician Notes I personally examined the patient and verified all cuello points of history and exam, discussed case, and agree with decision making with Dr James Jack started expressing desires to nursing yesterday to really just want to be c omfortable and not continue to be medically aggressive. Reiterated this today. Whenever we came to see her she was very clear that she no longer wants aggressive care. I discussed with her that I would absolutely honor her wishes given her situation but wanted to ensure she had capacity given that she had just been fairly deliriousand she expressed to me very unprompted a very good depth of understanding she does not want further discomfort, but with lack of testing/interventions/etc. it will likely lead to . We discussed what she would and would not want done, and while I suspect she will probably move towards a truly "comfort measures only" goal, right now she was clear that she does not want further testing even if it compromises her care, but is okay with continuing antibiotics/IV meds etc., for now while she continues to weigh her options. Revisited later with her close friend Yi and had an extensive discussion with them in the patient's presence as well. Vitals noted, in general she is awake seems to be easily confused but definitely more coherent than Last week, very similar to yesterday.. HEENT normocephalic atraumatic mucous membranes moist. Breathing unlabored no accessory muscle use good effort. Skin shows no rashes no pallor or icterus. Neuro without focal deficits. Sepsis in the setting of chronic left foot diabetic ulcer/osteomyelitis, pressure ulcer of left heel stage 3, afib -postop debridement - wound vac in place, cx 12/02 - pseudomonas, cx 12/08 - corynebacterium - ID suspect this is contaminant. -zosyn changed to cefepime for concern of AIN. Appreciate ID input in regards to antibiotics - For now continuing antibiotics, but holding off on further labs as per patient's wishes. Depending on how she leads our discussions in her goals of care, I would not be surprised if she does not want ongoing antibiotics, but obviously we will continue to discuss this further together DEXTER, not present upon admission Anasarca - likely due to ATN, considered AIN, but no response to steroids. Kidney function stable now days off of dialysis, continues to show renal recovery. Continue supportive care. no further testing per her desire. A fib with RVR - Now rate controlled, anticoagulated (needed diltiazem drip again) Hypoxia - Improving. Nonspecific/multifactorial, likely to a degree effort driven. DVT proph - apixaban Continue to discuss goals of care, and outline further what she truly does and does not want. In discussions today, she did express that she would want to be a DNR/DNI. otherwise as above Mili Lock was evaluated this morning and again in the afternoon. During the morning she was awake, her nephew Pillo was on bedside. Her UO had been improving and Cr brea remained stable/trending down. Her WBC continued to be elevated and her CRP had trend up in the last 24 hours. Blood cultures and urine cultures were ordered yesterday, both had remained negative for 24 hours. She refers feeling more tired. No chills or fever Chest x ray and x ray of the feet was ordered for further infectious workup. I was notified by nurse that patient wishes to be comfortable and do not want more testing done. On evaluation at bedside in the afternoon she was found alert and oriented alone (Her friend Priti had just left the room). We had goals of care discussion: patient decided to be comfort and would like to decline any more diagnostic test such as labs or x ray. She wishes to be comfortable and avoid suffering. We will continue IV antibiotic treatment and PO treatment. Code status was discussed today and she desired to be transitioned to DNR/DNI. Review of Systems Review of Systems: as per HPI Physical Exam Physical Exam: General:Alert, no acute distress, HEENT: Normocephalic, moist oral mucosa, Cardio: Regular rate and rhythm, Resp:Lungs clear to auscultation b/l GI: Soft and nontender, nondistended, bowel sounds active Skin: Warm, pink, dry, LLE on wound VAC, edema Results & Data Results & Data Vital Signs (Past 12 Hours) Vital Signs Temp Pulse Pulse Pulse Resp BP BP 12/23/23 05:35 117 H 145/73 H 12/23/23 03:16 36.8 C 120 H 18 144/91 H 12/23/23 02:53 37 C 118 H 16 132/82 12/23/23 01:04 109 H 144/84 H 12/23/23 00:39 122 H 121/74 12/23/23 00:00 114 H 12/22/23 22:55 36.4 C L 113 H 18 113/72 12/22/23 19:45 12/22/23 19:43 36.4 C L 80 24 163/93 H Pulse Ox O2 Del Method O2 Flow Rate 12/23/23 05:35 12/23/23 03:16 97 Oxymask 2 12/23/23 02:53 97 Oxymask 2 12/23/23 01:04 12/23/23 00:39 97 Oxymask 2 12/23/23 00:00 12/22/23 22:55 100 Oxymask 2 12/22/23 19:45 Oxymask 2 12/22/23 19:43 100 Oxymask 2 Resident Activity Tracking Resident Involvement: Resident Care Provided Care Provided: Adult Hospital Medicine
[2023-12-23 07:23] LABS: C Reactive Protein 22.26 mg/dl (0-0.5); Calcium 7.8 mg/dl (8.6-10.3); Creatinine Clr Calc Pharmacy 21.4 ml/min; Est GFR (African American) 20.2 ml/min; Est GFR (Non-African American) 17.5 ml/min; Magnesium 1.7 mg/dl (1.7-2.4); Phosphorus 4.5 mg/dl (2.5-4.9); Potassium 3.8 mmol/L (3.5-5.1)
--- NOTE | 2023-12-23 09:34 | Nephrology Progress Note ---
Date of Service December 23, 2023 Assessment & Plan (1) Acute kidney injury: Plan: Non-oliguric. Baseline creatinine 1.2-1.3 mg/dL. DEXTER consistent with ATN versus AIN. Kidneys are in recovery. Creatinine relatively stable at 2.5 mg/dL. R fem HD catheter placed by Dr. Hammer 12/17/23. First HD treatment completed 12/17/23. Second treatment completed 12/18/23. Off HD since 12/18/23. Electrolytes acceptable. Remains in a net negative fluid balance with good urine output. Medications are appropriate for kidney function. Document strict I/O's. Repeat metabolic profile tomorrow AM. (2) Osteomyelitis of foot, left, acute: Plan: Remains on daptomycin + cefepime. (3) Anemia: Plan: 2 u PRBC transfusion support provided 12/10. Venofer 200 mg daily dose 5 of 12/19/23. (4) Hypertension: Plan: BP acceptable. Losartan and HCTZ held. (5) Edema: Plan: Improving. Importance of nutrition and physical therapy discussed. Admission and Anticipated Discharge Date Admission Date: December 03, 2023 Mili Lock was seen and evaluated with her nephew at the bedside this AM. She is resting comfortably in bed on a Cardizem gtt. Rapid atrial fibrillation developed overnight. Hayde denies chest pains or palpitations. She relates that she is breathing comfortably. No fevers or pills. She remains extremely weak. She continues to endorse generalized pain with turning/rotating. She remains dependent on nursing assistance. R femoral HD catheter was removed yesterday without issues. Review of Systems Review of Systems: All systems reviewed & are unremarkable except as noted in HPI & below Physical Exam Constitutional: + morbidly obese; no acute distress Eyes: + anicteric sclerae; no corneal abnormal ity ENMT: Mouth: oral mucous membranes not dry Neck: normal visual inspection and + thick neck Respiratory: normal respiratory effort Auscultation: + diminished lung sounds; no rales, no rhonchi and no wheezes Cardiovascular: Rate/Rhythm: + irregularly irregular Heart Sounds: normal S1 and normal S2 Extremities: + edema (continues to improve) Musculoskeletal: Extremities: no cyanosis and no clubbing Skin: + turgor decreased; no jaundice Neurologic: Motor/Sensory: no tremor and no asterixis Psychiatric: Orientation: alert and oriented x 3 Genitourinary: Collado draining cloudy yellow urine Results & Data Vital Signs (Past 12 Hours) Vital Signs Temp Pulse Pulse Pulse Pulse Resp BP 12/23/23 07:50 37.3 C 94 H 18 12/23/23 05:35 117 H 12/23/23 03:16 36.8 C 120 H 18 12/23/23 02:53 37 C 118 H 16 12/23/23 01:04 109 H 144/84 H 12/23/23 00:39 122 H 12/23/23 00:00 114 H 12/22/23 22:55 36.4 C L 113 H 18 BP Pulse Ox O2 Del Method O2 Flow Rate 12/23/23 07:50 144/80 H 100 Oxymask 2 12/23/23 05:35 145/73 H 12/23/23 03:16 144/91 H 97 Oxymask 2 12/23/23 02:53 132/82 97 Oxymask 2 12/23/23 01:04 12/23/23 00:39 121/74 97 Oxymask 2 12/23/23 00:00 12/22/23 22:55 113/72 100 Oxymask 2 Laboratory Results Laboratory Results - last 24 hr 12/22/23 12/22/23 12/22/23 11:19 16:17 20:22 WBC RBC Hgb Hct MCV MCH MCHC RDW Std Deviation RDW Coeff of Isidoro Plt Count MPV Immature Gran % (Auto) Neut % (Auto) Lymph % (Auto) Karnes % (Auto) Eos % (Auto) Baso % (Auto) Neut # (Auto) Lymph # (Auto) Karnes # (Auto) Eos # (Auto) Baso # (Auto) Immature Gran # (Auto) Sodium Potassium Chloride Carbon Dioxide Anion Gap BUN Creatinine Est Cr Clr Drug Dosing Est GFR ( Amer) Est GFR (Non-Af Amer) BUN/Creatinine Ratio Glucose POC Glucose 158 H 114 H 110 H Calcium Phosphorus Magnesium C-Reactive Protein 12/23/23 12/23/23 06:23 07:37 WBC 19.07 H RBC 3.91 L Hgb 9.9 L Hct 33.1 L MCV 84.7 MCH 25.3 MCHC 29.9 L RDW Std Deviation 55.1 H RDW Coeff of Isidoro 18.4 H Plt Count 139 MPV 12.0 Immature Gran % (Auto) 1.4 Neut % (Auto) 84.2 Lymph % (Auto) 7.0 Karnes % (Auto) 6.4 Eos % (Auto) 0.8 Baso % (Auto) 0.2 Neut # (Auto) 16.06 H Lymph # (Auto) 1.34 Karnes # (Auto) 1.23 H Eos # (Auto) 0.15 Baso # (Auto) 0.03 Immature Gran # (Auto) 0.26 H Sodium 145 Potassium 3.8 Chloride 106 Carbon Dioxide 29 Anion Gap 10 BUN 61 H Creatinine 2.54 H Est Cr Clr Drug Dosing 21.4 Est GFR ( Amer) 20.2 Est GFR (Non-Af Amer) 17.5 BUN/Creatinine Ratio 24.0 H Glucose 172 H POC Glucose 170 H Calcium 7.8 L Phosphorus 4.5 Magnesium 1.7 C-Reactive Protein 22.26 H PG Care Time/CCT Total # of Minutes Spent Total Time Spent with Patient: Total time spent is greater than 50% in coordination of care (as documented) at patient's floor/unit and/or counseling patient: Coding Level of Care Code 01271 SUB INP/OBS CARE 3/50MIN Diagnoses Acute kidney injury N17.9 Osteomyelitis of foot, left, acute M86.172 Anemia D64.9 Hypertension I10 Edema R60.9
[2023-12-23] MEDS ORDERED: ACETAMINOPHEN 1,000 MG/100 ML VIAL IV PRN (15:55)
[2023-12-23] MEDS ORDERED: HYDROmorphone INJ 0.5 MG/0.5 ML SYR IV PRN (15:57)
--- NOTE | 2023-12-23 18:45 | Billing Data ---
Date of Service December 23, 2023 Coding Level of Care Code 68703 SUB INP/OBS CARE
[2023-12-24] MEDS: LORazepam 0.5 MG TAB PO STA (05:39)
--- NOTE | 2023-12-24 07:11 | Hospitalist Progress Note ---
Date of Service December 24, 2023 Assessment & Plan (1) Sepsis: (2) Diabetic foot ulcer: (3) Paroxysmal atrial fibrillation: (4) Osteoarthritis: (5) Hypertension: (6) Left ankle pain: (7) Hypoxia: Plan Pt is a 78 yo female with PMH of chronic anemia, spinal meningioma, afib, left charcot foot, stroke (2019), and hypothyroidism presenting d/t left ankle pain. AIN/DEXTER Oliguria - improving Anasarca - ATN secondary to Sepsis vs AIN secondary to Zosyn - Patient with poor PO intake of both food and water - Creatinine improving now 2.70 - Nephro consulted - Had 2 HD over the weekend. - s/p prednisone Continue PO hydration Strict I/Os BMP - will hold on daily labs as per patient wishes Sepsis in the setting of chronic left diabetic foot ulcer Osteomyelitis - Leukocytosis + CRP elevation - No fever - s/p debridement/I&D/bone biopsy on 12/08 - Wound vac in place - Wound culture 12/02: Pseudomonas pansensitive - repeat blood culture: negative x2 - Podiatry consulted aprec recommendations - Vascular surgery consulted and determined that patient is not a candidate for vascular intervention/salvage. - ID consulted, appreciate recs currently on IV Cefepime and Daptomycin. Plan for a total of 4 weeks of IV. - Chest + feet xray were ordered today - Patient decline both, Atrail fibrillation - - Hx of cardioversion. Current infection possible contributor - No recurrence of RVR since initiation of diltiazem - Not on home medications for this - Metoprolol tartrate 50 mg BID - Eliquis for anticoagulation - Diltiazem drip transitioned to diltiazem 30 mg PO Anemia, stable today- stable Iron deficiency anemia - unknown etiology, no active bleeding - s/p 2 units of pRBCs - s/p Venofer Hypoxia - pt does not wear oxygen at home - TTE (12/06/23): normal LV systolic function, EF of 55-60%, aortic valve sclerosis without stenosis (no significant change from 2020) - Suspect pt may have a component of sleep apnea/nocturnal hypoxia contributing to current hypoxia - Not currently c/o SOB but oxygen need increased to 2 L - Continue to monitor Diabetes - last A1c 6.9% (10/2022); repeat ordered and was 7.2% - hold home metformin, glipizide - On Lantus and adjust SSI as needed - Pharmacy following HTN - Hold losartan and HCTZ - Continue to monitor Diet: carb consistent VTE ppx: Melani On Collado catheter for strict I/Os Admission and Anticipated Discharge Date Admission Date: December 03, 2023 Supervising Physician Co-Signing Physician Notes I personally examined the patient and verified all cuello points of history and exam, discussed case, and agree with decision making with Dr James Jack Extensive discussions with patient and friends this afternoon. As she has had time to think about it she is quite clear that she really wants comfort measures only, including stopping antibiotics, etc.etc. She expresses concern that if she is moved at [place] to clean her up after a bowel movement that she will have pain. I discussed with her plainly and multiple times that now that she is made it clear that she is comfort measures only, we can try to move her as little as possible, but for her dignity and comfort, cleaning her up after a bowel movement would still really make a lot of sense. vitals noted nad heent nc breathing unlabored no accessory muscle use good effort. Skin without rashes pallor or icterus. Uncontrolled pain/comfort careafter today's discussions, she is now abundantly clear that she only wants comfort measures. We discussed what this means, she expresses a very clear understanding of it. Unfortunately she did have a little bit of mistrust that we would actually follow through with a comfort plan in spite of my active reassurance on multiple counts and her friends reassuring her as well. Finally after discussing that it was really only today when we were talking at the time of my visit that she was clear that she only wanted comfort measures and that would be the point at which her plan of care would change moving forward did she finally expressed some degree of understanding/trust that we would follow through with comfort care. Stopped antibiotics, stopped her statin. Continued rate control meds because I feel that uncontrolled tachycardia/diastolic CHF would be uncomfortable. Morphine as needed pain4 mg prior to movement with an additional 4 mg as needed severe pain on top of the original 4 mg or 2 mg on top for more moderate. Both the 4/2 mg can also be every 2 hours as needed. Reminded the patient that if her pain is uncontrolled I would want to be notified. Work towards SNF/hospice. For the purposes of clarification and documentationbelow in italics is in the last plan from when we were still in some semblance of a medically aggressive mode of care. Sepsis in the setting of chronic left foot diabetic ulcer/osteomyelitis, pressure ulcer of left heel stage 3, afib -postop debridement - wound vac in place, cx 12/02 - pseudomonas, cx 12/08 - corynebacterium - ID suspect this is contaminant. -zosyn changed to cefepime for concern of AIN. Appreciate ID input in regards to antibiotics - For now continuing antibiotics, but holding off on further labs as per patient's wishes. Depending on how she leads our discussions in her goals of care, I would not be surprised if she does not want ongoing antibiotics, but obviously we will continue to discuss this further together DEXTER, not present upon admission Anasarca - likely due to ATN, considered AIN, but no response to steroids. Kidney function stable now days off of dialysis, continues to show renal recovery. Continue supportive care. no further testing per her desire. A fib with RVR - Now rate controlled, anticoagulated (needed diltiazem drip again) Hypoxia - Improving. Nonspecific/multifactorial, likely to a degree effort driven. DVT proph - apixaban Subjective Patient seen and evaluated at bedside this morning. No acute events overnight. More alert today. No acute complaints. Urine output had increased. Patient decided yesterday to hold all testing yesterday. We continue to do IV treatment and antibiotic. Will transition diltiazem drip to PO today. Pending patient to decide next steps (rehab vs home) Review of Systems Review of Systems: as per hpi Physical Exam Constitutional: WD/WN, vitals as above + morbidly obese; no acute distress Neck: normal visual inspection and + thick neck Respiratory: normal respiratory effort, lungs clear to auscultation Auscultation: + diminished lung sounds Cardiovascular: Rate/Rhythm: + irregularly irregular Heart Sounds: normal S1 and normal S2 Musculoskeletal: Extremities: no cyanosis and no clubbing Psychiatric: Orientation: alert and oriented x 3 Results & Data Results & Data Vital Signs (Past 12 Hours) Vital Signs Temp Pulse Pulse Pulse Resp BP Pulse Ox 12/24/23 02:47 100 H 12/24/23 02:34 36.8 C 76 18 129/77 90 12/23/23 22:31 36.7 C 110 H 18 132/83 91 12/23/23 20:00 12/23/23 19:18 36.8 C 116 H 20 111/77 90 O2 Del Method 12/24/23 02:47 12/24/23 02:34 Room Air 12/23/23 22:31 Room Air 12/23/23 20:00 Room Air 12/23/23 19:18 Room Air Resident Activity Tracking Resident Involvement: Resident Care Provided Care Provided: Adult Hospital Medicine and Pediatric Care
--- NOTE | 2023-12-24 10:43 | Nephrology Progress Note ---
Date of Service December 24, 2023 Assessment & Plan (1) Acute kidney injury: Plan: DEXTER consistent with ATN versus AIN. Kidneys are in recovery. R fem HD catheter placed by Dr. Hammer 12/17/23. First HD treatment completed 12/17/23. Second treatment completed 12/18/23. Off HD since 12/18/23. Remains in a net negative fluid balance with good urine output. Medications are appropriate for kidney function. No additional nephrology recommendations at this time. Patient has requested that blood work no longer be monitored. I will sign-off. Please call with questions or concerns. (2) Osteomyelitis of foot, left, acute: Plan: Remains on daptomycin + cefepime. (3) Anemia: Plan: 2 u PRBC transfusion support provided 12/10. Venofer 200 mg daily dose of 12/19/23. (4) Hypertension: Plan: BP acceptable. Losartan and HCTZ held. Admission and Anticipated Discharge Date Admission Date: December 03, 2023 Mili Lock has opted for a palliative approach to care. I discussed the plan of care with Dr. Roberts. We are no longer monitoring kidney function tests. She does not want dialysis if kidney function deteriorates. She is considering transition to hospice, if there is not improvement with continued management of infection. She denies dyspnea. Urine output remains acceptable. She is not experiencing significant fluid retention or edema. Review of Systems Review of Systems: All systems reviewed & are unremarkable except as noted in HPI & below Constitutional: + fatigue and + weakness Physical Exam Constitutional: + morbidly obese; no acute distress Eyes: + anicteric sclerae; no corneal abnormal ity ENMT: Mouth: oral mucous membranes not dry Neck: normal visual inspection and + thick neck Respiratory: normal respiratory effort and + tachypneic Auscultation: + diminished lung sounds Cardiovascular: Rate/Rhythm: + irregularly irregular Heart Sounds: normal S1 and normal S2 Musculoskeletal: Extremities: no cyanosis and no clubbing Skin: + turgor decreased; no jaundice Neurologic: Motor/Sensory: no tremor and no asterixis Psychiatric: Orientation: alert and oriented x 3 Results & Data Vital Signs (Past 12 Hours) Vital Signs Temp Pulse Pulse Pulse Resp BP Pulse Ox 12/24/23 08:35 12/24/23 07:49 36.9 C 100 H 17 138/87 95 12/24/23 02:47 100 H 12/24/23 02:34 36.8 C 76 18 129/77 90 O2 Del Method O2 Flow Rate 12/24/23 08:35 Oxymask 2 12/24/23 07:49 Oxymask 2 12/24/23 02:47 12/24/23 02:34 Room Air Laboratory Results Laboratory Results - last 24 hr 12/23/23 12/23/23 12/23/23 11:31 16:17 20:19 POC Glucose 158 H 144 H 173 H 12/24/23 07:20 POC Glucose 177 H PG Care Time/CCT Total # of Minutes Spent Total Time Spent with Patient: Total time spent is greater than 50% in coordination of care (as documented) at patient's floor/unit and/or counseling patient: Coding Level of Care Code 67352 SUB INP/OBS CARE 3/50MIN Diagnoses Acute kidney injury N17.9 Osteomyelitis of foot, left, acute M86.172 Anemia D64.9 Hypertension I10
--- NOTE | 2023-12-24 13:09 | Infectious Disease Progress Nt ---
Date of Service December 24, 2023 Assessment & Plan (1) Diabetic foot ulcer: (2) Osteomyelitis of foot, left, acute: (3) Peripheral arterial disease: Plan 78yo F with h/o chronic anemia, spinal meningioma, left Charcot foot, chronic arthritis/pain in left ankle, stroke in 2019, hypothyroidism, diabetes, afib, HTN who presented on 12/02 with acute on chronic left ankle pain. On admission, she was febrile, on 2-3L NC. WBC 15.32, Cr 1.17>>2.30. AST/ALT wnl. Trop elevated. PCT 0.68. RPP neg. MRSA screen neg. CXR neg. Ankle XR with soft tissue swelling, osteopenia with severe degenerative changes involving the ankle and hindfoot, typical for Charcot. CT left foot with OM of the calcaneus, erosive changes also seen on cuboid, complex fluid collection deep to wound likely representing an abscess. TTE with AV sclerosis without significant stenosis. She was seen by podiatry and noted to have probe to bone of left foot ulcer and c/f OM. Given Charcot foot, further imaging deferred since it is unhelpful. Arterial u/s with severe PAD. Seen by vascular who did not believe her to be a good candidate for endovascular intervention and BKA was offered, but patient declined. S/p OR on 12/08 for left foot I+D and bone biopsy. Micro: Left foot plantar ulcer 12/03/2023: Rare Pseudomonas aeruginosa (pansensitive) Left foot wound tissue culture 12/09/2023, few corynebacterium species Left foot bone culture,12/09/2023, rare corynebacterium species Urine culture, 12/11/2023 .> 100 K Mi albicans Blood culture 12/17/2023 no growth to date Antibiotics: Vancomycin Zosyn Daptomycin 12/11-12/13 Cefepime 12/10-ongoing Pathology 12/09/23 FINAL DIAGNOSIS Synovial tissue and bone, left calcaneus (incision and drainage of left foot wound with bone biopsy): - Moderately inflamed hyperplastic synovial tissue and viable bony trabeculae are seen. - The changes of osteonecrosis and osteomyelitis are not seen. # Left foot OM of calcaneus, sp I and d, no remaining osteo on path and per Podiatry # Left diabetic foot ulcer # Peripheral arterial disease # DEXTER # Worsening leukocytosis # Increasing Crp Discussion ID had discussion with podiatry post debridement. Few corynebacterium grew on bone and tissue cx, while pt was on zoayn. Zosyn may have suppressed further growth of PsA on OR cx. Corynebacterium sp growth was initially thought to be a contaminant . Podiatry felt all infected bone had been removed and Bone pathology WITHOUT osteomyelitis or osteonecrosis changes. Her WBC remains elevated. Plan was to initially treat for deep seated SSTI . Given calcaneal locations and overall poor blood flow, it was decided to treat with 4 weeks of IV from time of debridement. ON zosyn CR worsened and Abx changed to Cefepime. Unclear cause of increasing WBC Rec: WBC remains elevated. Since Corynebacterium grew in calcaneal bone as well as tissue, ADD daptomycin 4 mg/kg Iv q48 to Cefepime 1 g iv q 12h ( cr c ~19.7) to target both corynebacterium and PSA ?SSTI . EOT 01/06/24. Monitor cbc with diff, bmp, lft, cpk on IV abx Follow up blood cultures She had ? vaginal dc and has ab pain. Would check CTAb, if she allows Add flagyl 500 mg po tid ID will continue to follow. ID will not round over the weekend. Please call covering provider at [phone] with questions. Beth Martinez MD, MPH Infectious Disease ID [facility], ID Division Admission and Anticipated Discharge Date Admission Date: December 03, 2023 Subjective Subsequent visit was provided via telemedicine using two-way real-time interactive telecommunication between the patient and the telemedicine provider. For the duration of the visit, the provider was performing the assessment from a different facility than the patient. This includesuse of bluetooth stethoscope forauscultationperformed by the telepresenter that the telemedicine provider can hear if described in the physical exam. Polls Or Surveys Interviewer contact information: Please call [facility] [phone]. (Phone Number For Physician Use Only) After establishing a telemedicine visit, patient was: Patient was verified with two unique identifiers and Gave permission to continue telehealth session Time Spent with Patient: Subsequent => 25 min Afebrile. Had vaginal drainage per notes, but she doesn't remember, Awake, poor historian, Not engaging much crp increasing -22.26 Review of System mild L side abdominal pain Physical Exam Physical Exam: Gen- Chronically ill appearing, oxymask Abd- soft, obese, L sided tTP Ext- BL LE edema Left foot wound vac Results & Data Vital Signs (Past 12 Hours) Vital Signs Temp Pulse Pulse Pulse Resp BP Pulse Ox 12/24/23 11:15 36.8 C 108 H 20 149/66 H 97 12/24/23 08:35 12/24/23 07:49 36.9 C 100 H 17 138/87 95 12/24/23 02:47 100 H 12/24/23 02:34 36.8 C 76 18 129/77 90 O2 Del Method O2 Flow Rate 12/24/23 11:15 Oxymask 2 12/24/23 08:35 Oxymask 2 12/24/23 07:49 Oxymask 2 12/24/23 02:47 12/24/23 02:34 Room Air Laboratory Results Laboratory Results - last 48 hr 12/22/23 12/22/23 12/23/23 16:17 20:22 06:23 WBC 19.07 H RBC 3.91 L Hgb 9.9 L Hct 33.1 L MCV 84.7 MCH 25.3 MCHC 29.9 L RDW Std Deviation 55.1 H RDW Coeff of Isidoro 18.4 H Plt Count 139 MPV 12.0 Immature Gran % (Auto) 1.4 Neut % (Auto) 84.2 Lymph % (Auto) 7.0 Marathon % (Auto) 6.4 Eos % (Auto) 0.8 Baso % (Auto) 0.2 Neut # (Auto) 16.06 H Lymph # (Auto) 1.34 Marathon # (Auto) 1.23 H Eos # (Auto) 0.15 Baso # (Auto) 0.03 Immature Gran # (Auto) 0.26 H Sodium 145 Potassium 3.8 Chloride 106 Carbon Dioxide 29 Anion Gap 10 BUN 61 H Creatinine 2.54 H Est Cr Clr Drug Dosing 21.4 Est GFR ( Amer) 20.2 Est GFR (Non-Af Amer) 17.5 BUN/Creatinine Ratio 24.0 H Glucose 172 H POC Glucose 114 H 110 H Calcium 7.8 L Phosphorus 4.5 Magnesium 1.7 C-Reactive Protein 22.26 H 12/23/23 12/23/23 12/23/23 07:37 11:31 16:17 WBC RBC Hgb Hct MCV MCH MCHC RDW Std Deviation RDW Coeff of Isidoro Plt Count MPV Immature Gran % (Auto) Neut % (Auto) Lymph % (Auto) Marathon % (Auto) Eos % (Auto) Baso % (Auto) Neut # (Auto) Lymph # (Auto) Marathon # (Auto) Eos # (Auto) Baso # (Auto) Immature Gran # (Auto) Sodium Potassium Chloride Carbon Dioxide Anion Gap BUN Creatinine Est Cr Clr Drug Dosing Est GFR ( Amer) Est GFR (Non-Af Amer) BUN/Creatinine Ratio Glucose POC Glucose 170 H 158 H 144 H Calcium Phosphorus Magnesium C-Reactive Protein 12/23/23 12/24/23 12/24/23 20:19 07:20 11:13 WBC RBC Hgb Hct MCV MCH MCHC RDW Std Deviation RDW Coeff of Isidoro Plt Count MPV Immature Gran % (Auto) Neut % (Auto) Lymph % (Auto) Marathon % (Auto) Eos % (Auto) Baso % (Auto) Neut # (Auto) Lymph # (Auto) Marathon # (Auto) Eos # (Auto) Baso # (Auto) Immature Gran # (Auto) Sodium Potassium Chloride Carbon Dioxide Anion Gap BUN Creatinine Est Cr Clr Drug Dosing Est GFR ( Amer) Est GFR (Non-Af Amer) BUN/Creatinine Ratio Glucose POC Glucose 173 H 177 H 179 H Calcium Phosphorus Magnesium C-Reactive Protein Microbiology 12/22/23 Unknown Urine,Clean Catch Urine Culture - Final Yeast not Mi albicans/dub 12/22/23 11:00 Blood Aerobic Blood Culture - Preliminary No growth in Aerobic bottle after 48 hours. 12/22/23 11:00 Blood Anaerobic Blood Culture - Preliminary No growth in Anaerobic bottle after 48 hours. 12/22/23 11:14 Blood Aerobic Blood Culture - Preliminary No growth in Aerobic bottle after 48 hours. 12/22/23 11:14 Blood Anaerobic Blood Culture - Preliminary No growth in Anaerobic bottle after 48 hours. 12/17/23 09:42 Blood Aerobic Blood Culture - Final No growth in Aerobic bottle after 5 days. 12/17/23 09:42 Blood Anaerobic Blood Culture - Final No growth in Anaerobic bottle after 5 days. 12/17/23 08:35 Blood Aerobic Blood Culture - Final No growth in Aerobic bottle after 5 days. 12/17/23 08:35 Blood Anaerobic Blood Culture - Final No growth in Anaerobic bottle after 5 days. 12/09/23 Unknown Foot,Left Gram Stain - Final 12/09/23 Unknown Foot,Left Aerobic and Anaerobic Culture - Final Corynebacterium species 12/09/23 Unknown Foot,Left Gram Stain - Final 12/09/23 Unknown Foot,Left Aerobic and Anaerobic Culture - Final Corynebacterium species 12/11/23 09:50 Urine,Straight Cath Urine Culture - Final Yeast not Mi albicans/dub 12/03/23 Unknown Foot,Left Gram Stain - Final 12/03/23 Unknown Foot,Left Aerobic and Anaerobic Culture - Final Pseudomonas aeruginosa 12/03/23 02:10 Blood Aerobic Blood Culture - Final No growth in Aerobic bottle after 5 days. 12/03/23 02:10 Blood Anaerobic Blood Culture - Final No growth in Anaerobic bottle after 5 days. 12/03/23 01:50 Blood Aerobic Blood Culture - Final No growth in Aerobic bottle after 5 days. 12/03/23 01:50 Blood Anaerobic Blood Culture - Final No growth in Anaerobic bottle after 5 days. Medications Administered Home Medications Medication Instructions Recorded Confirmed Last Taken folic acid 800 mcg tablet 800 mcg PO QAM 03/30/19 12/03/23 04/18/21 paula (Zingiber officinalis) 550 1,100 mg PO HS 03/30/19 12/03/23 04/17/21 mg capsule lancets 33 gauge (OneTouch Delica #100 ea 03/30/19 10/20/23 Unknown Lancets) cyanocobalamin (vitamin B-12) 5,000 mcg PO QAM 05/28/20 12/03/23 04/18/21 5,000 mcg capsule oxycodone-acetaminophen 5 mg-325 0.5 - 1 tab PO DAILY PRN pain 90 10/09/20 12/03/23 Unknown mg tablet days #20 tabs zinc acetate 25 mg (zinc) capsule 25 mg PO QPM 10/15/20 12/03/23 04/17/21 ascorbic acid (vitamin C) 1,000 mg 1 g PO QPM 11/29/20 12/03/2304/17/21 tablet glipizide 5 mg tablet 2.5 mg PO QAM 04/18/21 12/03/23 04/18/21 metformin 500 mg tablet 500 mg PO BID 04/18/21 12/03/23 04/17/21 blood sugar diagnostic (OneTouch #100 ea 05/19/21 10/20/23 Unknown Verio test strips) losartan 50 mg tablet 50 mg PO QAM #90 tabs 05/19/21 12/03/23 Unknown cholecalciferol (vitamin D3) 10 10 mcg PO BID 06/06/21 12/03/23 Unknown mcg (400 unit) tablet (Vitamin D3) levothyroxine 75 mcg tablet 75 mcg PO DAILY 03/20/22 12/03/23 Unknown (Synthroid) aspirin 325 mg tablet 325 mg PO BID #60 tabs 01/21/23 12/03/23 Unknown atorvastatin 80 mg tablet 80 mg PO DAILY 12/03/23 12/03/23 Unknown hydrochlorothiazide 50 mg tablet 50 mg PO DAILY 12/03/23 12/03/23 Unknown Active Medications Generic Name Dose Route Start Last Admin Trade Name Freq PRN Reason Stop Dose Admin Apixaban 5 mg 12/08/23 21:00 12/24/23 08:07 Apixaban 5 Mg Tablet PO 01/07/24 20:59 5 mg BID NEFTALY Administration Atorvastatin Calcium 80 mg 12/03/23 21:00 12/23/23 20:42 Atorvastatin 40 Mg Tab PO 01/02/24 20:59 80 mg HS NEFTALY Administration Dextrose 25 - 50 ml 12/03/23 06:02 12/12/23 11:20 Dextrose 50% 50 Ml Syringe IV 01/02/24 06:01 25 ml UD PRN Administration Hypoglycemia Protocol Protocol Docusate Sodium 100 mg 12/04/23 09:00 12/24/23 08:06 Docusate Sodium 100 Mg Cap PO 01/03/24 08:59 Not Given DAILY NEFTALY Cefepime HCl 1,000 mg/ Syringe 10 mls @ 5 mls/min 12/21/23 05:00 12/24/23 05:39 IV 01/06/24 23:59 5 mls/min Q12H NEFTALY Administration Daptomycin 300 mg/ Syringe 6 mls @ 3 mls/min 12/20/23 17:00 12/22/23 18:15 IV 01/06/24 23:59 3 mls/min Q48H NEFTALY Administration Protocol Diltiazem HCl 125 mg/ Dextrose 125 mls @ 5 mls/hr 12/23/23 05:30 12/24/23 07:14 IV 01/22/24 05:29 5 mg/hr .Q24H NEFTALY 5 mls/hr Titration Protocol 5 MG/HR Insulin Aspart 0 units 12/03/23 07:30 12/24/23 11:44 Insulin Aspart Per Unit Charge SC 01/02/24 07:29 2 units ACHS NEFTALY Administration Insulin Glargine 5 units 12/20/23 09:00 12/24/23 08:12 Lantus Per Unit Charge SC 01/19/24 08:59 5 units DAILY NEFTALY Administration Levothyroxine Sodium 75 mcg 12/03/23 06:30 12/24/23 05:39 Levothyroxine Sodium 75 Mcg Tablet PO 01/02/24 06:29 75 mcg DAILYBB NEFTALY Administration Metoprolol Succinate 50 mg 12/16/23 07:20 12/24/23 08:06 Metoprolol Succ 50mg Ext Rel Tab PO 01/15/24 07:19 50 mg BID NEFTALY Administration Miconazole Nitrate 1 appln 12/05/23 09:00 12/24/23 08:07 Miconazole Nitrate Powder 85 Gm EXT 01/04/24 08:59 1 appln BID NEFTALY Administration Ondansetron HCl 4 mg 12/03/23 05:38 12/09/23 18:57 Ondansetron Inj 2 Mg/Ml 2 Ml Vial IV 01/02/24 05:37 4 mg Q6H PRN Administration Nausea Polyethylene Glycol 17 gm 12/04/23 09:00 12/24/23 08:07 Polyethylene (Miralax) 17 Gm Pack PO 01/03/24 08:59 Not Given DAILY NEFTALY
[2023-12-24] MEDS: dilTIAZem HCL 30 MG TAB PO ONE (15:17)
[2023-12-24] MEDS ORDERED: MoRPHine SULFATE 2 MG/ML CARP IV PRN (15:44)
[2023-12-24] MEDS: dilTIAZem HCL 30 MG TAB PO SCH (16:31)
[2023-12-24] MEDS: MoRPHine SULFATE 4 MG/ML 1 ML CARP\\VIAL IV PRN ×2 (17:01→23:10)
--- NOTE | 2023-12-24 17:43 | Billing Data ---
Date of Service December 24, 2023 Coding Level of Care Code 47900 SUB INP/OBS CARE MIN
--- NOTE | 2023-12-24 17:44 | Billing Data ---
Date of Service December 24, 2023 Coding Level of Care Code 59488 SUB INP/OBS CARE MIN
--- NOTE | 2023-12-24 17:44 | Communication Note ---
Date of Service: December 24, 2023 After extensive discussions yesterday and today, patient is comfort measures only moving forward
[2023-12-24] MEDS ORDERED: dilTIAZem HCL 30 MG TAB PO SCH (21:00)
--- NOTE | 2023-12-25 07:29 | Hospitalist Progress Note ---
Date of Service December 25, 2023 Assessment & Plan (1) Sepsis: (2) Diabetic foot ulcer: (3) Paroxysmal atrial fibrillation: (4) Osteoarthritis: (5) Hypertension: (6) Left ankle pain: (7) Hypoxia: Plan Pt is a 78 yo female with PMH of chronic anemia, spinal meningioma, afib, left charcot foot, stroke (2019), and hypothyroidism presenting d/t left ankle pain. AIN/DEXTER Oliguria - improving Anasarca - ATN secondary to Sepsis vs AIN secondary to Zosyn - Nephro consulted - Had 2 HD over the weekend. - s/p prednisone - Kidney function stable after dialysis Continue PO hydration No further testing - Comfort measures only BMP - will hold on daily labs as per patient wishes Sepsis in the setting of chronic left diabetic foot ulcer Osteomyelitis - No fever - s/p debridement/I&D/bone biopsy on 12/08 - Wound vac in place - Wound culture 12/02: Pseudomonas pansensitive - Podiatry consulted aprec recommendations - ID consulted, appreciate recs currently on IV Cefepime and Daptomycin. Plan for a total of 4 weeks of IV. Comfort measures: patient decline further treatment with Abx Atrail fibrillation - - Hx of cardioversion. Current infection possible contributor - No recurrence of RVR since initiation of diltiazem - Metoprolol tartrate 50 mg BID - Eliquis for anticoagulation - Diltiazem drip transitioned to diltiazem 30 mg PO Anemia, stable today- stable Iron deficiency anemia - unknown etiology, no active bleeding - s/p 2 units of pRBCs - s/p Venofer Hypoxia - Not currently c/o SOB but oxygen need increased to 2 L - Continue to monitor Diabetes - last A1c 6.9% (10/2022); repeat ordered and was 7.2% - hold home metformin, glipizide - On Lantus and adjust SSI as needed HTN - Hold losartan and HCTZ Diet: carb consistent VTE ppx: Eliquis On Collado catheter Disposition: Comfort care Admission and Anticipated Discharge Date Admission Date: December 03, 2023 Supervising Physician Co-Signing Physician Notes I personally examined the patient and verified all cuello points of history and exam, discussed case, and agree with decision making with Dr James Jack sleeping comfortably. dayshift nursing has not yet had to move pt - but discussed goals of care and pain plan. allowed pt to sleep. vitals noted nad heent nc breathing unlabored no accessory muscle use good effort. Skin without rashes pallor or icterus. Uncontrolled pain/comfort carecomfort measures only. Work towards SNF/hospice. nursing will keep me abreast of efficacy of current pain dosing - will escalate if needed For the purposes of clarification and documentationbelow in italics is in the last plan from when we were still in some semblance of a medically aggressive mode of care. Sepsis in the setting of chronic left foot diabetic ulcer/osteomyelitis, pressure ulcer of left heel stage 3, afib -postop debridement - wound vac in place, cx 12/02 - pseudomonas, cx 12/08 - corynebacterium - ID suspect this is contaminant. -zosyn changed to cefepime for concern of AIN. Appreciate ID input in regards to antibiotics - For now continuing antibiotics, but holding off on further labs as per patient's wishes. Depending on how she leads our discussions in her goals of care, I would not be surprised if she does not want ongoing antibiotics, but obviously we will continue to discuss this further together DEXTER, not present upon admission Anasarca - likely due to ATN, considered AIN, but no response to steroids. Kidney function stable now days off of dialysis, continues to show renal recovery. Continue supportive care. no further testing per her desire. A fib with RVR - Now rate controlled, anticoagulated (needed diltiazem drip again) Hypoxia - Improving. Nonspecific/multifactorial, likely to a degree effort driven. DVT proph - apixaban Subjective Rothman seen this morning. She was found alert and oriented. Yesterday patient decided to be comfort measures only. Plan for SNF/hospice Review of Systems Review of Systems: as per HPI Physical Exam Physical Exam: General:Alert, no acute distress, HEENT: Normocephalic, moist oral mucosa, Cardio: Regular rate and rhythm, Resp:Lungs clear to auscultation b/l GI: Soft and nontender, nondistended, bowel sounds active Skin: Warm, pink, dry, LLE on wound VAC, edema Results & Data Results & Data Vital Signs (Past 12 Hours) Vital Signs Temp Pulse Pulse Pulse Pulse Resp BP 12/25/23 05:51 134 H 105/67 12/25/23 02:36 37.1 C 116 H 20 82/58 L 12/24/23 21:55 94 H 12/24/23 20:31 12/24/23 20:16 97 H 18 133/79 Pulse Ox O2 Del Method 12/25/23 05:51 12/25/23 02:36 88 L Room Air 12/24/23 21:55 12/24/23 20:31 Room Air 12/24/23 20:16 85 L Room Air Resident Activity Tracking Resident Involvement: Resident Care Provided Care Provided: Adult Hospital Medicine
--- NOTE | 2023-12-25 12:22 | Billing Data ---
Date of Service December 25, 2023 Coding Level of Care Code 64971 SUB INP/OBS CARE
--- NOTE | 2023-12-26 07:24 | Hospitalist Progress Note ---
Date of Service December 26, 2023 Assessment & Plan (1) Sepsis: (2) Diabetic foot ulcer: (3) Paroxysmal atrial fibrillation: (4) Osteoarthritis: (5) Hypertension: (6) Left ankle pain: (7) Hypoxia: Plan Pt is a 78 yo female with PMH of chronic anemia, spinal meningioma, afib, left charcot foot, stroke (2019), and hypothyroidism presenting d/t left ankle pain. AIN/DEXTER Oliguria - improving Anasarca - ATN secondary to Sepsis vs AIN secondary to Zosyn - Nephro consulted - Had 2 HD over the weekend. - s/p prednisone - Kidney function stable after dialysis Continue PO hydration No further testing - Comfort measures only BMP - will hold on daily labs as per patient wishes Sepsis in the setting of chronic left diabetic foot ulcer Osteomyelitis - No fever - s/p debridement/I&D/bone biopsy on 12/08 - Wound vac in place - Wound culture 12/02: Pseudomonas pansensitive - Podiatry consulted aprec recommendations - ID consulted, appreciate recs currently on IV Cefepime and Daptomycin. Plan for a total of 4 weeks of IV. Comfort measures: patient decline further treatment with Abx Atrail fibrillation - - Hx of cardioversion. Current infection possible contributor - No recurrence of RVR since initiation of diltiazem - Metoprolol tartrate 50 mg BID - Eliquis for anticoagulation - Diltiazem drip transitioned to diltiazem 30 mg PO Anemia, stable today- stable Iron deficiency anemia - unknown etiology, no active bleeding - s/p 2 units of pRBCs - s/p Venofer Hypoxia - Not currently c/o SOB but oxygen need increased to 2 L - Continue to monitor Diabetes - last A1c 6.9% (10/2022); repeat ordered and was 7.2% - hold home metformin, glipizide - On Lantus and adjust SSI as needed HTN - Hold losartan and HCTZ Diet: carb consistent VTE ppx: Eliquis On Collado catheter Disposition: Comfort care Admission and Anticipated Discharge Date Admission Date: December 03, 2023 Physical Exam Physical Exam: General:Alert, no acute distress, HEENT: Normocephalic, moist oral mucosa, Cardio: Regular rate and rhythm, Resp:Lungs clear to auscultation b/l GI: Soft and nontender, nondistended, bowel sounds active Skin: Warm, pink, dry, LLE on wound VAC, edema Results & Data Results & Data Vital Signs (Past 12 Hours) Vital Signs Pulse O2 Del Method 12/25/23 21:50 90 12/25/23 20:18 Room Air
[2023-12-26] MEDS: LANTUS PER UNIT CHARGE SC SCH (08:25)
[2023-12-26] MEDS ORDERED: MoRPHine SULFATE 10 MG/ML CARP/VIAL IV PRN (08:53)
[2023-12-26] MEDS ORDERED: MoRPHine SULFATE 4 MG/ML 1 ML CARP\\VIAL IV PRN (08:53)
[2023-12-26] MEDS ORDERED: LANTUS PER UNIT CHARGE SC SCH (09:00)
[2023-12-26] MEDS ORDERED: ATROPINE SULFATE 1% OP SOLN 5 ML BTL PO PRN (09:04)
[2023-12-26] MEDS: MoRPHine SULFATE 10 MG/ML CARP/VIAL IV PRN (09:41)
--- NOTE | 2023-12-26 10:01 | Death Pronouncement Note ---
Date of Service December 26, 2023 Pronouncement Note Admission Date December 03, 2023 Date and Time of Date of : 12/26/23 Time of : 09:55 Contributing Factors informed by nursing that pt appeared to be imminently passing came to bedside - no response to stimuli, no heart tones/pulses, no breath sounds or spontaneous respirations. pupils fixed/dilated, nonreactive. time of 9:55am, 12/26/23 Additional Data Attending physician: Aj Roberts DO
--- NOTE | 2023-12-26 10:20 | Discharge Summary ---
Date of Service December 26, 2023 Admission HPI Per Admitting Provider Pt is a 78 yo female with PMH of chronic anemia, spinal meningioma, afib, left charcot foot, stroke (2019), and hypothyroidism presenting d/t left ankle pain. Pt states her left ankle was bothering her yesterday to the point that she could not walk. She has chronic arthritis/pain in her left ankle but the pain has never been this bad. Because of this, she called 911. She relays that she was told they could not leave her at home if she was unable to walk so she was brought to the ED. Pt did not take her home percocet because she only takes them at night to help with the pain overnight. She does have a chronic left foot wound for which she follows with the wound clinic weekly. She also has home health that comes to her house to help with dressing changes. In the ER, pt was given 2L NS, mag 1g, tylenol 1000mg x1, zosyn x1, vanco x1, percocet x1, and fentanyl 50 mcg x1. Principal Diagnosis Osteomyelitis DEXTER/ Anasarca Discharge Exam Constitutional Not responsive to stimuli Eyes + dilated pupils and + fixed pupils Respiratory Auscultation: + breath sounds absent no spontaneous respirations Cardiovascular No heart tones, no pulses Discharge Data Allergies Allergy/AdvReac Type Severity Reaction Status Date / Time animal dander Allergy Intermediate congestion Verified 11/26/23 13:06 pollen extracts Allergy Mild sneezing Verified 11/26/23 13:06 bacitracin Allergy Unknown neosporing-> Verified 11/26/23 13:06 rash latex Allergy Unknown blisters Verified 11/26/23 13:06 skin neomycin Allergy Unknown neosporins Verified 11/26/23 13:06 -> rash polymyxin B Allergy Unknown neosporins Verified 11/26/23 13:06 -> rash sulfabenzamide Allergy Unknown vaginal Verified 11/26/23 13:06 cream-> severe itch and irritation sulfacetamide Allergy Unknown vaginal Verified 11/26/23 13:06 cream-> severe itch and irritation sulfathiazole Allergy Unknown vaginal Verified 11/26/23 13:06 cream-> severe itch and irritation doxycycline AdvReac pt will Verified 11/26/23 13:06 not take due to potential side affects tramadol AdvReac Nausea, Verified 11/26/23 13:06 vomiting Consultations 12/03/23 04:49 ED Decision to Admit Stat 12/04/23 13:51 Consult Orthopedic Surgery Routine 12/05/23 10:37 Consult Podiatry Routine 12/08/23 11:35 Consult Vascular Surgery Routine 12/10/23 10:27 Consult Infectious Diseases Routine 12/11/23 11:22 Consult Nephrology Routine 12/16/23 14:34 Consult Vascular Surgery Routine 12/16/23 16:19 Consult Palliative Care Routine Procedures Performed Operation Date: 12/17/23 13:40 Actual Procedures p Insertion of Temporary Dialysis Catheter, Right Femoral Approach, Ultrasound Localization of Right Femoral Vein, Fluoroscopy for Positioning - Mark Hammer MD Ordered Studies 12/03/23 05:43 CT foot LT wo con Routine US arterial duplex LE BI Routine 12/15/23 08:21 US renal/blad retro comp Routine 12/17/23 10:42 EV cvc insert non tunnel Routine Hospital Course (1) Sepsis: (2) Diabetic foot ulcer: (3) Paroxysmal atrial fibrillation: (4) Osteoarthritis: (5) Hypertension: (6) Left ankle pain: (7) Hypoxia: (8) Pulmonary edema: (9) Anemia: (10) Hyperlipidemia: (11) Venous stasis ulcer: (12) Diabetes mellitus type 2, uncontrolled: (13) Elevated WBC count: (14) Anxiety: Plan Pt is a 78 yo female with PMH of chronic anemia, spinal meningioma, afib, left charcot foot, stroke (2019), and hypothyroidism presenting d/t left ankle pain. Patient was placed on comfort measures as per patient wishes on 12/24/23 Patient was pronounce at 9:55 am on 12/26/23. secondary to kidney failure, secondary to sepsis due to a chronic left diabetic foot ulcer and Osteomyelitis Family (Fernandez) and friends (Caity and Petar) were notified. AIN/DEXTER Oliguria Anasarca - ATN secondary to Sepsis vs AIN secondary to Zosyn - Nephro consulted - Had 2 HD over the weekend. - no response with steroids - Kidney function stable after dialysis Supportive care No further testing - Comfort measures only as per patient wishes Sepsis in the setting of chronic left diabetic foot ulcer Osteomyelitis - Post op debridement/I&D/bone biopsy on 12/08 - Wound vac in place - Wound culture 12/02: Pseudomonas pansensitive - Podiatry consulted aprec recommendations - ID consulted, appreciate recs s/p IV Cefepime and Daptomycin. Plan was for a total of 4 weeks of IV. Comfort measures: patient decline further treatment with Abx Atrail fibrillation - - Hx of cardioversion. Current infection possible contributor - No recurrence of RVR since initiation of diltiazem - Metoprolol tartrate 50 mg BID - Eliquis for anticoagulation - Diltiazem drip transitioned to diltiazem 30 mg PO Anemia, stable today- stable Iron deficiency anemia - unknown etiology, no active bleeding - s/p 2 units of pRBCs - s/p Venofer Hypoxia - Not currently c/o SOB but oxygen need increased to 2 L Diabetes - last A1c 6.9% (10/2022); repeat ordered and was 7.2% - hold home metformin, glipizide - On Lantus and adjust SSI as needed HTN - Hold losartan and HCTZ Total Time Total Time Spent Total Time Spent (In Minutes): <30 Discharge Plan Discharge Items Patient Disposition: Other Date/Time: 12/26/23 09:55 Supervising Physician Co-Signing Physician Notes I personally examined the patient and verified all cuello points of history and exam, discussed case, and agree with decision making with Dr James Jack Had new onset of difficulty with respiratory secretions and distress early this morningnursing worked diligently to alleviate the distress. Patient then passed 9:55 AM. Please see pronouncement note done by myself. Uncontrolled pain/comfort carecomfort measures only. While we are anticipating a slower decline and a time course commiserate with SNF/hospice, she over the last 12 hours declined quite precipitously and passed this a.m. For the purposes of clarification and documentationbelow in italics is in the last plan from when we were still in some semblance of a medically aggressive mode of care. Sepsis in the setting of chronic left foot diabetic ulcer/osteomyelitis, pr essure ulcer of left heel stage 3, afib -postop debridement - wound vac in place, cx 12/02 - pseudomonas, cx 12/08 - corynebacterium - ID suspect this is contaminant. -zosyn changed to cefepime for concern of AIN. Appreciate ID input in regards to antibiotics - For now continuing antibiotics, but holding off on further labs as per patient's wishes. Depending on how she leads our discussions in her goals of care, I would not be surprised if she does not want ongoing antibiotics, but obviously we will continue to discuss this further together DEXTER, not present upon admission Anasarca - likely due to ATN, considered AIN, but no response to steroids. Kidney function stable now days off of dialysis, continues to show renal recovery. Continue supportive care. no further testing per her desire. A fib with RVR - Now rate controlled, anticoagulated (needed diltiazem drip again) Hypoxia - Improving. Nonspecific/multifactorial, likely to a degree effort driven. DVT proph - apixaban
[2023-12-26] MEDS: SCOPOLAMINE 1 MG/72 HR TDSY PATCH TD SCH (10:28)
--- NOTE | 2023-12-26 12:33 | Billing Data ---
Date of Service December 26, 2023 Coding Level of Care Code 09507 IN/OBS DISCH 30 MIN/LESS
[2023-12-26] MEDS ORDERED: CHECK SCOPOLAMINE PATCH PLACEMENT SCH (16:00)
--- NOTE | 2023-12-29 22:34 | Operative Report ---
Post Operative Report Pre & Post Diagnosis preoperative diaagnosis: Left foot osteomyelitis Postoperative diagnosis: Left foot osteomyelitis I identified the patient and participated in the time-out.: Yes Procedure left foot incision and drainage of ulceration with bone biopsy Surgeon Dennis Palomares DPM Change Analyst None Estimated Blood Loss 5 Findings Consistent with Post-Op Diagnosis Specimens left foot bone and soft tissue were obtained Anesthesia Type MAC Complications none Disposition Accompanied Patient To Recovery: Yes Disposition: Recovery Room Indications this patient is a recent hospital consult of mine who was admitted with worsening left foot pain and infection. 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 She is not a great candidate for surgery, though because of the increased risk of sepsis from any underlying osteomyelitis, we did discuss that we could be beneficial to decrease infectious burden surgically. We did discuss that more definitively, she would benefit from a [id number]-qhod amputation, though this is a drastic measure as well. Patient elected, with discussion with her family and friends, for this incision and drainage at this time. Preoperative structures, postop instructions, relative risks, and outcomes were all discussed at length. Consent was obtained for this procedure for now. Description of Procedure the patient was brought to the operating room in [facility] on her inpatient medical bed in the supine position. Following administration of IV sedation, local analgesia was obtained utilizing 20 cc of half percent Marcaine plain in a local block fashion. The left lower extremity was then scrubbed, prepped, and draped in the usual aseptic manner. attention was directed to the plantar aspect of the left foot where a large ulceration was noted underneath the calcaneal cuboid joint. The ulceration immediately extended to the level of the bone which was noted to be clinically soft and likely nonviable. No dry gangrene was noted but the bone was spongy in nature. No purulence was expressed. The wound bed was healthier than expected but deeper and larger than expectedd as well. exhibit display representative samples of bone and soft tissue were obtained and sent for culture and pathology testing. The ulcer was flushed with copious amounts of sterile saline. The depth of the ulcer extended past 10 cm, likely through the body of the calcaneus to the dorsal aspect of the calcaneus. This was packed with iodoform gauze and dressed with Xeroform gauze, 4 x 4 gauze, Kerlix, and Bakari wrap. It should be noted that the Bakari wrap was only loosely applied as there was no significant bleeding or blood loss noted during the procedure. The patient tolerated the procedure well and was transferred to the recovery room with vital signs stable and vascular status intact to the feet. Following postoperative monitoring, the patient will be transferred back to the floor for further monitoring. She will likely require wound VAC if she is to attempt limb salvage, though more definitively would benefit from below the knee amputation. We will continue to follow her while she remains inpatient for now. I attest to the content of the Intraoperative Record and any orders documented therein. Any exceptions are noted below.
== END 2023-12-26 14:32 | disposition expired | DRG 853 ==
LOC: ED 01:38 → SUATTDRO 05:38 → EDINP 05:38 → 2N 12-04 06:12 → 2S 12-08 16:59